=== PATIENT | female | born 1955 | race Caucasian/White ===

== ENCOUNTER 2020-02-09 06:59 | Outpatient (REF) | payer MEDICARE, SELFPAY ==
[2020-02-09 07:58] LABS: MANUAL DIFF FLAG NO
[2020-02-09 08:13] LABS: Basophils Absolute Auto 0.1 X10*3/uL (0.0-0.2); Basophils Percent Auto 1.9 % (0-2); Eosinophils Absolute Auto 0.4 X10*3/uL (0.0-0.4); Eosinophils Percent Auto 7.1 % (0-4); Hematocrit 31.7 % (37-47); Hemoglobin 10.1 g/dl (12.0-16.0); Imm Gran Abs Auto 0.01 X10*3/uL (0.00-0.03); Imm Gran Pct Auto 0.2 % (0.0-0.4); Lymphocytes Absolute Auto 1.3 X10*3/uL (1.2-4.9); Lymphocytes Percent Auto 22.6 % (20-40); Mean Corpuscular HGB Conc 31.9 g/dl (31.0-35.0); Mean Corpuscular Volume 97.2 fL (80-98); Mean Platelet Volume 11.2 fL (9.4-12.3); Monocytes Absolute Auto 0.4 X10*3/uL (0.1-1.2); Monocytes Percent Auto 7.4 % (2-11); Neutrophils Absolute Auto 3.5 X10*3/uL (2.0-8.3); Neutrophils Percent Auto 60.8 % (45-73); Platelet Count 443 X10*3/uL (160-400); Red Blood Count 3.26 X10*6/uL (4.20-5.50); Red Cell Distribution Width 15.3 % (11.0-16.0); White Blood Count 5.7 X10*3/uL (4.8-10.8)
[2020-02-09 08:55] LABS: Alanine Aminotransferase 12 U/L (0-31); Albumin Level 4.4 g/dL (3.5-5.0); Alkaline Phosphatase 62 U/L (39-117); Anion Gap 12 (12-20); Aspartate Amino Transferase 18 U/L (5-31); Bilirubin Total 0.4 mg/dL (0.0-1.0); Blood Urea Nitrogen 9 mg/dL (9-16); Calcium 9.1 mg/dL (8.4-10.2); Carbon Dioxide 28 mmol/L (22-29); Chloride 104 mmol/L (96-108); Cholesterol 190 mg/dL; Estimated Glomerular Filt Rate > 60; Glucose Random 87 mg/dL (60-115); HDL Cholesterol 76 mg/dL; LDL Cholesterol Calculated 101 mg/dl; Potassium 4.4 mmol/l (3.3-5.1); Sodium 140 mmol/L (135-145); Triglycerides 68 mg/dL
[2020-02-09 09:10] LABS: HIV AB/AG Nonreactive (Nonreactive); HIV Num 1 0.05 S/CO (0.00-0.99); ~HepC Num1 0.07 S/CO (0.00-0.79); ~Hepatitis C Antibody Nonreactive (Nonreactive)
[2020-02-09 10:18] LABS: Thyroid Stimulating Hormone 0.47 mIU/mL (0.32-4.0); Vitamin D 25-OH Total 29.5 ng/mL (>30)
== END 2020-02-09 07:00 | disposition home or self-care (01) ==
LOC: HO.LAB 06:59
PROVIDERS: Visit Provider Internal Medicine
DX: Z11.59 Encounter for screening for other viral diseases (principal); Z11.4 Encounter for screening for human immunodeficiency virus [HIV]; K21.9 Gastro-esophageal reflux disease without esophagitis; Z80.0 Family history of malignant neoplasm of digestive organs; E78.00 Pure hypercholesterolemia, unspecified; R53.81 Other malaise; R53.83 Other fatigue; M79.10 Myalgia, unspecified site; E55.9 Vitamin D deficiency, unspecified
CPT/HCPCS: 36415; 80053; 80061; 82306; 82550; 84443; 85025; 86803; 87389

== ENCOUNTER 2020-02-27 06:49 | Outpatient (REF) | payer MEDICARE, SELFPAY ==
[2020-02-27 07:52] LABS: Hemoglobin 10.6 g/dl (12.0-16.0); Imm Gran Abs Auto 0.01 X10*3/uL (0.00-0.03); Imm Gran Pct Auto 0.2 % (0.0-0.4); MANUAL DIFF FLAG SCAN; Mean Corpuscular Volume 97.1 fL (80-98); NRBC Pct Auto 0.4 /100WBC (0.0-0.2); Neutrophils Absolute Auto 3.1 X10*3/uL (2.0-8.3); SCAN SMEAR FLAG 1
[2020-02-27 07:54] LABS: Basophils Absolute Auto 0.1 X10*3/uL (0.0-0.2); Basophils Percent Auto 2.1 % (0-2); Eosinophils Absolute Auto 0.2 X10*3/uL (0.0-0.4); Eosinophils Percent Auto 3.3 % (0-4); Hematocrit 33.4 % (37-47); Immature Retic Fraction 10.9 % (3.0-15.9); Lymphocytes Absolute Auto 1.4 X10*3/uL (1.2-4.9); Mean Corpuscular HGB Conc 31.7 g/dl (31.0-35.0); Mean Corpuscular Hemoglobin 30.8 pg (27.0-33.0); Mean Platelet Volume 11.4 fL (9.4-12.3); Monocytes Absolute Auto 0.4 X10*3/uL (0.1-1.2); Monocytes Percent Auto 8.4 % (2-11); Platelet Count 451 X10*3/uL (160-400); Red Blood Count 3.44 X10*6/uL (4.20-5.50); Red Cell Distribution Width 15.3 % (11.0-16.0); Retic HGB Equivalent 31.4 pg (30.0-35.0); Reticulocyte Percent 1.8 % (0.5-1.8); Reticulocytes Absolute 0.063 X10*6/uL (0.026-0.095); White Blood Count 5.2 X10*3/uL (4.8-10.8)
[2020-02-27 08:00] LABS: Estimated Average Glucose 103 mg/dL; Hemoglobin A1c % 5.2 %
[2020-02-27 08:07] LABS: Glucose Urine UA NEG (NEG); Leukocyte Esterase Urine NEG (NEG); Nitrite Urine NEG (NEG); PH 6.5 (5.0-8.0); Specific Gravity - Urine 1.015 (1.005-1.025); Urine Blood NEG (NEG); Urine Ketones NEG (NEG); Urine Protein NEG (NEG-TRACE)
[2020-02-27 08:09] LABS: Appearance Urine CLEAR; Color Urine YELLOW
[2020-02-27 08:27] LABS: Iron 134 mcg/dL (30-160); Lactate Dehydrogenase 152 U/L (122-220); Percent Iron Saturation 39 % (15-50); Total Iron Binding Capacity 341 mcg/dL (228-428); Unsaturated Iron Binding 207 ug/dL
[2020-02-27 08:34] LABS: SLIDE REVIEW VERIFIED
[2020-02-27 08:35] LABS: Ferritin 196 ng/mL (10-250)
[2020-02-27 08:57] LABS: Folate 19.2 ng/mL (> or = 4.0); Vitamin B12 1445 pg/mL (200-900)
[2020-03-01 21:21] LABS: Prot Elec - Albumin 4.6 g/dL (3.8-4.8); Prot Elec - Alpha1 0.3 g/dL (0.2-0.3); Prot Elec - Alpha2 0.7 g/dL (0.5-0.9); Prot Elec - Beta 1 0.5 g/dL (0.4-0.6); Prot Elec - Beta 2 0.5 g/dL (0.2-0.5); Prot Elec - Gamma 0.9 g/dL (0.8-1.7); Prot Elec - Total Protein 7.4 g/dL (6.1-8.1)
[2020-03-02 09:42] LABS: IgA 476 mg/dL (70-320); IgG 899 mg/dL (600-1540); IgM 64 mg/dL (50-300)
== END 2020-02-27 06:50 | disposition home or self-care (01) ==
LOC: HO.LAB 06:49
PROVIDERS: Visit Provider Internal Medicine
DX: D64.9 Anemia, unspecified (principal); R35.1 Nocturia
CPT/HCPCS: 36415; 81003; 82607; 82728; 82746; 82784; 83036; 83540; 83615; 84155; 84165; 85025; 85045; 86334

== ENCOUNTER 2020-06-18 07:02 | Day surgery (SDC) | payer MEDICARE, SELFPAY ==
[2020-06-14 15:12] VITALS: BMI 24.9
[2020-06-18 07:14] VITALS: BP 124/58; PULSE 92; RESP 20; TEMP 36.6; O2SAT 98
--- NOTE | 2020-06-18 07:54 | HO.ANESPROP2 ---
[facility] Past Medical History Medical History (Updated 06/14/20 @ 15:12 by Mayte Raygoza) DJD (degenerative joint disease) GERD (gastroesophageal reflux disease) Hx of degenerative disc disease Weakness of both legs Family History Family history of problems with anesthesia: No Surgical History Surgical History (Updated 06/14/20 @ 15:12 by Mayte Raygoza) History of back surgery History of blepharoplasty History of loop electrical excision procedure (LEEP) Hx of colonoscopy Hx of hand surgery Hx of knee surgery History of Problems with Anesthesia: No Social History Social History (Updated 06/14/20 @ 15:07 by Mayte Raygoza) Smoking Status: Former smoker Tobacco Type: E-Cigarette Smoking Quit Date: 2009 Use of substances other than those prescribed or required for medical reasons: No Advance Directives: No Advance Directives Information Provided: No Advance Directives on File: No Meds Allergies Allergy/AdvReac Type Severity Reaction Status Date / Time Codeine Allergy Intermediate itching Uncoded 06/14/20 15:08 Home Medications Medication Instructions Recorded Confirmed Last Taken Type oxycodone-acetaminophen 1 tab PO Q4H PRN 06/14/20 06/18/20 06/18/20 History Exam Exam Date and Time: June 18, 2020 0754 Height,Weight and Vital Signs: Height 5 ft 4 in Weight 65.771 kg Last Vital Signs Temp 98 F 06/18/20 07:14 Pulse 92 06/18/20 07:14 Resp 20 06/18/20 07:14 BP 124/58 L 06/18/20 07:14 Pulse Ox 98 06/18/20 07:14 Airway Mallampati Class: III TM Dist: >3cm Neck ROM: Full Heart: RRR Lungs: CTAB Assessment and Plan Assessment Anesthesia Assessment: Anesthesia Plan Discussed and Chart Reviewed Final Anesthetic Review NPO: Yes ASA Class: II Final Preanesthetic Review: No Changes in Pt Med Stat, Meds/Allgs Chart Reviewed, Consent Obtained/Reviewed and Anes Risks/Benef Reviewed Patient Risk: Low Procedure Risk: Low Assessment/Block/Sedation in SS: Assess/Block/Sedation-SS Anesthetic Plan Anesthetic Plan: MAC: Disposition: Standard PACU
--- NOTE | 2020-06-18 08:01 | MHC.SHP ---
Pre-Procedural Eval Section B Chief Complaint: reflux disease Details of Present Illness: see H&P no changes Relevant Family History (Specify if Yes): Yes Relevant Social History: None Present Medications: see Short Stay Collaborative assessment Medical History: No relevant PMH History of Previous Operations: No relevant previous surgery Allergies: Allergies Allergy/AdvReac Type Severity Reaction Status Date / Time Codeine Allergy Intermediate itching Uncoded 06/14/20 15:08 Review of Systems Sugical H&P ROS: Negative: Constitution, Cardiovascular, Respiratory, Neurological, Psychiatric, Hem-Onc, Allergic/Immunologic, Gastrointestinal, Genitourinary, Musculoskeletal, Integumentary, Endocrine and Eyes/Ears/Nose/Throat Exam Surgical H&P Exam: Normal: HEENT, Normal: Heart, Normal: Lungs, Normal: Extremities, Normal: Abdomen, Normal: Skin and Normal: Neurological Plan Diagnosis/Plan: Unchanged I have reviewed the history and physical and performed a pertinent physical examination on my patient. No changes have occurred unless specified.
[2020-06-18] MEDS: Lactated Ringers 1,000 ML 100 ML IVCONT (08:04)
--- NOTE | 2020-06-18 08:21 | PM.OP ---
Brief Operative Note Date of Service: 06/18/20 Pre-op diagnosis: gerd Post-op diagnosis: same Procedure: egd Surgeon: Gunner العلي Anesthesia: MAC Estimated blood loss (mL): 3 Pathology: other (bxs antrum egj) Condition: stable Disposition: PACU
[2020-06-18 08:25] VITALS: BP 106/62; PULSE 85; RESP 14; TEMP 36.5; O2SAT 100
[2020-06-18 08:40] VITALS: BP 132/63; PULSE 81; RESP 18; O2SAT 100
--- NOTE | 2020-06-18 09:09 | OP_ITS ---
SURGEON: Gunner العلي MD INDICATIONS: Gastroesophageal reflux disease. PREOPERATIVE DIAGNOSIS: POSTOPERATIVE DIAGNOSIS: PROCEDURE PERFORMED: Upper endoscopy with biopsy. ESTIMATED BLOOD LOSS: COMPLICATIONS: ANESTHESIA: ASSISTANTS: SPECIMENS: MEDICATIONS: Monitored anesthesia care. DESCRIPTION OF PROCEDURE: History and physical performed. The risks and benefits of the procedure were explained to the patient. Informed consent was obtained. The patient was placed in the left lateral decubitus position. The Olympus video gastroscope was introduced into the esophagus, stomach, and duodenum. Examination was performed and the scope was removed. She tolerated the procedure well and was taken to recovery area in stable condition. FINDINGS: ESOPHAGUS: The esophagus showed a slightly irregular EG junction. There was no esophagitis. STOMACH: Stomach showed no evidence of masses, ulcers, or polyps. DUODENUM: The bulb and second portion were normal. Biopsies were obtained from the antrum and the EG junction. IMPRESSION: Gastroesophageal reflux disease, normal upper endoscopy. RECOMMENDATION: Follow up the biopsy results. MD JAGRUTI Walters/MODL / [id number]
== END 2020-06-18 09:18 | disposition home or self-care (01) ==
PROVIDERS: PCP Internal Medicine; Visit Provider Internal Medicine Gastroenterology
PROC: 0DJ08ZZ Inspection of Upper Intestinal Tract, Via Natural or Artificial Opening Endoscopic (ICD-10-PCS; CPT 43235; principal; 2020-06-18 08:10)
DX: K21.9 Gastro-esophageal reflux disease without esophagitis (principal); Z80.0 Family history of malignant neoplasm of digestive organs; F17.210 Nicotine dependence, cigarettes, uncomplicated; Z79.899 Other long term (current) drug therapy
CPT/HCPCS: 43239; 88305; 88342

== ENCOUNTER 2021-01-26 08:09 | Outpatient (REF) | payer MEDICARE, SELFPAY ==
--- NOTE | ~2021-01-26 | MM_ITS ---
EXAMINATION: MM SCREENING DIGITAL BREAST TOMOSYNTHESIS, BILATERAL CLINICAL INFORMATION: Screening. Asymptomatic. The lifetime risk of breast cancer based on the Tyrer-Cuzick Model is 8%. COMPARISON: Mammography: 10/31/2019, 08/12/2018, 06/22/2017 TECHNIQUE: Digital breast tomosynthesis is performed in both the craniocaudal and mediolateral oblique views along with computer-aided detection (CAD). Synthesized 2D images are generated from the tomosynthesis. Additional left CC view is provided. FINDINGS: There are scattered areas of fibroglandular density (ACR BI-RADS breast composition Category b). There are no significant masses, abnormal calcifications, or other abnormalities. Parenchymal pattern is similar to prior studies. There are intramammary nodes again seen outer left breast and posterior central left breast on the CC view. No developing density. MM/MM tomosynthesis screening BI IMPRESSION: No mammographic evidence of malignancy. ASSESSMENT: BI-RADS 2: Benign RECOMMENDATION: Routine annual mammography screening. This patient's information was entered into a reminder system with a target due date for their next mammogram.
== END 2021-01-26 08:10 | disposition home or self-care (01) ==
LOC: HO.MAMMO 08:09
PROVIDERS: PCP Internal Medicine; Visit Provider Internal Medicine
DX: Z12.31 Encounter for screening mammogram for malignant neoplasm of breast (principal)
CPT/HCPCS: 77063; 77067

== ENCOUNTER → 2021-08-02 09:03 | Outpatient (BNVA) | payer MEDICARE, SELFPAY | PROVIDERS: PCP Internal Medicine; Visit Provider Nurse Practitioner Family | DX: M96.1 Postlaminectomy syndrome, not elsewhere classified (principal); M54.16 Radiculopathy, lumbar region; Z79.891 Long term (current) use of opiate analgesic | CPT/HCPCS: 99202 ==

== ENCOUNTER 2022-01-27 08:25 | Outpatient (REF) | payer MEDICARE, SELFPAY ==
--- NOTE | ~2022-01-27 | MM_ITS ---
EXAMINATION: MM SCREENING DIGITAL BREAST TOMOSYNTHESIS, BILATERAL CLINICAL INFORMATION: Screening. Asymptomatic. The lifetime risk of breast cancer based on the Tyrer-Cuzick Model is 6%. COMPARISON: Mammography: 01/26/2021, 10/31/2019, 08/12/2018 TECHNIQUE: Digital breast tomosynthesis is performed in both the craniocaudal and mediolateral oblique views along with computer-aided detection (CAD). Synthesized 2D images are generated from the tomosynthesis. FINDINGS: There are scattered areas of fibroglandular density (ACR BI-RADS breast composition Category b). There are no significant masses, abnormal calcifications, or other abnormalities. Parenchymal pattern is similar to prior studies. There is no developing density or architectural abnormality. The axilla and skin contours are unremarkable. No significant changes. MM/MM tomosynthesis screening BI IMPRESSION: No significant changes from prior exams. ASSESSMENT: BI-RADS 2: Benign RECOMMENDATION: Routine annual mammography screening. This patient's information was entered into a reminder system with a target due date for their next mammogram.
== END 2022-01-27 08:26 | disposition home or self-care (01) ==
LOC: HO.MAMMO 08:25
PROVIDERS: PCP Internal Medicine; Visit Provider Internal Medicine
DX: Z12.31 Encounter for screening mammogram for malignant neoplasm of breast (principal)
CPT/HCPCS: 77063; 77067

== ENCOUNTER 2022-02-27 09:27 | Outpatient (REF) | payer MEDICARE, SELFPAY ==
--- NOTE | ~2022-02-27 | US_ITS ---
EXAMINATION: US DIAGNOSTIC ULTRASOUND BREAST, RIGHT CLINICAL INFORMATION: Palpable concern noted by patient lower outer right breast with intermittent tenderness. TC score 6%. No known family history breast cancer. COMPARISON: Mammography 01/27/2022, 01/26/2021, 10/31/2019. TECHNIQUE: Ultrasound right breast is targeted to the areas of clinical concern 5:00 through 9:00 position using grayscale imaging without and with harmonics and color Doppler. FINDINGS: There is no focal suspicious finding. There is no cystic or solid mass, architectural abnormality, duct ectasia, or edema in the soft tissue planes. There is no mammographic correlate on recent imaging. Results are discussed with the patient at time of visit. US/US breast RT limited IMPRESSION: Unremarkable right breast ultrasound. ASSESSMENT: BI-RADS 1: Negative RECOMMENDATION: 1. Patient should be managed based on the clinical impression. If clinically indicated, further evaluation may be considered with surgical consult. Decision to proceed with biopsy should be based on clinical grounds and degree of clinical concern. 2. Otherwise, routine annual screening mammography. This patient's information was entered into a reminder system with a target due date for their next mammogram.
== END 2022-02-27 09:28 | disposition home or self-care (01) ==
LOC: HO.MAMMO 09:27
PROVIDERS: PCP Internal Medicine; Visit Provider Internal Medicine
DX: N63.15 Unspecified lump in the right breast, overlapping quadrants (principal); N64.4 Mastodynia
CPT/HCPCS: 76642

== ENCOUNTER → 2022-03-23 11:29 | Outpatient (BNVA) | payer MEDICARE, MEDICAID, SELFPAY | PROVIDERS: PCP Internal Medicine; Visit Provider Surgery | DX: N64.4 Mastodynia (principal); N63.15 Unspecified lump in the right breast, overlapping quadrants | CPT/HCPCS: 99202 ==

== ENCOUNTER 2023-03-13 08:12 | Outpatient (REF) | payer MEDICARE, MEDICAID, SELFPAY | END 2023-03-13 08:13 | disposition home or self-care (01) | LOC: HO.MAMMO 08:12 | PROVIDERS: PCP Internal Medicine; Visit Provider Internal Medicine | DX: Z12.31 Encounter for screening mammogram for malignant neoplasm of breast (principal) | CPT/HCPCS: 77063; 77067 ==

== ENCOUNTER → 2023-03-13 08:15 | Outpatient (BNV) | payer MEDICARE, MEDICAID, SELFPAY | PROVIDERS: PCP Internal Medicine; Visit Provider Radiology Diagnostic Radiology | DX: Z12.31 Encounter for screening mammogram for malignant neoplasm of breast (principal) | CPT/HCPCS: 77063; 77067 ==

== ENCOUNTER 2023-05-23 11:17 | Outpatient (AMB) | payer MEDICARE, MEDICAID, SELFPAY ==
--- NOTE | 2023-05-23 11:24 | MHC.OFFVIS ---
Intake Vital Signs 05/23/23 11:27 Height 5 ft 3 in Weight 127 lb BMI 22.5 BP 130/70 Intake Visit Reasons: Annual Intake Note: no concerns Hand Binder Cutter Required: No Information Interpreted: non-clinical & clinical Game Bird Farmer: Game Bird Farmer Present (Elena MALIK) Accompanied by: Self / Same As Patient Allergies Codeine Allergy (Intermediate, Uncoded 05/23/23 11:28) itching Post menopausal: Yes HPI HPI Comments History of Present Illness Details Presenting for annual exam. No complaints. 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 GERD (gastroesophageal reflux disease) Hx of degenerative disc disease DJD (degenerative joint disease) Weakness of both legs Surgical History History of loop electrical excision procedure (LEEP) History of blepharoplasty Hx of hand surgery Hx of knee surgery Hx of colonoscopy History of back surgery Family History Mother Esophagus cancer Sister Lung cancer Social History (Updated 05/23/23 @ 11:35 by Elena Aldridge CMA) Household Members: Spouse Housing: House Alcohol intake: current Alcohol intake frequency: holidays/special occasions only Patient Tobacco Use Status: Former Tobacco user Years Smoked: 10 Current occupational status: disabled Sexually active: Yes Sexual orientation: Straight/Heterosexual Gender identity: Female Female Reproductive History Menstrual Age of Menarche: 18 Total pregnancies: 3 Full term: 3 Number of Living Children: 2 Date of last pap smear: 09/15/19 Date of Mammogram: 03/13/23 Review of Systems Const All systems reviewed & are unremarkable except as noted in HPI and below Card Reports as per HPI Resp Reports as per HPI GI Reports as per HPI and Reports no additional complaints Reports as per HPI Physical Exam Vital Signs: Last Vital Signs BP 130/70 05/23/23 11:27 BMI result Body Mass Index 22.5 Const General: cooperative, healthy appearing and comfortable Chest Chest palpation & inspection: normal inspection of the chest and normal palpation of entire chest wall Breast/axilla inspection: normal inspection of the breasts and normal inspection of the axillae Breast/axilla palpation: normal palpation of the breasts, normal palpation of the axillae and no axillary lymphadenopathy Resp Effort & Inspection: normal respiratory effort Auscultation: clear to auscultation bilaterally Percussion: percussion normal Cardio Palpation: normal PMI Rate: regular rate Rhythm: regular rhythm Heart sounds: no murmurs and no rubs Peripheral pulses: Peripheral pulses 2+ throughout GI Inspection: Yes normal to inspection Palpation (GI): Soft to palpation, nontender, no guarding, not rigid and No hepatosplenomegaly present Percussion: Yes normal to percussion Auscultation: normal bowel sounds Rectal Exam - Female: deferred General: Yes bladder normal to palpation External Female Exam: No lesion Speculum Exam - Vagina: normal appearance of the vagina, normal palpation, normal vaginal discharge and not erythematous Speculum Exam - Cervix: normal appearance of the cervix and normal palpation Bimanual exam- vagina & uterus: normal bimanual exam, normal palpation, uterine size normal, bladder normal to palpation, consistency normal and normal palpation Bimanual Exam- Adnexa, other: normal adnexae, no masses and no tenderness Assessment & Plan Assessment & Plan (1) Well woman exam: Code(s): Z01.419 - Encounter for gynecological examination (general) (routine) without abnormal findings Plan: Co testing not indicated since the patient 's age is above 65 with no history of abnormal Pap smears last 25 years. Counseled the patient about the recommended dietary allowance of 1200 mg of Calcium & 800 IU of vitamin D. Instructions given the patient to schedule next screen Mammogram in 03/09. Will order DEXA scan . The patient was instructed to perform monthly self-breast exams and to schedule a 2 week DEXA scan follow-up appointment and an annual exam in a year; All questions answered and the patient verbalized understanding. Orders: Orders XR DEXA axial skeleton Today Z78.0 - Asymptomatic menopausal state Coding Level of Care Code Est Pt Prev Care >65y(20323) Diagnoses Well woman exam Z01.419
[2023-05-23 11:27] VITALS: BP 130/70; BMI 22.5
== END 2023-05-23 11:51 | disposition home or self-care (01) ==
LOC: HO.HWS 11:17
PROVIDERS: PCP Internal Medicine; Visit Provider Obstetrics & Gynecology
DX: Z01.419 Encounter for gynecological examination (general) (routine) without abnormal findings (principal)
CPT/HCPCS: 99397

== ENCOUNTER → 2023-05-23 11:17 | Outpatient (BNVA) | payer MEDICARE, MEDICAID, SELFPAY | PROVIDERS: PCP Internal Medicine; Visit Provider Obstetrics & Gynecology | DX: Z01.419 Encounter for gynecological examination (general) (routine) without abnormal findings (principal) | CPT/HCPCS: 99397 ==

== ENCOUNTER 2023-06-07 08:25 | Outpatient (REF) | payer MEDICARE, MEDICAID, SELFPAY ==
--- NOTE | ~2023-06-07 | MM_ITS ---
EXAMINATION: BONE DENSITOMETRY CLINICAL INDICATION: Menopause. COMPARISON: This is the patient's baseline examination. TECHNIQUE: Using a [employer] DXA System (software version: 13.1) manufactured by [employer], dual-energy x-ray absorptiometry was performed of the lumbar spine and left hip. The images are of good technical quality. Summary results are attached. FINDINGS: LEFT FEMUR, NECK: BMD 0.749 g/cm2, Z-score -0.4, T-score -2.1, osteopenia. LEFT FEMUR, TOTAL: BMD 0.777 g/cm2, Z-score -0.4, T-score -1.8, osteopenia. AP SPINE L1-L4: BMD 0.848 g/cm2, Z-score -0.9, T-score -2.8, osteoporosis. IDENTIFIED RISK FACTORS: Early menopause, height loss, rheumatoid arthritis, secondary osteoporosis. HISTORY OF FRACTURE: None listed. MEDICATIONS: Multivitamin. MM/XR DEXA axial skeleton IMPRESSION: 1. DIAGNOSIS: Osteoporosis based on the lowest T-score value of -2.8 in the lumbar spine applying World Health Organization criteria. 2. 10-YEAR FRACTURE RISK PREDICTION, FRAX: According to the guidelines, FRAX calculation should only be performed on patients in the osteopenia bone density category. Therefore, FRAX was not performed on this patient. 3. Treatment Recommendations: NOF guidelines recommend consideration for treatment in postmenopausal women and men age 50 and older presenting with the following: -A hip or vertebral (clinical or morphometric) fracture. -T-score less than or equal to -2.5 at the femoral neck or spine after appropriate evaluation to exclude secondary causes. -Low bone mass at the hip or spine and a 10-year fracture probability by FRAX of greater than or equal to 3% for hip fracture or greater than or equal to 20% for major osteoporotic fracture based on the [place] adapted WHO algorithm. 4. Other Recommendations: All treatment decisions require clinical judgment and consideration of individual patient factors, including patient preferences, comorbidities, previous drug use, risk factors not captured in the FRAX model (e.g. frailty, falls, vitamin D deficiency, increased bone turnover, interval significant decline in bone density) and possible under or overestimation of fracture risk by FRAX. Additional medical evaluation for secondary cause of low bone mineral density may be appropriate. FUTURE SCAN RECOMMENDATION: People with diagnosed cases of osteoporosis or at high risk for fracture should have regular bone mineral density tests. For patients eligible for Medicare, routine testing is allowed once every 2 years. The testing frequency can be increased to one year for patients who have rapidly progressing disease, those who are receiving or discontinuing medical therapy to restore bone mass, or have additional risk factors.
== END 2023-06-07 08:26 | disposition home or self-care (01) ==
LOC: HO.MAMMO 08:25
PROVIDERS: PCP Internal Medicine; Visit Provider Obstetrics & Gynecology
DX: Z13.820 Encounter for screening for osteoporosis (principal); M06.9 Rheumatoid arthritis, unspecified; Z78.0 Asymptomatic menopausal state
CPT/HCPCS: 77080

== ENCOUNTER 2023-09-12 10:37 | Outpatient (AMB) | payer MEDICARE, SELFPAY ==
--- NOTE | 2023-09-12 10:45 | MHC.OFFVIS ---
Vital Signs 09/12/23 10:47 Height 5 ft 3 in Weight 125 lb 10.616 oz BMI 22.3 BP 124/66 Intake Visit Reasons: Dexa results Allergies Codeine Allergy (Intermediate, Uncoded 05/23/23 11:28) itching HPI Comments Details: The patient is presenting for follow up regarding DEXA scan results. T score @ spine and femoral Neck respectively were=-2.8 /-2.1 . 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 GERD (gastroesophageal reflux disease) Hx of degenerative disc disease DJD (degenerative joint disease) Weakness of both legs Surgical History History of loop electrical excision procedure (LEEP) History of blepharoplasty Hx of hand surgery Hx of knee surgery Hx of colonoscopy History of back surgery Family History Mother Esophagus cancer Sister Lung cancer Social History Household Members: Spouse Housing: House Alcohol intake: current Alcohol intake frequency: holidays/special occasions only Patient Tobacco Use Status: Former Tobacco user Years Smoked: 10 Current occupational status: disabled Sexual orientation: Straight/Heterosexual Gender identity: Female Female Reproductive History Menstrual Age of Menarche: 18 Review of Systems Const All systems reviewed & are unremarkable except as noted in HPI and below Reports as per HPI and Reports no additional complaints GI Reports no additional complaints Reports no additional complaints Physical Exam Vital Signs: Last Vital Signs BP 124/66 09/12/23 10:47 BMI result Body Mass Index 22.3 Assessment & Plan Assessment & Plan (1) Osteoporosis: Code(s): M81.0 - Age-related osteoporosis without current pathological fracture Category: Medical Plan: Discussed with the patient the DEXA results and FRAX risk. Discussed with the patient all the options for therapeutic treatment including mechanism of actions, risks and benefits of Bisphosphonates (benefits=osteoporosis prevention; Risks=GERD, osteonecrosis of jaw), Raloxifene, (benefits=osteoporosis prevention and breast ca risk reduction; Risks=DVT), Forteo. The patient decided to go ahead with Fosamax so instructions given to the pt on how to take the med: NPO x 30 minutes, large amount of water , stay upright x 30 minutes, inform her dentist of alendronate intake in case invasive dental work. Also Caltrate+D 600 mg x2/day was recommended to the patient. Medications: New alendronate 70 mg PO QWEEK 14 tabs 3RF Coding Level of Care Code Est Pt Level 3 (47583) Diagnoses Osteoporosis M81.0
[2023-09-12 10:47] VITALS: BP 124/66; BMI 22.3
== END 2023-09-12 12:16 | disposition home or self-care (01) ==
PROVIDERS: PCP Internal Medicine; Visit Provider Obstetrics & Gynecology
DX: M81.0 Age-related osteoporosis without current pathological fracture (principal)
CPT/HCPCS: 99213

== ENCOUNTER → 2023-09-12 10:37 | Outpatient (BNVA) | payer MEDICARE, MEDICAID, SELFPAY | PROVIDERS: PCP Internal Medicine; Visit Provider Obstetrics & Gynecology | DX: M81.0 Age-related osteoporosis without current pathological fracture (principal) | CPT/HCPCS: 99212 ==

== ENCOUNTER 2024-04-12 09:11 | Outpatient (REF) | payer MEDICARE, SELFPAY | END 2024-04-12 09:12 | disposition home or self-care (01) | LOC: HO.MAMMO 09:11 | PROVIDERS: PCP Internal Medicine; Visit Provider Internal Medicine | DX: Z12.31 Encounter for screening mammogram for malignant neoplasm of breast (principal) | CPT/HCPCS: 77063; 77067 ==

== ENCOUNTER → 2024-04-12 09:15 | Outpatient (BNV) | payer MEDICARE, SELFPAY | PROVIDERS: PCP Internal Medicine; Visit Provider Internal Medicine | DX: Z12.31 Encounter for screening mammogram for malignant neoplasm of breast (principal) | CPT/HCPCS: 77063; 77067 ==

== ENCOUNTER 2024-07-10 08:24 | Outpatient (REF) | payer MEDICARE, SELFPAY ==
--- NOTE | ~2024-07-10 | MR_ITS ---
EXAMINATION: MR BREAST WITHOUT AND WITH CONTRAST, BILATERAL CLINICAL INFORMATION: Right breast soreness constant for 3 years. 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 COMPARISON: Mammography March and October 2019 TECHNIQUE: MR imaging of the breast was performed using T1, T2 and fat saturated techniques. Dynamic multiphase imaging was also performed after administration of intravenous gadolinium contrast agent. Computer generated 3-D reconstruction was performed. FINDINGS: There is scattered fibroglandular breast tissue with mild background enhancement. LEFT BREAST: No suspicious enhancing masses or areas of nonmass enhancement. No architectural distortion. Susceptibility artifact from marker clip. There is a normal-appearing intramammary lymph node in the lower outer left breast series 1058 image 112/144 stable and seen on prior mammography dating back to 2019. No internal mammary or axillary adenopathy. RIGHT BREAST: No suspicious enhancing masses or areas of nonmass enhancement. No architectural distortion. No internal mammary or axillary adenopathy. Limited views of the chest and abdomen are unremarkable. MR/MR breast BI wo/w con IMPRESSION: Patient describes right breast pain. A diagnostic mammogram and ultrasound should be performed if there is focal pain. No MRI evidence of malignancy bilateral breasts. ASSESSMENT: LEFT BREAST: BI-RADS 2 benign. RIGHT BREAST: BI-RADS 1-Negative RECOMMENDATIONS: Yearly screening mammography Electronically signed by: Mary Salinas DO 07/11/2024 05:41 PM EDT
--- OUTSIDE RECORDS SUMMARY | 2024-07-10 08:51 | XMS_ITS ---
Author Organization [facility] Address [address] [place] [address] Care Team Providers Care Art Psychotherapist Name Role Phone Enio Morales MD Primary Care Provider Gunner Sebastian Jr Unavailable Allergies Allergen (clinical drug ingredient) Drug/Non Drug Allergy documented on EMR Reaction Allergy Type Onset Date Status Codeine Phosphate Unknown Drug Allergy Active REASON FOR VISIT Patient presents today for a colon screening Medications Medication SIG (Take, Route, Frequency, Duration) Notes Start Date End Date Status Tylenol 1 tablet as needed a s needed Active Womens 50+ Multi Vitamin - as directed Orally Active oxyCODONE-Acetaminophen Active Vitamin C 1000 MG 1 tablet Orally Once a day Active Epoetin Rito 29343 UNIT/ML as directed Injection Active amLODIPine Besylate 5 MG Oral for 90 Days Active Fish Oil 1000 MG 1 capsule Orally Thr ee times a day Active oxyCODONE-Acetaminophen 10-325 MG TAKE 1 TABLET BY MOUTH EVERY 4 HOURS NEEDED FOR PAIN. NOT TO EXCEED 6 TABLETS DAILY. PARTIALFILLOK Oral for 28 Days Active Magnesium 400 MG as directed Orally Active diphenhydrAMINE HCl 25 MG 1 capsule at b edtime as needed Orally Once a day for 30 day(s) 07/07/2024 Active Pantoprazole Sodium 40 MG Oral for 90 Days Active buPROPion HCl ER (XL) 300 MG TAKE 1 TABLET BY MOUTH EVERY MORNING. TOTAL OF 450MG DAILY Oral for 90 Days Active Social History Tobacco Use: Social History Observation Description Date Details (start date - stop date) Former Smoker NA - NA Tobacco Control (Standard) Question Answer Notes Tobacco use: Former smoker Vital Signs Temperature 96.5 degrees Fahrenheit 07/08/19 25 Blood pressure systolic 001 mm Hg 03/24/20 25 Blood pressure diastolic 01 mm Hg 025 Height 65 in 07/07/2024 Weight 135 lbs 07/07/2024 BMI 22.46 kg/m2 07/07/2024 Encounters Encounter Location Date Provider Diagnosis [facility] [address] [place] [address] 07/07/2024 Gunner العلي Jr Colon cancer screening Z12.11 Assessments Encounter Date Diagnosis (ICD Code) Assessment Notes Treatment Notes Treatment Clinical Notes Section Notes 07/07/2024 Colon cancer screening (ICD-10 - Z12.11) Plan Of Treatment Future Test Test Name Order Date COLONOSCOPY 07/07/2024 Next Appt Details Provider Name:Gunner contreras Jr, 08/26/2024 07:30:00 AM, [address] [place] [address], [id number], Progress Notes * KING HEWITT MDOB:[birth year] (69 yo F)Acc No.[id number]:07/07/2024 Progress Notes 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 Patient presents today for a colon screening. * Medical History:?Colon polyp s, tubular adenoma x1 on colonoscopy 11/02, five-year followup 11/07, degenerative joint disease, Cervical cancer, Disc disease, Bone marrow cancer, Myelodysplasia, Thrombocytosis. * Surgical History:?eye surger y , knee surgery , hand surgery , back surgery, recent infection, currently on antibiotics 04/19/2020. * Family History:?Father: dece ased.?Mother: , esophagus cancer.? The patient has a negative family history for colon cancer.? No family history of liver cancer. Mother and sister had esophageal cancer. * Social History:?Tobacco Use:?Tobacco Control (Standard)?Tobacco use:?Former smoker.?Drugs/Alcohol:?Alcohol Screen?Points: 1, Interpretation: Negative.?Miscellaneous:?Marital status: . Occupation: disabled. * Medications:?Taking Epoetin Rito 39714 UNIT/ML Solution as directed Injection , Taking Fish Oil 1000 MG Capsule 1 capsule Orally Three times a day , Taking Magnesium 400 MG Capsule as directed Orally , Taking Womens 50+ Multi Vitamin - Tablet as directed Orally , Taking oxyCODONE-Acetaminophen , Taking Vitamin C 1000 MG Tablet 1 tablet Orally Once a day , Taking Tylenol 1 tablet as needed as needed , Taking diphenhydrAMINE HCl 25 MG Capsule 1 capsule at bedtime as needed Orally Once a day , Taking Pantoprazole Sodium 40 MG Tablet Delayed Release Oral , Taking buPROPion HCl ER (XL) 300 MG Tablet Extended Release 24 Hour TAKE 1 TABLET BY MOUTH EVERY MORNING. TOTAL OF 450MG DAILY Oral , Taking amLODIPine Besylate 5 MG Tablet Oral , Taking oxyCODONE-Acetaminophen 10-325 MG Tablet TAKE 1 TABLET BY MOUTH EVERY 4 HOURS NEEDED FOR PAIN. NOT TO EXCEED 6 TABLETS DAILY. PARTIALFILLOK Oral , Discontinued Cephalexin , Medication List reviewed and reconciled with the patient * Allergies:?Codeine Phosphate . Objective: * Vitals:?Wt: 135 lbs, Ht: 65 in, BMI: 22.46 Index, BP: 001/01 mm Hg, Temp: 96.5, Wt-k.24. Assessment: * Assessment: 1.?Colon cancer screening - Z12.11 (Primary)??? Plan: * Treatment: * Preventive Medicine:? ??Urinary Incontinence:?Urinary Incontinence?Assessment:?Absent,?Plan of care documented:?No, reason not specified.? ??Screenings:?Fall Risk Screening?Fall Risk Assessment:?No falls in the past year,?Screening:?No falls in the past year,?Assessment:?Not performed, no reason specified,?Plan of Care:?Not documented, no reason specified.? * * The named appointment provid er may or may not be the originator of this progress note, and it is not deemed complete until electronically signed by the appointment provider. Sign off status: Pending * Provider:?Gunner العلي MD Date:?0 07/07/2024 Generated for Carlos loving/Nas/eTransmitting on:?07/10/2024 08:51 AM EDT
--- OUTSIDE RECORDS SUMMARY | 2024-07-10 08:51 | XMS_ITS | Patient Health Record ---
Author Organization [facility] Address [address] [place] [address] Care Team Providers Care Supervisor Production Department Name Role Phone Enio Morales MD Primary Care Provider Gunner Sebastian Jr Unavailable Allergies Allergen (clinical drug ingredient) Drug/Non Drug Allergy documented on EMR Reaction Allergy Type Onset Date Status Codeine Phosphate Unknown Drug Allergy Active Reason For Referral No Information Medications Medication SIG (Take, Route, Frequency, Duration) Notes Start Date End Date Status Tylenol 1 tablet as needed a s needed Active diphenhydrAMINE HCl 25 MG 1 capsule at b edtime as needed Orally Once a day for 30 day(s) 07/07/2024 Active Pantoprazole Sodium 40 MG Oral for 90 Days Active buPROPion HCl ER (XL) 300 MG TAKE 1 TABLET BY MOUTH EVERY MORNING. TOTAL OF 450MG DAILY Oral for 90 Days Active Epoetin Rito 16095 UNIT/ML as directed Injection Active amLODIPine Besylate 5 MG Oral for 90 Days Active Fish Oil 1000 MG 1 capsule Orally Thr ee times a day Active oxyCODONE-Acetaminophen 10-325 MG TAKE 1 TABLET BY MOUTH EVERY 4 HOURS NEEDED FOR PAIN. NOT TO EXCEED 6 TABLETS DAILY. PARTIALFILLOK Oral for 28 Days Active Magnesium 400 MG as directed Orally Active Womens 50+ Multi Vitamin - as directed Orally Active oxyCODONE-Acetaminophen Active Vitamin C 1000 MG 1 tablet Orally Once a day Active Immunizations Vaccine Route Administration Date Status Comme nts Influenza Unknown 02/18/2019 Administered Influenza Unknown 12/16/2019 Administered Influenza Unknown 01/29/2024 Administered Social History Tobacco Use: Social History Observation Description Date Details (start date - stop date) Former Smoker NA - NA Tobacco Control (Standard) Question Answer Notes Tobacco use: Former smoker Problems Problem Type SNOMED Code ICD Code Onset Dates Problem Status W/U Status Risk Notes Problem 066795667 Colon cancer screening (Z12.11) Active confirmed Problem 528024523 Gastroesophageal reflux disease, unspecified whether esophagitis present (K21.9) Active confirmed Problem [id number] FH: esophageal cancer (Z80.0) Active confirmed Vital Signs Temperature 96.5 degrees Fahrenheit 07/07/2024 Blood pressure diastolic 01 mm Hg 07/07/2024 Height 65 in 07/07/2024 Blood pressure systolic 001 mm Hg 07/07/2024 Weight 135 lbs 07/07/2024 BMI 22.46 kg/m2 07/07/2024 Encounters Encounter Location Date Provider Diagnosis [facility] [address] [place] [address] 07/07/2024 Gunner العلي Jr Colon cancer screening Z12.11 Assessments Encounter Date Diagnosis (ICD Code) Assessment Notes Treatment Notes Treatment Clinical Notes Section Notes 07/07/2024 Colon cancer screening (ICD-10 - Z12.11) Plan Of Treatment Future Test Test Name Order Date COLONOSCOPY 07/02/2019 UPPER GI ENDOSCOPY 05/14/2020 COLONOSCOPY 07/07/2024 Next Appt Details Provider Name:Gunner contreras Jr, 08/26/2024 07:30:00 AM, [address] [place] [address] , [place], [place], [id number], Insurance Providers Payer Name Payer Address Payer Phone Subscriber Number Group Number Insured Name Patient Relationship to Insured Coverage Start Date Coverage End Date MEDICARE OF [place] [address] JOSE ALFREDO AREVALO [id number] KING HEWITT Self - patient is the insured MEDEX ATTN CLAIMS [address] [place] [address] [phone] [id number] KING HEWITT Self - patient is the insured Medical (General) History Medical History History ICD Code colon polyps, tubular adenom a x1 on colonoscopy 11/02, five-year followup 11/07 degenerative joint disease cervical cancer disc disease bone marrow cancer myelodysplasia thrombocytosis Surgical History Surgery Date(Month/Year) back surgery, recent infection, currentl y on antibiotics 04/19/2020 hand surgery knee surgery eye surgery
--- OUTSIDE RECORDS SUMMARY | 2024-07-10 08:51 | XMS_ITS | Clinical Summary ---
Author Organization [facility] Address [address] [place] [address] Care Team Providers Care Petroleum Geology Faculty Member Name Role Phone Enio Morales MD Primary Care Provider [phone] Allergies Active Allergy Reactions Criticality Noted Date Comments Codeine Itching Low 04/02/2020 Medications Medication Sig Dispensed Refills Start Date End Date Status FLUoxetine (PROzac) 20 MG capsule 10/03/2019 Active oxyCODONE-acetaminop hen (PERCOCET) 10-325 mg per tablet TK 1 T PO Q 4 H PRF PAIN 10/20/2019 Active Multiple Vitamin tablet Take 1 tablet by mouth daily. Active omega-3 fatty acids (FISH OIL) 1000 MG Cap capsule Take 1,000 mg by mouth daily. Active vitamin E 400 UNIT capsule Take 400 Units by mouth daily. Active cephalexin (KEFLEX) 500 MG capsuleIndications:S acroiliitis Take 1 capsule (500 mg total) by mouth 3 (three) times a day. 42 capsule 04/19/2020 Active oxyCODONE (ROXICODONE) 5 MG immediate release tabletIndications:Sa croiliitis Take 1 tablet (5 mg total) by mouth 4 times daily (every 6 hours) as needed for moderate pain or severe pain. Max Daily Amount: 20 mg 42 tablet 04/22/2020 Active acetaminophen (TYLENOL) 325 MG tablet Take 325 mg by mouth as needed for mild pain. Active Active Problems Problem Noted Date Diagnosed Date Spondylolisthesis of lumbar region 08/02/2020 Stenosis of lateral recess of lumbar spine 08/02 Lumbar foraminal stenosis 08/02/2020 Postoperative visit 06/12/2020 Sacroiliitis 03/16/2020 Social History Tobacco Use Types Packs/Day Years Used Date Smoking Tobacco: Former Smokeless Tobacco: Never Comments:on and off / recent ly e cigarettes frequently Alcohol Use Standard Drinks/Week Comments Not Currently 0 (1 standard drink = 0.6 oz pur e alcohol) 1wine q2mos Sex and Gender Information Value Date Recorded Sex Assigned at Not on file Gender Identity Not on file Sexual Orientation Not on file Last Filed Vital Signs Vital Sign Reading Time Taken Comments Blood Pressure 110/70 08/02/2020 10:01 AM EDT Pulse 83 08/02/2020 10:01 AM EDT Temperature 36.7 ??C (98.1 ??F) 08/02/2020 10:01 AM E DT Respiratory Rate 27 04/19/2020 11:00 AM EST Oxygen Saturation 93% 08/02/2020 10:01 AM EDT Inhaled Oxygen Concentration - - Weight 65.8 kg (145 lb) 08/02/2020 10:01 AM EDT verbal given Height 162.6 cm (5' 4 ) 08/02/2020 10:01 AM EDT verbal given Body Mass Index 24.89 08/02/2020 10:01 AM EDT Plan of Treatment Health Maintenance Due Date Last Done Comments Hepatitis C Virus Screening 1957 DTaP/Tdap/Td Vaccines (1 - Tdap) 1976 Mammogram 1997 Colonoscopy 2002 Pneumococcal Vaccines 50+ (1 of 1 - PCV) 2007 Zoster (Shingles) Vaccine (1 of 2) 2007 DXA Bone Density (Females,Ag es 65 and older) 2022 Influenza Vaccine 11/15/2023 COVID-19 Vaccine ( - 2023-2 5 season) 2023 RSV Vaccine 60 years and old er and Patients (1 - 1-dose 75+ series) 2032 Hepatitis B Vaccines Aged Out No long er eligible based on patient's age to complete this topic Medical Devices Implanted Type Area Teradata Solution Architect Device Identifier Shelf Expiration Date Model / Serial / Lot [id number] Filler Bone Void 5ml Dbx Putty Nonst - [id number] Implanted:Qt y: 1 on 04/19/2020 by Alvin Real MD at [facility] Void Filler Right: Sacrum MUSCULOSKELETAL TRANSPLANT FOU 01/13/2021 [id number] / [id number] / Si Joint Threaded Device Implanted:Qt y: 1 on 04/19/2020 by Alvin Real MD at [facility] Right: Sacrum [employer] MINIMALLY INVASIVE T 02/27/2028 [id number] / / [id number] Threaded Device 12 X 40mm Implanted:Qt y: 1 on 04/19/2020 by Alvin Real MD at [facility] [employer] MINIMALLY INVASIVE T 06/02/2027 [id number] / / [id number] Explanted Type Area Teradata Solution Architect Device Identifier Shelf Expiration Date Model / Serial / Lot [id number] Pin Navigation 150mm Perc Reference Sterl Disp - [id number] Explanted:Qty: 1 on 04/19/2020 by Alvin Real MD at [facility] Wire Right: Sacrum [employer] MINIMALLY INVASIVE T 01/07/2023 [id number] / / [id number] Description:DISPOSABLE SUPPL Y , NOT IMPLANT Care Teams Petroleum Geology Faculty Member Relationship Specialty Start Date End Date Enio Morales MD [address] [place] [address] PCP - General 09/30/19
--- OUTSIDE RECORDS SUMMARY | 2024-07-10 08:51 | XMS_ITS | Encounter Summary ---
Author Organization [facility] Address [address] [place] [address] Care Team Providers Care Oil Laboratory Analyst Name Role Phone Enio Morales MD Primary Care Provider [phone] Encounter Details Date Type Department Care Team (Late st Contact Info) Description 05/06/2020 Scanned Document [facility] Neurosurgery [place] [address] [phone] Alvin Real MD 85 [facility] [place] [address] [place] [phone] Social History Tobacco Use Types Packs/Day Years [...] on file Sexual Orientation Not on file COVID-19 Exposure Response Date Recorded In the last month, have you been in contact with someone who was confirmed or suspected to have Coronavirus / COVID-19? No / Unsure 05/03/2020 8:50 AM EST documented as of this encounter Plan of Treatment Not on file documented as of this encounter Visit Diagnoses Not on filedocumented in this encounter Care Teams Oil Laboratory Analyst Relationship Specialty Start Date End Date Enio Morales MD [address] [place] [phone] PCP - General 09/30/19 documented as of this encounter
--- OUTSIDE RECORDS SUMMARY | 2024-07-10 08:52 | XMS_ITS | Encounter Summary ---
Author Organization [facility] Address [address] [place] [address] Care Team Providers Care Switchboard Operator Name Role Phone Enio Morales MD Primary Care Provider [phone] Encounter Details Date Type Department Care Team (Late st Contact Info) Description 08/04/2020 Scanned Document [facility] Neurosurgery [place] 85 [facility] [address] [place] [phone] Alvin Real MD 85 [facility] [place] [address] [place] [phone] Social History Tobacco Use Types Packs/Day Years [...] have Coronavirus / COVID-19? No / Unsure 08/02/2020 9:57 AM EDT documented as of this encounter Plan of Treatment Not on file documented as of this encounter Visit Diagnoses Not on filedocumented in this encounter Care Teams Switchboard Operator Relationship Specialty Start Date End Date Enio Morales MD [address] [place] [phone] PCP - General 09/30/19 documented as of this encounter
--- OUTSIDE RECORDS SUMMARY | 2024-07-10 08:52 | XMS_ITS | Encounter Summary ---
Author Organization [facility] Address [address] [place] [address] Care Team Providers Care Plastics Seasoner Operator Name Role Phone Enio Morales MD Primary Care Provider [phone] Encounter Details Date Type Department Care Team (Late st Contact Info) Description 06/16/2020 Scanned Document [facility] Neurosurgery [place] 85 [facility] [address] [place] [phone] Alvin Real MD 85 [facility] [place] [address] [place] [phone] Social History Tobacco Use Types Packs/Day Years [...] have Coronavirus / COVID-19? No / Unsure 06/11/2020 3:09 PM EST documented as of this encounter Plan of Treatment Not on file documented as of this encounter Visit Diagnoses Not on filedocumented in this encounter Care Teams Plastics Seasoner Operator Relationship Specialty Start Date End Date Enio Morales MD [address] [place] [phone] PCP - General 09/30/19 documented as of this encounter
--- OUTSIDE RECORDS SUMMARY | 2024-07-10 08:52 | XMS_ITS | Encounter Summary ---
Author Organization [facility] Address [address] [place] [address] Care Team Providers Care Self Sealing Fuel Tank Builder Name Role Phone Enio Morales MD Primary Care Provider [phone] Encounter Details Date Type Department Care Team (Late st Contact Info) Description 09/11/2019 Scanned Document [facility] Neurosurgery [place] [address] [phone] Alvin Real MD 85 [facility] [place] [address] [place] [phone] Social History Tobacco Use Types Packs/Day Years Used Date Smoking Tobacco: Never Assessed Sex and Gender Information Value Date Recorded Sex Assigned at Not on file Gender Identity Not on file Sexual Orientation Not on file documented as of this encounter Plan of Treatment Not on file documented as of this encounter Visit Diagnoses Not on filedocumented in this encounter Care Teams Self Sealing Fuel Tank Builder Relationship Specialty Start Date End Date Enio Morales MD [address] [place] [address] PCP - General 09/30/19 documented as of this encounter
--- OUTSIDE RECORDS SUMMARY | 2024-07-10 08:52 | XMS_ITS | Continuity of Care Document ---
Author Organization [facility] Address [address] [place] [address]- Care Team Providers Care Proposal Manager Writer Name Role Phone Enio Mroales MD Primary Care Physician Encounter [facility] Date(s): 06/20/24 - 06/20/[address] [address]- Encounter Diagnosis Pneumonia(Final) - 06/20/24 Discharge Disposition: A-D/C Home Attending Physician: Shay De La Fuente MD Admitting Physician: Shay De La Fuente MD Referring Physician: Not on Staff, Referring MD Encounter Type: Disch ES Allergies, Adverse Reactions, Alerts Substance Criticality Severity Reaction Reaction Severity Status codeine 1 Active 1causes itching Medications amoxicillin-clavulanate 875 mg-125 mg oral tablet 1 tablet, By Mouth, Every 12 hours, for 5 days, # 10 tablet, 0 Refills, Acute 06/25/24 5:14:00 PM EDT, 06/20/24 5:14:00 PM EST, Tablet, [id number], Partial fill upon patient request if the prescription is for a schedule II opioid drug., 163, cm, 06/20/24 8:44:00 EST, Height, 56.5, kg,06/20/24 8:44:00 EST, Dry Weight Start Date: 06/20/24 Stop Date: 06/25/24 Status: Ordered Quantity: 10.0 Unit: tablet Repeat number: 1 azithromycin 250 mg oral tablet 1 tablet = 250 mg, By Mouth, Daily, for 4 days, # 4 tablet, 0 Refills, Acute 06/24/24 5:15:00 PM EDT, 06/20/24 5:15:00 PM EST, Tablet, [facility] #[id number], Partial fill upon patient request if the prescription is for a schedule II opioid drug., 163, cm, 06/20/24 8:44:00 EST, Height, 56.5, kg, 06/20/24 8:44:00 EST, Dry Weight Start Date: 06/20/24 Stop Date: 06/24/24 Status: Ordered Quantity: 4.0 Unit: tablet Repeat number: 1 BuPROpion = 300 mg, By Mouth, Daily, 0 Refills, Maintenance, 04/24/16 2:38:15 PM EST Start Date: 04/24/16 Status: Ordered Repeat number: 1 Colace sodium 100 mg oral capsule 200 mg, 2, capsule, By Mouth, Daily, Refills 0, Maintenance, 10/29/17 3:20:34 PM EDT Start Date: 10/29/17 Status: Ordered Repeat number: 1 Hair, Skin & Nails = 5 mg, By Mouth, Daily, 0 Refills, Maintenance, 10/29/17 3:19:21 PM EDT Start Date: 10/29/17 Status: Ordered Repeat number: 1 Magnesium Oxide = 400 mg, By Mouth, Daily, 0 Refills, Maintenance, 10/29/17 3:20:05 PM EDT Start Date: 10/29/17 Status: Ordered Repeat number: 1 Multivitamin Daily, 0 Refills, Maintenance, 06/30/16 8:15:24 AM EDT Start Date: 06/30/16 Status: Ordered Repeat number: 1 Patient's Own Meds allergy clear, Daily, Maintenance, 10/29/17 3:21:00 PM EDT Start Date: 10/29/17 Status: Ordered Repeat number: 1 Percocet-5/325 325 mg-5 mg oral tablet 2, tablet, By Mouth, Every 4 hours, PRN, prn for surgical pain ( left hand), Refills 0, Tot. Refills 0, Maintenance, for pain, 08/03/16 12:59:44 PM EDT, Tablet Start Date: 08/03/16 Status: Ordered Repeat number: 1 Percocet-5/325 325 mg-5 mg oral tablet 2 tablet, Tablet, By Mouth, Once, STAT, 06/20/24 2:08:00 PM EST, Stop date 06/20/24 2:54:18 PM EST Start Date: 06/20/24 Stop Date: 06/20/24 Status: Completed Repeat number: 1 [place] [employer] Daily, 0 Refills, Maintenance, 10/29/17 3:19:45 PM EDT Start Date: 10/29/17 Status: Ordered Repeat number: 1 Vitamin D3 oral tablet 1 tablet = 400 International_Units, By Mouth, Daily, # 30 tablet, 0 Refills, Maintenance, 06/30/16 8:15:51 AM EDT, Tablet Start Date: 06/30/16 Status: Ordered Quantity: 30.0 Unit: tablet Repeat number: 1 Problem List Condition Confirmation Course Effective Dates Status Health St atus Informant Depression Confirmed Active Lumbar radiculitis Confirmed Active Lumbar herniated disc Confirmed Active Sacroiliac joint dysfunction Confirmed Active Results Radiology Reports * Exam Date Time Procedure Performing Provider Status 06/20/24 3:[address] Angio Chest Sophia Patricia; Auth (Ve rified) Notes: (CT Angio Chest) Reason For Exam: PE suspected, Intermediate prob, positive D-dimer;Other: RESULT: CT Angio Chest CT Angio Chest INDICATION: Hx of Present Illness: pt developed a bright red rash on chest 2 weeks ago, [facility], 2-3 days ago pain starting shooting from the rash on her chest to the upper middle of her back between her shoulder blades; Reason: Other:; PE suspected, Intermediate prob, positive D-dimer; Clinical Question(s): Pulmonary Embolism; Order Comment: TECHNIQUE: Spiral CTA of the chest was performed after rapid IV contrast administration without cardiac gating, triggered by an ARIC on the main pulmonary artery. Images are formatted in multiple planes using 2-D multiplanar and 3-D maximum intensity projection. 100 cc of Isovue 300 was administered intravenously. Weight-based protocol using automatic tube modulation was used to optimize exposure parameters. COMPARISONS: None. ANGIOGRAPHIC FINDINGS: No pulmonary embolism to the subsegmental level. Normal caliber pulmonary arteries. Mild atherosclerotic calcification of the aorta without acute abnormality on this study performed without cardiac gating. NON-ANGIOGRAPHIC FINDINGS: Shift Coordinator view findings, lines and tubes: None. Trachea and airways: Patent without evidence of tracheal or endobronchial lesion. Lungs and pleura: Right middle lobe consolidation in the lateral segment compatible with pneumonia.Scattered nonspecific punctate micronodules and calcified granulomas for example a punctate nodule in the right lower lobe (54/405) and a 6 mm groundglass nodule posterior right upper lobe (19/405) which is likely infectious/inflammatory in etiology. No effusion or pneumothorax. Mediastinum and baylee: No mass or hematoma. No mediastinal or hilar lymphadenopathy. No esophageal abnormality. Partially imaged thyroid is unremarkable. Heart: Heart is normal in size. No pericardial effusion. Mild coronary artery calcification. Chest wall soft tissues: No acute abnormality. Coarse calcification in the left breast. Diaphragm: Intact. Upper abdomen: No significant abnormality. Bones: No acute abnormality. IMPRESSION: No evidence of pulmonary embolism. Right middle lobe pneumonia. An actionable message (Yellow) has been communicated via the [employer] system on 06/20/2024 4:09 PM, Message ID [id number]. WSN: [id number] Ordering Physician: Shay Fragoso Dictated By: Ru Troncoso MD Dictated Date/Time: 06/20/24 4:09 pm Reviewed By: Ru Troncoso MD Signed By: Ru Troncoso MD Signed Date/Time: 06/20/24 4:09 pm Transcribed By: JAIME Transcribed Date/Time: 06/20/24 3:51 pm * Exam Date Time Procedure Performing Provider Status 06/20/24 11:41 AM Chest 2 Views Frontal and Lat Chepe , Fabiola; Auth (Verified) Notes: (Chest 2 Views Frontal and Lat) Reason For Exam: Shortness of Breath, Fever;Other: RESULT: Chest 2 Views Frontal and Lat Chest 2 Views Frontal and Lat Hx of Present Illness: pt delelopped a bright red rash on chest 2 weeks ago, was seen at derm 1 week ago and given a cream, 2-3 days ago pain starting shooting from the rash on her chest to the uppermiddl;e of her back between her shoulder blades; Reason: Other:; Shortness of Breath, Fever; Clinical Question(s): Pneumonia COMPARISON: None. FINDINGS: LINES AND TUBES: None. LUNGS AND PLEURA: There is extensive consolidation of the right middle lobe consistent with pneumonia. Clinical left lung. Normal pulmonary vascularity. No pleural effusion. No pneumothorax. HEART, MEDIASTINUM AND BAYLEE: Heart is normal in size. Normal mediastinal and hilar contour. BONES AND SOFT TISSUES: No acute abnormality. IMPRESSION: Right middle lobe pneumonia. No follow-up imaging is required if symptoms resolve in 5-7 days. If symptoms persist, chest x-ray or CT should be obtained as part of clinical evaluation for nonresolving pneumonia (See Dion SALAS, et al. Diagnosis and Treatment of Adults with Community-acquired Pneumonia. An official clinical practice guideline of the [place] thoracic Society and Infectious Diseases Society of [place]. AM J Respir Crit Care, 2019).. An actionable message ([place]) has been communicated via the [employer] system on 06/20/2024 11:48 AM, Message ID [id number]. WSN: [id number] Ordering Physician: Shay Fragoso Dictated By: Gentry Solis MD, V Dictated Date/Time: 06/20/24 11:48 a Reviewed By: Gentry Solis MD, V Signed By: Gentry Solis MD, V Signed Date/Time: 06/20/24 11:48 am Transcribed By: JAIME Transcribed Date/Time: 06/20/24 11:46 am Vital Signs Most recent to oldest [Reference Range]: 1 2 3 Height 163 cm (06/20/24 5:27 PM) 163 cm (06/20/24 8:44 AM) 163 cm (06/20/24 8:41 AM) Weight 56.5 kg (06/20/24 5:27 PM) 56.5 kg (06/20/24 8:44 AM) 56.5 kg (06/20/24 8:41 AM) Oxygen Saturation [94-100 %] 5 % *L* (06/20/24 3:48 PM) 97 % (06/20/24 12:43 PM) 100 % (06/20/24 9:29 AM) Pulse Rate [55-90 bpm] 90 bpm (06/20/24 3:48 PM) 85 bpm (06/20/24 12:43 PM) 87 bpm (06/20/24 9:29 AM) Body Mass Index [18.5-24.99 kg/m2] 21.27 kg/m2 (06/20/24 8:41 AM) Blood Pressure [90-138/55-84 mm Hg] 111/62mm Hg (06/20/24 3:48 PM) 129/67mm Hg (06/20/24 12:43 PM) 122/86mm Hg (06/20/24 9:29 AM) Respiratory Rate [16-30 br/min] 18 br/min (06/20/24 3:48 PM) 17 br/min (06/20/24 2:52 PM) 18 br/min (06/20/24 12:43 PM) Temperature [96.8-100.4 DegF] 98.8 DegF (06/20/24 12:43 PM) 98.6 DegF (06/20/24 9:29 AM) 98.7 DegF (06/20/24 8:41 AM) Liters per Minute 2 L/min (06/20/24 3:48 PM) 2 L/min (06/20/24 12:43 PM) Mode of Delivery (Oxygen) Nasal cannula (06/20/24 3:48 PM) Room air (06/20/24 12:43 PM) Room air (06/20/24 9:29 AM) Blood pressure sites Arm, left (06/20/24 3:48 PM) Arm, left (06/20/24 12:43 PM) Arm, left (06/20/24 9:29 AM) Temperature Route Oral (06/20/24 12:43 PM) Oral (06/20/24 9:29 AM) Oral (06/20/24 8:41 AM) Dry Weight 56.5 kg (06/20/24 5:27 PM) 56.5 kg (06/20/24 8:44 AM) Weight Obtained Via Patient/family state d (06/20/24 8:44 AM) Social History Social History Type Response Smoking Status Former smoker; Tobac co user in household: No entered on: 03/19/17 Sex Sex Representation Female (finding) EKG study * Event Display: ECG 12-Lead Authored Date: Please click on pdf link to open report * Event Display: ECG 12-Lead Authored Date: Ventricular Rate: 81 BPM Atrial Rate: 81 BPM P-R Interval: 134 ms QRS Duration: 98 ms Q-T Interval: 418 ms QTC Calculation(Bazett): 485 ms P Troy: 48 degrees R Troy: 13 degrees T Troy: 65 degrees Normal sinus rhythm Possible Left atrial enlargement QTcB > 480 msec Abnormal ECG No previous ECGs available Confirmed by Jose Alfredo Campo ([id number]) on 06/20/2024 10:39:07 AM [place]: Jose Alfredo Campo * Event Display: EKG Authored Date: Patient Care team information Care Team Personnel Name: Enio Morales MD Position: S Outreach Member Role: PCP Address: [address] [place] [address] Internal [address] Telecom: Care Team Related Persons Name: SHANA HEWITT Insurance Providers Guarantor name: KING AMADOCRISTIAN Health Plan Information #: 2 Payer: MEDEX Member Number: [id number] Policy Number: NA Group Number: [id number] Health Plan Information #: 1 Payer: MEDICARE PART B OUTPT Member Number: [id number] Policy Number: NA Group Number: NA
--- OUTSIDE RECORDS SUMMARY | 2024-07-10 08:52 | XMS_ITS ---
Author Organization [facility] Address [address] [place] [address] Care Team Providers Care Correctional Counselor/Case Manager Name Role Phone Enio Morales MD Primary Care Provider Daisy Lopez [phone] REASON FOR VISIT RX for inserts issue Encounters Encounter Location Date Provider Diagnosis [address] [address] 12/12/2023 Daisy Olea Plan Of Treatment No Information Progress Notes * Bettina CASTREJON MDOB:[birth year] (68 yo F)Acc No.[id number]:12/12/2023 Patient:?Bettina Castrejon :1955???Age:68 Y???Sex:Female Address:[address] [place] [address], [address] * true * Date:? Generated for Brii fabienne/Nas/eTransmitting on:?07/10/2024 08:51 AM EDT
--- OUTSIDE RECORDS SUMMARY | 2024-07-10 08:52 | XMS_ITS ---
Author Name [facility] Organization Unknown Care Team Organization Name Specialty Phone Email Start Date End [facility] DENI COLBY Primary [facility]
--- OUTSIDE RECORDS SUMMARY | 2024-07-10 08:52 | XMS_ITS ---
Author Organization [facility] Address [address] [place] [address] Care Team Providers Care Internal Salesperson Name Role Phone Enio Morales MD Primary Care Provider Daisy Lopez [phone] REASON FOR VISIT Custom OTs RX Encounters Encounter Location Date Provider Diagnosis [facility] [address] [place] [address] 11/15/2023 Daisy Olea Plan Of Treatment No Information Progress Notes * Bettina CASTREJON MDOB:[birth year] (68 yo F)Acc No.[id number]:11/15/2023 Patient:?Bettina Castrejon :1955???Age:68 Y???Sex:Female Address:[address] [place] [address], [address] * true * Date:? Generated for Printi fabienne/Nas/eTransmitting on:?07/10/2024 08:52 AM EDT
--- OUTSIDE RECORDS SUMMARY | 2024-07-10 08:52 | XMS_ITS ---
Author Organization [facility] Address [address] [place] [address] Care Team Providers Care Physician Executive Name Role Phone Enio Morales MD Primary Care Provider Daisy Lopez [phone] REASON FOR VISIT Ciclopirox RX Encounters Encounter Location Date Provider Diagnosis [facility] [address] [place] [address] 10/31/2023 Daisy Olea Plan Of Treatment No Information Progress Notes * Bettina CASTREJON MDOB:[birth year] (68 yo F)Acc No.[id number]:10/31/2023 Patient:?Bettina Castrejon :1955???Age:68 Y???Sex:Female Address:[address] [place] [address], [address] * true * Date:? Generated for Printi ng/Fasalvadorg/eTransmitting on:?07/10/2024 08:52 AM EDT
--- OUTSIDE RECORDS SUMMARY | 2024-07-10 08:52 | XMS_ITS | Encounter Summary ---
Author Organization [facility] Address [address] [place] [address] Care Team Providers Care Investment Director Name Role Phone Enio Morales MD Primary Care Provider [phone] Encounter Details Date Type Department Care Team (Late st Contact Info) Description 01/15/2020 Scanned Document [facility] Neurosurgery [place] 85 [facility] [address] [place] [phone] Alvin eRal MD 85 [facility] [place] [address] [place] [address] Social History Tobacco Use Types Packs/Day Years Used Date Smoking Tobacco: Never Assessed Sex and Gender Information Value Date Recorded Sex Assigned at Not on file Gender Identity Not on file Sexual Orientation Not on file documented as of this encounter Plan of Treatment Not on file documented as of this encounter Visit Diagnoses Not on filedocumented in this encounter Care Teams Investment Director Relationship Specialty Start Date End Date Enio Morales MD [address] [place] [address] PCP - General 09/30/19 documented as of this encounter
--- OUTSIDE RECORDS SUMMARY | 2024-07-10 08:52 | XMS_ITS | Encounter Summary ---
Author Organization [facility] Address [address] [place] [address] Care Team Providers Care Build Automation Engineer Name Role Phone Enio Morales MD Primary Care Provider Encounter Details Date Type Department Care Team (Late st Contact Info) Description 06/25/2020 Scanned Document [facility] Neurosurgery [place] 85 [facility] [address] [place] [phone] Alvin Real MD 85 [facility] [place] [address] [place] [phone] Social History Tobacco Use Types Packs/Day Years [...] on filedocumented in this encounter Care Teams Build Automation Engineer Relationship Specialty Start Date End Date Enio Morales MD [address] [place] [address] PCP - General 09/30/19 documented as of this encounter
--- OUTSIDE RECORDS SUMMARY | 2024-07-10 08:52 | XMS_ITS | Encounter Summary ---
Author Organization [facility] Address [address] [place] [address] Care Team Providers Care Strong Nitric Operator Name Role Phone Enio Morales MD Primary Care Provider [phone] Encounter Details Date Type Department Care Team (Late st Contact Info) Description 05/24/2020 Scanned Document [facility] Neurosurgery [place] [address] [phone] Alvin Real MD 85 [facility] [place] [address] [place] [phone] Social History Tobacco Use Types Packs/Day Years [...] on filedocumented in this encounter Care Teams Strong Nitric Operator Relationship Specialty Start Date End Date Enio Morales MD [address] [place] [address] PCP - General 09/30/19 documented as of this encounter
--- OUTSIDE RECORDS SUMMARY | 2024-07-10 08:53 | XMS_ITS | Encounter Summary ---
Author Organization [facility] Address [address] [place] [address] Care Team Providers Care Statistical Engineer Name Role Phone Enio Morales MD Primary Care Provider [phone] Encounter Details Date Type Department Care Team (Late st Contact Info) Description 09/11/2019 Scanned Document [facility] Neurosurgery [place] [address] [phone] Alvin Real MD 85 [facility] [place] [address] [place] [address] Social History Tobacco Use Types Packs/Day Years Used Date Smoking Tobacco: Never Assessed Sex and Gender Information Value Date Recorded Sex Assigned at Not on file Gender Identity Not on file Sexual Orientation Not on file documented as of this encounter Plan of Treatment Not on file documented as of this encounter Visit Diagnoses Not on filedocumented in this encounter Care Teams Statistical Engineer Relationship Specialty Start Date End Date Enio Morales MD [address] [place] [address] PCP - General 09/30/19 documented as of this encounter
--- OUTSIDE RECORDS SUMMARY | 2024-07-10 08:53 | XMS_ITS | Encounter Summary ---
Author Organization [facility] Address [address] [place] [address] Care Team Providers Care Corner Cutter Name Role Phone Enio Morales MD Primary Care Provider [phone] Encounter Details Date Type Department Care Team (Late st Contact Info) Description 09/11/2019 Scanned Document [facility] Neurosurgery [place] [address] [address] Alvin Real MD [address] [facility] [place] [address] [place] [address] Social History Tobacco Use Types Packs/Day Years Used Date Smoking Tobacco: Never Assessed Sex and Gender Information Value Date Recorded Sex Assigned at Not on file Gender Identity Not on file Sexual Orientation Not on file documented as of this encounter Plan of Treatment Not on file documented as of this encounter Visit Diagnoses Not on filedocumented in this encounter Care Teams Corner Cutter Relationship Specialty Start Date End Date Enio Morales MD [address] [place] [address] PCP - General 09/30/19 documented as of this encounter
--- OUTSIDE RECORDS SUMMARY | 2024-07-10 08:53 | XMS_ITS | Encounter Summary ---
Author Organization [facility] Address [address] [place] [address] Care Team Providers Care Cooking Casing And Drying Supervisor Name Role Phone Enio Morales MD Primary Care Provider [phone] Encounter Details Date Type Department Care Team (Late st Contact Info) Description 11/06/2019 Scanned Document [facility] Neurosurgery [place] [address] [address] Alvin Real MD 85 [facility] [place] [address] [place] [address] Social History Tobacco Use Types Packs/Day Years Used Date Smoking Tobacco: Never Assessed Sex and Gender Information Value Date Recorded Sex Assigned at Not on file Gender Identity Not on file Sexual Orientation Not on file documented as of this encounter Plan of Treatment Not on file documented as of this encounter Visit Diagnoses Not on filedocumented in this encounter Care Teams Cooking Casing And Drying Supervisor Relationship Specialty Start Date End Date Enio Morales MD [address] [place] [address] PCP - General 09/30/19 documented as of this encounter
--- OUTSIDE RECORDS SUMMARY | 2024-07-10 08:53 | XMS_ITS | Patient Health Record ---
Author Organization [facility] Address [address] [place] [address] Care Team Providers Care Intelligence Officer Basic Name Role Phone Enio Morales MD Primary Care Provider Daisy Lopez Unavailable [phone] Allergies Allergen (clinical drug ingredient) Drug/Non Drug Allergy documented on EMR Reaction Allergy Type Onset Date Status codeine Codeine itchy Drug Allergy Active Results Component Value Reference Range Notes X ray : Foot, left 3V Reviewed date:10/29/2023 02:43:40 PM Interpretation:See Examination above Performing Lab: Notes/Report: See Examination above X ray : Foot, right 3V Reviewed date:10/29/2023 02:43:30 PM Interpretation:See Examination above Performing Lab: Notes/Report: See Examination above Reason For Referral No Information Medications Medication SIG (Take, Route, Frequency, Duration) Notes Start Date End Date Status amLODIPine Benzoate Active Piroxicam 20 MG 1 capsule with food Orally Once a day for 30 day(s) 09/25/2012 Unknown Ketoconazole 2 % as directed Externally Active Percocet 5-325 MG 1 tablet as needed Orally every 6 hrs Unknown Custom Orthotics 10/29/2023 Ac tive Ciclopirox 8 % 1 application Externally Once a day for 30 10/29/2023 Active oxyCODONE HCl 5 MG 1 tablet as needed Orally every 6 hrs Active Pantoprazole Sodium 40 MG 1 tablet Orally Once a day Active BuPROPion HBr Active Night Splint AFO - L1930 1 wear at rest for 30 days Active oxyCODONE-Acetaminophe n 10-325 MG TAKE 1 TABLET BY MOUTH EVERY 4 HOURS NEEDED FOR PAIN. NOT TO EXCEED 6 TABLETS DAILY. PARTIALFILLOK Oral for 28 Days Active diphenhydrAMINE HCl 25 MG 1 capsule at bedtime as needed Orally Once a day Active Vitamin E Unknown buPROPion HCl ER (XL) 300 MG 1 tablet in the morning Oral for 30 days buPROPION HCI ER (XL) 150 MG Active Amoxicillin 500 MG 1 capsule Orally every 8 hrs Active Primsol Unknown Fluocinolone Acet-Niacinamide 0.01-4 % as directed Externally Active Vitamin C Unknown Social History Tobacco use other than smoking: Question Answer Notes Are you an other tobacco user? 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671) 10/29/2023 Plantar fasciitis, bilateral (ICD-10 - M72.2) Patient Educated with: HEEL CORD STRETCHES.pdf (HEEL CORD STRETCHES.pdf) Patient Educated with: RICE THERAPY.pdf (RICE THERAPY.pdf) 10/29/2023 Calcaneal spur, right foot (ICD-10 - M77.31) 10/29/2023 Other myositis of right foot (ICD-10 - M60.871) 10/29/2023 Bursitis of right foot (ICD-10 - M77.51) 10/29/2023 Pain in left foot (ICD-10 - M79.672) 10/29/2023 Calcaneal spur, left foot (ICD-10 - M77.32) 10/29/2023 Other myositis of left foot (ICD-10 - M60.872) 10/29/2023 Bursitis of left foot (ICD-10 - M77.52) Plan Of Treatment Pending Test Test Name Order Date X ray : Foot, right 2V 08/29/2012 [id number] TENDON SHEATH/LIGAMENT 0 08/29/2012 Insurance Providers Payer Name Payer Address Payer Phone Subscriber Number Group Number Insured Name Patient Relationship to Insured Coverage Start Date Coverage End Date Medicare National [employer] S[employer] [address] [place] [address] [id number] Bettina Castrejon Self - patient is the insured [employer] [address] [place] [address] [phone] [id number] Bettina Castrejon Self - patient is the insured Medical (General) History Medical History History ICD Code mumps measles chicken pox Cancer Joint implants/screws Bone marrow cancer, red blood cell cance r Surgical History Surgery Date(Month/Year) knee surgery 2017 Hand Surgery 2014 back surgery 2020
--- OUTSIDE RECORDS SUMMARY | 2024-07-10 08:53 | XMS_ITS | Encounter Summary ---
Author Organization [facility] Address [address] [place] [address] Care Team Providers Care Reference Investigator Name Role Phone Enio Morales MD Primary Care Provider [phone] Encounter Details Date Type Department Care Team (Late st Contact Info) Description 09/11/2019 Scanned Document [facility] Neurosurgery [place] [address] [address] Alvin Real MD 85 [facility] [place] [address] [place] [address] Social History Tobacco Use Types Packs/Day Years Used Date Smoking Tobacco: Never Assessed Sex and Gender Information Value Date Recorded Sex Assigned at Not on file Gender Identity Not on file Sexual Orientation Not on file documented as of this encounter Plan of Treatment Not on file documented as of this encounter Visit Diagnoses Not on filedocumented in this encounter Care Teams Reference Investigator Relationship Specialty Start Date End Date Enio Morales MD [address] [place] [address] PCP - General 09/30/19 documented as of this encounter
[2024-07-10] MEDS: gadobutroL 7.5 ML VIAL IVPUSH (09:52)
== END 2024-07-10 08:25 | disposition home or self-care (01) ==
LOC: HO.MRI 08:24
PROVIDERS: PCP Internal Medicine; Visit Provider Internal Medicine
DX: N64.4 Mastodynia (principal)
CPT/HCPCS: 77049; A9585

== ENCOUNTER → 2024-07-10 08:37 | Outpatient (BNV) | payer MEDICARE, SELFPAY | PROVIDERS: PCP Internal Medicine; Visit Provider Internal Medicine | DX: N64.4 Mastodynia (principal) | CPT/HCPCS: 77049 ==

== ENCOUNTER 2024-07-22 14:25 | Outpatient (REF) | payer MEDICARE, SELFPAY ==
--- NOTE | ~2024-07-22 | CT_ITS ---
CLINICAL HISTORY: LEFT VOCAL CORD PARALYSIS CT soft tissue neck with IV contrast. COMPARISON: None FINDINGS: Mild emphysema of the lung apices. Normal thyroid gland. Normal submandibular and parotid glands. Orbital soft tissues are unremarkable. Mild mucosal thickening present within the ethmoid and left maxillary sinus. Parapharyngeal fat pads are preserved. [place] tonsils are normal in size. Normal epiglottis. Well-defined ovoid soft tissue density nodule present within the pre epiglottic fat on the right measuring 0.8 x 0.6 cm (series 4, image 197). No erosion into the overlying hyoid bone or mass effect upon the underlying epiglottis. Visualized portions of the trachea and esophagus are unremarkable. Normal-sized jugular chain and posterior cervical lymph nodes. No lymphadenopathy. Moderate mid to lower cervical spondylosis. Grade 1 anterolisthesis of C7 on T1, degenerative. No acute fracture. Visualized intracranial structures are unremarkable. Major vascular structures enhance normally. No abnormal enhancement. Ascending aortic ectasia measuring up to 4.0 cm. IMPRESSION: 1. Small ovoid soft tissue density nodule present within the preepiglottic fat on the right is favored to represent a small lymph node. No aggressive features identified. Recommend attention on follow-up imaging. Otherwise no evidence of mass or abnormal enhancement. No lymphadenopathy. This document has been electronically signed by: Gallo Wilhelm MD on 07/23/2024 16:19:47
--- NOTE | ~2024-07-22 | CT_ITS ---
CLINICAL HISTORY: LEFT VOCAL CORD PARALYSIS CT chest with IV contrast. COMPARISON: None FINDINGS: Visualized thyroid is unremarkable. No supraclavicular or axillary lymphadenopathy. Normal chest wall. Main pulmonary artery is enlarged measuring up to 3.2 cm. This can be associated with pulmonary hypertension. Ascending aortic ectasia measuring up to 4.0 cm. Coronary artery calcifications present within the LAD. No pericardial effusion. Normal esophagus. No mediastinal lymphadenopathy. No pleural effusion. No consolidation. Mild emphysema. Trachea and central airways are clear. No significant bronchial wall thickening. No bronchiectasis. Visualized portions of the upper abdomen are unremarkable. No acute fracture or suspicious osseous abnormality. IMPRESSION: 1. No cause for patient's symptoms identified. No pulmonary mass or lymphadenopathy. 2. Coronary artery atherosclerosis. Enlarged main pulmonary artery can be associated with pulmonary hypertension. Ascending aortic ectasia measuring up to 4.0 cm. This document has been electronically signed by: Gallo Wilhelm MD on 07/23/2024 15:08:52
[2024-07-22] MEDS: iohexoL 350 MG/ML 75 ML INFUS..BTL IV (15:20)
--- OUTSIDE RECORDS SUMMARY | 2024-07-22 17:33 | XMS_ITS | Patient Health Record ---
Author Organization [facility] Address [address] [place] [address] Care Team Providers Care Civil Draftsman Name Role Phone Enio Morales MD Primary Care Provider Gunner Sebastian Jr Unavailable [phone] Allergies Allergen (clinical drug ingredient) Drug/Non Drug [...] Oral for 90 Days Active Epoetin Rito 44790 UNIT/ML as directed Injection Active amLODIPine Besylate [...] Problem Status W/U Status Risk Notes Problem 610511826 Colon cancer screening (Z12.11) Active confirmed Problem 210750684 Gastroesophageal reflux disease, unspecified whether esophagitis present (K21.9) Active confirmed Problem 074037735 FH: esophageal cancer (Z80.0) Active confirmed Vital Signs Temperature 96.5 degrees Fahrenheit 07/07/2024 Blood pressure diastolic 01 mm Hg 07/07/2024 Height 65 in 07/07/2024 Blood pressure systolic 001 mm Hg 07/07/2024 Weight 135 lbs 07/07/2024 BMI 22.46 kg/m2 07/07/2024 Encounters Encounter Location Date Provider Diagnosis [facility] [address] [place] [address] 07/07/2024 Gunner العلي Jr Colon cancer screening Z12.11 Assessments Encounter Date Diagnosis (ICD Code) Assessment Notes Treatment Notes Treatment Clinical Notes Section Notes 07/07/2024 Colon cancer screening (ICD-10 - Z12.11) Plan Of Treatment Future Test Test Name Order Date COLONOSCOPY 07/02/2019 UPPER GI ENDOSCOPY 05/14/2020 COLONOSCOPY 07/07/2024 Next Appt Details Provider Name:Gunner contreras Jr, 08/26/2024 07:30:00 AM, [address] [place] [address] , [place], [phone], Insurance Providers Payer Name Payer Address Payer Phone Subscriber Number Group Number Insured Name Patient Relationship to Insured Coverage Start Date Coverage End Date MED[place]ARE OF [place] [address] JOSE ALFREDO AREVALO [id number] KING HEWITT Self - patient is the insured MEDEX ATTN CLAIMS [address] [place] [address] [id number] KING HEWITT Self - patient is the [...]
--- OUTSIDE RECORDS SUMMARY | 2024-07-22 17:33 | XMS_ITS ---
Author Organization [facility] Address [address] [place] [address] Care Team Providers Care Glue Mixer Name Role Phone Enio Morales MD Primary Care Provider Daisy Lopez [phone] REASON FOR VISIT RX for inserts issue Encounters Encounter Location Date Provider Diagnosis [address] [address] 12/12/2023 Daisy Olea Plan Of Treatment No Information Progress Notes * Bettina CASTREJON MDOB:[birth year] (68 yo F)Acc No.[id number]:12/12/2023 Patient:?Bettina Castrejon :1955???Age:68 Y???Sex:Female Address:[address] [place] [address], [phone] * true * Date:? Generated for Printi fabienne/Nas/eTransmitting on:?07/22/2024 05:33 PM EDT
--- OUTSIDE RECORDS SUMMARY | 2024-07-22 17:33 | XMS_ITS ---
Author Organization [facility] Address [address] [place] [address] Care Team Providers Care Carbonation Equipment Tender Name Role Phone Enio Morales MD Primary Care Provider Gunner Sebastian Jr Unavailable [phone] Allergies Allergen (clinical drug ingredient) Drug/Non Drug [...] Orally Once a day Active Epoetin Rito 60404 UNIT/ML as directed Injection Active amLODIPine Besylate [...] 07/07/2024 Encounters Encounter Location Date Provider Diagnosis [facility] [address] [place] [address] 07/07/2024 Gunner العلي Jr Colon cancer screening Z12.11 Assessments Encounter Date Diagnosis (ICD Code) Assessment Notes Treatment Notes Treatment Clinical Notes Section Notes 07/07/2024 Colon cancer screening (ICD-10 - Z12.11) Plan Of Treatment Future Test Test Name Order Date COLONOSCOPY 07/07/2024 Next Appt Details Provider Name:Gunner contreras Jr, 08/26/2024 07:30:00 AM, [address] [place] [address], [phone], Progress Notes * KING HEWITT MDOB:[birth year] (69 yo F)Acc No.[id number]:07/07/2024 Progress Notes Patient:?INGRISKING FOSTER Provider:?Gunner العلي MD :1955???Age:69 Y???Sex:Female D ate:07/07/2024 Address:[address] [place] [address] Pcp:Enio Morales MD Subjective: * Chief Complaints: [...] . Occupation: disabled. * Medications:?Taking Epoetin Rito 94312 UNIT/ML Solution as directed Injection , Taking [...] MD Date:?0 07/07/2024 Generated for Carlos loving/Nas/eTransmitting on:?07/22/2024 05:33 PM EDT
--- OUTSIDE RECORDS SUMMARY | 2024-07-22 17:33 | XMS_ITS | Clinical Summary ---
Author Organization [facility] Address [address] [place] [address] Care Team Providers Care Certified Alcohol And Drug Counselor Name Role Phone Enio Morales MD Primary Care Provider [phone] Allergies Active Allergy Reactions Criticality Noted Date [...] this topic Medical Devices Implanted Type Area Sap Enterprise Portal Consultant Device Identifier Shelf Expiration Date Model / Serial / Lot [id number] Filler Bone Void 5ml Dbx Putty Nonst - [id number] Implanted:Qt y: 1 on 04/19/2020 by Alvin Real MD at [facility] Void Filler Right: Sacrum [employer]PL[employer] FOU 01/13/2021 [id number] / [id number] / Si Joint Threaded Device Implanted:Qt y: 1 on 04/19/2020 by Alvin Real MD at [facility] Right: Sacrum [employer] NEUROMODUL[employer] - DI 02/27/2028 [id number] / / [id number] Threaded Device 12 X 40mm Implanted:Qt y: 1 on 04/19/2020 by Alvin Real MD at [facility] [employer] NEUROMODULATION - DI 06/02/2027 [id number] / / [id number] Explanted Type Area Sap Enterprise Portal Consultant Device Identifier Shelf Expiration Date Model / Serial / Lot [id number] Pin Navigation 150mm Perc Reference Sterl Disp - [id number] Explanted:Qty: 1 on 04/19/2020 by Alvin Real MD at [facility] Wire Right: Sacrum [employer] NEUROMODULATION - DI 01/07/2023 [id number] / / [id number] Description:DISPOSABLE SUPPL Y , NOT IMPLANT Care Teams Certified Alcohol And Drug Counselor Relationship Specialty Start Date End Date Enio Morales MD [address] [place] [address] PCP - General 09/30/19
--- OUTSIDE RECORDS SUMMARY | 2024-07-22 17:33 | XMS_ITS | Encounter Summary ---
Author Organization [facility] Address [address] [place] [address] Care Team Providers Care Integration Technician Name Role Phone Enio Morales MD Primary Care Provider [phone] Encounter Details Date Type Department Care Team (Late st Contact Info) Description 08/04/2020 Scanned Document [facility] Neurosurgery [place] 85 [facility] [address] [place] [phone] Alvin Real MD 85 [facility] [place] [address] [place] [phone] Social History Tobacco Use Types Packs/Day Years [...] on filedocumented in this encounter Care Teams Integration Technician Relationship Specialty Start Date End Date Enio Morales MD [address] [place] [address] PCP - General 09/30/19 documented as of this encounter
--- OUTSIDE RECORDS SUMMARY | 2024-07-22 17:33 | XMS_ITS | Encounter Summary ---
Author Organization [facility] Address [address] [place] [address] Care Team Providers Care Piano Tuner Name Role Phone Enio Morales MD Primary Care Provider [phone] Encounter Details Date Type Department Care Team (Late st Contact Info) Description 01/15/2020 Scanned Document [facility] Neurosurgery [place] 85 [facility] [address] [place] [phone] Alvin Real MD 85 [facility] [place] [address] [place] [address] Social History Tobacco Use Types Packs/Day Years Used Date Smoking Tobacco: Never Assessed Sex and Gender Information Value Date Recorded Sex Assigned at Not on file Gender Identity Not on file Sexual Orientation Not on file documented as of this encounter Plan of Treatment Not on file documented as of this encounter Visit Diagnoses Not on filedocumented in this encounter Care Teams Piano Tuner Relationship Specialty Start Date End Date Enio Morales MD [address] [place] [address] PCP - General 09/30/19 documented as of this encounter
--- OUTSIDE RECORDS SUMMARY | 2024-07-22 17:33 | XMS_ITS | Encounter Summary ---
Author Organization [facility] Address [address] [place] [address] Care Team Providers Care Diamond Sander Name Role Phone Enio Morales MD Primary Care Provider [phone] Encounter Details Date Type Department Care Team (Late st Contact Info) Description 05/06/[address] [facility] Neurosurgery [place] [address] [phone] Alvin Real MD 85 [facility] [place] [address] [place] [address] [phone] Social History Tobacco Use Types Packs/Day Years [...] on filedocumented in this encounter Care Teams Diamond Sander Relationship Specialty Start Date End Date Enio Morales MD [address] [place] [address] PCP - General 09/30/19 documented as of this encounter
--- OUTSIDE RECORDS SUMMARY | 2024-07-22 17:34 | XMS_ITS | Encounter Summary ---
Author Organization [facility] Address [address] [place] [address] Care Team Providers Care Medical Office Receptionist Name Role Phone Enio Morales MD Primary Care Provider [phone] Encounter Details Date Type Department Care Team (Late st Contact Info) Description 09/11/2019 Scanned Document [facility] Neuro[facility] [place] [address] [phone] Alvin Real MD 85 [facility] [place] [address] [place] [address] Social History Tobacco Use Types Packs/Day Years Used Date Smoking Tobacco: Never Assessed Sex and Gender Information Value Date Recorded Sex Assigned at Not on file Gender Identity Not on file Sexual Orientation Not on file documented as of this encounter Plan of Treatment Not on file documented as of this encounter Visit Diagnoses Not on filedocumented in this encounter Care Teams Medical Office Receptionist Relationship Specialty Start Date End Date Enio Morales MD [address] [place] [address] PCP - General 09/30/19 documented as of this encounter
--- OUTSIDE RECORDS SUMMARY | 2024-07-22 17:34 | XMS_ITS | Encounter Summary ---
Author Organization [facility] Address [address] [place] [address] Care Team Providers Care Vendor Representatives Name Role Phone Enio Morales MD Primary Care Provider [phone] Encounter Details Date Type Department Care Team (Late st Contact Info) Description 06/16/2020 Scanned Document [facility] Neuro[facility] [place] 85 [facility] [address] [place] [phone] Alvin Real MD 85 [facility] [place] [address] [place] [address] [phone] Social History Tobacco Use Types Packs/Day Years [...] on filedocumented in this encounter Care Teams Vendor Representatives Relationship Specialty Start Date End Date Enio Morales MD [address] [place] [address] PCP - General 09/30/19 documented as of this encounter
--- OUTSIDE RECORDS SUMMARY | 2024-07-22 17:34 | XMS_ITS | Encounter Summary ---
Author Organization [facility] Address [address] [place] [address] Care Team Providers Care Corn Breeder Name Role Phone Enio Morales MD Primary Care Provider [phone] Encounter Details Date Type Department Care Team (Late st Contact Info) Description 06/25/2020 Scanned Document [facility] Neurosurgery [place] 85 [facility] [address] [place] [phone] Alvin Real MD 85 [facility] [place] [address] [place] [phone] Social History Tobacco Use Types Packs/Day Years [...] on filedocumented in this encounter Care Teams Corn Breeder Relationship Specialty Start Date End Date Enio Morales MD [address] [place] [address] PCP - General 09/30/19 documented as of this encounter
--- OUTSIDE RECORDS SUMMARY | 2024-07-22 17:34 | XMS_ITS | Encounter Summary ---
Author Organization [facility] Address [address] [place] [address] Care Team Providers Care Miniature Train Driver Name Role Phone Enio Morales MD Primary Care Provider [phone] Encounter Details Date Type Department Care Team (Late st Contact Info) Description 09/11/2019 Scanned Document [facility] Neurosurgery [place] [address] [phone] Alvin Real MD 85 [facility] [place] [address] [place] [address] Social History Tobacco Use Types Packs/Day Years Used Date Smoking Tobacco: Never Assessed Sex and Gender Information Value Date Recorded Sex Assigned at Not on file Gender Identity Not on file Sexual Orientation Not on file documented as of this encounter Plan of Treatment Not on file documented as of this encounter Visit Diagnoses Not on filedocumented in this encounter Care Teams Miniature Train Driver Relationship Specialty Start Date End Date Enio Morales MD [address] [place] [address] PCP - General 09/30/19 documented as of this encounter
--- OUTSIDE RECORDS SUMMARY | 2024-07-22 17:34 | XMS_ITS ---
Author Organization [facility] Address [address] [place] [address] Care Team Providers Care Corporate Accountant Name Role Phone Enio Morales MD Primary Care Provider Daisy Lopez [phone] REASON FOR VISIT Ciclopirox RX Encounters Encounter Location Date Provider Diagnosis [facility] [address] [place] [address] 10/31/2023 Daisy Olea Plan Of Treatment No Information Progress Notes * Bettina CASTREJON MDOB:[birth year] (68 yo F)Acc No.[id number]:10/31/2023 Patient:?Bettina Csatrejon :1955???Age:68 Y???Sex:Female Address:[address] [place] [address], [address] * true * Date:? Generated for Printi ng/Fasalvadorg/eTransmitting on:?07/22/2024 05:33 PM EDT
--- OUTSIDE RECORDS SUMMARY | 2024-07-22 17:34 | XMS_ITS | Encounter Summary ---
Author Organization [facility] Address [address] [place] [address] Care Team Providers Care Processing Rep Name Role Phone Enio Morales MD Primary Care Provider [phone] Encounter Details Date Type Department Care Team (Late st Contact Info) Description 09/11/2019 Scanned Document [facility] Neurosurgery [place] [address] [phone] Alvin Real MD 85 [facility] [place] [address] [place] [address] Social History Tobacco Use Types Packs/Day Years Used Date Smoking Tobacco: Never Assessed Sex and Gender Information Value Date Recorded Sex Assigned at Not on file Gender Identity Not on file Sexual Orientation Not on file documented as of this encounter Plan of Treatment Not on file documented as of this encounter Visit Diagnoses Not on filedocumented in this encounter Care Teams Processing Rep Relationship Specialty Start Date End Date Enio Morales MD [address] [place] [address] PCP - General 09/30/19 documented as of this encounter
--- OUTSIDE RECORDS SUMMARY | 2024-07-22 17:34 | XMS_ITS | Encounter Summary ---
Author Organization [facility] Address [address] [place] [address] Care Team Providers Care Building Illuminating Engineer Name Role Phone Enio Morales MD Primary Care Provider [phone] Encounter Details Date Type Department Care Team (Late st Contact Info) Description 05/24/2020 Scanned Document [facility] Neurosurgery [place] [address] [phone] Alvin Real MD 85 [facility] [place] [address] [place] [address] [phone] Social History Tobacco Use Types Packs/Day Years [...] on filedocumented in this encounter Care Teams Building Illuminating Engineer Relationship Specialty Start Date End Date Enio Morales MD [address] [place] [address] PCP - General 09/30/19 documented as of this encounter
--- OUTSIDE RECORDS SUMMARY | 2024-07-22 17:34 | XMS_ITS | Encounter Summary ---
Author Organization [facility] Address [address] [place] [address] Care Team Providers Care Directory Operator Name Role Phone Enio Morales MD Primary Care Provider [phone] Encounter Details Date Type Department Care Team (Late st Contact Info) Description 09/11/2019 Scanned Document [facility] Neurosurgery [place] [address] [phone] Alvin Real MD 85 [facility] [place] [address] [place] [address] Social History Tobacco Use Types Packs/Day Years Used Date Smoking Tobacco: Never Assessed Sex and Gender Information Value Date Recorded Sex Assigned at Not on file Gender Identity Not on file Sexual Orientation Not on file documented as of this encounter Plan of Treatment Not on file documented as of this encounter Visit Diagnoses Not on filedocumented in this encounter Care Teams Directory Operator Relationship Specialty Start Date End Date Enio Morales MD [address] [place] [address] PCP - General 09/30/19 documented as of this encounter
--- OUTSIDE RECORDS SUMMARY | 2024-07-22 17:34 | XMS_ITS | Patient Health Record ---
Author Organization [facility] Susan Bassettley Address [address] [place] [address] Care Team Providers Care Composition Roll Maker And Cutter Name Role Phone Enio Morales MD Primary Care Provider Daisy Lopez Unavailable [phone] Allergies Allergen (clinical drug ingredient) Drug/Non Drug [...] Status Risk Notes Problem Plantar fascial fibromatosis (47058072) Plantar fascial fibromatosis (M72.2) Active confirmed Vital Signs Height 5ft4in in 10/29/2023 Weight 127 lbs 10/29/2023 BMI 21.8 kg/m2 10/29/2023 Encounters Encounter Location Date Provider Diagnosis [address] [address] 10/29/2023 Daisy Olea Tinea unguium B35.1 ; [...] M60.872 and Bursitis of left foot M77.[address] [address] 10/31/[address] [address] 11/15/[address] [address] 12/12/2023 Daisy Olea Assessments Encounter Date Diagnosis [...] X ray : Foot, right 2V 08/29/2012 [id number] TENDON SHEATH/LIGAMENT 0 08/29/2012 Insurance Providers Payer Name Payer Address Payer Phone Subscriber Number Group Number Insured Name Patient Relationship to Insured Coverage Start Date Coverage End Date Medicare National [employer] [address] [place] [address] [id number] Bettina Castrejon Self - patient is the insured [employer] [address] [place] [address] [phone] [id number] Bettina Castrejon Self - patient is the insured Medical (General) History Medical History History ICD Code mumps measles chicken pox Cancer Joint implants/screws Bone marrow cancer, red blood cell cance r Surgical History Surgery Date(Month/Year) knee surgery 2017 Hand Surgery 2014 back surgery 2020
--- OUTSIDE RECORDS SUMMARY | 2024-07-22 17:34 | XMS_ITS | Encounter Summary ---
Author Organization [facility] Address [address] [place] [address] Care Team Providers Care Edge Sander Name Role Phone Enio Morales MD Primary Care Provider [phone] Encounter Details Date Type Department Care Team (Late st Contact Info) Description 11/06/2019 Scanned Document [facility] Neurosurgery [place] [address] [phone] Alvin Real MD 85 [facility] [place] [address] [place] [address] Social History Tobacco Use Types Packs/Day Years Used Date Smoking Tobacco: Never Assessed Sex and Gender Information Value Date Recorded Sex Assigned at Not on file Gender Identity Not on file Sexual Orientation Not on file documented as of this encounter Plan of Treatment Not on file documented as of this encounter Visit Diagnoses Not on filedocumented in this encounter Care Teams Edge Sander Relationship Specialty Start Date End Date Enio Morales MD [address] [place] [address] PCP - General 09/30/19 documented as of this encounter
--- OUTSIDE RECORDS SUMMARY | 2024-07-22 17:34 | XMS_ITS ---
Author Organization [facility] Address [address] [place] [address] Care Team Providers Care Meteorological Observer Name Role Phone Enio Morales MD Primary Care Provider Daisy Lopez [phone] REASON FOR VISIT Custom OTs RX Encounters Encounter Location Date Provider Diagnosis [facility] [address] [place] [address] 11/15/2023 Daisy Olea Plan Of Treatment No Information Progress Notes * Bettina CASTREJON MDOB:[birth year] (68 yo F)Acc No.[id number]:11/15/2023 Patient:?Bettina Castrejon :1955???Age:68 Y???Sex:Female Address:[address] [place] [address], [address] * true * Date:? Generated for Printi fabienne/Nas/eTransmitting on:?07/22/2024 05:33 PM EDT
[2024-07-24 14:00] LABS: Creatinine POC 0.9 mg/dL (0.5-1.4); GFR POC > 60
== END 2024-07-22 14:26 | disposition home or self-care (01) ==
LOC: HO.CT 14:25
PROVIDERS: PCP Internal Medicine; Visit Provider Otolaryngology
DX: J38.01 Paralysis of vocal cords and larynx, unilateral (principal)
CPT/HCPCS: 70491; 71260; 82565; Q9967

== ENCOUNTER → 2024-07-22 14:33 | Outpatient (BNV) | payer MEDICARE, SELFPAY | PROVIDERS: PCP Internal Medicine; Visit Provider Radiology Diagnostic Radiology | DX: E04.1 Nontoxic single thyroid nodule (principal); I25.10 Atherosclerotic heart disease of native coronary artery without angina pectoris; I28.1 Aneurysm of pulmonary artery | CPT/HCPCS: 70491; 71260 ==

== ENCOUNTER 2024-08-26 06:23 | Day surgery (SDC) | payer MEDICARE, SELFPAY ==
--- OUTSIDE RECORDS SUMMARY | 2024-07-17 13:26 | XMS_ITS | Clinical Summary ---
Author Organization [facility] Address [address] [place] [address] Care Team Providers Care Foreign Banknote Teller Trader Name Role Phone Enio Morales MD Primary Care Provider Allergies Active Allergy Reactions Criticality Noted Date [...] this topic Medical Devices Implanted Type Area Supervisor Metalizing Device Identifier Shelf Expiration Date Model / Serial / Lot [id number] Filler Bone Void 5ml Dbx Putty Nonst - [id number] Implanted:Qt y: 1 on 04/19/2020 by Alvin Real MD at [facility] Void Filler Right: Sacrum [employer]ANSPL[employer] FOU 01/13/2021 [id number] / [id number] / Si Joint Threaded Device Implanted:Qt y: 1 on 04/19/2020 by Alvin Real MD at [facility] Right: Sacrum [employer] MINIMALLY INVASIVE T 02/27/2028 [id number] / / [id number] Threaded Device 12 X 40mm Implanted:Qt y: 1 on 04/19/2020 by Alvin Real MD at [facility] [employer] MINIMALLY INVASIVE T 06/02/2027 [id number] / / [id number] Explanted Type Area Supervisor Metalizing Device Identifier Shelf Expiration Date Model / Serial / Lot [id number] Pin Navigation 150mm Perc Reference Sterl Disp - [id number] Explanted:Qty: 1 on 04/19/2020 by Alvin Real MD at [facility] Wire Right: Sacrum [employer] MINIMALLY INVASIVE T 01/07/2023 [id number] / / [id number] Description:DISPOSABLE SUPPL Y , NOT IMPLANT Care Teams Foreign Banknote Teller Trader Relationship Specialty Start Date End Date Enio Morales MD [address] [place] [address] PCP - General 09/30/19
--- OUTSIDE RECORDS SUMMARY | 2024-07-17 13:26 | XMS_ITS ---
Author Organization [facility] Address [address] [place] [address] Care Team Providers Care Demo Specialist Name Role Phone Enio Morales MD Primary [...] Orally Once a day Active Epoetin Rito 03624 UNIT/ML as directed Injection Active amLODIPine Besylate [...] 07/07/2024 Encounters Encounter Location Date Provider Diagnosis [facility] [address] [place] [address] 07/07/2024 Gunner العلي Jr Colon cancer screening Z12.11 Assessments Encounter Date Diagnosis (ICD Code) Assessment Notes Treatment Notes Treatment Clinical Notes Section Notes 07/07/2024 Colon cancer screening (ICD-10 - Z12.11) Plan Of Treatment Future Test Test Name Order Date COLONOSCOPY 07/07/2024 Next Appt Details Provider Name:Gunner contreras Jr, 08/26/2024 07:30:00 AM, [address] [place] [address], [phone], Progress Notes * KING HEWITT MDOB:[birth year] (69 yo F)Acc No.[id number]:07/07/2024 Progress Notes Patient:?INGRISKING FOSTER Provider:?Gunner العلي MD :1955???Age:69 Y???Sex:Female D ate:07/07/2024 Address:[address] [place], [place] [phone] Pcp:Enio Morales MD Subjective: * Chief Complaints: [...] . Occupation: disabled. * Medications:?Taking Epoetin Rito 14828 UNIT/ML Solution as directed Injection , Taking [...] MD Date:?0 07/07/2024 Generated for Carlos loving/Nas/eTransmitting on:?07/17/2024 01:26 PM EDT
--- OUTSIDE RECORDS SUMMARY | 2024-07-17 13:26 | XMS_ITS | Encounter Summary ---
Author Organization [facility] Address [address] [place] [address] Care Team Providers Care Performance Reporter Name Role Phone Enio Morales MD Primary Care Provider [phone] Encounter Details Date Type Department Care Team (Late st Contact Info) Description 01/15/2020 Scanned Document [facility] Neurosurgery [place] 85 [facility] [address] [place] [phone] Alvin Real MD 85 [facility] [place] [address] [place] [address] Social History Tobacco Use Types Packs/Day Years Used Date Smoking Tobacco: Never Assessed Sex and Gender Information Value Date Recorded Sex Assigned at Not on file Gender Identity Not on file Sexual Orientation Not on file documented as of this encounter Plan of Treatment Not on file documented as of this encounter Visit Diagnoses Not on filedocumented in this encounter Care Teams Performance Reporter Relationship Specialty Start Date End Date Enio Morales MD [address] [place] [address] PCP - General 09/30/19 documented as of this encounter
--- OUTSIDE RECORDS SUMMARY | 2024-07-17 13:26 | XMS_ITS | Encounter Summary ---
Author Organization [facility] Address [address] [place] [address] Care Team Providers Care Target Developer Name Role Phone Enio Morales MD Primary Care Provider [phone] Encounter Details Date Type Department Care Team (Late st Contact Info) Description 06/16/2020 Scanned Document [facility] Neurosurgery [place] 85 [facility] [address] [place] [phone] Alvin Real MD 85 [facility] [place] [address] [place] [phone] Social History Tobacco Use Types Packs/Day Years [...] on filedocumented in this encounter Care Teams Target Developer Relationship Specialty Start Date End Date Enio Morales MD [address] [place] [address] PCP - General 09/30/19 documented as of this encounter
--- OUTSIDE RECORDS SUMMARY | 2024-07-17 13:26 | XMS_ITS ---
Author Organization [facility] Address [address] [place] [address] Care Team Providers Care Wedding Transportation Driver Name Role Phone Enio Morales MD Primary Care Provider Daisy Lopez [phone] REASON FOR VISIT Custom OTs RX Encounters Encounter Location Date Provider Diagnosis [facility] [address] [place] [address] 11/15/2023 Daisy Olea Plan Of Treatment No Information Progress Notes * Bettina CASTREJON MDOB:[birth year] (68 yo F)Acc No.[id number]:11/15/2023 Patient:?Bettina Castrejon :1955???Age:68 Y???Sex:Female Address:[address] [place] [address], [phone] * true * Date:? Generated for Printi fabienne/Nas/eTransmitting on:?07/17/2024 01:26 PM EDT
--- OUTSIDE RECORDS SUMMARY | 2024-07-17 13:26 | XMS_ITS | Encounter Summary ---
Author Organization [facility] Address [address] [place] [address] Care Team Providers Care Drink Box Mechanic Name Role Phone Enio Morales MD Primary Care Provider [phone] Encounter Details Date Type Department Care Team (Late st Contact Info) Description 05/06/[address] [facility] Neurosurgery [place] 85 [facility] [address] [place] [phone] Alvin Real MD 85 [facility] [place] [address] [place] [phone] Social History Tobacco Use Types Packs/Day Years [...] on filedocumented in this encounter Care Teams Drink Box Mechanic Relationship Specialty Start Date End Date Enio Morales MD [address] [place] [address] PCP - General 09/30/19 documented as of this encounter
--- OUTSIDE RECORDS SUMMARY | 2024-07-17 13:26 | XMS_ITS | Patient Health Record ---
Author Organization [facility] Address [address] [place] [address] Care Team Providers Care Drug Safety Scientist Name Role Phone Enio Morales MD Primary [...] Oral for 90 Days Active Epoetin Rito 92835 UNIT/ML as directed Injection Active amLODIPine Besylate [...] Problem Status W/U Status Risk Notes Problem 750695200 Colon cancer screening (Z12.11) Active confirmed Problem 707883871 Gastroesophageal reflux disease, unspecified whether esophagitis present (K21.9) Active confirmed Problem 327846780 FH: esophageal cancer (Z80.0) Active confirmed Vital Signs Temperature 96.5 degrees Fahrenheit 07/07/2024 Blood pressure diastolic 01 mm Hg 07/07/2024 Height 65 in 07/07/2024 Blood pressure systolic 001 mm Hg 07/07/2024 Weight 135 lbs 07/07/2024 BMI 22.46 kg/m2 07/07/2024 Encounters Encounter Location Date Provider Diagnosis [facility] [address] [place] [address] 07/07/2024 Gunner العلي Jr Colon cancer screening Z12.11 Assessments Encounter Date Diagnosis (ICD Code) Assessment Notes Treatment Notes Treatment Clinical Notes Section Notes 07/07/2024 Colon cancer screening (ICD-10 - Z12.11) Plan Of Treatment Future Test Test Name Order Date COLONOSCOPY 07/02/2019 UPPER GI ENDOSCOPY 05/14/2020 COLONOSCOPY 07/07/2024 Next Appt Details Provider Name:Gunner contreras Jr, 08/26/2024 07:30:00 AM, [address] [place] [address] , [place], [place], [phone], Insurance Providers Payer Name Payer Address Payer Phone Subscriber Number Group Number Insured Name Patient Relationship to Insured Coverage Start Date Coverage End Date MEDICARE OF [place] [address] JOSE ALFREDO AREVALO [id number] KING HEWITT Self - patient is the insured MEDEX ATTN CLAIMS [address] [place] [address] [id number] KING HEWITT Self - patient is the [...]
--- OUTSIDE RECORDS SUMMARY | 2024-07-17 13:26 | XMS_ITS | Encounter Summary ---
Author Organization [facility] Address [address] [place] [address] Care Team Providers Care Caramel Candy Maker Helper Name Role Phone Enio Morales MD Primary Care Provider [phone] Encounter Details Date Type Department Care Team (Late st Contact Info) Description 05/24/2020 Scanned Document [facility] Neurosurgery [place] [address] [phone] Alvin Real MD 85 [facility] [place] [address] [place] [phone] Social History Tobacco Use Types Packs/Day Years [...] on filedocumented in this encounter Care Teams Caramel Candy Maker Helper Relationship Specialty Start Date End Date Enio Morales MD [address] [place] [address] PCP - General 09/30/19 documented as of this encounter
--- OUTSIDE RECORDS SUMMARY | 2024-07-17 13:26 | XMS_ITS ---
Author Organization [facility] Address [address] [place] [address] Care Team Providers Care Pearl Technician Name Role Phone Enio Morales MD Primary Care Provider Daisy Lopez [phone] REASON FOR VISIT Ciclopirox RX Encounters Encounter Location Date Provider Diagnosis [facility] [address] [place] [address] 10/31/2023 Daisy Olea Plan Of Treatment No Information Progress Notes * Bettina CASTREJON MDOB:[birth year] (68 yo F)Acc No.[id number]:10/31/2023 Patient:?Bettina Castrejon :1955???Age:68 Y???Sex:Female Address:[address] [place] [address], [address] * true * Date:? Generated for Printi ng/Fasalvadorg/eTransmitting on:?07/17/2024 01:26 PM EDT
--- OUTSIDE RECORDS SUMMARY | 2024-07-17 13:26 | XMS_ITS | Encounter Summary ---
Author Organization [facility] Address [address] [place] [address] Care Team Providers Care Guest Specialist Name Role Phone Enio Morales MD Primary Care Provider [phone] Encounter Details Date Type Department Care Team (Late st Contact Info) Description 06/25/2020 Scanned Document [facility] Neurosurgery [place] 85 [facility] [address] [place] [phone] Alvin Real MD 85 [facility] [place] [address] [place] [phone] Social History Tobacco Use Types Packs/Day Years [...] on filedocumented in this encounter Care Teams Guest Specialist Relationship Specialty Start Date End Date Enio Morales MD [address] [place] [address] PCP - General 09/30/19 documented as of this encounter
--- OUTSIDE RECORDS SUMMARY | 2024-07-17 13:26 | XMS_ITS | Encounter Summary ---
Author Organization [facility] Address [address] [place] [address] Care Team Providers Care Cake Puncher Name Role Phone Enio Morales MD Primary Care Provider [phone] Encounter Details Date Type Department Care Team (Late st Contact Info) Description 08/04/2020 Scanned Document [facility] Neurosurgery [place] 85 [facility] [address] [place] [phone] Alvin Real MD 85 [facility] [place] [address] [place] [phone] Social History Tobacco Use Types Packs/Day Years [...] on filedocumented in this encounter Care Teams Cake Puncher Relationship Specialty Start Date End Date Enio Morales MD [address] [place] [address] PCP - General 09/30/19 documented as of this encounter
--- OUTSIDE RECORDS SUMMARY | 2024-07-17 13:26 | XMS_ITS ---
Author Organization [facility] Address [address] [place] [address] Care Team Providers Care Lead Mechanical Engineer Name Role Phone Enio Morales MD Primary Care Provider Daisy Lopez [phone] REASON FOR VISIT RX for inserts issue Encounters Encounter Location Date Provider Diagnosis [address] [address] 12/12/2023 Daisy Olea Plan Of Treatment No Information Progress Notes * Bettina CASTREJON MDOB:[birth year] (68 yo F)Acc No.[id number]:12/12/2023 Patient:?Bettina Castrejon :1955???Age:68 Y???Sex:Female Address:[address] [place] [address], [address] * true * Date:? Generated for Brii fabienne/Nas/eTransmitting on:?07/17/2024 01:26 PM EDT
--- OUTSIDE RECORDS SUMMARY | 2024-07-17 13:27 | XMS_ITS | Encounter Summary ---
Author Organization [facility] Address [address] [place] [address] Care Team Providers Care Styrene Dehydration Reactor Operator Name Role Phone Enio Morales MD Primary Care Provider [phone] Encounter Details Date Type Department Care Team (Late st Contact Info) Description 11/06/2019 Scanned Document [facility] Neurosurgery [place] [address] [address] Alvin Real MD 85 [facility] [place] [address] [place] [address] Social History Tobacco Use Types Packs/Day Years Used Date Smoking Tobacco: Never Assessed Sex and Gender Information Value Date Recorded Sex Assigned at Not on file Gender Identity Not on file Sexual Orientation Not on file documented as of this encounter Plan of Treatment Not on file documented as of this encounter Visit Diagnoses Not on filedocumented in this encounter Care Teams Styrene Dehydration Reactor Operator Relationship Specialty Start Date End Date Enio Morales MD [address] [place] [address] PCP - General 09/30/19 documented as of this encounter
--- OUTSIDE RECORDS SUMMARY | 2024-07-17 13:27 | XMS_ITS | Patient Health Record ---
Author Organization [facility] Address [address] [place] [address] Care Team Providers Care Supervisory Aide Name Role Phone Enio Morales MD Primary Care Provider Daisy Lopez Unavailable [phone] Allergies Allergen (clinical drug ingredient) Drug/Non Drug [...] Status Risk Notes Problem Plantar fascial fibromatosis (02749054) Plantar fascial fibromatosis (M72.2) Active confirmed Vital Signs Height 5ft4in in 10/29/2023 Weight 127 lbs 10/29/2023 BMI 21.8 kg/m2 10/29/2023 Encounters Encounter Location Date Provider Diagnosis [address] [address] 10/29/2023 Daisy Olea Tinea unguium B35.1 ; [...] M60.872 and Bursitis of left foot M77.[address] [address] 10/31/[address] [address] 11/15/[address] [address] 12/12/2023 Daisy Olea Assessments Encounter Date Diagnosis [...] X ray : Foot, right 2V 08/29/2012 [id number] TENDON SHEATH/LIGAMENT 0 08/29/2012 Insurance Providers Payer Name Payer Address Payer Phone Subscriber Number Group Number Insured Name Patient Relationship to Insured Coverage Start Date Coverage End Date Medicare National Govt Svcs Inc [address] [place] [address] [id number] Bettina Castrejon Self - patient is the insured [employer] Blue Shield [address] [place] [address] [id number] Bettina Castrejon Self - patient is the insured Medical (General) History Medical History History ICD Code mumps measles chicken pox Cancer Joint implants/screws Bone marrow cancer, red blood cell cance r Surgical History Surgery Date(Month/Year) knee surgery 2017 Hand Surgery 2014 back surgery 2020
--- OUTSIDE RECORDS SUMMARY | 2024-07-17 13:27 | XMS_ITS | Encounter Summary ---
Author Organization [facility] Address [address] [place] [address] Care Team Providers Care Retail Cashier Name Role Phone Enio Morales MD Primary Care Provider [phone] Encounter Details Date Type Department Care Team (Late st Contact Info) Description 09/11/2019 Scanned Document [facility] Neurosurgery [place] [address] [address] Alvin Real MD 85 [facility] [place] [address] [place] [address] Social History Tobacco Use Types Packs/Day Years Used Date Smoking Tobacco: Never Assessed Sex and Gender Information Value Date Recorded Sex Assigned at Not on file Gender Identity Not on file Sexual Orientation Not on file documented as of this encounter Plan of Treatment Not on file documented as of this encounter Visit Diagnoses Not on filedocumented in this encounter Care Teams Retail Cashier Relationship Specialty Start Date End Date Enio Morales MD [address] [place] [address] PCP - General 09/30/19 documented as of this encounter
--- OUTSIDE RECORDS SUMMARY | 2024-07-17 13:27 | XMS_ITS | Encounter Summary ---
Author Organization [facility] Address [address] [place] [address] Care Team Providers Care Funds Transfer Clerk Name Role Phone Enio Morales MD Primary Care Provider [phone] Encounter Details Date Type Department Care Team (Late st Contact Info) Description 09/11/2019 Scanned Document [facility] Neurosurgery [place] [address] [phone] Alvin Real MD 85 [facility] [place] [address] [place] [address] Social History Tobacco Use Types Packs/Day Years Used Date Smoking Tobacco: Never Assessed Sex and Gender Information Value Date Recorded Sex Assigned at Not on file Gender Identity Not on file Sexual Orientation Not on file documented as of this encounter Plan of Treatment Not on file documented as of this encounter Visit Diagnoses Not on filedocumented in this encounter Care Teams Funds Transfer Clerk Relationship Specialty Start Date End Date Enio Morales MD [address] [place] [address] PCP - General 09/30/19 documented as of this encounter
--- OUTSIDE RECORDS SUMMARY | 2024-07-17 13:27 | XMS_ITS | Encounter Summary ---
Author Organization [facility] Address [address] [place] [address] Care Team Providers Care Restaurant Crew Name Role Phone Enio Morales MD Primary Care Provider [phone] Encounter Details Date Type Department Care Team (Late st Contact Info) Description 09/11/2019 Scanned Document [facility] Neurosurgery [place] [address] [phone] Alvin Real MD 85 [facility] [place] [address] [place] [address] Social History Tobacco Use Types Packs/Day Years Used Date Smoking Tobacco: Never Assessed Sex and Gender Information Value Date Recorded Sex Assigned at Not on file Gender Identity Not on file Sexual Orientation Not on file documented as of this encounter Plan of Treatment Not on file documented as of this encounter Visit Diagnoses Not on filedocumented in this encounter Care Teams Restaurant Crew Relationship Specialty Start Date End Date Enio Morales MD [address] [place] [address] PCP - General 09/30/19 documented as of this encounter
--- OUTSIDE RECORDS SUMMARY | 2024-07-17 13:27 | XMS_ITS | Encounter Summary ---
Author Organization [facility] Address [address] [place] [address] Care Team Providers Care Prosthodontist/Educator Name Role Phone Enio Morales MD Primary Care Provider Encounter Details Date Type Department Care Team (Late st Contact Info) Description 09/11/2019 Scanned Document [facility] Neurosurgery [place] [address] [address] Alvin Real MD 85 [facility] [place] [address] [place] [address] Social History Tobacco Use Types Packs/Day Years Used Date Smoking Tobacco: Never Assessed Sex and Gender Information Value Date Recorded Sex Assigned at Not on file Gender Identity Not on file Sexual Orientation Not on file documented as of this encounter Plan of Treatment Not on file documented as of this encounter Visit Diagnoses Not on filedocumented in this encounter Care Teams Prosthodontist/Educator Relationship Specialty Start Date End Date Enio Morales MD [address] [place] [address] PCP - General 09/30/19 documented as of this encounter
[2024-08-22 12:35] VITALS: BMI 22.5
[2024-08-26 06:46] VITALS: BP 127/65; PULSE 67; RESP 18; TEMP 37.4; O2SAT 95; BMI 21.5
[2024-08-26] MEDS: Lactated Ringers 1,000 ML 100 ML IVCONT (07:10)
--- NOTE | 2024-08-26 07:37 | MHC.SHP ---
Pre-Procedural Eval Section A - 24 Hr Update-Section A only Date of Service: 08/26/24 Section B - Complete if H&P > 30 days Chief Complaint: screening Details of Present Illness: see H&P no changes Relevant Family History (Specify if Yes): No Relevant Social History: None Present Medications: see Short Stay Collaborative assessment Medical History: No relevant PMH History of Previous Operations: No relevant previous surgery Allergies: Allergies Allergy/AdvReac Type Severity Reaction Status Date / Time codeine Allergy Intermediate Itching Verified 08/26/24 06:58 Review of Systems Sugical H&P ROS: Negative: Constitution, Cardiovascular, Respiratory, Neurological, Psychiatric, Hem-Onc, Allergic/Immunologic, Gastrointestinal, Genitourinary, Musculoskeletal, Integumentary, Endocrine and Eyes/Ears/Nose/Throat Exam Surgical H&P Exam: Normal: HEENT, Normal: Heart, Normal: Lungs, Normal: Extremities, Normal: Abdomen, Normal: Skin and Normal: Neurological Plan Diagnosis/Plan: Unchanged I have reviewed the history and physical and performed a pertinent physical examination on my patient. No changes have occurred unless specified. Time Spent With Patient Time: Total time managing care of this patient today ____ minutes.
[2024-08-26 08:22] VITALS: BP 84/43; PULSE 60; RESP 18; TEMP 36.2; O2SAT 96
[2024-08-26 08:35] VITALS: BP 102/60; PULSE 60; RESP 18; TEMP 36.2; O2SAT 97
--- NOTE | 2024-08-26 09:47 | P.CONAN_ITS ---
Documented by User: Ileana Jeronimo NP 08/25/24 09:48 HPI - Anesthesia Eval Consult details Narrative: 69yo F for Colonoscopy PMFSH Active Problems Active Problems: All Active Problems Osteoporosis (Acute) Well woman exam (Acute) Painful lumpy right breast (Acute) Chronic, continuous use of opioids (Acute) Bilateral lumbar radiculopathy (Acute) Postlaminectomy syndrome, lumbar (Acute) Past Medical History Medical History Cervical cancer Primary cancer of bone marrow GERD (gastroesophageal reflux disease) Hx of degenerative disc disease DJD (degenerative joint disease) Weakness of both legs Family History Family History Mother Esophagus cancer Sister Lung cancer Family history of problems with anesthesia: No Surgical History Surgical History History of esophagogastroduodenoscopy (EGD) History of loop electrical excision procedure (LEEP) History of blepharoplasty Hx of hand surgery Hx of knee surgery Hx of colonoscopy History of back surgery History of Problems with Anesthesia: No Social History Social History Household Members: Spouse Housing: House Alcohol intake: current Alcohol intake frequency: holidays/special occasions only Patient Tobacco Use Status: Former Tobacco user Tobacco use type: Cigarette Years Smoked: 10 Use of substances other than those prescribed or required for medical reasons: Yes Substance Use Type Other:: edible Substance Use Frequency: Occasionally Are you DNR?: No Advance Directives: No Advance Directives Information Provided: Yes Current occupational status: disabled Sexual orientation: Straight/Heterosexual Gender identity: Female Meds Allergies Allergy/AdvReac Type Severity Reaction Status Date / Time codeine Allergy Intermediate Itching Verified 08/26/24 06:58 Home Medications ?Medication ?Instructions ?Recorded ?Confirmed ?Last Taken ?Type oxycodone-acetaminophen 10 mg-325 1 tab PO Q4H PRN pain 06/14/20 08/22/24 08/26/24 05:00 History mg tablet magnesium 250 mg tablet 250 mg PO DAILY 08/02/21 08/22/24 08/19/24 History multivitamin 1 tab PO DAILY 08/02/21 08/22/24 08/19/24 History pantoprazole 40 mg tablet,delayed 40 mg PO DAILY 08/02/21 08/22/24 08/19/24 History release ketoconazole 2 % shampoo 1 appl topical DAILY 03/23/22 08/22/24 08/19/24 History bupropion HCl 150 mg tablet,12 hr 300 mg PO DAILY 05/23/23 08/22/24 08/25/24 19:00 History sustained-release bupropion HCl 300 mg 24 hr tablet, 300 mg PO QAM 05/23/23 08/22/24 08/25/24 19:00 History extended release amlodipine 5 mg tablet 5 mg PO DAILY 08/22/24 08/22/24 08/25/24 19:00 History Exam Height,Weight and Vital Signs: Height 5 ft 5 in Weight 61.235 kg Assessment and Plan Assessment Anesthesia Assessment: Chart Reviewed Final Anesthetic Review Family History of Problems with Anesthesia: No History of Problems with Anesthesia: No Documented by User: Jose Higgins MD 08/28/24 11:30 PMFSH Past Medical History Medical History Cervical cancer Primary cancer of bone marrow GERD (gastroesophageal reflux disease) Hx of degenerative disc disease DJD (degenerative joint disease) Weakness of both legs Family History Family History Mother Esophagus cancer Sister Lung cancer Surgical History Surgical History History of esophagogastroduodenoscopy (EGD) History of loop electrical excision procedure (LEEP) History of blepharoplasty Hx of hand surgery Hx of knee surgery Hx of colonoscopy History of back surgery Social History Social History Household Members: Spouse Housing: House Alcohol intake: current Alcohol intake frequency: holidays/special occasions only Patient Tobacco Use Status: Former Tobacco user Tobacco use type: Cigarette Years Smoked: 10 Use of substances other than those prescribed or required for medical reasons: Yes Substance Use Type Other:: edible Substance Use Frequency: Occasionally Are you DNR?: No Advance Directives: No Advance Directives Information Provided: Yes Current occupational status: disabled Sexual orientation: Straight/Heterosexual Gender identity: Female Meds Allergies Allergy/AdvReac Type Severity Reaction Status Date / Time codeine Allergy Intermediate Itching Verified 08/26/24 06:58 Home Medications ?Medication ?Instructions ?Recorded ?Confirmed ?Last Taken ?Type oxycodone-acetaminophen 10 mg-325 1 tab PO Q4H PRN pain 06/14/20 08/22/24 08/26/24 05:00 History mg tablet magnesium 250 mg tablet 250 mg PO DAILY 08/02/21 08/22/24 08/19/24 History multivitamin 1 tab PO DAILY 08/02/21 08/22/24 08/19/24 History pantoprazole 40 mg tablet,delayed 40 mg PO DAILY 08/02/21 08/22/24 08/19/24 History release ketoconazole 2 % shampoo 1 appl topical DAILY 03/23/22 08/22/24 08/19/24 History bupropion HCl 150 mg tablet,12 hr 300 mg PO DAILY 05/23/23 08/22/24 08/25/24 19 :00 History sustained-release bupropion HCl 300 mg 24 hr tablet, 300 mg PO QAM 05/23/23 08/22/24 08/25/24 19:00 History extended release amlodipine 5 mg tablet 5 mg PO DAILY 08/22/24 08/22/24 08/25/24 19:00 History Exam Airway Mallampati Class: II TM Dist: >3cm Neck ROM: Full Loose/Missing/Broken Teeth: Yes Assessment and Plan Assessment Anesthesia Assessment: Anesthesia Plan Discussed Final Anesthetic Review NPO: Yes ASA Class: III Final Preanesthetic Review: No Changes in Pt Med Stat, Meds/Allgs Chart Reviewed, Consent Obtained/Reviewed and Anes Risks/Benef Reviewed Patient Risk: Intermediate Procedure Risk: Low Anesthetic Plan Anesthetic Plan: MAC: Disposition: Standard PACU
--- NOTE | 2024-08-26 09:47 | OP_ITS ---
DATE OF SERVICE: 08/26/2024 SURGEON: Gunner العلي MD INDICATIONS: Colon cancer screening. PREOPERATIVE DIAGNOSIS: POSTOPERATIVE DIAGNOSIS: PROCEDURE PERFORMED: Colonoscopy to the terminal ileum. ESTIMATED BLOOD LOSS: COMPLICATIONS: ANESTHESIA: Monitored anesthesia care. ASSISTANTS: SPECIMENS: DESCRIPTION OF PROCEDURE: A history and physical was performed. The risks and benefits of the procedure were explained to the patient. Informed consent was obtained. The patient was placed in the left lateral decubitus position. A digital rectal exam was performed and was found to be normal. The Olympus pediatric video colonoscope was introduced into the rectum, and advanced to the cecum. The cecum was identified by transillumination, palpation, and identification of the ileocecal valve. Examination was performed. The scope was removed. She tolerated the procedure well and was returned to the recovery area in stable condition. FINDINGS: The terminal ileum was examined and appeared normal. The visualized colonic mucosa was normal. The quality of the prep was good. No polyps were identified. Retroflexed examination showed some small internal hemorrhoids. There was mild sigmoid diverticulosis. IMPRESSION: Normal colonoscopy. RECOMMENDATION: 1. Follow up as needed. 2. Repeat colonoscopy is recommended in 10 years for average-risk individuals. MD JAGRUTI Walters/DAVID / [id number]
== END 2024-08-26 09:20 | disposition home or self-care (01) ==
PROVIDERS: PCP Internal Medicine; Visit Provider Internal Medicine Gastroenterology
PROC: 0DJD8ZZ Inspection of Lower Intestinal Tract, Via Natural or Artificial Opening Endoscopic (ICD-10-PCS; CPT 45378; principal; 2024-08-26 07:30)
DX: Z12.11 Encounter for screening for malignant neoplasm of colon (principal); Z86.0101 Personal history of adenomatous and serrated colon polyps; K57.30 Diverticulosis of large intestine without perforation or abscess without bleeding; K64.8 Other hemorrhoids; K21.9 Gastro-esophageal reflux disease without esophagitis; C53.9 Malignant neoplasm of cervix uteri, unspecified; C96.9 Malignant neoplasm of lymphoid, hematopoietic and related tissue, unspecified; M19.90 Unspecified osteoarthritis, unspecified site; D46.9 Myelodysplastic syndrome, unspecified; D75.839 Thrombocytosis, unspecified; Z86.69 Personal history of other diseases of the nervous system and sense organs; Z79.899 Other long term (current) drug therapy; Z98.890 Other specified postprocedural states; Z88.5 Allergy status to narcotic agent; Z87.891 Personal history of nicotine dependence
CPT/HCPCS: G0105

== ENCOUNTER 2024-09-15 08:20 | Outpatient (REF) | payer MEDICARE, SELFPAY ==
--- NOTE | ~2024-09-15 | US_ITS ---
EXAMINATION: MM DIAGNOSTIC DIGITAL BREAST TOMOSYNTHESIS, RIGHT Limited right breast ultrasound. CLINICAL INFORMATION: Right breast pain. COMPARISON: Mammography: Priors on PACS. TECHNIQUE: Digital breast tomosynthesis is performed in both the craniocaudal and mediolateral oblique views along with computer-aided detection (CAD). Synthesized 2D images are generated from the tomosynthesis. FINDINGS: There are scattered areas of fibroglandular density (ACR BI-RADS breast composition Category b). Monroe marker in the central outer right breast middle to posterior depth without underlying abnormality at the site of the patient's pain. There are no significant masses, abnormal calcifications, or other abnormalities. Targeted color Doppler ultrasound scanning in the area the patient's right breast pain lower outer quadrant and lateral breast demonstrates normal fibroglandular breast tissue. There is no sonographic abnormal findings. US/US breast RT limited mamm only IMPRESSION: No mammographic or sonographic abnormal findings to account for the patient's right breast pain. Recommend clinical evaluation follow-up. ASSESSMENT: BI-RADS BI-RADS 1 - Negative RECOMMENDATION: 1 year F/U Clinical evaluation and follow-up. Results were provided to the patient at time of visit by the technologist. This patient's information was entered into a reminder system with a target due date for their next mammogram. Electronically signed by: Mary Salinas DO 09/15/2024 10:05 AM EDAlejandro
--- OUTSIDE RECORDS SUMMARY | 2024-09-15 08:29 | XMS_ITS | Encounter Summary ---
Author Organization Formerly [facility] Address [address] [place] [address] Care Team Providers Care Hair Weaver Name Role Phone Enio Morales MD Primary Care Provider [phone] Encounter Details Date Type Department Care Team (Late st Contact Info) Description 05/06/2020 Scanned Document [facility] Neurosurgery [place] [address] [facility] [address] [place] [phone] Alvin Real MD [address] [facility] [place] [address] [place] [address] [phone] Social History Tobacco Use Types Packs/Day Years Used Date Smoking Tobacco: Former Smokeless Tobacco: Never Comments:on and off / recent ly e cigarettes frequently Alcohol Use Standard Drinks/Week Comments Not Currently 0 (1 standard drink = 0.6 oz pur e alcohol) 1wine q2mos Comments No Sex and Gender Information Value Date Recorded Sex Assigned at Not on file Legal Sex Female 6:26 PM EST Gender Identity Not on file Sexual Orientation [...] on filedocumented in this encounter Care Teams Hair Weaver Relationship Specialty Start Date End Date Enio Morales MD [address] [place] [address] [phone] PCP - General 09/30/19 documented as of this encounter
== END 2024-09-15 08:21 | disposition home or self-care (01) ==
LOC: HO.MAMMO 08:20
PROVIDERS: PCP Internal Medicine; Visit Provider Internal Medicine
DX: N64.4 Mastodynia (principal)
CPT/HCPCS: 76642; 77061; 77065

== ENCOUNTER → 2024-09-15 08:30 | Outpatient (BNV) | payer MEDICARE, SELFPAY | PROVIDERS: PCP Internal Medicine; Visit Provider Internal Medicine | DX: N64.4 Mastodynia (principal) | CPT/HCPCS: 76642; 77065; G0279 ==

== ENCOUNTER 2024-12-10 11:23 | Outpatient (REF) | payer MEDICARE, SELFPAY ==
--- OUTSIDE RECORDS SUMMARY | 2024-08-19 03:30 | XMS_ITS ---
Author Organization [facility] Address [address] [place] [address] Care Team Providers Care Acetylene Gas Compressor Name Role Phone Andrew NEWSOME, Enio Primary Care Provider Gunner Sebastian Jr REASON FOR VISIT screening Encounters Encounter Location Date Provider Diagnosis [facility] Outpatient [address] [place] [phone] 08/19/2024 Gunner العلي Jr Plan Of Treatment No Information Progress Notes * KING HEWITT MDOB:[birth year] (69 yo F)Acc No.[id number]:08/19/2024 COLON WITH MAC Patient: KING HERNANDEZ Provider: Savannah العلي MD :1955 A ge:69 Y S ex:Female Date:08/19/2024 Address:[address] [place], [place] [phone] Pcp:Enio Morales MD Subjective: * Chief Complaints: [...] MD Date: 0 08/19/2024 Generated for Brii ng/Fasalvadorg/eTransmitting on: 0 12/10/2024 12:18 PM EDT
--- OUTSIDE RECORDS SUMMARY | 2024-08-26 03:30 | XMS_ITS ---
Author Organization [facility] Address [address] [place] [address] Care Team Providers Care Manager Credit Risk Name Role Phone Enio Morales MD Primary Care Provider Gunner Sebastian Jr REASON FOR VISIT screening Encounters Encounter Location Date Provider Diagnosis [facility] [place] [address] [place], [place] [phone] 08/26/2024 Gunner العلي Jr Colon cancer screening Z12.11 Assessments Encounter Date Diagnosis (ICD Code) Assessment Notes Treatment Notes Treatment Clinical Notes Section Notes 08/26/2024 Colon cancer screening (ICD-10 - Z12.11) Plan Of Treatment No Information Progress Notes * KING HEWITT MDOB:[birth year] (69 yo F)Acc No.[id number]:08/26/2024 COLON WITH MAC Patient: KING HERNANDEZ Provider: Savannah العلي MD :1955 A ge:69 Y S ex:Female Date:08/26/2024 Address:[address] [place], [place] [phone] Pcp:Enio Morales MD Subjective: * Chief Complaints: [...] 0 08/26/2024 Generated for Carlos loving/Nas/Nikhil on: 0 12/10/2024 12:18 PM EDT
--- OUTSIDE RECORDS SUMMARY | 2024-12-08 07:40 | XMS_ITS | Encounter Summary ---
Author Organization [facility] Address [address] [facility] [address] [place] [phone] Phone Care Team Providers Care Data Warehousing Architect Name Role Phone Enio Morales MD Unavailable Abd Alvin Dalal MD Unavailable Amber Young PA-C Unavailable Kimi Lyles CNP Unavailable Rohith Pritchett Unavailable Enio Morales MD Primary Care Provider [phone] Rivka Mcbride NP Unavailable Encounter Details Date Type Department Care Team (Latest Contact Info) Description 12/08/2024 7:40 AM EDT - 12/08/2024 11:59 PM EDT Hospital Encounter [facility] [address] [place] [address] Rohith Pritchett MBBS [address] [place], [place] [phone] [email or web address] Arrived Discharge Disposition: Home or Self Care Social History Tobacco Use Types Packs/Day Years Used Date Smoking Tobacco: Former Cigarettes 0.3 10 0 04/30/1999 - 04/30/2009 Smokeless Tobacco: Never Alcohol Use Standard Drinks/Week Comments Yes 0 (1 standard drink = 0.6 oz pur e alcohol) 3 glasses wine a year Education Answer Date Recorded Are you interested in more education? Not on keila e 08/10/2022 Are you concerned about learning? Not on file 08/10/2022 No 08/10/2022 No 08/10/2022 Digital Access Answer Date Recorded No 09/11/2022 No 09/11/2022 Reliable internet access at home? Not on file 09/11/2022 Device with a working camera? Not on file Intimate Partner Violence Answer Date R ecorded Are you denied basic needs s uch as food, clothing, or medical care? No 03/29/2023 In the past 12 months have y ou been in a relationship with a person who hurts, threatens, or tries to control you? No 03/29/2023 Are you denied basic needs s uch as food, clothing, or medical care? No 03/29/2023 In the past 12 months have y ou been in a relationship with a person who hurts, threatens, or tries to control you? No 03/29/2023 Comments No Sex and Gender Information Value Date Recorded Sex Assigned at Not on file Legal Sex Female 9:52 PM EDT Gender Identity Not on file Sexual Orientation Not on file documented as of this encounter Medications at Time of Discharge amLODIPine (NORVASC) 5 MG tabletIndications: Essential hypertension TAKE 1 TABLET(5 MG) BY MOUTH DAILY 100 tablet 3 4 betamethasone dipropionate 0.05 % cream Apply 1 application. topically 2 (two) times a day. 3 blood pressure monitor KitIndications:Yifan ign essential hypertension 1 Units by Miscellaneous route daily. 1 kit 4 ciclopirox (LOPROX) 1 % shampoo Apply 1 Application topically. Twice a month 5 multivitamins Chew Take 1 tablet by mouth daily. oxyCODONE-acetamin ophen (PERCOCET) 10-325 mg per tabletIndications: Chronic bilateral low back pain with bilateral sciatica,Opiate use,MDS (myelodysplastic syndrome) Take 1 tablet by mouth every 4 (four) hours as needed for pain (specific location in comments). Not to exceed 6 tablets per day. Partial fill ok 168 tablet 5 12/27/19 25 pantoprazole (PROTONIX) 40 MG tabletIndications: Gastroesophageal reflux disease without esophagitis TAKE 1 TABLET(40 MG) BY MOUTH DAILY 90 tablet 3 4 sodium bicarbonate/citric acid (LACY-SELTZER HEARTBURN ORAL) Take 2 tablets by mouth as needed (for heartburn). sodium zirconium cyclosilicate (LOKELMA) 10 gramIndications:Hy perkalemia Take 1 packet (10 g total) by mouth every 12 (twelve) hours for 2 days. 4 packet 5 12/11/19 25 ascorbic acid, vitamin C, (VITAMIN C) 500 MG tablet Take 500 mg by mouth daily. 12/11/19 25 buPROPion (WELLBUTRIN XL) 150 MG ER 24 hr tabletIndications: Depression, unspecified depression type Take 3 tablets (450 mg total) by mouth daily. 90 tablet 5 12/11/19 25 cholecalciferol, vitamin D3, (VITAMIN D3 ORAL)Indications:u nsure strength Take 1 capsule by mouth daily. Indications: unsure strength 12/11/19 25 ciclopirox (PENLAC) 8 % solution as needed. 4 12/11/19 25 clobetasol propionate (CLOBETASOL SCLP) 1 Application by scalp route 2 (two) times a day as needed. 2 weeks on and 1 week off 12/11/19 25 erythromycin (ROMYCIN) ophthalmic ointment as needed. 4 12/11/19 25 fluocinolone (SYNALAR) 0.01 % external solution Apply 1 application. topically 2 (two) times a day. 3 12/11/19 25 ketoconazole (NIZORAL) 2 % shampooIndications :Rash and other nonspecific skin eruption Apply topically 2 (two) times a week. Apply to damp skin, lather, leave on 5 minutes, and rinse 120 mL 2 12/11/19 25 lisinopril (ZESTRIL) 10 MG tabletIndications: Essential hypertension Take 1 tablet (10 mg total) by mouth daily. 90 tablet 3 5 12/11/19 25 magnesium 250 mg Tab Take 400 mg by mouth daily. 12/11/19 25 Medication-Free Text Take 2 tablets by mouth daily. Allergy medication daily 12/11/19 25 omega 2-dlh-zei-fish oil (FISH OIL) 1,000 mg (120 mg-180 mg) Cap Take 1 capsule by mouth daily. 12/11/19 25 prochlorperazine (COMPAZINE) 5 MG tabletIndications: Nausea Take 1 tablet (5 mg total) by mouth every 6 (six) hours as needed for nausea. 30 tablet 5 12/11/19 25 tacrolimus (PROTOPIC) 0.1 % ointment 3 12/11/19 25 triamcinolone acetonide 0.1 % creamIndications:R brendon and other nonspecific skin eruption Apply topically 2 (two) times a day. 80 g 1 1 12/11/19 25 documented as of this encounter Plan of Treatment Upcoming Encounters Date Type Department Care Team (Late st Contact Info) Description 12/30/2024 7:40 AM EDT Appointment [facility] [address] [place] [phone] Rohith Pritchett, MEETA [address] [place] [phone] [email or web address] 12/30/2024 8:30 AM EDT Office Visit [facility] [address] [place] [address] Kimi Lyles CNP [address] [place] [phone] Genie Trevizo FNP [address] [place] [phone] 12/30/2024 9:20 AM EDT Infusion [facility] [address] [place] [address] Rohith Pritchett MBBS [address] [place] [address] [email or web address] 01/05/2025 10:00 AM EDT Office Visit [facility] [address] [facility] 9th [place] [address] Archie Mccarthy MD [address] [facility] [address] [email or web address] 01/19/2025 7:40 AM EDT Appointment [facility] Laboratory [address] [place] [address] Rohith Pritchett MBBS [address] [place] [phone] [email or web address] 01/19/2025 9:00 AM EDT Office Visit [facility] at [address] [address] Rohith Pritchett MBBS [address] [place] [phone] [email or web address] 01/19/2025 9:20 AM EDT Infusion [facility] at [address] [address] Rohith Pritchett MBBS [address] [place] [address] [email or web address] Gaby Patel RN [address] [place] [address] 02/09/2025 7:30 AM EDT Appointment [facility] [address] [place] [address] Rohith Pritchett MBBS [address] [place] [phone] [email or web address] 02/09/2025 8:30 AM EDT Office Visit [facility] at [address] [address] Rivka Mcbride, LÁZARO [address] [place] [phone] [email or web address] 02/09/2025 9:00 AM EDT Infusion [facility] at [address] [address] Rohith Pritchett MBBS [address] [place] [phone] [email or web address] documented as of this encounter Procedures Procedure Name Priority Date/Time Associated Diagnosis Comments COMPREHENSIVE METABOLIC PANEL Routine 12/08/2024 7:53 AM EDT Myelodysplastic syndrome IRON AND IRON BINDING CAPACITY Routine 12/08/2024 7:53 AM EDT Myelodysplastic syndrome CBC AND DIFFERENTIAL Routine 12/08/2024 7:53 AM EDT Myelodysplastic syndrome FOLATE Routine 12/08/2024 7:53 AM EDT Myelodysplastic syndrome FERRITIN Routine 12/08/2024 7:53 AM EDT Myelodysplastic syndrome VITAMIN B12 Routine 12/08/2024 7:53 AM EDT Myelodysplastic syndrome documented in this encounter Results * (ABNORMAL) Vitamin B12 (12/08/2024 7:53 AM EDT) VITAMIN B12 1,587(H) 232 - 1,245 pg/mL [facility] Blood 12/08/2024 7:53 AM EDT 12/08/2024 7:58 AM EDT [facility] Trianaqui [facility] LAB BLOOD ORDERABLES Final Result Performing Organization Address City/[facility]/ZIP Co de Phone Number [address] [phone] * Folate (12/08/2024 7:53 AM EDT) FOLIC ACID 18.2 4.2 - 19.9 ng/mL [facility] Blood 12/08/2024 7:53 AM EDT 12/08/2024 7:58 AM EDT [facility] TrianaPritchett [facility] LAB BLOOD ORDERABLES Final Result Performing Organization Address [facility] Co de Phone Number [address] [phone] * (ABNORMAL) Iron and iron binding capacity (12/08/2024 7:53 AM EDT) IRON 167(H) 30 - 160 ug/dL [facility] IRON BINDING CAPACITY 265 228 - 428 ug/dL [facility] TRANSFERRIN SATURAT. 63(H) 15 - 50 % [facility] Blood 12/08/2024 7:53 AM EDT 12/08/2024 7:58 AM EDT [facility] D Pritchett [facility] LAB BLOOD ORDERABLES Final Result Performing Organization Address City/[facility]/ZIP Co de Phone Number [address] [phone] * (ABNORMAL) Ferritin (12/08/2024 7:53 AM EDT) FERRITIN 196(H) 13 - 150 ug/L [facility] Blood 12/08/2024 7:53 AM EDT 12/08/2024 7:58 AM EDT us Giancarlod Malcolm TrianaPritchett MB LAB BLOOD ORDERABLES Final Result Performing Organization Address City/[facility]/ZIP Co de Phone Number [address] [phone] * (ABNORMAL) Comprehensive metabolic panel (12/08/2024 7:53 AM EDT) SODIUM 136 133 - 146 mmol/L [facility] POTASSIUM 5.6(H) 3.3 - 5.1 mmol/L [facility] CHLORIDE 101 96 - 108 mmol/L [facility] CO2 25 21 - 35 mmol/L [facility] BUN 12 6 - 19 mg/dL [facility] CREATININE 0.60 0.5 - 1.5 mg/dL [facility] GLUCOSE 93 70 - 99 mg/dL [facility] ALBUMIN 4.4 3.9 - 4.8 g/dL [facility] TOTAL PROTEIN 7.6 6.5 - 8.0 g/dL [facility] CALCIUM 9.5 8.4 - 10.3 mg/dL [facility] ALKALINE PHOSPHATASE 89 39 - 117 U/L [facility] TOTAL BILIRUBIN 0.4 0.0 - 1.2 mg/dL [facility] AST 18 0 - 37 U/L [facility] ALT 15 0 - 40 U/L [facility] GLOBULIN 3.2 1 - 4.8 g/dL [facility] EGFR 98 >59 mL/min/1.7 3m2 [facility] Comment:Estimated glomerular filtration rate calculated using the CKD-EPI refit equation. ANION GAP 16 10 - 20 mmol/L [facility] Blood 12/08/2024 7:53 AM EDT 12/08/2024 7:58 AM EDT us Ahmad D Pritchett MB LAB BLOOD ORDERABLES Final Result Performing Organization Address City/[facility]/ZIP Co de Phone Number [address] [phone] * (ABNORMAL) CBC and differential (12/08/2024 7:53 AM EDT) WBC 5.21 4.00 - 11.00 K/uL [facility] RBC 4.15 4.00 - 5.20 M/uL [facility] HGB 12.5 12.0 - 16.0 g/dL [facility] HCT 39.3 36.0 - 46.0 % [facility] PLT 596(H) 150 - 450 K/uL [facility] MCV 94.7 80.0 - 100.0 fL [facility] MCH 30.1 27.0 - 31.0 pg [facility] MCHC 31.8(L) 32.0 - 36.0 g/dL [facility] RDW 21.5(H) 11.5 - 14.5 % [facility] MPV 10.8 8.4 - 12.0 fL [facility] NRBC 1.90(H) 0.00 /100 WBCs [facility] ABSOLUTE NRBC 0.10(H) 0.00 K/uL [facility] DIFF METHOD Auto [facility] NEUTS 59.1 48.0 - 76.0 % [facility] LYMPHS 25.5 18.0 - 41.0 % [facility] MONOS 9.2 4.0 - 11.0 % [facility] EOS 2.7 0.0 - 5.0 % [facility] BASOS 2.9(H) 0.0 - 1.5 % [facility] Granulocytes, immature (%) 0.6 0.0 - 0.9 % [facility] ABSOLUTE NEUTS 3.08 1.92 - 7.60 K/uL [facility] ABSOLUTE LYMPHS 1.33 0.72 - 4.10 K/uL [facility] ABSOLUTE MONOS 0.48 0.16 - 1.10 K/uL [facility] ABSOLUTE EOS 0.14 0.00 - 0.50 K/uL [facility] ABSOLUTE BASOS 0.15 0.00 - 0.15 K/uL [facility] Granulocytes, immature 0.03 0.00 - 0.09 K/uL [facility] Blood 12/08/2024 7:53 AM EDT 12/08/2024 7:58 AM EDT Rohith TIM LAB BLOOD ORDERABLES Final Result [address] [address] documented in this encounter Visit Diagnoses Diagnosis Myelodysplastic syndrome Myelodysplastic syndrome, unspecified documented in this encounter Additional Health Concerns Assessment Noted Time PHQ-9 Depression Total Score: 4 02/25/20 11:31 AM EST PHQ-2 Depression Total Score: 0 02/25/20 11:31 AM EST documented as of this encounter Care Teams Data Warehousing Architect Relationship Specialty Start Date End Date Enio Morales MD [address] [place] [address] PCP - General Internal Medicine 04/14/24 Enio Morales MD [address] [place] [address] Insurance Assigned Provider 07/21/23 Alvin Denton MD [address] [place] [address] [place] [address] Neurosurgery 04/24/19 Amber Young PA-C [address] [place] [address] Physician Group Exercise Instructor Hematology 03/19/20 Kimi Lyles CNP [address] [place] [phone] Nurse Practitioner Medical Oncology 05/24/23 Rohith Pritchett MBBS [address] [place] [address] [email or web address] Primary Oncologist Hematology and Oncology 08/17/23 Rivka Mcbride NP [address] [place] [address] [email or web address] Nurse Practitioner 07/21/24 documented as of this encounter Additional Source Comments The information contained in this document represents components of the legal health record. It is not the complete legal health record.[facility]
--- OUTSIDE RECORDS SUMMARY | 2024-12-08 08:40 | XMS_ITS | Encounter Summary ---
Author Organization [facility] Address [address] [facility] [address] [place] [phone] Phone Care Team Providers Care Windows Vmware Administrator Name Role Phone Enio Morales MD Unavailable Abd Alvin Dalal MD Unavailable Amber YoungC Unavailable Kimi Lyles CNP Unavailable Rohith Pritchett Unavailable Enio Morales MD Primary Care Provider [phone] Rivka Mcbride NP Unavailable Reason for Visit * Treatment and Therapy Plan (Routine) - Authorized Specialty Diagnoses / Procedures Referred By Contalexandra t Referred To Contact Infusion Therapy Diagnoses Myelodysplastic syndrome 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 [address] [place] [address] Phone: tel: fax: Referral ID Status Reason Start Date Expiration Date V isits Requested Visits Authorized [id number] Authorized 05/02/2023 05/02/2083 [id number] Encounter Details Date Type Department Care Team (Late st Contact Info) Description 12/08/2024 8:40 AM EDT Infusion [facility] [address] [place] [address] Rohith Pritchett MBBS [address] [place] [address] [email or web address], HO [address] [place] [address] [email or web address] Arrived Social History Tobacco Use Types Packs/Day Years [...] on file documented as of this encounter Progress Notes * Thania Saxena RN - 12/08/2024 8:40 AM EDT Pts [id number] today therefore she did not require luspatercept. Informed in the waiting rm. documented in this encounter Plan of Treatment Upcoming Encounters Date Type Department Care Team (Late st Contact Info) Description 12/30/2024 7:40 AM EDT Appointment [facility] [address] [place] [address] Rohith Pritchett MBBS [address] [place] [phone] [email or web address] 12/30/2024 8:30 AM EDT Office Visit [facility] [address] [place] [address] Kimi Lyles CNP [address] [place] [address] Genie Trevizo FNP [address] [place] [address] maría 12/30/2024 9:20 AM EDT Infusion [facility] at [address] [address] Rohith Pritchett MBBS [address] [place] [address] [email or web address] 01/05/2025 10:00 AM EDT Office Visit [facility] Laryngology Division [address] [facility] 9 [place] [address] Archie Mccarthy MD [address] [place], [place] [address]O[place] [address] [email or web address] 01/19/2025 7:40 AM EDT Appointment [facility] Laboratory [address] [place] [address] Rohith Pritchett MBBS [address] [place] [phone] [email or web address] 01/19/2025 9:00 AM EDT Office Visit [facility] at [address] [address] Rohith Pritchett MBBS [address] [place] [address] [email or web address] 01/19/2025 9:20 AM EDT Infusion [facility] at [address] [address] Rohith Pritchett MBBS [address] [place] [address] [email or web address] Gaby Patel RN [address] [place] [address] [email or web address] 02/09/2025 7:30 AM EDT Appointment [facility] Laboratory [address] [place] [address] Rohith Pritchett MBBS [address] [place] [address] [email or web address] 02/09/2025 8:30 AM EDT Office Visit [facility] at [address] [address] Rivka Mcbride, LÁZARO [address] [place] [address] [email or web address] 02/09/2025 9:00 AM EDT Infusion [facility] at [facility] Elena [address] [place] [address] Rohith Pritchett MBBS [address] [place] [address] [email or web address] documented as of this encounter Visit Diagnoses Not on filedocumented in this encounter Additional Health Concerns Assessment Noted Time PHQ-9 Depression Total Score: 4 02/25/20 11:31 AM EST PHQ-2 Depression Total Score: 0 02/25/20 11:31 AM EST documented as of this encounter Care Teams Windows Vmware Administrator Relationship Specialty Start Date End Date Enio Morales MD [address] [place] [address] [email or web address] PCP - General Internal Medicine 04/14/24 Enio Morales MD [address] [place] [address] [email or web address] Insurance Assigned Provider 07/21/23 Alvin Denton MD [address] [place] [address] [place] [address] Neurosurgery 04/24/19 Amber Young PA-C [address] [place] [address] [email or web address] Physician Cooking Casing And Drying Supervisor Hematology 03/19/20 Kimi Lyels, ORGANIZATIONAL DEVELOPMENT DIRECTOR [address] [place] [address] [email or web address] Nurse Practitioner Medical Oncology 05/24/23 Rohith Pritchett MBBS [address] [place] [phone] [email or web address] Primary Oncologist Hematology and Oncology 08/17/23 Rivka Mcbride NP [address] [place] [address] [email or web address] Nurse Practitioner 07/21/24 documented as of this encounter Additional Source Comments The information contained in this document represents components of the legal health record. It is not the complete legal health record.[facility]
--- OUTSIDE RECORDS SUMMARY | 2024-12-10 08:00 | XMS_ITS | Encounter Summary ---
Author Organization [facility] Address [address] [facility] [address] [place] [address] Phone Care Team Providers Care Export Clerk Name Role Phone Enio Morales MD Unavailable Abd Alvin Dalal MD Unavailable Amber Young PA-C Unavailable [phone] Rafal Kimi CNP Unavailable Rohith Pritchett Unavailable Enio Morales MD Primary Care Provider [phone] Rivka Mcbride NP Unavailable Reason for Visit * Reason Comments Follow Up Visit 4 month Headache Cough, started 1.5 w eeks Encounter Details Date Type Department Care Team (Latest Contact Info) Description 12/10/2024 8:00 AM EDT Office Visit [facility] Echo Internal Medicine [address] [place], [place] [phone] Enio Morales MD [address] [place], [place] [phone] [email or web address] Hyperkalemia (Primary Dx) Social History Tobacco Use Types Packs/Day Years [...] on file documented as of this encounter Last Filed Vital Signs Vital Sign Reading Time Taken Comments Blood Pressure 136/78 12/10/2024 8:06 AM EDT Pulse 82 12/10/2024 8:06 AM EDT Temperature 36.8 C (98.3 F) 12/10/2024 8:06 AM EDT took percocet 1 hr ago Respiratory Rate 16 12/10/2024 8:06 AM EDT Oxygen Saturation 99% 12/10/2024 8:0 6 AM EDT Inhaled Oxygen Concentration - - Weight 58.3 kg (128 lb 9.6 oz) 12/10/2024 8:06 AM EDT Height 160.8 cm (5' 3.31 ) 12/10/2024 8 :06 AM EDT Body Mass Index 22.56 12/10/2024 8:06 AM EDT documented in this encounter Plan of Treatment Upcoming Encounters Date Type Department Care Team (Late st Contact Info) Description 12/30/2024 7:40 AM EDT Appointment [facility] [address] [place] [address] Rohith Pritchett MBBS [address] [place] [phone] [email or web address] 12/30/2024 8:30 AM EDT Office Visit [facility] at [address] [address] Kimi Lyles, CODY [address] [place] [address] [email or web address] Genie Trevizo FNP [address] [place] [address] 12/30/2024 9:20 AM EDT Infusion [facility] at [address] [address] Rohith Pritchett MBBS [address] [place] [phone] [email or web address] 01/05/2025 10:00 AM EDT Office Visit [facility] [place] Laryngology Division [address] [facility] [address], [place] [address] Archie Mccarthy MD [address] [place] [address]-[place] [address] [email or web address] 01/19/2025 7:40 AM EDT Appointment [facility] [address] [place] [address] Rohith Pritchett MBBS [address] [place] [phone] [email or web address] 01/19/2025 9:00 AM EDT Office Visit [facility] at [address] [address] Rohith Pritchett MBBS [address] [place] [phone] [email or web address] 01/19/2025 9:20 AM EDT Infusion [facility] at [address] [address] Rohith Pritchett MBBS [address] [place] [address] [email or web address] Gaby Patel RN [address] [place] [address] 02/09/2025 7:30 AM EDT Appointment [facility] [address] [place] [address] Rohith Pritchett MBBS [address] [place] [phone] [email or web address] 02/09/2025 8:30 AM EDT Office Visit [facility] at [address] [address] Rivka Mcbride NP [address] [place] [address] [email or web address] 02/09/2025 9:00 AM EDT Infusion [facility] at [address] [address] Rohith Pritchett MBBS [address] [place] [address] [email or web address] Scheduled Orders Name Type Priority Associated Diagnoses Orde r Schedule Potassium Lab Routine Hyperkalemia Expected: 12/10/2024, Expires: 12/10/2025 documented as of this encounter Procedures Procedure Name Priority Date/Time Associated Diagnosis Comments POCT COVID-19 RT-PCR/INFLUENZA A & B/RSV CEPHEID Routine 12/10/2024 8:41 AM EDT documented in this encounter Results * POCT COVID-19 RT-PCR/Influenza A & B/RSV (Cepheid) (12/10/2024 8:41 AM EDT) RSV PCR Negative Negative [facility] SARS-CoV-2 (COVID-19) Negative Negative [facility] Influenza A PCR Negative Negative [facility] Influenza B PCR Negative Negative [facility] 12/10/2024 8:41 AM EDT 12/10/2024 9:23 AM EDT us Enio Morales MD POINT OF CARE TEST ORDERABLES Final Result Performing Organization Address [facility]/State/[facility] Co de Phone Number [facility] [address] [place] [address], [facility] [phone] documented in this encounter Visit Diagnoses Diagnosis Hyperkalemia- Primary Hyperpotassemia documented in this encounter Additional Health Concerns Assessment Noted Time PHQ-9 Depression Total Score: 4 02/25/20 24 11:31 AM EST PHQ-2 Depression Total Score: 0 02/25/20 24 11:31 AM EST documented as of this encounter Care Teams Export Clerk Relationship Specialty Start Date End Date Enio Morales MD [address] [place] [address] PCP - General Internal Medicine 04/14/24 Enio Morales MD [address] [place] [address] [email or web address] Insurance Assigned Provider 07/21/23 Alvin Denton MD [address] [place] [address] [place] [address] Neurosurgery 04/24/19 Amber Young PA-C [address] [place] [address] [email or web address] Physician Linter Saw Sharpener Hematology 03/19/20 Kimi Lyles CNP [address] [place] [phone] [email or web address] Nurse Practitioner Medical Oncology 05/24/23 Rohith Pritchett MBBS [address] [place] [phone] [email or web address] Primary Oncologist Hematology and Oncology 08/17/23 Rivka Mcbride NP [address] [place] [phone] [email or web address] Nurse Practitioner 07/21/24 documented as of this encounter Additional Source Comments The information contained in this document represents components of the legal health record. It is not the complete legal health record.[facility]
--- OUTSIDE RECORDS SUMMARY | 2024-12-10 12:18 | XMS_ITS | Clinical Summary ---
Author Organization 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 Active betamethasone dipropionate 0.05 % cream Apply 1 application. topically 2 (two) times a day. 023 Active blood pressure monitor KitIndications:B enign essential hypertension 1 Units by Miscellaneous route daily. 1 kit 024 Active Additional Information Patient not taking.Reported on 12/10/2024 amLODIPine (NORVASC) 5 MG tabletIndication s:Essential hypertension TAKE 1 TABLET(5 MG) BY MOUTH DAILY 100 tablet 3 024 Active pantoprazole (PROTONIX) 40 MG tabletIndication s:Gastroesophage al reflux disease without esophagitis TAKE 1 TABLET(40 MG) BY MOUTH DAILY 90 tablet 3 024 Active ciclopirox (LOPROX) 1 % shampoo Apply 1 Application topically. Twice a month 025 Active sodium bicarbonate/citr ic acid (LACY-SELTZER HEARTBURN ORAL) Take 2 tablets by mouth as needed (for heartburn). Active oxyCODONE-acetam inophen (PERCOCET) 10-325 mg per tabletIndication s:Chronic bilateral low back pain with bilateral sciatica,Opiate use,MDS (myelodysplastic syndrome) Take 1 tablet by mouth every 4 (four) hours as needed for pain (specific location in comments). Not to exceed 6 tablets per day. Partial fill ok 168 tablet 025 2024 Active sodium zirconium cyclosilicate (LOKELMA) 10 gramIndications: Hyperkalemia Take 1 packet (10 g total) by mouth every 12 (twelve) hours for 2 days. 4 packet 025 2024 Active Additional Information Patient not taking.Reported on 12/10/2024 diphenhydrAMINE (BENADRYL) 25 mg capsule Take 25 mg by mouth nightly at bedtime as needed. Active buPROPion (WELLBUTRIN XL) 300 MG ER 24 hr tablet Take 300 mg by mouth every morning. Active EPOETIN SAGRARIO INJ Inject as directed. [id number] Active ascorbic acid, vitamin C, (VITAMIN C) 500 MG tablet Take 500 mg by mouth daily. 2024 Discontinued triamcinolone acetonide 0.1 % creamIndications :Rash and other nonspecific skin eruption Apply topically 2 (two) times a day. 80 g 1 021 2024 Discontinued magnesium 250 mg Tab Take 400 mg by mouth daily. 2024 Discontinued cholecalciferol, vitamin D3, (VITAMIN D3 ORAL)Indications :unsure strength Take 1 capsule by mouth daily. Indications: unsure strength 2024 Discontinued Medication-Free Text Take 2 tablets by mouth daily. Allergy medication daily 2024 Discontinued ketoconazole (NIZORAL) 2 % shampooIndicatio ns:Rash and other nonspecific skin eruption Apply topically 2 (two) times a week. Apply to damp skin, lather, leave on 5 minutes, and rinse 120 mL 022 2024 Discontinued fluocinolone (SYNALAR) 0.01 % external solution Apply 1 application. topically 2 (two) times a day. 023 2024 Discontinued tacrolimus (PROTOPIC) 0.1 % ointment 023 2024 Discontinued omega 1-mve-xhh-fish oil (FISH OIL) 1,000 mg (120 mg-180 mg) Cap Take 1 capsule by mouth daily. 2024 Discontinued clobetasol propionate (CLOBETASOL SCLP) 1 Application by scalp route 2 (two) times a day as needed. 2 weeks on and 1 week off 2024 Discontinued ciclopirox (PENLAC) 8 % solution as needed. 024 2024 Discontinued erythromycin (ROMYCIN) ophthalmic ointment as needed. 024 2024 Discontinued buPROPion (WELLBUTRIN XL) 150 MG ER 24 hr tabletIndication s:Depression, unspecified depression type Take 3 tablets (450 mg total) by mouth daily. 270 tablet 3 025 2024 Discontinued(R eorder) prochlorperazine (COMPAZINE) 5 MG tabletIndication s:Nausea Take 1 tablet (5 mg total) by mouth every 6 (six) hours as needed for nausea. 30 tablet 025 2024 Discontinued lisinopril (ZESTRIL) 10 MG tabletIndication s:Essential hypertension Take 1 tablet (10 mg total) by mouth daily. 90 tablet 3 025 2024 Discontinued oxyCODONE-acetam inophen (PERCOCET) 10-325 mg per tabletIndication s:Chronic bilateral low back pain with bilateral sciatica,Opiate use,MDS (myelodysplastic syndrome) Take 1 tablet by mouth every 4 (four) hours as needed for pain (specific location in comments). Not to exceed 6 tablets per day. Partial fill ok 168 tablet 025 2024 Discontinued(R eorder) oxyCODONE-acetam inophen (PERCOCET) 10-325 mg per tabletIndication s:Chronic bilateral low back pain with bilateral sciatica,Opiate use,MDS (myelodysplastic syndrome) Take 1 tablet by mouth every 4 (four) hours as needed for pain (specific location in comments). Not to exceed 6 tablets per day. Partial fill ok 168 tablet 025 2024 Discontinued(R eorder) buPROPion (WELLBUTRIN XL) 150 MG ER 24 hr tabletIndication s:Depression, unspecified depression type Take 3 tablets (450 mg total) by mouth daily. 90 tablet 025 2024 Discontinued Active Problems Patient Care Coordination No te Formatting of this note migh t be different from the original. Height 160.8cm no shoes taken by OC 05/29/2023 Please call daughter Myla to schedule appointments, Problem Noted Date Diagnosed Date Shortness of breath 12/26/2023 Palpitations 12/26/2023 Assessment & Plan (12/26/2023 8:35 AM EDT): I have ordered her a 7-day MCOT monitor and an echocardiogram Nausea 10/23/2023 Myelodysplastic syndrome 04/17/2023 Assessment & Plan (10/06/2024 8:49 AM EDT): IMPRESSION: This is a 69-year-old woman with the following diagnosis Patient has anemia for many years since 2019. Hemoglobin has been between 9 and 10. She also has history of intermittent mild thrombocytosis. She had a bone marrow aspiration and biopsy in September 2020 and there was a question of MDS although nothing definitive. She was undergoing surveillance and because of some worsening in her anemia, bone marrow aspiration and biopsy was done again. 03/29/2023: Bone marrow aspiration and biopsy showed the following. 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 Cytogenetic studies were normal, 46 XX. (Good) 5: MDS-IPSS-R with score of 2 (1 for good cytogenetics and 1 for hemoglobin less than 10). This puts her in low risk group category with median overall survival of around 5.3 years and median time to 25% AML evolution 10.8 years. Concurrent rapid heme panel NGS analysis demonstrated pathogenic variants involving SF3B1,ASXL1 and TET2. Fatigue, snoring and waking up at night: Consistent with obstructive sleep apnea DISCUSSION: I discussed overall impression, natural history of the disease, prognosis, potential treatment options and further management in this regard. Patient has chronic anemia with intermittent worsening, although overall stable over the last many years. She does report fatigue and tiredness which I think is unrelated to her mild anemia and is likely secondary to her underlying obstructive sleep apnea. I strongly advised her to undergo further evaluation in this regard. Thrombocytosis has been intermittent in nature. She does not have any neutropenia. I discussed potential treatment options including watch and wait approach, growth factors, chemotherapy and bone marrow transplant. I recommended evaluation by MDS/MPD/BMT [facility]. Patient was seen by Dr. Trujillo at [facility] BMT/MDS clinic. Please see above for his recommendations. Consensus is to start therapy with Luspatercept (Reblozyl). She has many potential 10/10 unrelated donors if we need them in the future. I discussed side effects from current therapy. I also explained that her ongoing aches and pains are likely unrelated to this underlying bone marrow disorder. She has been doing very well on current therapy with normalization of her hemoglobin and I reassured her about this. We will continue current therapy as per guidelines. RECOMMENDATIONS: Continue Luspatercept (Reblozyl) as per MDS protocol - every 3 weeks with RN visit only Will hold if hemoglobin is above 11.5 g/dL Return for f/u in 3 weeks with labs and for next injection - RN visit only FU in 3 months Thank you very much for allowing to participate in this patient's care Assessment & Plan (06/16/2024 8:13 AM EST): IMPRESSION: This is a 69-year-old woman with the following diagnosis Patient has anemia for many years since 2019. Hemoglobin has been between 9 and 10. She also has history of intermittent mild thrombocytosis. She had a bone marrow aspiration and biopsy in September 2020 and there was a question of MDS although nothing definitive. She was undergoing surveillance and because of some worsening in her anemia, bone marrow aspiration and biopsy was done again. 03/29/2023: Bone marrow aspiration and biopsy showed the following. 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 Cytogenetic studies were normal, 46 XX. (Good) 5: MDS-IPSS-R with score of 2 (1 for good cytogenetics and 1 for hemoglobin less than 10). This puts her in low risk group category with median overall survival of around 5.3 years and median time to 25% AML evolution 10.8 years. Concurrent rapid heme panel NGS analysis demonstrated pathogenic variants involving SF3B1,ASXL1 and TET2. Fatigue, snoring and waking up at night: Consistent with obstructive sleep apnea DISCUSSION: I discussed overall impression, natural history of the disease, prognosis, potential treatment options and further management in this regard. Patient has chronic anemia with intermittent worsening, although overall stable over the last many years. She does report fatigue and tiredness which I think is unrelated to her mild anemia and is likely secondary to her underlying obstructive sleep apnea. I strongly advised her to undergo further evaluation in this regard. Thrombocytosis has been intermittent in nature. She does not have any neutropenia. I discussed potential treatment options including watch and wait approach, growth factors, chemotherapy and bone marrow transplant. I recommended evaluation by MDS/MPD/BMT [facility] clinic. Patient was seen by Dr. Trujillo at [facility] BMT/MDS clinic. Please see above for his recommendations. Consensus is to start therapy with Luspatercept (Reblozyl). She has many potential 10/10 unrelated donors if we need them in the future. I discussed side effects from current therapy. I also explained that her ongoing aches and pains are likely unrelated to this underlying bone marrow disorder. She has been doing very well on current therapy with normalization of her hemoglobin and I reassured her about this. We will continue current therapy as per guidelines. RECOMMENDATIONS: Continue Luspatercept (Reblozyl) as per MDS protocol - every 3 weeks Will hold if hemoglobin is above 11.5 g/dL Next injection today Return for f/u in 3 weeks with labs and for next injection Thank you very much for allowing to participate in this patient's care Assessment & Plan (03/14/2024 5:31 PM EST): IMPRESSION: This is a 68-year-old woman with the following diagnosis Patient has anemia for many years since 2019. Hemoglobin has been between 9 and 10. She also has history of intermittent mild thrombocytosis. She had a bone marrow aspiration and biopsy in September 2020 and there was a question of MDS although nothing definitive. She was undergoing surveillance and because of some worsening in her anemia, bone marrow aspiration and biopsy was done again. 03/29/2023: Bone marrow aspiration and biopsy showed the following. 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 Cytogenetic studies were normal, 46 XX. (Good) 5: MDS-IPSS-R with score of 2 (1 for good cytogenetics and 1 for hemoglobin less than 10). This puts her in low risk group category with median overall survival of around 5.3 years and median time to 25% AML evolution 10.8 years. Concurrent rapid heme panel NGS analysis demonstrated pathogenic variants involving SF3B1,ASXL1 and TET2. Fatigue, snoring and waking up at night: Consistent with obstructive sleep apnea DISCUSSION: I discussed overall impression, natural history of the disease, prognosis, potential treatment options and further management in this regard. Patient has chronic anemia with intermittent worsening, although overall stable over the last many years. She does report fatigue and tiredness which I think is unrelated to her mild anemia and is likely secondary to her underlying obstructive sleep apnea. I strongly advised her to undergo further evaluation in this regard. Thrombocytosis has been intermittent in nature. She does not have any neutropenia. I discussed potential treatment options including watch and wait approach, growth factors, chemotherapy and bone marrow transplant. I recommended evaluation by MDS/MPD/BMT [facility]. Patient was seen by Dr. Trujillo at [facility] BMT/MDS clinic. Please see above for his recommendations. Consensus is to start therapy with Luspatercept (Reblozyl). She has many potential 10/10 unrelated donors if we need them in the future. I discussed side effects from current therapy. I also explained that her ongoing aches and pains are likely unrelated to this underlying bone marrow disorder. She has been doing very well on current therapy with normalization of her hemoglobin and I reassured her about this. We will continue current therapy as per guidelines. RECOMMENDATIONS: Continue Luspatercept (Reblozyl) as per MDS protocol - every 3 weeks Will hold if hemoglobin is above 11.5 g/dL Next injection today Return for f/u in 3 weeks with labs and for next injection Thank you very much for allowing to participate in this patient's care Assessment & Plan (02/05/2024 9:44 AM EDT): IMPRESSION: This is a 68-year-old woman with the following diagnosis Patient has anemia for many years since 2019. Hemoglobin has been between 9 and 10. She also has history of intermittent mild thrombocytosis. She had a bone marrow aspiration and biopsy in September 2020 and there was a question of MDS although nothing definitive. She was undergoing surveillance and because of some worsening in her anemia, bone marrow aspiration and biopsy was done again. 03/29/2023: Bone marrow aspiration and biopsy showed the following. 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 Cytogenetic studies were normal, 46 XX. (Good) 5: MDS-IPSS-R with score of 2 (1 for good cytogenetics and 1 for hemoglobin less than 10). This puts her in low risk group category with median overall survival of around 5.3 years and median time to 25% AML evolution 10.8 years. Concurrent rapid heme panel NGS analysis demonstrated pathogenic variants involving SF3B1,ASXL1 and TET2. Fatigue, snoring and waking up at night: Consistent with obstructive sleep apnea DISCUSSION: I discussed overall impression, natural history of the disease, prognosis, potential treatment options and further management in this regard. Patient has chronic anemia with intermittent worsening, although overall stable over the last many years. She does report fatigue and tiredness which I think is unrelated to her mild anemia and is likely secondary to her underlying obstructive sleep apnea. I strongly advised her to undergo further evaluation in this regard. Thrombocytosis has been intermittent in nature. She does not have any neutropenia. I discussed potential treatment options including watch and wait approach, growth factors, chemotherapy and bone marrow transplant. I recommended evaluation by MDS/MPD/BMT [facility] clinic. Patient was seen by Dr. Trujillo at [facility] BMT/MDS clinic. Please see above for his recommendations. Consensus is to start therapy with Luspatercept (Reblozyl). She has many potential 10/10 unrelated donors if we need them in the future. I discussed side effects from current therapy. I also explained that her ongoing aches and pains are likely unrelated to this underlying bone marrow disorder. She has been doing very well on current therapy with normalization of her hemoglobin and I reassured her about this. We will continue current therapy as per guidelines. RECOMMENDATIONS: Continue Luspatercept (Reblozyl) as per MDS protocol - every 3 weeks Will hold if hemoglobin is above 11.5 g/dL Next injection today Return for f/u in 3 weeks with labs and for next injection Thank you very much for allowing to participate in this patient's care Assessment & Plan (12/25/2023 10:37 PM EDT): IMPRESSION: This is a 68-year-old woman with the following diagnosis Patient has anemia for many years since 2019. Hemoglobin has been between 9 and 10. She also has history of intermittent mild thrombocytosis. She had a bone marrow aspiration and biopsy in September 2020 and there was a question of MDS although nothing definitive. She was undergoing surveillance and because of some worsening in her anemia, bone marrow aspiration and biopsy was done again. 03/29/2023: Bone marrow aspiration and biopsy showed the following. 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 Cytogenetic studies were normal, 46 XX. (Good) 5: MDS-IPSS-R with score of 2 (1 for good cytogenetics and 1 for hemoglobin less than 10). This puts her in low risk group category with median overall survival of around 5.3 years and median time to 25% AML evolution 10.8 years. Concurrent rapid heme panel NGS analysis demonstrated pathogenic variants involving SF3B1,ASXL1 and TET2. Fatigue, snoring and waking up at night: Consistent with obstructive sleep apnea Tick bite - ? Lyme disease DISCUSSION: I discussed overall impression, natural history of the disease, prognosis, potential treatment options and further management in this regard. Patient has chronic anemia with intermittent worsening, although overall stable over the last many years. She does report fatigue and tiredness which I think is unrelated to her mild anemia and is likely secondary to her underlying obstructive sleep apnea. I strongly advised her to undergo further evaluation in this regard. Thrombocytosis has been intermittent in nature. She does not have any neutropenia. I discussed potential treatment options including watch and wait approach, growth factors, chemotherapy and bone marrow transplant. I recommended evaluation by MDS/MPD/BMT [facility]. Patient was seen by Dr. Trujillo at [facility] BMT/MDS clinic. Please see above for his recommendations. Consensus is to start therapy with Luspatercept (Reblozyl). She has many potential 10/10 unrelated donors if we need them in the future. I discussed side effects from current therapy. I also explained that her ongoing aches and pains are likely unrelated to this underlying bone marrow disorder. She has been doing very well on current therapy with normalization of her hemoglobin and I reassured her about this. We will continue current therapy as per guidelines. RECOMMENDATIONS: Continue Luspatercept (Reblozyl) as per MDS protocol Will hold if hemoglobin is above 11.5 g/dL Next injection today Lyme testing I have sent prescription for doxycycline 100 mg twice a day for 10 days for Lyme disease Return for f/u in 3 weeks with labs and for next injection Thank you very much for allowing to participate in this patient's care Assessment & Plan (07/31/2023 9:28 AM EDT): IMPRESSION: This is a 68-year-old woman with the following diagnosis Patient has anemia for many years since 2019. Hemoglobin has been between 9 and 10. She also has history of intermittent mild thrombocytosis. She had a bone marrow aspiration and biopsy in September 2020 and there was a question of MDS although nothing definitive. She was undergoing surveillance and because of some worsening in her anemia, bone marrow aspiration and biopsy was done again. 03/29/2023: Bone marrow aspiration and biopsy showed the following. 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 Cytogenetic studies were normal, 46 XX. (Good) 5: MDS-IPSS-R with score of 2 (1 for good cytogenetics and 1 for hemoglobin less than 10). This puts her in low risk group category with median overall survival of around 5.3 years and median time to 25% AML evolution 10.8 years. Concurrent rapid heme panel NGS analysis demonstrated pathogenic variants involving SF3B1,ASXL1 and TET2. Fatigue, snoring and waking up at night: Consistent with obstructive sleep apnea DISCUSSION: I discussed overall impression, natural history of the disease, prognosis, potential treatment options and further management in this regard. Patient has chronic anemia with intermittent worsening, although overall stable over the last many years. She does report fatigue and tiredness which I think is unrelated to her mild anemia and is likely secondary to her underlying obstructive sleep apnea. I strongly advised her to undergo further evaluation in this regard. Thrombocytosis has been intermittent in nature. She does not have any neutropenia. I discussed potential treatment options including watch and wait approach, growth factors, chemotherapy and bone marrow transplant. I recommended evaluation by MDS/MPD/BMT [facility] clinic. Patient was seen by Dr. Trujillo at [facility] BMT/MDS clinic. Please see above for his recommendations. Consensus is to start therapy with Luspatercept (Reblozyl). She has many potential 10/10 unrelated donors if we need them in the future. I discussed side effects from current therapy. I also explained that her ongoing aches and pains are likely unrelated to this underlying bone marrow disorder. She has been doing very well on current therapy with normalization of her hemoglobin and I reassured her about this. We will continue current therapy as per guidelines. RECOMMENDATIONS: Continue Luspatercept (Reblozyl) as per MDS protocol Will hold if hemoglobin is above 11 g/dL Next injection today Return for f/u in 3 weeks with labs and for next injection Thank you very much for allowing to participate in this patient's care Assessment & Plan (07/10/2023 9:45 AM EDT): IMPRESSION: This is a 68-year-old woman with the following diagnosis Patient has anemia for many years since 2019. Hemoglobin has been between 9 and 10. She also has history of intermittent mild thrombocytosis. She had a bone marrow aspiration and biopsy in September 2020 and there was a question of MDS although nothing definitive. She was undergoing surveillance and because of some worsening in her anemia, bone marrow aspiration and biopsy was done again. 03/29/2023: Bone marrow aspiration and biopsy showed the following. 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 Cytogenetic studies were normal, 46 XX. (Good) 5: MDS-IPSS-R with score of 2 (1 for good cytogenetics and 1 for hemoglobin less than 10). This puts her in low risk group category with median overall survival of around 5.3 years and median time to 25% AML evolution 10.8 years. Concurrent rapid heme panel NGS analysis demonstrated pathogenic variants involving SF3B1,ASXL1 and TET2. Fatigue, snoring and waking up at night: Consistent with obstructive sleep apnea DISCUSSION: I discussed overall impression, natural history of the disease, prognosis, potential treatment options and further management in this regard. Patient has chronic anemia with intermittent worsening, although overall stable over the last many years. She does report fatigue and tiredness which I think is unrelated to her mild anemia and is likely secondary to her underlying obstructive sleep apnea. I strongly advised her to undergo further evaluation in this regard. Thrombocytosis has been intermittent in nature. She does not have any neutropenia. I discussed potential treatment options including watch and wait approach, growth factors, chemotherapy and bone marrow transplant. I recommended evaluation by MDS/MPD/BMT [facility] clinic. Patient was seen by Dr. Trujillo at [facility] BMT/MDS clinic. Please see above for his recommendations. Consensus is to start therapy with Luspatercept (Reblozyl). She has many potential 10/10 unrelated donors if we need them in the future. I discussed side effects from current therapy. I also explained that her ongoing aches and pains are likely unrelated to this underlying bone marrow disorder. She has been doing very well on current therapy with normalization of her hemoglobin and I reassured her about this. We will continue current therapy as per guidelines. RECOMMENDATIONS: Continue Luspatercept (Reblozyl) as per MDS protocol Hemoglobin/hematocrit is normal today so no need for injection today Return for f/u in 3 weeks with labs and for next injection Thank you very much for allowing to participate in this patient's care Assessment & Plan (06/19/2023 10:49 AM EST): IMPRESSION: This is a 68-year-old woman with the following diagnosis Patient has anemia for many years since 2019. Hemoglobin has been between 9 and 10. She also has history of intermittent mild thrombocytosis. She had a bone marrow aspiration and biopsy in September 2020 and there was a question of MDS although nothing definitive. She was undergoing surveillance and because of some worsening in her anemia, bone marrow aspiration and biopsy was done again. 03/29/2023: Bone marrow aspiration and biopsy showed the following. 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 Cytogenetic studies were normal, 46 XX. (Good) 5: MDS-IPSS-R with score of 2 (1 for good cytogenetics and 1 for hemoglobin less than 10). This puts her in low risk group category with median overall survival of around 5.3 years and median time to 25% AML evolution 10.8 years. Concurrent rapid heme panel NGS analysis demonstrated pathogenic variants involving SF3B1,ASXL1 and TET2. Fatigue, snoring and waking up at night: Consistent with obstructive sleep apnea DISCUSSION: I discussed overall impression, natural history of the disease, prognosis, potential treatment options and further management in this regard. Patient has chronic anemia with intermittent worsening, although overall stable over the last many years. She does report fatigue and tiredness which I think is unrelated to her mild anemia and is likely secondary to her underlying obstructive sleep apnea. I strongly advised her to undergo further evaluation in this regard. Thrombocytosis has been intermittent in nature. She does not have any neutropenia. I discussed potential treatment options including watch and wait approach, growth factors, chemotherapy and bone marrow transplant. I recommended evaluation by MDS/MPD/BMT [facility]. Patient was seen by Dr. Trujillo at [facility] BMT/MDS clinic. Please see above for his recommendations. Consensus is to start therapy with Luspatercept (Reblozyl). She has many potential 10/10 unrelated donors if we need them in the future. I discussed side effects from current therapy. I also explained that her ongoing aches and pains are likely unrelated to this underlying bone marrow disorder. She has been doing very well on current therapy with normalization of her hemoglobin and I reassured her about this. We will continue current therapy as per guidelines. RECOMMENDATIONS: Continue Luspatercept (Reblozyl) as per MDS protocol Return for f/u in 3 weeks with labs Thank you very much for allowing to participate in this patient's care Assessment & Plan (05/08/2023 11:02 AM EST): IMPRESSION: This is a 68-year-old woman with the following diagnosis Patient has anemia for many years since 2019. Hemoglobin has been between 9 and 10. She also has history of intermittent mild thrombocytosis. She had a bone marrow aspiration and biopsy in September 2020 and there was a question of MDS although nothing definitive. She was undergoing surveillance and because of some worsening in her anemia, bone marrow aspiration and biopsy was done again. 03/29/2023: Bone marrow aspiration and biopsy showed the following. 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 Cytogenetic studies were normal, 46 XX. (Good) 5: MDS-IPSS-R with score of 2 (1 for good cytogenetics and 1 for hemoglobin less than 10). This puts her in low risk group category with median overall survival of around 5.3 years and median time to 25% AML evolution 10.8 years. Concurrent rapid heme panel NGS analysis demonstrated pathogenic variants involving SF3B1,ASXL1 and TET2. Fatigue, snoring and waking up at night: Consistent with obstructive sleep apnea DISCUSSION: I discussed overall impression, natural history of the disease, prognosis, potential treatment options and further management in this regard. Patient has chronic anemia with intermittent worsening, although overall stable over the last many years. She does report fatigue and tiredness which I think is unrelated to her mild anemia and is likely secondary to her underlying obstructive sleep apnea. I strongly advised her to undergo further evaluation in this regard. Thrombocytosis has been intermittent in nature. She does not have any neutropenia. I discussed potential treatment options including watch and wait approach, growth factors, chemotherapy and bone marrow transplant. I recommended evaluation by MDS/MPD/BMT [facility]. Patient was seen by Dr. Trujillo at [facility] BMT/MDS clinic. Please see above for his recommendations. Consensus is to start therapy with Luspatercept (Reblozyl). She has many potential 10/10 unrelated donors if we need them in the future. I discussed side effects from current therapy. I also explained that her ongoing aches and pains are likely unrelated to this underlying bone marrow disorder. RECOMMENDATIONS: I strongly advised her to undergo sleep testing for obstructive sleep apnea and the treatment for that. Her ongoing fatigue is likely secondary to that and is unrelated to her mild anemia. Start Luspatercept (Reblozyl) as per MDS protocol today Return for f/u in 3 weeks with labs Thank you very much for allowing to participate in this patient's care Assessment & Plan (04/21/2023 8:06 PM EST): IMPRESSION: This is a 68-year-old woman with the following diagnosis Patient has anemia for many years since 2019. Hemoglobin has been between 9 and 10. She also has history of intermittent mild thrombocytosis. She had a bone marrow aspiration and biopsy in September 2020 and there was a question of MDS although nothing definitive. She was undergoing surveillance and because of some worsening in her anemia, bone marrow aspiration and biopsy was done again. 03/29/2023: Bone marrow aspiration and biopsy showed the following. 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 4: Cytogenetic studies were normal, 46 XX. (Good) 5: MDS-IPSS-R with score of 2 (1 for good cytogenetics and 1 for hemoglobin less than 10). This puts her in low risk group category with median overall survival of around 5.3 years and median time to 25% AML evolution 10.8 years. Concurrent rapid heme panel NGS analysis demonstrated pathogenic variants involving SF3B1,ASXL1 and TET2. DISCUSSION: I discussed overall impression, natural history of the disease, prognosis, potential treatment options and further management in this regard. Patient has slowly worsening anemia and she is somewhat symptomatic from this. Thrombocytosis has been intermittent in nature. She does not have any neutropenia. I discussed potential treatment options including watch and wait approach, growth factors, chemotherapy and bone marrow transplant. I discussed prognosis as mentioned above although she has overlapping of MDS and MPD which may change the overall prognosis. Patient and his daughter asked multiple intelligent questions which were answered to their satisfaction. I recommended evaluation by MDS/MPD/BMT [facility]. I also explained that her ongoing aches and pains are likely unrelated to this underlying bone marrow disorder. RECOMMENDATIONS: Patient is already referred to [facility] Follow-up with me after the above-mentioned is done Thank you very much for allowing to participate in this patient's care Assessment & Plan (04/17/2023 8:01 PM EST): IMPRESSION: This is a 67-year-old woman with the following diagnosis 03/29/2023: Bone marrow aspiration and biopsy showed the following. 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 DISCUSSION: I discussed overall impression, natural history of the disease, potential treatment options and further management in this regard. Patient has slowly worsening anemia and she is somewhat symptomatic from this. Thrombocytosis has been intermittent in nature. She does not have any neutropenia. I discussed potential treatment options including watch and wait approach, growth factors, chemotherapy and bone marrow transplant. I recommended evaluation by MDS/MPD/BMT [facility]. 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 Joint protection, energy conservation. Gentle, regular exercise routine. Avoid falls, injuries, overuse. Keep body weight in ideal range for her height. She may benefit from topical cream such as Arnica, Biofreeze, Aspercreme versus medicated patches such as salonpas, icy hot patch 2-3 times daily and if necessary at bedtime x 3 weeks. Additional benefit may be achieved from warm pool therapy such as at local [facility] versus [employer] in [place] versus [employer] in [place] Bone pain 10/12/2021 Assessment & Plan (10/12/2021 10:27 PM EDT): To make sure that she does not have bone originating source of pain x-rays above ankles and more bones are requested. She is already taking hefty dose of opioid pain medication that works poorly for her pain control and I have explained to her that management of chronic diffuse pain may require multi modal therapy that includes gentle, regular exercising, topical products, combination of peripherally and centrally acting neuro modulating medications. Other insomnia 10/12/2021 Assessment & Plan (10/12/2021 10:18 PM EDT): Principles of sleep hygiene reviewed and strongly encouraged. Regular relaxation/meditation sessions. Listening to relaxation tapes may provide notable relief. If symptoms continue and she wakes up gasping for air may need to consider formal sleep study. Gastroesophageal reflux disease without esophagi tis 10/12/2021 Assessment & Plan (10/12/2021 10:18 PM EDT): .Avoid late, large, spicy meals. Keep headboard elevated at 45 angle for nighttime. Anemia 08/30/2020 Assessment & Plan (12/26/2023 8:35 AM EDT): This is being watched and has been stable more than likely a function of her chemotherapy and cancer Assessment & Plan (10/12/2021 10:31 PM EDT): Chronic & quite stable-unclear origin-extensive work-up including bone marrow biopsy and genetic markers for known anemia etiology nonrevealing thus far. 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 Inflammation of right sacroiliac joint 9 Chronic bilateral low back pain with bilateral s ciatica 05/03/2017 Assessment & Plan (10/12/2021 10:16 PM EDT): Joint protection, energy conservation. Gentle, regular exercise routine after warm pack or warm shower. Avoid falls, injuries, overuse, bending, stooping, heavy lifting, sudden turns. Keep body weight in ideal range for her height. She may benefit from topical cream such as Arnica, Biofreeze, Aspercreme versus medicated patches such as salonpas, icy hot patch 2-3 times daily and if necessary at bedtime x 3 weeks. If ordered lab work does not reveal any abnormalities of concern and her ivxf-moc-[id number] sensation persists or progresses she would benefit from formal neurological assessment and consideration for EMG/NCS. I provided her with 5 samples of Salonpas patches to try onto her lower back: LOT : [id number], EXP: 08/2023 A Pain in extremity 05/03/2017 Hyperlipidemia 05/03/2017 Arthralgia of lower leg 05/03/2017 Pain of left hand 05/03/2017 Right knee pain 05/03/2017 Encounters Date Type Department Care Team Description 12/10/2024 8:00 AM EDT Office Visit [facility] Internal Medicine [address] [place] [address] Enio Morales MD Hyperkalemia (Primary Dx) 12/10/2024 Telephone [facility] Internal Medicine [address] [place] [address] Enio Morales MD Results 12/08/2024 8:40 AM EDT Infusion [facility] [address] [place] [address] Rohith Pritchett MBBS McHugh, Susan Amy, RN Arrived 12/08/2024 7:40 AM EDT - 12/08/2024 11:59 PM EDT Hospital Encounter [facility] Laboratory [address] [place] [id number] Rohith Pritchett MBBS Arrived Discharge Disposition: Home or Self Care 12/08/2024 Orders Only [facility] at [address] [address] Rohith Pritchett MBBS Hyperkalemia (Primary Dx) 12/08/2024 Telephone [facility] at [address] [address] Rohith Pritchett MBBS 12/05/2024 Orders Only [facility] Center at [address] [address] Ole Saranya Rose Myelodysplastic syndrome (Primary Dx) 11/24/2024 Telephone [facility] Internal Medicine [address] [place] [address] Enio Morales MD Medication Problem 11/21/2024 Refill [facility] Internal Medicine [address] [place] [address] Enio Morales MD Medication Refill (CSRP) 11/14/2024 2:40 PM EDT Infusion [facility] Center at [address] [address] Rohith Pritchett MBBS Bang, Samantha J, RN Myelodysplastic syndrome (Primary Dx); 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 11/14/2024 1:55 PM EDT - 11/14/2024 11:59 PM EDT Hospital Encounter [facility] Laboratory [address] [place] [address] Rohith Pritchett MBBS Discharge Disposition: Home or Self Care 11/14/2024 Telephone [facility] at [address] [address] Rohith Pritchett MBBS 11/14/2024 Orders Only [facility] at [address] [address] Kimi Lyles CNP 11/13/2024 Orders Only [facility] at [address] [address] Tasia Patrick CMA Myelodysplastic syndrome (Primary Dx) 10/30/2024 Orders Only [facility] Internal Medicine [address] [place] [address] Pavithra Castillo MD 10/28/2024 Refill [facility] Internal Medicine [address] [place] [address] Enio Morales MD Medication Refill 10/27/2024 8:40 AM EDT Infusion [facility] at [address] [address] Unknown, Unknown, Karley Richardson, HO Myelodysplastic syndrome (Primary Dx); 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 10/27/2024 7:40 AM EDT - 10/27/2024 11:59 PM EDT Hospital Encounter [facility] [address] [address] Unknown, Unknown, Discharge Disposition: Home or Self Care 10/27/2024 Orders Only [facility] at [address] [address] Rivka Mcbride NP 10/23/2024 Refill [facility] Internal Medicine [address] [place] [address] Enio Morales MD Medication Refill (CSRP) 10/06/2024 9:00 AM EDT Infusion [facility] at [address] [address] Rohith Pritchett MBBS Myelodysplastic syndrome (Primary Dx); 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 10/06/2024 8:40 AM EDT Office Visit [facility] at [address] [address] Rohith Pritchett MBBS Myelodysplastic syndrome (Primary Dx); 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; Monoclonal B-cell lymphocytosis of undetermined significance 10/06/2024 7:30 AM EDT - 10/06/2024 11:59 PM EDT Hospital Encounter [facility] Laboratory [address] [place] [address] Rohith Pritchett MBBS Discharge Disposition: Home or Self Care 10/03/2024 Telephone [facility] Internal Medicine [address] [place] [address] Enio Morales MD Medication Refill 10/03/2024 Orders Only [facility] at [address] [address] Tasia Patrick CMA Myelodysplastic syndrome (Primary Dx) 09/25/2024 Refill [facility] Internal Medicine [address] [place] [address] Enio Morales MD Medication Refill (CSRP); Medication Problem 09/15/2024 Orders Only [facility] Internal Medicine [address] [place] [address] Pavithra Castillo MD 09/12/2024 8:30 AM EDT Office Visit [facility] at [address] [address] Kimi Lyles CNP Myelodysplastic syndrome (Primary Dx) 09/12/2024 7:30 AM EDT - 09/12/2024 11:59 PM EDT Hospital Encounter [facility] Laboratory [address] [place] [address] Rohith Pritchett MBBS Discharge Disposition: Home or Self Care from Last 3 Months Immunizations Immunization Administration Dates Next Due COVID-19 (Pre-02/05) Moderna Vaccine, mRNA, PF 08/24/2020,07/27/2020 INFLUENZA, SPLIT VIRUS, TRIVALENT PF 03/01/2016, 04/06/2015 INFLUENZA, SPLIT VIRUS, TRIV ALENT W/ PRESERVATIVE IM 01/20/2014,01/29/2012,01/11/2011 Influenza High-Dose Quadriva lent Preservative Free IM 01/19/2023 Influenza Quadrivalent Prese rvative Free IM 01/24/2022,01/20/2021,01/30/2020,2018,02/20/2018 Influenza Trivalent Adjuvant ed Preservative free IM 01/31/2024 Influenza trivalent preserva tive free intradermal 02/11/2013 Influenza, Unspecified Formulation 02/08/2010, Pneumococcal conjugate PCV20 09/04/2024 Td (adult) 5 Lf Tetanus Toxo id, PF, Adsorbed 06/14/2005 Tdap 02/09/2020,02/07/2020 Zoster recombinant 10/20/2020,02/09/2020 Family History Medical History Relation Comments Heart disease Brother Heart disease Father Cancer Mother Cancer Sister 2 Relation Status Comments Brother Alive cabg 50 Daughter Alive Father (Age 65) heart disease and hepatitis Mother esophag cancer Sister 1 Alive Sister 2 (Age 70) esoph cancer Sister 3 Alive Sister 4 Alive Sister 5 Alive Sister 6 Alive Sister 7 Alive Son Alive Social History Tobacco Use Types Packs/Day Years Used Date Smoking Tobacco: Former Cigarettes 0.3 10 0 04/30/1999 - 04/30/2009 Smokeless Tobacco: Never Tobacco Cessation:Counseling Given: Not Answered Alcohol Use Standard Drinks/Week Comments Yes 0 [...] Mass Index 22.56 12/10/2024 8:06 AM EDT Plan of Treatment Upcoming Encounters Date Type Department Care Team (Late st Contact Info) Description 12/30/2024 7:40 AM EDT Appointment [facility] [address] [place] [address] Rohith Pritchett MBBS [address] [place] [address] [email or web address] 12/30/2024 8:30 AM EDT Office Visit [facility] [address] [place] [address] Kimi Lyles CNP [address] [place] [address] Genie Trevizo FNP [address] [place] [address] [email or web address] 12/30/2024 9:20 AM EDT Infusion [facility] at [address] [address] Rohith Pritchett, ALEXANDRA[address] [address] [email or web address] 01/05/2025 10:00 AM EDT Office Visit [facility] Laryngology Division [address] [place] [address] [address], [place] [address] Archie Mccarthy MD [address] [place] [address]-[place] [address] [email or web address] 01/19/2025 7:40 AM EDT Appointment [facility] Laboratory [address] [place] [address] Rohith Pritchett [address] [address] [email or web address] 01/19/2025 9:00 AM EDT Office Visit [facility] at [address] [address] Rohith Pritchett MBBS [address] [place] [id number] [email or web address] 01/19/2025 9:20 AM EDT Infusion [facility] at [address] [address] Rohith Pritchett [address] [address] [email or web address] Gaby [email or web address] RN [address] [place] [address] [email or web address] 02/09/2025 7:30 AM EDT Appointment [facility] [address] [place] [address] Rohith Pritchett MBBS [address] [place] [phone] [email or web address] 02/09/2025 8:30 AM EDT Office Visit [facility] at [address] [address] Rivka Mcbride NP [address] [place] [id number] [email or web address] 02/09/2025 9:00 AM EDT Infusion [facility] Center at [address] [address] Rohith Pritchett MBBS [address] [place] [phone] [email or web address] Health Maintenance Due Date Last Done Comments COLOGUARD 2002 FOBT 2002 SIGMOIDOSCOPY 2002 VIRTUAL COLONOSCOPY 2002 FIT TEST 01/25/2020 01/24/2019 COVID-19 VACCINE ( season) 2024 01/31/2024, 01/25/2023, 02/13/2022, Additional history exists INFLUENZA VACCINE (#1) 2024 , 01/19/2023, 01/24/2022, Additional history exists DEPRESSION SCREENING 02/24/2025 02/25/2024, 02/25/20 24 BLOOD PRESSURE 06/12/2025 12/10/2024 MAMMOGRAM 06/26/2026 06/26/2024, 03/17, 03/13/2023, Additional history exists LIPID PANEL 04/08/2029 04/08/2024, 07/15, 07/31/2022, Additional history exists COLONOSCOPY 08/26/2029 08/26/2024, 07/04/2019, 04/29/2014 COLORECTAL CANCER SCREENING 08/26/2029 Adult Td,Tdap Booster 02/08/2030 02/09/2020 , 02/07/2020, 06/14/2005 RSV VACCINE (1 - 1-dose 75+ series) 2032 HEPATITIS C SCREENING Completed 02/09/2020, 020 ZOSTER VACCINES Completed 10/20/2020, 02/09/2020 OSTEOPOROSIS SCREENING INITIAL (ONE-TIME) Completed 06/07/2023 PNEUMOCOCCAL VACCINES (50+ years) Completed 09/04/2024 SMOKING STATUS SCREENING (Once After 26 Yrs) Completed 12/10/2024 HEPATITIS A VACCINES Aged Out No long er eligible based on patient's age to complete this topic HIB VACCINES Aged Out No longer eligi ble based on patient's age to complete this topic MENINGOCOCCAL VACCINES (ACWY) Aged Out No longer eligible based on patient's age to complete this topic MENINGOCOCCAL VACCINES (B) Aged Out N o longer eligible based on patient's age to complete this topic Medical Devices Implanted Type Area Health And Safety Tech Device Identifier Shelf Expiration Date Model / Serial / Lot Prosthetic Joint Prosthetic Joint Right: Knee Procedures Procedure Name Priority Date/Time Associated Diagnosis Comments POCT COVID-19 RT-PCR/INFLUENZA A & B/RSV CEPHEID Routine 12/10/2024 8:41 AM EDT VITAMIN B12 Routine 12/08/2024 7:53 AM EDT Myelodysplastic syndrome FOLATE Routine 12/08/2024 7:53 AM EDT Myelodysplastic syndrome IRON AND IRON BINDING CAPACITY Routine 12/08/2024 7:53 AM EDT Myelodysplastic syndrome FERRITIN Routine 12/08/2024 7:53 AM EDT Myelodysplastic syndrome COMPREHENSIVE METABOLIC PANEL Routine 12/08/2024 7:53 AM EDT Myelodysplastic syndrome CBC AND DIFFERENTIAL Routine 12/08/2024 7:53 AM EDT Myelodysplastic syndrome COMPREHENSIVE METABOLIC PANEL Routine 11/14/2024 1:55 PM EDT Myelodysplastic syndrome CBC AND DIFFERENTIAL Routine 11/14/2024 1:55 PM EDT Myelodysplastic syndrome IRON AND IRON BINDING CAPACITY Routine 11/14/2024 1:55 PM EDT Myelodysplastic syndrome VITAMIN B12 Routine 11/14/2024 1:55 PM EDT Myelodysplastic syndrome FOLATE Routine 11/14/2024 1:55 PM EDT Myelodysplastic syndrome FERRITIN Routine 11/14/2024 1:55 PM EDT Myelodysplastic syndrome COMPREHENSIVE METABOLIC PANEL Routine 10/27/2024 7:43 AM EDT Myelodysplastic syndrome CBC AND DIFFERENTIAL Routine 10/27/2024 7:43 AM EDT Myelodysplastic syndrome COMPREHENSIVE METABOLIC PANEL Routine 10/06/2024 7:36 AM EDT Myelodysplastic syndrome CBC AND DIFFERENTIAL Routine 10/06/2024 7:36 AM EDT Myelodysplastic syndrome OUTSIDE MR IMAGING REPORT ONLY Routine 09/15/2024 10:56 AM EDT OUTSIDE US BREAST REPORT ONLY Routine 09/15/2024 10:38 AM EDT LDH Routine 09/12/2024 7:34 AM EDT Myelodysplastic syndrome COMPREHENSIVE METABOLIC PANEL Routine 09/12/2024 7:34 AM EDT Myelodysplastic syndrome CBC AND DIFFERENTIAL Routine 09/12/2024 7:34 AM EDT Myelodysplastic syndrome HM COLONOSCOPY FOR RESULT ENTRY ONLY Routine 08/26/2024 1:34 PM EDT BI MRI BREAST (BILATERAL) Routine 06/26/2024 9:24 AM EDT Breast pain, right LIPID PANEL Routine 04/08/2024 7:53 AM EST Lipid screening HM DEXA SCAN Routine 06/07/2023 10:14 AM EST HEPATITIS C ANTIBODY, QUALITATIVE Routine 02/09/2020 HC BLOOD OCCULT FECAL HGB DETER IA QUAL FECES 1-3 Routine 01/24/2019 7:00 AM EDT Anemia, unspecified type from Last 3 Months or Most Recently Relevant to Health Maintenance Results * POCT COVID-19 RT-PCR/Influenza A & B/RSV (Cepheid) (12/10/2024 8:41 AM EDT) Pathologist [facility] [place] RSV PCR Negative Negative [facility] SARS-CoV-2 (COVID-19) Negative Negative [facility] Influenza A PCR Negative Negative [facility] Influenza B PCR Negative Negative [facility] 12/10/2024 8:41 AM EDT 12/10/2024 9:23 AM EDT us Enio Morales MD POINT OF CARE TEST ORDERABLES Final Result Performing Organization Address City/State/[facility] Co de Phone Number [facility] [address] [place] [address], [facility] [phone] * (ABNORMAL) Comprehensive metabolic panel (12/08/2024 7:53 AM EDT) Only the most recent of5 resultswithin the time period is included. Pathologist [facility] [place] SODIUM 136 133 - 146 mmol/L [facility] POTASSIUM 5.6(H) 3.3 - 5.1 mmol/L [facility] CHLORIDE 101 96 - 108 mmol/L [facility] CO2 25 21 - 35 mmol/L [facility] BUN 12 6 - 19 mg/dL [facility] CREATININE 0.60 0.5 - 1.5 mg/dL [facility] GLUCOSE 93 70 - 99 mg/dL [facility] ALBUMIN 4.4 3.9 - 4.8 g/dL [facility] TOTAL PROTEIN 7.6 6.5 - 8.0 g/dL [facility] CALCIUM 9.5 8.4 - 10.3 mg/dL [facility] ALKALINE PHOSPHATASE 89 39 - 117 U/L [facility] TOTAL BILIRUBIN 0.4 0.0 - 1.2 mg/dL [facility] AST 18 0 - 37 U/L [facility] ALT 15 0 - 40 U/L [facility] GLOBULIN 3.2 1 - 4.8 g/dL [facility] EGFR 98 >59 mL/min/1.7 3m2 [facility] Comment:Estimated glomerular filtration rate calculated using the CKD-EPI refit equation. ANION GAP 16 10 - 20 mmol/L [facility] Blood 12/08/2024 7:53 AM EDT 12/08/2024 7:58 AM EDT [facility] LAB BLOOD ORDERABLES Final Result Performing Organization Address City/[facility]/ZIP Co de Phone Number [address] [address] * (ABNORMAL) Iron and iron binding capacity (12/08/2024 7:53 AM EDT) Only the most recent of2 resultswithin the time period is included. IRON 167(H) 30 - 160 ug/dL [facility] IRON BINDING CAPACITY 265 228 - 428 ug/dL [facility] TRANSFERRIN SATURAT. 63(H) 15 - 50 % [facility] Blood 12/08/2024 7:53 AM EDT 12/08/2024 7:58 AM EDT [facility] LAB BLOOD ORDERABLES Final Result Performing Organization Address City/[facility]/ZIP Co de Phone Number [address] [address] * (ABNORMAL) CBC and differential (12/08/2024 7:53 AM EDT) Only the most recent of5 resultswithin the time period is included. WBC 5.21 4.00 - 11.00 K/uL [facility] RBC 4.15 4.00 - 5.20 M/uL [facility] HGB 12.5 12.0 - 16.0 g/dL [facility] HCT 39.3 36.0 - 46.0 % [facility] PLT 596(H) 150 - 450 K/uL [facility] MCV 94.7 80.0 - 100.0 fL [facility] MCH 30.1 27.0 - 31.0 pg [facility] MCHC 31.8(L) 32.0 - 36.0 g/dL [facility] RDW 21.5(H) 11.5 - 14.5 % [facility] MPV 10.8 8.4 - 12.0 fL [facility] NRBC 1.90(H) 0.00 /100 WBCs [facility] ABSOLUTE NRBC 0.10(H) 0.00 K/uL [facility] DIFF METHOD Auto [facility] NEUTS 59.1 48.0 - 76.0 % [facility] LYMPHS 25.5 18.0 - 41.0 % [facility] MONOS 9.2 4.0 - 11.0 % [facility] EOS 2.7 0.0 - 5.0 % [facility] BASOS 2.9(H) 0.0 - 1.5 % [facility] Granulocytes, immature (%) 0.6 0.0 - 0.9 % [facility] ABSOLUTE NEUTS 3.08 1.92 - 7.60 K/uL [facility] ABSOLUTE LYMPHS 1.33 0.72 - 4.10 K/uL [facility] ABSOLUTE MONOS 0.48 0.16 - 1.10 K/uL [facility] ABSOLUTE EOS 0.14 0.00 - 0.50 K/uL [facility] ABSOLUTE BASOS 0.15 0.00 - 0.15 K/uL [facility] Granulocytes, immature 0.03 0.00 - 0.09 K/uL [facility] Blood 12/08/2024 7:53 AM EDT 12/08/2024 7:58 AM EDT Ahmad D Pritchett [facility] LAB BLOOD ORDERABLES Final Result Performing Organization Address City/[facility]/ZIP Co de Phone Number [address] [address] * Folate (12/08/2024 7:53 AM EDT) Only the most recent of2 resultswithin the time period is included. FOLIC ACID 18.2 4.2 - 19.9 ng/mL [facility] Blood 12/08/2024 7:53 AM EDT 12/08/2024 7:58 AM EDT [facility] LAB BLOOD ORDERABLES Final Result Performing Organization Address [facility] Co de Phone Number [address] [address] * (ABNORMAL) Ferritin (12/08/2024 7:53 AM EDT) Only the most recent of2 resultswithin the time period is included. FERRITIN 196(H) 13 - 150 ug/L [facility] Blood 12/08/2024 7:53 AM EDT 12/08/2024 7:58 AM EDT Ahmad D Pritchett [facility] LAB BLOOD ORDERABLES Final Result Performing Organization Address City/[facility] Co de Phone Number [address] [address] * (ABNORMAL) Vitamin B12 (12/08/2024 7:53 AM EDT) Only the most recent of2 resultswithin the time period is included. VITAMIN B12 1,587(H) 232 - 1,245 pg/mL [facility] Blood 12/08/2024 7:53 AM EDT 12/08/2024 7:58 AM EDT Rohith TIM LAB BLOOD ORDERABLES Final Result Performing Organization Address [facility] Co de Phone Number [address] [address] * Outside MR Imaging Report Only (09/15/2024 10:56 AM EDT) Historical Provider MD ALBA MR Edited Re sult - Final Performing Organization Address [facility] Co de Phone Number EXTERNAL NON-INTERFACED REF LAB * Outside US Breast Report Only (09/15/2024 10:38 AM EDT) Historical Provider MD ALBA US BREAST Edited Re sult - Final Performing Organization Address [facility] de Phone Number EXTERNAL NON-INTERFACED REF LAB * LDH (09/12/2024 7:34 AM EDT) LDH 228 118 - 273 U/L [facility] Blood 09/12/2024 7:34 AM EDT 09/12/2024 7:43 AM EDT Kimi Lyles CNP LAB BLOOD ORDERABLES Final Resul t Performing Organization Address [facility] de Phone Number [address] [address] * HM COLONOSCOPY FOR RESULT ENTRY ONLY (08/26/2024 1:34 PM EDT) Historical Provider HEALTH MAINTENANCE Final Result * HM MAMMOGRAPHY FOR RESULT ENTRY ONLY (04/12/2024 10:35 AM EST) Historical Provider HEALTH MAINTENANCE Final Result * (ABNORMAL) Lipid panel (04/08/2024 7:53 AM EST) HDL 94 mg/dL [facility] Comment: Interpretation <40 mg/dL: Low HDL cholesterol (major risk factor for CHD) Greater than or equal to 60 mg/dL: High HDL cholesterol ( negative risk factor for CHD) HDL - cholesterol is affected by a number of factors, e.g. smoking, excerise, hormones, sex and age. CHOLESTEROL 204 0 - 240 mg/dL [facility] TRIGLYCERIDES 69 30 - 160 mg/dL [facility] LDL 96 50 - 129 mg/dL [facility] Comment: LDL levels in terms of risk for coronary heart disease: <100 mg/dL: Optimal 100-129 mg/dL: Near or above optimal 130-159 mg/dL: Borderline high 160-189 mg/dL: High >190 mg/dL: Very High CARDIAC RISK RATIO 2.2(L) 3.3 - 4.4 C [facility] Blood 04/08/2024 7:53 AM EST 04/08/2024 8:02 AM EST us Enio Morales MD LAB BLOOD ORDERABLES Final Re sult [address] [address] * DEXA SCAN (06/07/2023 10:14 AM EST) us Historical Provider HEALTH MAINTENANCE Final Result * Hepatitis C antibody, qualitative (02/09/2020) Enio Morales MD LAB BLOOD ORDERABLES Edited R esult - Final * Fecal immunochemical test x1 (FIT) (01/24/2019 7:00 AM EDT) Fecal occult blood Negative Negative [facility] DPT OF LAB MED AND PAT+ Comment: (NOTE) Negative result. This test will not detect upper gastrointestinal bleeding; the HemoQuant test (0887)should be ordered if clinically indicated. Stool (Stool) 01/24/2019 7:0 0 AM EDT 01/24/2019 9:56 AM EDT us Enio Morales MD BODY FLUIDS AND STOOLS ORDERA BLES Final Result [facility] DPT OF LAB MED AND PAT+ [address] [place] [address] from Last 3 Months or Most Recently Relevant to Health Maintenance Insurance MEDICARE PART A & B [employer] MEDEX SUPPLEMENT MEDICARE PART A & B [employer] MEDEX SUPPLEMENT MEDICARE PART A & B [employer] MEDEX SUPPLEMENT MEDICARE PART A & B [employer] MEDEX SUPPLEMENT MEDICARE PART A & B sky[employer] MEDEX SUPPLEMENT MEDICARE PART A & B [employer] MEDEX SUPPLEMENT MEDICARE PART A & B [employer] MEDEX SUPPLEMENT MEDICARE PART A & B [employer] MEDEX SUPPLEMENT MEDICARE PART A & B [employer] MEDEX SUPPLEMENT [employer] Care Teams Sheet Metal Worker Relationship Specialty Start Date End Date Enio Morales MD [address] [place] [address] [email or web address] PCP - General Internal Medicine 04/14/24 Enio Morales MD [address] [place] [address] [email or web address] Insurance Assigned Provider 07/21/23 Alvin Denton MD [address] [place] [address] [place] [address] Neurosurgery 04/24/19 Amber Young PA-C [address] [place] [phone] [email or web address] Physician Wire Frame Lamp Shade Maker Hematology 03/19/20 Kimi Lylse CNP [address] [place] [phone] [email or web address] Nurse Practitioner Medical Oncology 05/24/23 Rohith Pritchett MBBS [address] [place] [phone] [email or web address] Primary Oncologist Hematology and Oncology 08/17/23 Rivka Mcbride NP [address] [place] [id number] [email or web address] Nurse Practitioner 07/21/24 Additional Source Comments The information contained in this document represents components of the legal health record. It is not the complete legal health record.[facility]
--- OUTSIDE RECORDS SUMMARY | 2024-12-10 12:18 | XMS_ITS ---
Author Name [facility] Organization Unknown Care Team Organization Name Specialty Phone Email Start Date End Inscription [facility] DENI COLBY Primary Care
--- OUTSIDE RECORDS SUMMARY | 2024-12-10 12:18 | XMS_ITS | Patient Health Record ---
Author Organization [facility] Susan Valderrama Address [address] [place] [address] Care Team Providers Care Director Print Name Role Phone Enio Morales MD Primary Care Provider Daisy Lopez Unavailable [phone] Allergies Allergen (clinical drug ingredient) Drug/Non Drug Allergy documented on EMR Reaction Allergy Type Onset Date Status codeine Codeine itchy Drug Allergy Active Reason For Referral No Information Medications Medication SIG (Take, Route, Frequency, Duration) Notes Start Date End Date Status amLODIPine Benzoate Active Piroxicam 20 MG 1 capsule with food Orally Once a day; Duration: 30 day(s) 09/25/2012 Unknown Ketoconazole 2 % as directed Externally Active Percocet 5-325 MG 1 tablet as needed Orally every 6 hrs Unknown [employer] 10/29/2023 Ac tive Ciclopirox 8 % 1 application Externally Once a day; Duration: 30 10/29/2023 Active oxyCODONE HCl 5 MG 1 tablet as needed Orally every 6 hrs Active Pantoprazole Sodium 40 MG 1 tablet Orally Once a day Active BuPROPion HBr Active Night Splint AFO - L1930 1 wear at rest; Duration: 30 days Active oxyCODONE-Acetaminophe n 10-325 MG TAKE 1 TABLET BY MOUTH EVERY 4 HOURS NEEDED FOR PAIN. NOT TO EXCEED 6 TABLETS DAILY. PARTIALFILLOK Oral; Duration: 28 Days Active diphenhydrAMINE HCl 25 MG 1 capsule at bedtime as needed Orally Once a day Active Vitamin E Unknown buPROPion HCl ER (XL) 300 MG 1 tablet in the morning Oral; Duration: 30 days buPROPION HCI ER (XL) 150 [...] Status Risk Notes Problem Plantar fascial fibromatosis (M72.2) Active confirmed Encounters Encounter Location Date Provider Diagnosis [facility] [address] 12/12/2023 Daisy Olea Plan Of Treatment Pending Test Test Name Order Date X ray : Foot, right 2V 08/29/2012 [id number] TENDON SHEATH/LIGAMENT 0 08/29/2012 Insurance Providers Payer Name Payer Address Payer Phone Subscriber Number Group Number Insured Name Patient Relationship to Insured Coverage Start Date Coverage End Date Medicare National Govt Sv[employer] [address] [facility] [place] [address] [id number] Bettina Castrejon Self - patient is the insured [employer] [address] [place] [address] [id number] Bettina Castrejon Self - patient is the insured Medical (General) History Medical History History ICD Code mumps measles chicken pox Cancer Joint implants/screws Bone marrow cancer, red blood cell cance r Surgical History Surgery Date(Month/Year) knee surgery 2017 Hand Surgery 2015 back surgery 2020
--- OUTSIDE RECORDS SUMMARY | 2024-12-10 12:18 | XMS_ITS ---
Author Organization [facility] Address [address] [facility] [address] [place] [address] Phone Care Team Providers Care Printing Plate Maker Name Role Phone Enio Morales MD Unavailable Abd Alvin Dalal MD Unavailable Amber YoungC Unavailable Kimi Lyles CNP Unavailable Rohith Pritchett Unavailable Enio Morales MD Primary Care Provider Rivka Mcbride NP Unavailable Active Problems Patient Care Coordination No te [...] marrow transplant. I recommended evaluation by MDS/MPD/BMT [facility]. Patient was seen by Dr. Trujillo at [facility] BMT/MDS clinic. Please see above for [...] marrow transplant. I recommended evaluation by MDS/MPD/BMT [facility]. Patient was seen by Dr. Trujillo at [facility] BMT/MDS clinic. Please see above for [...] marrow transplant. I recommended evaluation by MDS/MPD/BMT [facility]. Patient was seen by Dr. Trujillo at [facility] BMT/MDS clinic. Please see above for [...] marrow transplant. I recommended evaluation by MDS/MPD/BMT [facility]. Patient was seen by Dr. Trujillo at [facility] BMT/MDS clinic. Please see above for [...] marrow transplant. I recommended evaluation by MDS/MPD/BMT [facility]. Patient was seen by Dr. Trujillo at [facility] BMT/MDS clinic. Please see above for [...] marrow transplant. I recommended evaluation by MDS/MPD/BMT [facility]. Patient was seen by Dr. Trujillo at [facility] BMT/MDS clinic. Please see above for [...] Patient has anemia for many years since 2018. Hemoglobin has been between 9 and 10. [...] marrow transplant. I recommended evaluation by MDS/MPD/BMT [facility]. Patient was seen by Dr. Trujillo at [facility] BMT/MDS clinic. Please see above for [...] marrow transplant. I recommended evaluation by MDS/MPD/BMT [facility]. Patient was seen by Dr. Trujillo at [facility] BMT/MDS clinic. Please see above for [...] marrow transplant. I recommended evaluation by MDS/MPD/BMT [facility] clinic. Patient was seen by Dr. Trujillo at [facility] BMT/MDS clinic. Please see above for [...] their satisfaction. I recommended evaluation by MDS/MPD/BMT [facility] clinic. I also explained that her ongoing aches and pains are likely unrelated to this underlying bone marrow disorder. RECOMMENDATIONS: Patient is already referred to [facility] BMT clinic Follow-up with me after the above-mentioned is [...] marrow transplant. I recommended evaluation by MDS/MPD/BMT [facility]. RECOMMENDATIONS: Refer to [facility] BMT clinic Follow-up with me after the above-mentioned is [...] warm pool therapy such as at local [facility] versus [facility] in [place] versus [employer] in [place] Bone pain 10/12/2021 Assessment & Plan (10/12/2021 [...] thus far. Carefully continue close follow-up with list of first job ideas/oncologist as scheduled every 3 months. Inflammation of [...] reveal any abnormalities of concern and her laen-ojp-ojzsvqi sensation persists or progresses she would benefit from formal neurological assessment and consideration for EMG/NCS. I provided her with 5 samples of Salonpas patches to try onto her lower back: LOT : [id number], EXP: 08/2023 A Pain in extremity 05/03/2017 Hyperlipidemia 05/03/2017 Arthralgia of lower leg 05/03/2017 Pain of left hand 05/03/2017 Right knee pain 05/03/2017 Current Treatment and Therapy Plans LUSPATERCEPT* Plan Start Date:05/07/2023 Plan Provider:Rohith Pritchett MBBS Linked Problems Myelodysplastic syndromeAnem ia due to other bone marrow failure Treatment Medications No medications scheduled. Past Treatment and Therapy Plans No past plan information found.
--- OUTSIDE RECORDS SUMMARY | 2024-12-10 12:18 | XMS_ITS | Encounter Summary ---
Author Organization [facility] Address [address] [facility] [address] [place] [address] Phone Care Team Providers Care Wood Patternmaker Name Role Phone Enio Morales MD Unavailable Abd Alvin Dalal MD Unavailable Amber Young PA-C Unavailable Kimi Lyles CNP Unavailable Rohith Pritchett MBOLI Unavailable Enio Morales MD Primary Care Provider Rivka Mcbride NP Unavailable [phone] Encounter Details Date Type Department Care Team (Late st Contact Info) Description 12/08/[address] [facility] [address] [place] [address] Rohith Pritchett MBBS [address] [place] [address] [email or web address] Hyperkalemia (Primary Dx) Social History Tobacco Use [...] 7:40 AM EDT Appointment [facility] [address] [place] [address] Rohith Pritchett MBBS [address] [place] [address] [email or web address] 12/30/2024 8:30 AM EDT Office [facility] [address] [place] [address] Kimi Lyles CNP [address] [place] [address] [email or web address] Trevizo, Genie A, PAINT ROLLER ASSEMBLER[address] [address] [email or web address] 12/30/2024 9:[address] [facility] at [address] [address] Rohith Pritchett MBBS [address] [place] [address] [email or web address] 01/05/2025 10:00 AM EDT Office Visit [facility] L[facility]ology Division 243 [facility] 9[place], [place] [address] Archie Mccarthy MD [address] [place] [address]-[place] [address] [email or web address] 01/19/2025 7:40 AM EDT Appointment [facility] Laboratory [address] [place] [address] Rohith Pritchett MBBS [address] [place] [address] [email or web address] 01/19/2025 9:00 AM EDT Office Visit [facility] at [address] [address] Rohith Pritchett MBBS [address] [place] [address] [email or web address] 01/19/2025 9:20 AM EDT Infusion [facility] at [address] [address] oRhith Pritchett MBBS [address] [place] [address] [email or web address] Gaby Patel RN [address] [place] [address] [email or web address] 02/09/2025 7:30 AM EDT Appointment [facility] [address] [place] [address] Rohith Pritchett MBBS [address] [place] [address] [email or web address] 02/09/2025 8:30 AM EDT Office Visit [facility] at [address] [address] Rivka Mcbride NP [address] [place] [address] [email or web address] 02/09/2025 9:00 AM EDT Infusion [facility] at [address] [address] Rohith Pritchett MBBS [address] [place] [address] [email or web address] documented as of this encounter Visit Diagnoses Diagnosis Hyperkalemia- Primary Hyperpotassemia documented in this encounter Additional Health Concerns Assessment Noted Time PHQ-9 Depression Total Score: 4 02/25/20 24 11:31 AM EST PHQ-2 Depression Total Score: 0 02/25/20 24 11:31 AM EST documented as of this encounter Care Teams Wood Patternmaker Relationship Specialty Start Date End Date Enio Morales MD [address] [place] [address] [email or web address] PCP - General Internal Medicine 04/14/24 Enio Morales MD [address] [place] [address] Insurance Assigned Provider 07/21/23 Alvin Denton MD [address] [place] [address] [place] [address] Neurosurgery 04/24/19 Amber Young PA-C [address] [place] [address] [email or web address] Physician Regulatory Scientist Hematology 03/19/20 Kimi Lyles CNP [address] [place] [phone] [email or web address] Nurse Practitioner Medical Oncology 05/24/23 Rohith Pritchett MBBS [address] [place] [address] [email or web address] Primary Oncologist Hematology and Oncology 08/17/23 Rivka Mcbride NP [address] [place] [address] [email or web address] Nurse Practitioner 07/21/24 documented as of this encounter Additional Source Comments The information contained in this document represents components of the legal health record. It is not the complete legal health record.[facility]
--- OUTSIDE RECORDS SUMMARY | 2024-12-10 12:18 | XMS_ITS | Encounter Summary ---
Author Organization [facility] Address 399 [facility] [facility] [address] [place] [address] Phone Care Team Providers Care Guest Room Inspector Name Role Phone Enio Morales MD Unavailable [phone] Alvin Dalal MD Unavailable Amber Young PA-C Unavailable Kimi Lyles CNP Unavailable Rohith Pritchett Unavailable Enio Morales MD Primary Care Provider Rivka Mcbride NP Unavailable Encounter Details Date Type Department Care Team (Late st Contact Info) Description 12/05/2024 Orders Only [facility] 30 [place] [address] Saranya Handy [address] [place] [address] Myelodysplastic syndrome (Primary Dx) Social History Tobacco Use Types [...] 7:40 AM EDT Appointment [facility] 30 [place] [address] Rohith Pritchett MBBS [address] [place] [address] [email or web address] 12/30/2024 8:30 AM EDT Office Visit [facility] [address] [place] [address] Kimi Lyles CNP [address] [place] [address] Genie Trevizo FNP [address] [place] [address] [email or web address] 12/30/2024 9:20 AM EDT Infusion [facility] at [address] [address] Rohith Pritchett [address] [address] [email or web address] 01/05/2025 10:00 AM EDT Office Visit [facility] L[facility] Division 243 [facility] 9[place], [place] [address] Archie Mccarthy MD [address] [place] [address]-[place] [address] [email or web address] 01/19/2025 7:40 AM EDT Appointment [facility] Laboratory [address] [place] [address] Rohith Pritchett MBBS [address] [place] [address] [email or web address] 01/19/2025 9:00 AM EDT Office Visit [facility] at [address] [address] Rohith Pritchett MBBS [address] [place] [address] [email or web address] 01/19/2025 9:20 AM EDT Infusion [facility] Center at [address] [address] Rohith Pritchett [address] [address] [email or web address] Gaby Patel RN [address] [place] [address] [email or web address] 02/09/2025 7:30 AM EDT Appointment [facility] [address] [place] [address] Rohith Pritchett MBBS [address] [place] [address] [email or web address] 02/09/2025 8:30 AM EDT Office Visit [facility] at [address] [address] Rivka Mcbride NP [address] [place] [address] [email or web address] 02/09/2025 9:00 AM EDT Infusion [facility] at [address] [address] Rohith Pritchett MBBS [address] [place] [address] [email or web address] documented as of this encounter Results * (ABNORMAL) Vitamin B12 (12/08/2024 7:53 AM EDT) [facility] VITAMIN B12 1,587(H) 232 - 1,245 pg/mL [facility] Blood 12/08/2024 7:53 AM EDT 12/08/2024 7:58 AM EDT Rohith TIM LAB BLOOD ORDERABLES Final Result [address] [address] * Folate (12/08/2024 7:53 AM EDT) [facility] FOLIC ACID 18.2 4.2 - 19.9 ng/mL [facility] Blood 12/08/2024 7:53 AM EDT 12/08/2024 7:58 AM EDT Rohith Pritchett [facility] LAB BLOOD ORDERABLES Final Result [address] [address] * (ABNORMAL) Iron and iron binding capacity (12/08/2024 7:53 AM EDT) IRON 167(H) 30 - 160 ug/dL [facility] IRON BINDING CAPACITY 265 228 - 428 ug/dL [facility] TRANSFERRIN SATURAT. 63(H) 15 - 50 % [facility] Blood 12/08/2024 7:53 AM EDT 12/08/2024 7:58 AM EDT [facility] TrianaPritchett [facility] LAB BLOOD ORDERABLES Final Result [address] [address] * (ABNORMAL) Ferritin (12/08/2024 7:53 AM EDT) FERRITIN 196(H) 13 - 150 ug/L [facility] Blood 12/08/2024 7:53 AM EDT 12/08/2024 7:58 AM EDT [facility] LAB BLOOD ORDERABLES Final Result [address] [address] * (ABNORMAL) Comprehensive metabolic panel (12/08/2024 7:53 AM EDT) SODIUM 136 133 - 146 mmol/L [facility] POTASSIUM 5.6(H) 3.3 - 5.1 mmol/L [facility] CHLORIDE 101 96 - 108 mmol/L [facility] CO2 25 21 - 35 mmol/L [facility] BUN 12 6 - 19 mg/dL [facility] CREATININE 0.60 0.5 - 1.5 mg/dL [facility] GLUCOSE 93 70 - 99 mg/dL [facility] ALBUMIN 4.4 3.9 - 4.8 g/dL [facility] TOTAL PROTEIN 7.6 6.5 - 8.0 g/dL [facility] CALCIUM 9.5 8.4 - 10.3 mg/dL [facility] ALKALINE PHOSPHATASE 89 39 - 117 U/L [facility] TOTAL BILIRUBIN 0.4 0.0 - 1.2 mg/dL [facility] AST 18 0 - 37 U/L [facility] ALT 15 0 - 40 U/L [facility] GLOBULIN 3.2 1 - 4.8 g/dL [facility] EGFR 98 >59 mL/min/1.7 3m2 [facility] Comment:Estimated glomerular filtration rate calculated using the CKD-EPI refit equation. ANION GAP 16 10 - 20 mmol/L [facility] Blood 12/08/2024 7:53 AM EDT 12/08/2024 7:58 AM EDT Rohith Pritchett [facility] LAB BLOOD ORDERABLES Final Result [facility] [address] [place] [address] * (ABNORMAL) CBC and differential (12/08/2024 7:53 AM EDT) WBC 5.21 4.00 - 11.00 K/uL [facility] RBC 4.15 4.00 - 5.20 M/uL [facility] HGB 12.5 12.0 - 16.0 g/dL [facility] HCT 39.3 36.0 - 46.0 % [facility] PLT 596(H) 150 - 450 K/uL [facility] MCV 94.7 80.0 - 100.0 fL [facility] MCH 30.1 27.0 - 31.0 pg [facility] MCHC 31.8(L) 32.0 - 36.0 g/dL [facility] RDW 21.5(H) 11.5 - 14.5 % [facility] MPV 10.8 8.4 - 12.0 fL [facility] NRBC 1.90(H) 0.00 /100 WBCs [facility] ABSOLUTE NRBC 0.10(H) 0.00 K/uL [facility] DIFF METHOD Auto [facility] NEUTS 59.1 48.0 - 76.0 % [facility] LYMPHS 25.5 18.0 - 41.0 % [facility] MONOS 9.2 4.0 - 11.0 % [facility] EOS 2.7 0.0 - 5.0 % [facility] BASOS 2.9(H) 0.0 - 1.5 % [facility] Granulocytes, immature (%) 0.6 0.0 - 0.9 % [facility] ABSOLUTE NEUTS 3.08 1.92 - 7.60 K/uL [facility] ABSOLUTE LYMPHS 1.33 0.72 - 4.10 K/uL [facility] ABSOLUTE MONOS 0.48 0.16 - 1.10 K/uL [facility] ABSOLUTE EOS 0.14 0.00 - 0.50 K/uL [facility] ABSOLUTE BASOS 0.15 0.00 - 0.15 K/uL [facility] Granulocytes, immature 0.03 0.00 - 0.09 K/uL [facility] Blood 12/08/2024 7:53 AM EDT 12/08/2024 7:58 AM EDT us Rohith TIM LAB BLOOD ORDERABLES Final Result [facility] [address] [place] [address] documented in this encounter Visit Diagnoses Diagnosis Myelodysplastic syndrome- Primary Myelodysplastic syndrome, unspecified documented in this encounter Additional Health Concerns Assessment Noted Time PHQ-9 Depression Total Score: 4 02/25/20 24 11:31 AM EST PHQ-2 Depression Total Score: 0 02/25/20 24 11:31 AM EST documented as of this encounter Care Teams Guest Room Inspector Relationship Specialty Start Date End Date Enio Morales MD [address] [place] [address] [email or web address] PCP - General Internal Medicine 04/14/24 Enio Morales MD [address] [place] [address] [email or web address] Insurance Assigned Provider 07/21/23 Alvin Denton MD [address] [place] [address] [place] [address] Neurosurgery 04/24/19 Amber Young PA-C [address] [place] [address] [email or web address] Physician Local Company Refrigerated Truck Driver Hematology 03/19/20 Kimi Lyles CNP [address] [place] [phone] [email or web address] Nurse Practitioner Medical Oncology 05/24/23 Rohith Pritchett MBBS [address] [place] [address] [email or web address] Primary Oncologist Hematology and Oncology 08/17/23 Rivka Mcbride NP [address] [place] [address] [email or web address] Nurse Practitioner 07/21/24 documented as of this encounter Additional Source Comments The information contained in this document represents components of the legal health record. It is not the complete legal health record.[facility]
--- OUTSIDE RECORDS SUMMARY | 2024-12-10 12:18 | XMS_ITS | Encounter Summary ---
Author Organization [facility] Address [address] [facility] [address] [place] [address] Phone Care Team Providers Care Refinery Operator Light Ends Recovery Name Role Phone Enio Morales MD Primary Care Provider [phone] Enio Morales MD Unavailable [phone] Alvin Denton MD Unavailable Amber Young PA-C Unavailable Savage Macario MD Unavailable [phone] Amber Young PA-C Unavailable Kimi Lyles CNP Unavailable Rohith Pritchett Unavailable [phone] Genie Trevizo Primary Care Provider Pcp, Unknown Primary Care Provider Unavailabl e Enio Morales MD Primary Care Provider Rivka Mcbride NP Unavailable Encounter Details Date Type Department Care Team (Late st Contact Info) Description 11/07/2019 Orders Only [place] [address] [place] [address] Provider, MD Pavithra [address] [place] [address] Social History Tobacco Use Types Packs/Day Years Used Date Smoking Tobacco: Former Cigarettes 0.3 10 2 007 - 2016 Smokeless Tobacco: Never Alcohol Use Standard Drinks/Week Comments Yes 0 (1 standard drink = 0.6 oz pur e alcohol) use vaping once in awhile. Comments No Sex and Gender Information Value Date Recorded Sex Assigned at Not on file Legal Sex Female 9:52 PM EDT Gender Identity Not on file Sexual Orientation Not on file documented as of this encounter Plan of Treatment Upcoming Encounters Date Type Department Care Team (Late st Contact Info) Description 12/30/2024 7:40 AM EDT Appointment [facility] [address] [place] [address] Rohith Pritchett MBBS [address] [place] [address] [email or web address] 12/30/2024 8:30 AM EDT Office Visit [facility] 30 [place] [address] Kimi Lyles CNP [address] [place] [phone] [email or web address] Genie Trevizo FNP [address] [place] [address] 12/30/2024 9:20 AM EDT Infusion [facility] [place] at [address] [address] Rohith Pritchett MBBS [address] [place] [address] [email or web address] 01/05/2025 10:00 AM EDT Office Visit [facility] Laryngology Division [address] [facility] 9th [place] [address] Archie Mccarthy MD [address] [place], [place] [address]O[place] [address] [email or web address] 01/19/2025 7:40 AM EDT Appointment [facility] Laboratory [address] [place] [address] Rohith Pritchett MBBS [address] [place] [address] [email or web address] 01/19/2025 9:00 AM EDT Office Visit [facility] Center at [address] [address] Rohith Pritchett MBBS [address] [place] [address] [email or web address] 01/19/2025 9:20 AM EDT Infusion [facility] at [address] [address] Rohith Pritchett MBBS [address] [place] [address] [email or web address] Gaby Patel RN [address] [place] [address] 02/09/2025 7:30 AM EDT Appointment [facility] Laboratory [address] [place] [address] Rohith Pritchett MBBS [address] [place] [address] [email or web address] 02/09/2025 8:30 AM EDT Office Visit [facility] Center at [address] [address] Rivka Mcbride, LÁZARO [address] [place] [address] [email or web address] 02/09/2025 9:00 AM EDT [facility] [address] [place] [address] Rohith Pritchett MBBS [address] [place] [address] [email or web address] documented as of this encounter Procedures Procedure Name Priority Date/Time Associated Diagnosis Comments MAMMOGRAPHY Routine 10/31/2019 documented in this encounter Results * MAMMOGRAPHY FOR RESULT ENTRY ONLY (10/31/2019) us Historical Provider HEALTH MAINTENANCE Edited Result - Final documented in this encounter Visit Diagnoses Not on filedocumented in this encounter Additional Health Concerns Infection Onset Date Last Indicated Resolved Time CoV-Risk 10/27/2019 10/28/2019 11/10/2019 4:55 AM EDT CoV-Risk 05/03/2023 05/03/2023 05/14/2023 1:24 AM EST Assessment Noted Time PHQ-2 Depression Total Score: 6 10/03/19 20 11:00 AM EDT documented as of this encounter Care Teams Refinery Operator Light Ends Recovery Relationship Specialty Start Date End Date Enio Morales MD [address] [place] [address] [email or web address] PCP - General 02/01/17 02/25/24 Genie Trevizo FNP [address] [place] [address] [email or web address] PCP - General Nurse Practitioner 02/26/24 04/07/24 Pcp, Unknown PCP - General 04/08/24 04/13/24 Enio Morales MD [address] [place] [address] [email or web address] PCP - General Internal Medicine 04/14/24 Enio Morales MD [address] [place] [address] [email or web address] Insurance Assigned Provider 07/21/23 Alvin Denton MD [address] [place] [address] [place] [address] Neurosurgery 04/24/19 Amber Young PA-C [address] [place] [address] [email or web address] Physician Missile Control Pilot Hematology 03/19/20 08/02/22 Savage Macario MD [address] [place] [address] [email or web address] Primary Oncologist Medical Oncology 10/04/20 08/16/23 Amber Yonug PA-C [address] [place] [address] [email or web address] Physician Missile Control Pilot Hematology 03/19/20 Kimi Lyles CNP [address] [place] [address] [email or web address] Nurse Practitioner Medical Oncology 05/24/23 Rohith Pritchett MBBS [address] [place] [address] [email or web address] Primary Oncologist Hematology and Oncology 08/17/23 Rivka Mcbride NP [address] [place] [address] [email or web address] Nurse Practitioner 07/21/24 documented as of this encounter Additional Source Comments The information contained in this document represents components of the legal health record. It is not the complete legal health record.[facility]
--- OUTSIDE RECORDS SUMMARY | 2024-12-10 12:18 | XMS_ITS | Encounter Summary ---
Author Organization [facility] Address [address] [employer] [address] [address] Phone Care Team Providers Care Wax Bleacher Name Role Phone Eino Morales MD Unavailable [phone] Alvin Dalal MD Unavailable Amber Young PA-C Unavailable [phone] Kimi Lyles CNP Unavailable Rohith Pritchett Unavailable [phone] Enio Morales MD Primary Care Provider [phone] Rivka Mcbride NP Unavailable Reason for Visit * Reason Onset Date Comments Results 12/10/2024 Encounter Details Date Type Department Care Team (Late st Contact Info) Description 12/10/2024 Telephone [email or web address] Internal Medicine [address] [place], [place] [phone] Enio Morales MD 40 [place], [place] [phone] [email or web address] Results Social History Tobacco Use Types Packs/Day Years [...] as of this encounter Progress Notes * Santosh Dang MA - 12/10/2024 9:49 AM EDT Lab order for K faxed to [facility] pt registration at [phone]-received fax confirmation. * Santosh Dang MA - 12/10/2024 9:30 AM EDT Call to pt, pt aware 4 plex ran in house during OV was negative for flu A/B, RSV and Covid. Pt inquired if K level (lab ordered) can be checked in a few weeks. Per discussion with Dr. Morales needs to be done today. Pt is aware and would like lab order for K faxed to [facility] lab. documented in this encounter Plan of Treatment Upcoming Encounters Date Type Department Care Team (Late st Contact Info) Description 12/30/2024 7:40 AM EDT Appointment [facility] [address] [place] [address] Rohith Pritchett MBBS [address] [place] [address] [email or web address] 12/30/2024 8:30 AM EDT Office Visit [facility] at [address] [address] Kimi Lyles CNP [address] [place] [address] [email or web address] Genie Trevizo FNP [address] [place] [address] 12/30/2024 9:20 AM EDT Infusion [facility] at [address] [address] Rohith Pritchett MBBS [address] [place] [address] [email or web address] 01/05/2025 10:00 AM EDT Office Visit [facility] Laryngology Division [address] [place] [address] 9th [place] [address] Archie Mccarthy MD [address] [place] [address]-[place] [address] [email or web address] 01/19/2025 7:40 AM EDT Appointment [facility] Laboratory [address] [place] [address] Rohith Pritchett MBBS [address] [place] [address] [email or web address] 01/19/2025 9:00 AM EDT Office Visit [facility] at [address] [address] Rohith Pritchett [address] [address] [email or web address] 01/19/2025 9:20 AM EDT Infusion [facility] at [address] [address] Rohith Pritchett [address] [address] [email or web address] Gaby Patel RN [address] [place] [address] 02/09/2025 7:30 AM EDT Appointment [facility] [address] [place] [address] Rohith Pritchett, ALEXANDRA[address] [address] [email or web address] 02/09/2025 8:30 AM EDT Office Visit [facility] at [address] [address] Rivka Mcbride NP [address] [place] [address] [email or web address] 02/09/2025 9:00 AM EDT Infusion [facility] at [address] [address] Rohith Pritchett MBBS 30 [place] [address] [email or web address] documented as of this encounter Visit Diagnoses Not on filedocumented in this encounter Additional Health Concerns Assessment Noted Time PHQ-9 Depression Total Score: 4 02/25/20 11:31 AM EST PHQ-2 Depression Total Score: 0 02/25/20 11:31 AM EST documented as of this encounter Care Teams Wax Bleacher Relationship Specialty Start Date End Date Enio Morales MD 40 [place] [address] [email or web address] PCP - General Internal Medicine 04/14/24 Enio Morales MD [address] [place] [address] [email or web address] Insurance Assigned Provider 07/21/23 Alvin Denton MD [address] [place] [address] [place] [address] Neurosurgery 04/24/19 Amber Young PA-C [address] [place] [address] Physician Turn Machine Operator Hematology 03/19/20 Kimi Lyles CNP [address] [place] [address] Nurse Practitioner Medical Oncology 05/24/23 Rohith Pritchett MBBS [address] [place] [address] [email or web address] Primary Oncologist Hematology and Oncology 08/17/23 Rivka Mcbride NP [address] [place] [address] [email or web address] Nurse Practitioner 07/21/24 documented as of this encounter Additional Source Comments The information contained in this document represents components of the legal health record. It is not the complete legal health record.[facility]
--- OUTSIDE RECORDS SUMMARY | 2024-12-10 12:19 | XMS_ITS | Encounter Summary ---
Author Organization [facility] Address [address] [facility] [address] [place] [address] Phone Care Team Providers Care Pulp Machine Operator Name Role Phone Enio Morales MD Unavailable Abd Alvin Dalal MD Unavailable Amber Young PA-C Unavailable Kimi Lyles CNP Unavailable Rohith Pritchett Unavailable Enio Morales MD Primary Care Provider [phone] Rivka Mcbride NP Unavailable Encounter Details Date Type Department Care Team (Late st Contact Info) Description 11/13/2024 Orders Only [facility] [address] [place] [address] Tasia Patrick CMA [address] [place] [address] Myelodysplastic syndrome (Primary Dx) Social History Tobacco [...] 7:40 AM EDT Appointment [facility] [address] [place] [address] Rohith Pritchett MBBS [address] [place] [address] [email or web address] [email or web address] 12/30/2024 8:30 AM EDT Office Visit [facility] [place] [address] [place] [address] Kimi Lyles CNP [address] [place] [address] [email or web address] Genie Trevizo FNP [address] [place] [address] [email or web address] 12/30/2024 9:20 AM EDT Infusion [facility] at [address] [address] Rohith Pritchett [address] [address] [email or web address] 01/05/2025 10:00 AM EDT Office Visit [facility] Laryngology Division [address] [place] [address] 9[place] [address] Archie Mccarthy MD [address] [place], [place] [address] [address] [email or web address] 01/19/2025 7:40 AM EDT Appointment [facility] Laboratory [address] [place] [address] Rohith Pritchett [address] [address] [email or web address] 01/19/2025 9:00 AM EDT Office Visit [facility] at [address] [address] Rohith Pritchett MBBS [address] [place] [address] [email or web address] 01/19/2025 9:20 AM EDT Infusion [facility] at [address] [address] Rohith Pritchett [address] [address] [email or web address] Gaby Patel RN [address] [place] [address] [email or web address] 02/09/2025 7:30 AM EDT Appointment [facility] [address] [place] [address] Rohith Pritchett MBBS [address] [place] [address] [email or web address] 02/09/2025 8:30 AM EDT Office Visit [facility] at [address] [address] Rivka Mcbride NP [address] [place] [address] [email or web address] 02/09/2025 9:00 AM EDT Infusion [facility] at [address] [address] Rohith Pritchett MBBS [address] [place] [address] [email or web address] documented as of this encounter Results * Comprehensive metabolic panel (11/14/2024 1:55 PM EDT) SODIUM 134 133 - 146 mmol/L [facility] POTASSIUM 4.0 3.3 - 5.1 mmol/L [facility] CHLORIDE 99 96 - 108 mmol/L [facility] CO2 25 21 - 35 mmol/L [facility] BUN 14 6 - 19 mg/dL [facility] CREATININE 0.60 0.5 - 1.5 mg/dL [facility] GLUCOSE 97 70 - 99 mg/dL [facility] ALBUMIN 4.3 3.9 - 4.8 g/dL [facility] TOTAL PROTEIN 7.0 6.5 - 8.0 g/dL [facility] CALCIUM 9.3 8.4 - 10.3 mg/dL [facility] ALKALINE PHOSPHATASE 64 39 - 117 U/L [facility] TOTAL BILIRUBIN 0.4 0.0 - 1.2 mg/dL [facility] AST 20 0 - 37 U/L [facility] ALT 14 0 - 40 U/L [facility] GLOBULIN 2.7 1 - 4.8 g/dL [facility] EGFR 98 >59 mL/min/1.7 3m2 [facility] Comment:Estimated glomerular filtration rate calculated using the CKD-EPI refit equation. ANION GAP 14 10 - 20 mmol/L [facility] Blood 11/14/2024 1:55 PM EDT 11/14/2024 2:00 PM EDT us Rohith MORRIS LAB BLOOD ORDERABLES Final Result [facility] [address] [place] [address] * (ABNORMAL) CBC and differential (11/14/2024 1:55 PM EDT) WBC 7.97 4.00 - 11.00 K/uL [facility] RBC 3.77(L) 4.00 - 5.20 M/uL [facility] HGB 11.0(L) 12.0 - 16.0 g/dL [facility] HCT 35.0(L) 36.0 - 46.0 % [facility] PLT 454(H) 150 - 450 K/uL [facility] MCV 92.8 80.0 - 100.0 fL [facility] MCH 29.2 27.0 - 31.0 pg [facility] MCHC 31.4(L) 32.0 - 36.0 g/dL [facility] RDW 20.3(H) 11.5 - 14.5 % [facility] MPV 10.3 8.4 - 12.0 fL [facility] NRBC 0.80(H) 0.00 /100 WBCs [facility] ABSOLUTE NRBC 0.06(H) 0.00 K/uL [facility] DIFF METHOD Auto [facility] NEUTS 66.3 48.0 - 76.0 % [facility] LYMPHS 22.7 18.0 - 41.0 % [facility] MONOS 7.2 4.0 - 11.0 % [facility] EOS 1.8 0.0 - 5.0 % [facility] BASOS 1.5 0.0 - 1.5 % [facility] Granulocytes, immature (%) 0.5 0.0 - 0.9 % [facility] ABSOLUTE NEUTS 5.29 1.92 - 7.60 K/uL [facility] ABSOLUTE LYMPHS 1.81 0.72 - 4.10 K/uL [facility] ABSOLUTE MONOS 0.57 0.16 - 1.10 K/uL [facility] ABSOLUTE EOS 0.14 0.00 - 0.50 K/uL [facility] ABSOLUTE BASOS 0.12 0.00 - 0.15 K/uL [facility] Granulocytes, immature 0.04 0.00 - 0.09 K/uL [facility] Blood 11/14/2024 1:55 PM EDT 11/14/2024 2:00 PM EDT us Rohith MORRIS LAB BLOOD ORDERABLES Final Result Performing Organization Address City/State/[facility] Co de Phone Number [address] [address] documented in this encounter Visit Diagnoses Diagnosis Myelodysplastic syndrome- Primary Myelodysplastic syndrome, unspecified documented in this encounter Additional Health Concerns Assessment Noted Time PHQ-9 Depression Total Score: 4 02/25/20 11:31 AM EST PHQ-2 Depression Total Score: 0 02/25/20 11:31 AM EST documented as of this encounter Care Teams Pulp Machine Operator Relationship Specialty Start Date End Date Enio Morales MD [address] [place] [address] [email or web address] PCP - General Internal Medicine 04/14/24 Enio Morales MD [address] [place] [address] Insurance Assigned Provider 07/21/23 Alvin Denton MD [address] [place] [address] [place] [address] Neurosurgery 04/24/19 Amber Young PA-C [address] [place] [address] [email or web address] Physician Industrial Waste Inspector Hematology 03/19/20 Kimi Lyles CNP [address] [place] [address] [email or web address] Nurse Practitioner Medical Oncology 05/24/23 Rohith Pritchett MBBS [address] [place] [address] [email or web address] [email or web address] Primary Oncologist Hematology and Oncology 08/17/23 Rivka Mcbride, LÁZARO [address] [place] [address] [email or web address] Nurse Practitioner 07/21/24 documented as of this encounter Additional Source Comments The information contained in this document represents components of the legal health record. It is not the complete legal health record.[facility]
--- OUTSIDE RECORDS SUMMARY | 2024-12-10 12:19 | XMS_ITS | Encounter Summary ---
Author Organization [facility] Address [address] [place] [address] Care Team Providers Care Intellectual Property Legal Assistant Name Role Phone Enio Morales MD Primary Care Provider [phone] Encounter Details Date Type Department Care Team (Late st Contact Info) Description 06/25/[address] [facility] Neurosurgery [place] [address] [facility] [address] [place] [phone] Alvin Real MD [address] [facility] Fer [address] [place] [address] [phone] Social History Tobacco Use Types Packs/Day Years [...] on filedocumented in this encounter Care Teams Intellectual Property Legal Assistant Relationship Specialty Start Date End Date Enio Morales MD [address] [place] [address] [phone] PCP - General 09/30/19 documented as of this encounter
--- OUTSIDE RECORDS SUMMARY | 2024-12-10 12:19 | XMS_ITS | Encounter Summary ---
Author Organization [facility] Address [address] [facility] [address] [place] [address] Phone Care Team Providers Care Maintenance Technician 3Rd Shift Name Role Phone Enio Morales MD Unavailable Abd Alvin Dalal MD Unavailable Amber Young PA-C Unavailable Kimi Lyles [facility] Unavailable Rohith Pritchett Unavailable Enio Morales MD Primary Care Provider [phone] Rivka Mcbride NP Unavailable [phone] Encounter Details Date Type Department Care Team (Late st Contact Info) Description 11/14/2024 Orders Only [facility] 30 [place] [address] Kimi Lyles CNP [address] [place] [address] Social History Tobacco Use Types Packs/Day Years [...] 7:40 AM EDT Appointment [facility] [address] [place] [address] Rohith Pritchett MBBS [address] [place] [address] [email or web address] 12/30/2024 8:30 AM EDT Office Visit [facility] [place] [address] [place] [address] Kimi Lyles CNP [address] [place] [address] [email or web address] Genie Trevizo FNP [address] [place] [address] [email or web address] 12/30/2024 9:20 AM EDT Infusion [facility] at [address] [address] Rohith Pritchett [address] [address] [email or web address] 01/05/2025 10:00 AM EDT Office Visit [facility] Laryngology Division [address] [place] [address], [place] [address] Archie Mccarthy MD [address] [place], [place] [address]O[place] [address] [email or web address] 01/19/2025 7:40 AM EDT Appointment [facility] Laboratory [address] [place] [address] Rohith Pritchett [address] [address] [email or web address] 01/19/2025 9:00 AM EDT Office Visit [facility] at [address] [address] Rohith Pritchett MBBS [address] [place] [address] [email or web address] 01/19/2025 9:20 AM EDT Infusion [facility] at [address] [address] Rohith Pritchett [address] [address] [email or web address] Gaby Patel RN [address] [place] [address] [email or web address] 02/09/2025 7:30 AM EDT Appointment [facility] [address] [place] [address] Rohith Pritchett MBBS [address] [place] [address] [email or web address] 02/09/2025 8:30 AM EDT Office Visit [facility] at [address] [address] Rivka Mcbride NP [address] [place] [address] [email or web address] 02/09/2025 9:00 AM EDT Infusion [facility] at [address] [address] Rohith Pritchett MBBS [address] [place] [address] [email or web address] documented as of this encounter Visit Diagnoses Not on filedocumented in this encounter Additional Health Concerns Assessment Noted Time PHQ-9 Depression Total Score: 4 02/25/20 24 11:31 AM EST PHQ-2 Depression Total Score: 0 02/25/20 24 11:31 AM EST documented as of this encounter Care Teams Maintenance Technician 3Rd Shift Relationship Specialty Start Date End Date Enio Morales MD [address] [place] [address] [email or web address] PCP - General Internal Medicine 04/14/24 Enio Morales MD [address] [place] [address] [phone] Insurance Assigned Provider 07/21/23 Alvin Denton MD [address] [place] [address] [place] [address] Neurosurgery 04/24/19 Amber Young PA-C [address] [place] [address] Physician Automobile Leasing Supervisor Hematology 03/19/20 Kimi Lyles CNP [address] [place] [address] [email or web address] Nurse Practitioner Medical Oncology 05/24/23 Rohith Pritchett MBBS [address] [place] [address] [email or web address] Primary Oncologist Hematology and Oncology 08/17/23 Rivka Mcbride, LÁZARO [address] [place] [address] [email or web address] Nurse Practitioner 07/21/24 documented as of this encounter Additional Source Comments The information contained in this document represents components of the legal health record. It is not the complete legal health record.[facility]
--- OUTSIDE RECORDS SUMMARY | 2024-12-10 12:19 | XMS_ITS | Encounter Summary ---
Author Organization [facility] Address 399 [employer] [place] [address] [address] Phone Care Team Providers Care Senior Chemical Engineer Name Role Phone Enio Morales MD Unavailable [phone] Abd Alvin Dalal MD Unavailable Amber Young PA-C Unavailable [phone] Kimi Lyles CNP Unavailable Rohith Pritchett Unavailable Enio Morales MD Primary Care Provider [phone] Rivka Mcbride NP Unavailable [phone] Encounter Details Date Type Department Care Team (Late st Contact Info) Description 07/07/2024 Transcribe Orders [facility] Oncology Virtual Department [address] [place] [address] Enio Morales MD 40 [place], [place] [phone] Social History Tobacco Use Types Packs/Day Years [...] 7:40 AM EDT Appointment [facility] 30 [place] [address] Rohith Pritchett MBBS 30 [place] [address] [email or web address] 12/30/2024 8:30 AM EDT Office Visit [facility] [place] 30 [place] [address] Kimi Lyles CNP 30 [place] [address] [email or web address] Genie Trevizo FNP 30 [place] [address] [email or web address] 12/30/2024 9:20 AM EDT Infusion [facility] at [address] [address] Rohith Pritchett [address] [address] [email or web address] 01/05/2025 10:00 AM EDT Office Visit [facility] Laryngology Division [address] [place] [address], [place] [address] Archie Mccarthy MD [address] [place], [place] [address]O[place] [address] [email or web address] 01/19/2025 7:40 AM EDT Appointment [facility] Laboratory [address] [place] [address] Rohith Pritchett [address] [address] [email or web address] 01/19/2025 9:00 AM EDT Office Visit [facility] at [address] [address] Rohith Pritchett MBBS [address] [place] [address] [email or web address] 01/19/2025 9:[address] [facility] at [address] [address] Rohith Pritchett [address] [address] [email or web address] Gaby Patel RN [address] [place] [address] [email or web address] 02/09/2025 7:30 AM EDT Appointment [facility] [address] [place] [address] Rohith Pritchett MBBS 30 [place] [address] [email or web address] 02/09/2025 8:30 AM EDT Office Visit [facility] at [address] [address] Rivka Mcbride NP [address] [place] [address] [email or web address] 02/09/2025 9:00 AM EDT Infusion [facility] at [address] [address] Rohith Pritchett MBBS [address] [place] [address] [email or web address] documented as of this encounter Visit Diagnoses Not on filedocumented in this encounter Additional Health Concerns Assessment Noted Time PHQ-9 Depression Total Score: 4 02/25/20 24 11:31 AM EST PHQ-2 Depression Total Score: 0 02/25/20 24 11:31 AM EST documented as of this encounter Care Teams Senior Chemical Engineer Relationship Specialty Start Date End Date Enio Mroales MD [address] [place] [address] [email or web address] PCP - General Internal Medicine 04/14/24 Enio Morales MD [address] [place] [address] [phone] Insurance Assigned Provider 07/21/23 Alvin Denton MD [address] [place] [address] [place] [address] Neurosurgery 04/24/19 Amber Young PA-C [address] [place] [address] Physician Neuropathologist Hematology 03/19/20 Kimi Lyles CNP [address] [place] [address] [email or web address] Nurse Practitioner Medical Oncology 05/24/23 Rohith Pritchett MBBS [address] [place] [address] [email or web address] Primary Oncologist Hematology and Oncology 08/17/23 Rivka Mcbride, LÁZARO [address] [place] [address] [email or web address] Nurse Practitioner 07/21/24 documented as of this encounter Additional Source Comments The information contained in this document represents components of the legal health record. It is not the complete legal health record.[facility]
--- OUTSIDE RECORDS SUMMARY | 2024-12-10 12:19 | XMS_ITS | Encounter Summary ---
Author Organization [facility] Address [address] [place] [address] Care Team Providers Care Gas Burner Operator Name Role Phone Enio Morales MD Primary Care Provider [phone] Encounter Details Date Type Department Care Team (Late st Contact Info) Description 01/15/2020 Scanned Document [facility] Neurosurgery [place] [address] [phone] Alvin Real MD 85 [facility] [place] [address] [place] [address] Social History Tobacco Use Types Packs/Day Years Used Date Smoking Tobacco: Never Assessed Comments Unknown Sex and Gender Information Value Date Recorded Sex Assigned at Not on file Legal Sex Female 6:26 PM EST Gender Identity Not on file Sexual Orientation Not on file documented as of this encounter Plan of Treatment Not on file documented as of this encounter Visit Diagnoses Not on filedocumented in this encounter Care Teams Gas Burner Operator Relationship Specialty Start Date End Date Enio Morales MD [address] [place] [address] PCP - General 09/30/19 documented as of this encounter
--- OUTSIDE RECORDS SUMMARY | 2024-12-10 12:19 | XMS_ITS | Encounter Summary ---
Author Organization [facility] Address [address] [place] [address] Care Team Providers Care Lock And Dam Operator Name Role Phone Enio Morales MD Primary Care Provider [phone] Encounter Details Date Type Department Care Team (Late st Contact Info) Description 09/11/2019 Scanned Document [facility] Neurosurgery [place] [address] [address] Alvin Real MD 85 [facility] [place] [address] [place] [address] Social History Tobacco Use Types Packs/Day Years [...] on filedocumented in this encounter Care Teams Lock And Dam Operator Relationship Specialty Start Date End Date Enio Morales MD [address] [place] [address] PCP - General 09/30/19 documented as of this encounter
--- OUTSIDE RECORDS SUMMARY | 2024-12-10 12:19 | XMS_ITS | Encounter Summary ---
Author Organization [facility] Address [address] [place] [address] Care Team Providers Care Watermaster Name Role Phone Enio Morales MD Primary Care Provider [phone] Encounter Details Date Type Department Care Team (Late st Contact Info) Description 11/06/2019 Scanned Document [facility] Neurosurgery [place] [address] [address] Alvin Real MD 85 [facility] [place] [address] [place] [address] Social History Tobacco Use Types Packs/Day Years [...] on filedocumented in this encounter Care Teams Watermaster Relationship Specialty Start Date End Date Enio Morales MD [address] [place] [address] PCP - General 09/30/19 documented as of this encounter
--- OUTSIDE RECORDS SUMMARY | 2024-12-10 12:19 | XMS_ITS | Encounter Summary ---
Author Organization [facility] Address [address] [place] [address] Care Team Providers Care Assembler Arranger Name Role Phone Enio Morales MD Primary Care Provider [phone] Encounter Details Date Type Department Care Team (Late st Contact Info) Description 08/04/2020 Scanned Document [facility] Neurosurgery [place] 85 [facility] [address] [place] [phone] Alvin Real MD 85 [facility] [place] [address] [place] [address] [phone] Social History Tobacco Use Types Packs/Day Years [...] on filedocumented in this encounter Care Teams Assembler Arranger Relationship Specialty Start Date End Date Enio Morales MD [address] [place] [address] [phone] PCP - General 09/30/19 documented as of this encounter
--- OUTSIDE RECORDS SUMMARY | 2024-12-10 12:19 | XMS_ITS | Encounter Summary ---
Author Organization [facility] Address [address] [place] [address] Care Team Providers Care Electric Meter Tester Helper Name Role Phone Enio Morales MD Primary Care Provider [phone] Encounter Details Date Type Department Care Team (Late st Contact Info) Description 06/16/2020 Scanned Document [facility] Neurosurgery [place] 85 [facility] [address] [place] [phone] Alvin Real MD 85 [facility] [place] [address] [place] [address] [phone] Social History Tobacco Use Types Packs/Day Years [...] on filedocumented in this encounter Care Teams Electric Meter Tester Helper Relationship Specialty Start Date End Date Enio Morales MD [address] [place] [address] [phone] PCP - General 09/30/19 documented as of this encounter
--- OUTSIDE RECORDS SUMMARY | 2024-12-10 12:19 | XMS_ITS | Clinical Summary ---
Author Organization [facility] Address [address] [place] [address] Care Team Providers Care Supervisor Maple Products Name Role Phone Enio Morales MD Primary Care Provider [phone] Allergies Active Allergy Reactions Criticality Noted Date Comments Codeine Itching Low 04/02/2020 Medications FLUoxetine (PROzac) 20 MG capsule 10/03/2019 Active oxyCODONE-aceta minophen (PERCOCET) 10-325 mg per tablet TK 1 T PO Q 4 H PRF PAIN 10/20/2019 Active Multiple Vitamin tablet Take 1 tablet by mouth daily. Active omega-3 fatty acids (FISH OIL) 1000 MG Cap capsule Take 1,000 mg by mouth daily. Active vitamin E 400 UNIT capsule Take 400 Units by mouth daily. Active cephalexin (KEFLEX) 500 MG capsuleIndicati ons:Sacroiliiti s Take 1 capsule (500 mg total) by mouth 3 (three) times a day. 42 capsule 04/19/2020 Active oxyCODONE (ROXICODONE) 5 MG immediate release tabletIndicatio ns:Sacroiliitis Take 1 tablet (5 mg total) by [...] 83 08/02/2020 10:01 AM EDT Temperature 36.7 C (98.1 F) 08/02/2020 10:01 AM EDT Respiratory Rate 27 04/19/2020 11:00 AM EST [...] Density (Females,Ag es 65 and older) 2022 COVID-19 Vaccine ( - 2023-2 5 season) 2023 Influenza Vaccine 11/14/2024 RSV Vaccine 60 years and old er and Patients (1 - 1-dose 75+ series) 2032 Hepatitis B Vaccines Aged Out No long er eligible based on patient's age to complete this topic Medical Devices Implanted Type Area Red Cap Device Identifier Shelf Expiration Date Model / Serial / Lot [id number] Filler Bone Void 5ml Dbx Putty Nonst - [id number] Implanted:Qt y: 1 on 04/19/2020 by Alvin Real MD at [facility] Void Filler Right: Sacrum [employer] FOU 01/13/2021 [id number] / [id number] / Si Joint Threaded Device Implanted:Qt y: 1 on 04/19/2020 by Alvin Real MD at [facility] Right: Sacrum [employer] MINIMALLY INVASIVE T 02/27/2028 [id number] / / [id number] Threaded Device 12 X 40mm Implanted:Qt y: 1 on 04/19/2020 by Alvin Real MD at [facility] [employer] MINIMALLY INVASIVE T 06/02/2027 [id number] / / [id number] Explanted Type Area Red Cap Device Identifier Shelf Expiration Date Model / Serial / Lot [id number] Pin Navigation 150mm Perc Reference Sterl Disp - [id number] Explanted:Qty: 1 on 04/19/2020 by Alvin Real MD at [facility] Wire Right: Sacrum [employer] MINIMALLY INVASIVE T 01/07/2023 [id number] / / [id number] Description:DISPOSABLE SUPPL Y , NOT IMPLANT Insurance MEDICARE PART A & B [facility] Care Teams Supervisor Maple Products Relationship Specialty Start Date End Date Enio Morales MD 84 [place] [address] PCP - General 09/30/19
--- OUTSIDE RECORDS SUMMARY | 2024-12-10 12:19 | XMS_ITS | Encounter Summary ---
Author Organization [facility] Address [address] [address] Phone Care Team Providers Care Metal Fabricator Name Role Phone Enio Morales MD Primary Care Provider Enio Morales MD Unavailable Abd Alvin Dalal MD Unavailable Amber Young PA-C Unavailable Kimi Lyles CNP Unavailable Rohith PritchettBS Unavailable Genie Trevizo Primary Care Provider [phone] Pcp, Unknown Primary Care Provider Unavailabl Enio Valdez MD Primary Care Provider [phone] Rivka Mcbride NP Unavailable [phone] Encounter Details Date Type Department Care Team (Late st Contact Info) Description 12/26/2023 Procedure Pass [facility] [place] [place] [address] Social History Tobacco Use Types Packs/Day Years [...] 7:40 AM EDT Appointment [facility] [address] [place] [address] Rohith Pritchett MBBS 30 [place] [address] [email or web address] 12/30/2024 8:30 AM EDT Office Visit [facility] [address] [place] [address] Kimi Lyles CNP [address] [place] [address] Genie Trevizo FNP [address] [place] [address] [email or web address] 12/30/2024 9:20 AM EDT Infusion [facility] at [address] [address] Rohith Pritchett [address] [address] [email or web address] 01/05/2025 10:00 AM EDT Office Visit [facility] Laryngology Division [address] [facility] [address], [place] [address] Archie Mccarthy MD [address] [place] [address]-[place] [address] [email or web address] 01/19/2025 7:40 AM EDT Appointment [facility] Laboratory [address] [place] [address] Rohith Pritchett MBBS [address] [place] [address] [email or web address] 01/19/2025 9:00 AM EDT Office Visit [facility] at [address] [address] Rohith Pritchett MBBS [address] [place] [address] [email or web address] 01/19/2025 9:20 AM EDT Infusion [facility] at [address] [address] Rohith Pritchett [address] [address] [email or web address] Gaby Patel RN [address] [place] [address] [email or web address] 02/09/2025 7:30 AM EDT Appointment [facility] [address] [place] [address] Rohith Pritchett MBBS [address] [place] [address] [email or web address] 02/09/2025 8:30 AM EDT Office Visit [facility] at [address] [address] Rivka Mcbride NP [address] [place] [address] [email or web address] 02/09/2025 9:00 AM EDT Infusion [facility] at [address] [address] Rohith Pritchett MBBS [address] [place] [address] [email or web address] documented as of this encounter Visit Diagnoses Not on filedocumented in this encounter Additional Health Concerns Assessment Noted Time PHQ-9 Depression Total Score: 4 02/25/20 24 11:31 AM EST PHQ-2 Depression Total Score: 0 02/25/20 24 11:31 AM EST documented as of this encounter Care Teams Metal Fabricator Relationship Specialty Start Date End Date Enio Morales MD [address] [place] [address] [email or web address] PCP - General 02/01/17 02/25/24 Genie Trevizo FNP [address] [place] [address] [email or web address] PCP - General Nurse Practitioner 02/26/24 04/07/24 Pcp, Unknown PCP - General 04/08/24 04/13/24 Enio Morales MD [address] [place] [address] [email or web address] PCP - General Internal Medicine 04/14/24 Enio Morales MD 40 [place] [address] [email or web address] Insurance Assigned Provider 07/21/23 Alvin Denton MD [address] [place] [address] [place] [address] Neurosurgery 04/24/19 Amber Young PA-C [address] [place] [address] [email or web address] Physician Dietary Manager Hematology 03/19/20 Kimi Lyles CNP [address] [place] [phone] [email or web address] Nurse Practitioner Medical Oncology 05/24/23 Rohith Pritchett MBBS [address] [place] [address] [email or web address] Primary Oncologist Hematology and Oncology 08/17/23 Rivka Mcbride, LÁZARO [address] [place] [address] [email or web address] Nurse Practitioner 07/21/24 documented as of this encounter Additional Source Comments The information contained in this document represents components of the legal health record. It is not the complete legal health record.[facility]
--- OUTSIDE RECORDS SUMMARY | 2024-12-10 12:19 | XMS_ITS | Encounter Summary ---
Author Organization [facility] Address [address] [place] [address] Care Team Providers Care Chucking Lathe Operator Name Role Phone Enio Morales MD Primary Care Provider [phone] Encounter Details Date Type Department Care Team (Late st Contact Info) Description 09/11/2019 Scanned Document [facility] Neurosurgery [place] [address] [address] Alvin Real MD 85 [facility] [place] [address] [place] [address] Social History Tobacco Use Types Packs/Day Years [...] on filedocumented in this encounter Care Teams Chucking Lathe Operator Relationship Specialty Start Date End Date Enio Morales MD [address] [place] [address] PCP - General 09/30/19 documented as of this encounter
--- OUTSIDE RECORDS SUMMARY | 2024-12-10 12:19 | XMS_ITS | Encounter Summary ---
Author Organization [facility] Address 399 [facility] [address] [place] [address] Phone Care Team Providers Care Cytology Technologist Name Role Phone Enio Morales MD Unavailable Abd Alvin Dalal MD Unavailable Amber Young PA-C Unavailable Kimi Lyles CNP Unavailable Rohith Pritchett MBOLI Unavailable Enio Morales MD Primary Care Provider [phone] Rivka Mcbride NP Unavailable [phone] Encounter Details Date Type Department Care Team (Late st Contact Info) Description 12/08/2024 Telephone Located Within [facility] 30 [place] [address] Rohith Pritchett MBBS 30 [place], [place] [phone] [email or web address] Social History Tobacco Use Types Packs/Day Years [...] as of this encounter Progress Notes * Enio Morales MD - 12/08/2024 6:34 PM EDT Will order labs at office visit on Sunday * Juli Ventura RN - 12/08/2024 11:07 AM EDT Called pt to report that potassium is high and Dr. Pritchett has prescribed lokelma for her to take for the next few days. Will message Dr. Morales's office to see if he wants a repeat lab when he sees her on Sunday. Pt stated understanding. * Rohith Pritchett MBBS - 12/08/2024 9:22 AM EDT Her potassium is high. 5.6 pool table operator: I have sent a prescription for kayexalate -please let her know about this Thanks ADS documented in this encounter Plan of Treatment Upcoming Encounters Date Type Department Care Team (Late st Contact Info) Description 12/30/2024 7:40 AM EDT Appointment [facility] [address] [place] [address] Rohith Pritchett MBBS [address] [place] [address] [email or web address] 12/30/2024 8:30 AM EDT Office Visit [facility] at [address] [address] Kimi Lyles CNP [address] [place] [address] [email or web address] Genie Trevizo FNP [address] [place] [address] 12/30/2024 9:20 AM EDT Infusion [facility] at [address] [address] Rohith Pritchett MBBS [address] [place] [address] [email or web address] 01/05/2025 10:00 AM EDT Office Visit [facility] L[facility]ology Division [address] [place] [address] 9th [place] [address] Archie Mccarthy MD [address] [place] [address]-[place] [address] [email or web address] 01/19/2025 7:40 AM EDT Appointment [facility] Laboratory [address] [place] [address] Rohith Pritchett, MEETA [address] [place] [address] [email or web address] 01/19/2025 9:00 AM EDT Office Visit [facility] at [address] [address] Rohith Pritchett MBBS [address] [place] [address] [email or web address] 01/19/2025 9:20 AM EDT Infusion [facility] at [address] [address] Rohith Pritchett MBBS [address] [place] [address] [email or web address] Gaby Patel RN [address] [place] [address] 02/09/2025 7:30 AM EDT Appointment [facility] [address] [place] [address] Rohith Pritchett MBBS [address] [place] [address] [email or web address] 02/09/2025 8:30 AM EDT Office Visit [facility] at [address] [address] Rivka Mcbride NP 30 [place] [address] [email or web address] 02/09/2025 9:00 AM EDT Infusion Located Within [facility] 30 [place] [address] Rohith Pritchett, MEETA 30 [place] [address] [email or web address] documented as of this encounter Visit Diagnoses Not on filedocumented in this encounter Additional Health Concerns Assessment Noted Time PHQ-9 Depression Total Score: 4 02/25/20 24 11:31 AM EST PHQ-2 Depression Total Score: 0 02/25/20 24 11:31 AM EST documented as of this encounter Care Teams Cytology Technologist Relationship Specialty Start Date End Date Enio Morales MD [address] [place] [address] [email or web address] PCP - General Internal Medicine 04/14/24 Enio Morales MD [address] [place] [address] [email or web address] Insurance Assigned Provider 07/21/23 Alvin Denton MD [address] [place] [address] [place] [address] Neurosurgery 04/24/19 Amber Young PA-C [address] [place] [address] [email or web address] Physician Java Performance Engineer Hematology 03/19/20 Kimi Lyles CNP [address] [place] [address] [phone] [email or web address] Nurse Practitioner Medical Oncology 05/24/23 Rohith Pritchett MBBS [address] [place] [address] [email or web address] Primary Oncologist Hematology and Oncology 08/17/23 Rivka Mcbride NP [address] [place] [address] [email or web address] Nurse Practitioner 07/21/24 documented as of this encounter Additional Source Comments The information contained in this document represents components of the legal health record. It is not the complete legal health record.[facility]
--- OUTSIDE RECORDS SUMMARY | 2024-12-10 12:19 | XMS_ITS | Encounter Summary ---
Author Organization [facility] Address [address] [email or web address] [facility] [address] [place] [address] Phone Care Team Providers Care Channel Turner Name Role Phone Enio Morales MD Primary Care Provider [phone] Enio Morales MD Unavailable Alvin Denton MD Unavailable Amber Young PA-C Unavailable Savage Macario MD Unavailable [phone] Amber Young PA-C Unavailable Kimi Lyles CNP Unavailable Rohith Pritchett Unavailable [phone] Genie TrevizoP Primary Care Provider Pcp, Unknown Primary Care Provider Unavailabl e Enio Morales MD Primary Care Provider [phone] Rivka Mcbride NP Unavailable Encounter Details Date Type Department Care Team (Late st Contact Info) Description 03/31/[address] [facility], Ct Scan - [address] [id number] Social History Tobacco Use Types Packs/Day Years Used Date Smoking Tobacco: Former Cigarettes 0.3 10 0 04/30/1999 - 04/30/2009 Smokeless Tobacco: Never Alcohol Use Standard Drinks/Week Comments Yes 1 (1 standard drink = 0.6 oz pur e alcohol) Comments No Sex and Gender Information Value Date Recorded Sex Assigned at Not on file Legal Sex Female 9:52 PM EDT Gender Identity Not on file Sexual Orientation Not on file documented as of this encounter Plan of Treatment Upcoming Encounters Date Type Department Care Team (Late st Contact Info) Description 12/30/2024 7:40 AM EDT Appointment [facility] [address] [place] [address] Rohith Pritchett, MEETA [address] [place] [address] [email or web address] 12/30/2024 8:30 AM EDT Office Visit [facility] at [address] [address] Kimi Lyles CNP [address] [place] [address] [email or web address] Genie Trevizo FNP [address] [place] [address] 12/30/2024 9:20 AM EDT Infusion [facility] at [address] [address] Rohith Pritchett MBBS [address] [place] [address] [email or web address] 01/05/2025 10:00 AM EDT Office Visit [facility] 243 [facility] 9th [place] [address] Archie Mccarthy MD [address] [place] [address]-[place] [address] [email or web address] 01/19/2025 7:40 AM EDT Appointment [facility] Laboratory [address] [place] [address] Rohith Pritchett, MEETA [address] [place] [address] [email or web address] 01/19/2025 9:00 AM EDT Office Visit [facility] at [address] [address] Rohith Pritchett MBBS [address] [place] [address] [email or web address] 01/19/2025 9:20 AM EDT Infusion [facility] at [address] [address] Rohith Pritchett MBBS [address] [place] [address] [email or web address] Gaby Patel RN [address] [place] [address] 02/09/2025 7:30 AM EDT Appointment [facility] Laboratory [address] [place] [address] Rohith Pritchett, MEETA [address] [place] [address] [email or web address] 02/09/2025 8:30 AM EDT Office Visit [facility] at [address] [address] Rivka Mcbride NP [address] [place] [address] 02/09/2025 9:00 AM EDT Infusion [facility] 30 [place] [address] Rohith Pritchett, MEETA [address] [place] [address] [email or web address] documented as of this encounter Visit Diagnoses Not on filedocumented in this encounter Additional Health Concerns Infection Onset Date Last Indicated Resolved Time CoV-Risk 05/03/2023 05/03/2023 05/14/2023 1:24 AM EST Assessment Noted Time PHQ-2 Depression Total Score: 6 10/03/19 20 11:00 AM EDT documented as of this encounter Care Teams Channel Turner Relationship Specialty Start Date End Date Enio Morales MD [address] [place] [address] PCP - General 02/01/17 02/25/24 Genie Trevizo FNP [address] [place] [address] [email or web address] PCP - General Nurse Practitioner 02/26/24 04/07/24 Pcp, Unknown PCP - General 04/08/24 04/13/24 Enio Morales MD [address] [place] [address] PCP - General Internal Medicine 04/14/24 Enio Morales MD [address] [place] [address] Insurance Assigned Provider 07/21/23 Alvin Denton MD [address] [place] [address] [place] [address] Neurosurgery 04/24/19 Amber Young PA-C [address] [place] [address] [email or web address] Physician Portal Developer Hematology 03/19/20 08/02/22 Savage Macario MD [address] [place] [address] [email or web address] Primary Oncologist Medical Oncology 10/04/20 08/16/23 Amber Young PA-C [address] [place] [address] [email or web address] Physician Portal Developer Hematology 03/19/20 Kimi Lyles CNP [address] [place] [address] [email or web address] Nurse Practitioner Medical Oncology 05/24/23 Rohith Pritchett MBBS [address] [place] [address] [email or web address] Primary Oncologist Hematology and Oncology 08/17/23 Rivka Mcbride NP [address] [place] [address] [email or web address] Nurse Practitioner 07/21/24 documented as of this encounter Additional Source Comments The information contained in this document represents components of the legal health record. It is not the complete legal health record.[facility]
--- OUTSIDE RECORDS SUMMARY | 2024-12-10 12:19 | XMS_ITS | Encounter Summary ---
Author Organization [facility] Address [address] [place] [address] Care Team Providers Care Medical Supply Technician Name Role Phone Enio Morales MD Primary Care Provider [phone] Encounter Details Date Type Department Care Team (Late st Contact Info) Description 09/11/2019 Scanned Document [facility] Neurosurgery [place] [address] [address] Alvin Real MD 85 [facility] [address] [place] [address] Social History Tobacco Use Types Packs/Day Years [...] filedocumented in this encounter Care Teams Medical Supply Technician Relationship Specialty Start Date End Date Enio Morales MD [address] [place] [address] PCP - General 09/30/19 documented as of this encounter
--- OUTSIDE RECORDS SUMMARY | 2024-12-10 12:19 | XMS_ITS | Encounter Summary ---
Author Organization [facility] Address [address] [employer] [facility] [address] [place] [address] Phone Care Team Providers Care Charge Master Specialist Name Role Phone Enio Morales MD Primary Care Provider [phone] Enio Morales MD Unavailable [phone] Abd Alvin Dalal MD Unavailable Savage Macario MD Unavailable [phone] Amber Young PA-C Unavailable Kimi Lyles CNP Unavailable Rohith Pritchett MBOLI Unavailable Genie TrevizoP Primary Care Provider Pcp, Unknown Primary Care Provider Unavailabl e Enio Morales MD Primary Care Provider [phone] Rivka Mcbride NP Unavailable Encounter Details Date Type Department Care Team (Late st Contact Info) Description 03/29/2023 Procedure Pass [facility], Ct Scan - [address] [id number] Social History Tobacco Use Types Packs/Day Years Used Date Smoking Tobacco: Former Cigarettes 0.3 10 0 04/30/1999 - 04/30/2009 Smokeless Tobacco: Never Alcohol Use Standard Drinks/Week Comments Yes 0 (1 standard drink = 0.6 oz pure alcohol) 3 glasses wine or hard seltzer a year Education Answer Date Recorded Are [...] 7:40 AM EDT Appointment [facility] [address] [place] [address] Rohith Pritchett MBBS [address] [place] [address] [email or web address] 12/30/2024 8:30 AM EDT Office Visit [facility] 30 [place] [address] Kimi Lyles CNP [address] [place] [address] TrevizoGenie FNP [address] [place] [address] [email or web address] 12/30/2024 9:20 AM EDT Infusion [facility] at [address] [address] Rohith Pritchett MBBS [address] [place] [address] [email or web address] 01/05/2025 10:00 AM EDT Office Visit [facility] Laryngology Division [address] [place] [address] [place], [place] [address] Archie Mccarthy MD [address] [place], [place] [address] [address] [email or web address] 01/19/2025 7:40 AM EDT Appointment [facility] Laboratory [address] [place] [address] Rohith Pritchett MBBS [address] [place] [address] [email or web address] 01/19/2025 9:00 AM EDT Office Visit [facility] at [address] [address] Rohith Pritchett MBBS [address] [place] [address] [email or web address] 01/19/2025 9:20 AM EDT Infusion [facility] at [address] [address] Rohith Pritchett MBBS [address] [place] [address] [email or web address] Gaby Patel RN [address] [place] [address] [email or web address] 02/09/2025 7:30 AM EDT Appointment [facility] [address] [place] [address] Rohith Pritchett MBBS [address] [place] [address] [email or web address] 02/09/2025 8:30 AM EDT Office Visit [facility] at [address] [address] Rivka Mcbride NP [address] [place] [address] [email or web address] 02/09/2025 9:00 AM EDT Infusion [facility] at [address] [address] Rohith Pritchett MBBS [address] [place] [address] [email or web address] documented as of this encounter Visit Diagnoses Not on filedocumented in this encounter Additional Health Concerns Infection Onset Date Last Indicated Resolved Time CoV-Risk 05/03/2023 05/03/2023 05/14/2023 1:24 AM EST Assessment Noted Time PHQ-9 Depression Total Score: 7 09/10/19 22 11:15 AM EDT PHQ-2 Depression Total Score: 2 12/02/19 23 3:12 PM EDT documented as of this encounter Care Teams Charge Master Specialist Relationship Specialty Start Date End Date Enio Morales MD [address] [place] [address] [email or web address] PCP - General 02/01/17 02/25/24 Genie Trevizo FNP [address] [place] [address] [email or web address] PCP - General Nurse Practitioner 02/26/24 04/07/24 Pcp, Unknown PCP - General 04/08/24 04/13/24 Enio Morales MD [address] [place] [address] [email or web address] PCP - General Internal Medicine 04/14/24 Enio Morales MD [address] [place] [address] [email or web address] Insurance Assigned Provider 07/21/23 Alvin Denton MD [address] [place] [address] [place] [address] Neurosurgery 04/24/19 Savage Macario MD [address] [place] [address] [email or web address] Primary Oncologist Medical Oncology 10/04/20 08/16/23 Amber Young PA-C [address] [place] [address] [email or web address] Physician Director Consumer Hematology 03/19/20 Kimi Lyles CNP [address] [place] [address] [email or web address] Nurse Practitioner Medical Oncology 05/24/23 Rohith Pritchett MBBS [address] [place] [address] [email or web address] Primary Oncologist Hematology and Oncology 08/17/23 Rivka Mcbride NP [address] [place] [address] [email or web address] Nurse Practitioner 07/21/24 documented as of this encounter Additional Source Comments The information contained in this document represents components of the legal health record. It is not the complete legal health record.[facility]
--- OUTSIDE RECORDS SUMMARY | 2024-12-10 12:19 | XMS_ITS | Encounter Summary ---
Author Organization [facility] Address [address] [place] [address] Care Team Providers Care Dormitory Supervisor Name Role Phone Enio Morales MD Primary Care Provider Encounter Details Date Type Department Care Team (Late st Contact Info) Description 05/24/2020 Scanned Document [facility] Neurosurgery [address] [place] [phone] Alvin Real MD 85 [facility] [place] [address] [place] [address] Social History Tobacco Use Types Packs/Day Years [...] on filedocumented in this encounter Care Teams Dormitory Supervisor Relationship Specialty Start Date End Date Enio Morales MD [address] [place] [address] [phone] PCP - General 09/30/19 documented as of this encounter
--- OUTSIDE RECORDS SUMMARY | 2024-12-10 12:19 | XMS_ITS | Encounter Summary ---
Author Organization [facility] Address [address] [place] [address] Care Team Providers Care Gold Prospector Name Role Phone Enio Morales MD Primary Care Provider [phone] Encounter Details Date Type Department Care Team (Late st Contact Info) Description 05/06/2020 Scanned Document [facility] Neurosurgery [place] [address] [facility] [address] [place] [phone] Alvin Real MD 85 [facility] [place] [address] [place] [address] [phone] Social History Tobacco Use Types Packs/Day Years [...] on filedocumented in this encounter Care Teams Gold Prospector Relationship Specialty Start Date End Date Enio Morales MD [address] [place] [address] [phone] PCP - General 09/30/19 documented as of this encounter
--- OUTSIDE RECORDS SUMMARY | 2024-12-10 12:19 | XMS_ITS | Patient Health Record ---
Author Organization [facility] Address [address] [place] [address] Care Team Providers Care Tubing Machine Operator Name Role Phone Enio Morales MD Primary Care Provider Gunner Sebastian Jr Unavailable [phone] Allergies Allergen (clinical drug ingredient) Drug/Non Drug [...] Oral for 90 Days Active Epoetin Rito [address]9558 UNIT/ML as directed Injection Active amLODIPine Besylate [...] Problem Status W/U Status Risk Notes Problem 782840747 Colon cancer screening (Z12.11) Active confirmed Problem 302479566 Long-term curren t use of high risk medication other than anticoagulant (Z79.899) Active confirmed Problem 993037965 Gastroesophageal reflux disease, unspecified whether esophagitis present (K21.9) Active confirmed Problem 141096953 FH: esophageal cancer (Z80.0) Active confirmed Vital Signs Temperature 96.5 degrees Fahrenheit 07/07/2024 Blood pressure diastolic 01 mm Hg 07/07/2024 Height 65 in 07/07/2024 Blood pressure systolic 001 mm Hg 07/07/2024 Weight 135 lbs 07/07/2024 BMI 22.46 kg/m2 07/07/2024 Encounters Encounter Location Date Provider Diagnosis [facility] Outpatient [address] [place], [place] [phone] 08/26/2024 Gunner العلي Jr Colon cancer screening Z12.11 [facility] [address] [place] [address] 07/07/2024 Gunner العلي Jr Colon cancer screening Z12.11 ; Gastroesophageal reflux disease, unspecified whether esophagitis present K21.9 and Long-term current use of high risk medication other than anticoagulant Z79.899 Assessments Encounter Date Diagnosis (ICD Code) Assessment Notes Treatment Notes Treatment Clinical Notes Section Notes 08/26/2024 Colon cancer screening (ICD-10 - Z12.11) 07/07/2024 Colon cancer screening (ICD-10 - Z12.11) We discussed gastroesophageal reflux disease today. We discussed diet, lifestyle modifications, and weight management regarding the treatment of her reflux. We will review her recent labs and determine whether additional testing is necessary. She is due for colonoscopy. She understands risks and benefits of this procedure and agrees to proceed. She is advised to stop fish oil 1 week before the procedure. 07/07/2024 Gastroesophageal reflux disease, unspecified whether esophagitis present (ICD-10 - K21.9) We discussed gastroesophageal reflux disease today. We discussed diet, lifestyle modifications, and weight management regarding the treatment of her reflux. We will review her recent labs and determine whether additional testing is necessary. She is due for colonoscopy. She understands risks and benefits of this procedure and agrees to proceed. She is advised to stop fish oil 1 week before the procedure. 07/07/2024 Long-term current use of high risk medication other than anticoagulant (ICD-10 - Z79.899) We discussed gastroesophageal reflux disease today. We discussed diet, lifestyle modifications, and weight management regarding the treatment of her reflux. We will review her recent labs and determine whether additional testing is necessary. She is due for colonoscopy. She understands risks and benefits of this procedure and agrees to proceed. She is advised to stop fish oil 1 week before the procedure. Plan Of Treatment Future Test Test Name Order Date COLONOSCOPY 07/02/2019 UPPER GI ENDOSCOPY 05/14/2020 COLONOSCOPY 07/07/2024 Insurance Providers Payer Name Payer Address Payer Phone Subscriber Number Group Number Insured Name Patient Relationship to Insured Coverage Start Date Coverage End Date MEDICARE OF [place] [address] [facility] JOSE ALFREDO RUST [address] [id number] K[place]WITT Self - patient is the insured MEDEX ATTN CLAIMS [address] [place] [address] [id number] K[place] HEWITT Self - patient is the insured Medical (General) History Medical History History ICD Code colon polyps, tubular adenom a x1 on colonoscopy 11/02, five-year followup 11/07 degenerative joint disease cervical cancer disc disease bone marrow cancer myelodysplasia thrombocytosis Surgical History Surgery Date(Month/Year) Back surgery 04/19/2020 hand surgery knee surgery eye surgery
--- OUTSIDE RECORDS SUMMARY | 2024-12-10 12:19 | XMS_ITS | Encounter Summary ---
Author Organization [facility] Address [address] [place] [address] Care Team Providers Care Transitional Care Manager Name Role Phone Enio Morales MD Primary Care Provider [phone] Encounter Details Date Type Department Care Team (Late st Contact Info) Description 09/11/2019 Scanned Document [facility] Neurosurgery [place] [address] [address] Alvin Real MD 85 [facility] [place] [address] [place] [address] Social History Tobacco Use Types Packs/Day Years [...] on filedocumented in this encounter Care Teams Transitional Care Manager Relationship Specialty Start Date End Date Enio Morales MD [address] [place] [address] PCP - General 09/30/19 documented as of this encounter
--- OUTSIDE RECORDS SUMMARY | 2024-12-10 12:19 | XMS_ITS | Encounter Summary ---
Author Organization Located Within [facility] Address [address] [place] [address] Phone Care Team Providers Care Aerospace Engineer Officer Armament Name Role Phone Enio Morales MD Primary Care Provider [phone] Enio Morales MD Unavailable Abd Alvin Dalal MD Unavailable Savage Macario MD Unavailable [phone] Amber Young PA-C Unavailable Kimi Lyles CNP Unavailable Rohith Pritchett MBBS Unavailable Genie TrevizoP Primary Care Provider [phone] Pcp, Unknown Primary Care Provider Unavailabl e Enio Morales MD Primary Care Provider Rivka Mcbride NP Unavailable Encounter Details Date Type Department Care Team (Late st Contact Info) Description 03/29/[address] [facility] Cardiovascular And Interventional Radiology 30 [place], [place] [phone] Social History Tobacco Use Types Packs/Day Years [...] 7:40 AM EDT Appointment [facility] 30 [place] [address] Rohith Pritchett MBBS 30 [place] [address] [email or web address] 12/30/2024 8:30 AM EDT Office Visit [facility] at [facility] 30 [place] [address] Kimi Lyles CNP 30 [place] [address] [email or web address] Genie Trevizo FNP [address] [place] [address] [email or web address] 12/30/2024 9:20 AM EDT Infusion [facility] Center at [address] [address] Rohith Pritchett, MEETA [address] [place] [address] [email or web address] 01/05/2025 10:00 AM EDT Office Visit [facility] Laryngology Division [address] [place] [address] [place], [place] [address] Archie Mccarthy MD [address] [place] [address]-[place] [address] [email or web address] 01/19/2025 7:[address] [facility] Laboratory [address] [place] [address] Rohith Pritchett MBBS [address] [place] [address] [email or web address] 01/19/2025 9:00 AM EDT Office Visit [facility] Center at [address] [address] Rohith Pritchett MBBS [address] [place] [address] [email or web address] 01/19/2025 9:20 AM EDT Infusion [facility] Center at [address] [address] Rohith Pritchett MBBS [address] [place] [address] [email or web address] Gaby Patel RN [address] [place] [address] [email or web address] 02/09/2025 7:30 AM EDT Appointment [facility] [address] [place] [address] Rohith Pritchett MBBS [address] [place] [address] [email or web address] 02/09/2025 8:30 AM EDT Office Visit [facility] at [address] [address] Rivka Mcbride NP [address] [place] [address] [email or web address] 02/09/2025 9:00 AM EDT Infusion [facility] at [address] [address] Rohith Pritchett MBBS [address] [place] [address] [email or web address] documented as of this encounter Visit Diagnoses Not on filedocumented in this encounter Additional Health Concerns Infection Onset Date Last Indicated Resolved Time CoV-Risk 05/03/2023 05/03/2023 05/14/2023 1:24 AM EST Assessment Noted Time PHQ-9 Depression Total Score: 7 09/10/19 22 11:15 AM EDT PHQ-2 Depression Total Score: 2 12/02/19 23 3:12 PM EDT documented as of this encounter Care Teams Aerospace Engineer Officer Armament Relationship Specialty Start Date End Date Enio Morales MD [address] [place] [address] [email or web address] PCP - General 02/01/17 02/25/24 Genie Trevizo FNP 30 [place] [address] [email or web address] PCP - General Nurse Practitioner 02/26/24 04/07/24 Pcp, Unknown PCP - General 04/08/24 04/13/24 Enio Morales MD [address] [place] [address] [email or web address] PCP - General Internal Medicine 04/14/24 Enio Morales MD [address] [place] [address] [email or web address] Insurance Assigned Provider 07/21/23 Alvin Denton MD [address] [place] [address] [place] [address] Neurosurgery 04/24/19 Savage Macario MD [address] [place] [address] [email or web address] Primary Oncologist Medical Oncology 10/04/20 08/16/23 Amber Young PA-C [address] [place] [address] [email or web address] Physician Licensed Nuclear Operator Hematology 03/19/20 Kimi Lyles CNP [address] [place] [address] [email or web address] Nurse Practitioner Medical Oncology 05/24/23 Rohith Pritchett MBBS [address] [place] [address] [email or web address] Primary Oncologist Hematology and Oncology 08/17/23 Rivka Mcbride NP [address] [place] [address] [email or web address] Nurse Practitioner 07/21/24 documented as of this encounter Additional Source Comments The information contained in this document represents components of the legal health record. It is not the complete legal health record.Loc[facility]
--- OUTSIDE RECORDS SUMMARY | 2024-12-10 12:19 | XMS_ITS | Encounter Summary ---
Author Organization [facility] Address [address] [facility] [address] [place] [address] Phone Care Team Providers Care Roof Fixer Name Role Phone Enio Morales MD Unavailable Abd Alvin Dalal MD Unavailable Amber Young PA-C Unavailable [phone] Kimi Lyles CNP Unavailable Rohith Pritchett MBOLI Unavailable Enio Morales MD Primary Care Provider [phone] Rivka Mcbride NP Unavailable Encounter Details Date Type Department Care Team (Late st Contact Info) Description 11/14/2024 Telephone [facility] Center at [facility] 30 [place] [address] Rohith Pritchett MBBS 30 [place], [place] [phone] [email or web address] Social History Tobacco Use Types Packs/Day [...] 7:40 AM EDT Appointment [facility] 30 [place] [address] Rohith Pritchett MBBS 30 [place] [address] [email or web address] 12/30/2024 8:30 AM EDT Office Visit [facility] at [facility] 30 [place] [address] Kimi Lyles CNP 30 [place] [address] Genie Trevizo FNP 30 [place] [address] [email or web address] 12/30/2024 9:20 AM EDT Infusion [facility] Cancer Center at [address] [address] Rohith Pritchett [address] [address] [email or web address] 01/05/2025 10:00 AM EDT Office Visit [facility] Laryngology Division [address] [place] [address] 9[place], [place] [address] Archie Mccarthy MD [address] [place] [address]-[place] [address] [email or web address] 01/19/2025 7:40 AM EDT Appointment [facility] Laboratory [address] [place] [address] Rohith Pritchett [address] [address] [email or web address] 01/19/2025 9:00 AM EDT Office Visit [facility] at [address] [address] Rohith Pritchett MBBS [address] [place] [address] [email or web address] 01/19/2025 9:20 AM EDT Infusion [facility] at [address] [address] Rohith Pritchett [address] [address] [email or web address] Gaby Patel RN 30 [place] [address] [email or web address] 02/09/2025 7:30 AM EDT Appointment [facility] [address] [place] [address] Rohith Pritchett MBBS [address] [place] [address] [email or web address] 02/09/2025 8:30 AM EDT Office Visit [facility] at [address] [address] Rivka Mcbride NP [address] [place] [address] [email or web address] 02/09/2025 9:00 AM EDT Infusion [facility] at [address] [address] Rohith Pritchett MBBS [address] [place] [address] [email or web address] documented as of this encounter Visit Diagnoses Not on filedocumented in this encounter Additional Health Concerns Assessment Noted Time PHQ-9 Depression Total Score: 4 02/25/20 24 11:31 AM EST PHQ-2 Depression Total Score: 0 02/25/20 24 11:31 AM EST documented as of this encounter Care Teams Roof Fixer Relationship Specialty Start Date End Date Enio Morales MD [address] [place] [address] [email or web address] PCP - General Internal Medicine 04/14/24 Enio Morales MD [address] [place] [address] [phone] Insurance Assigned Provider 07/21/23 Alvin Denton MD [address] [place] [address] [place] [address] Neurosurgery 04/24/19 Amber Young PA-C [address] [place] [address] Physician Quality Control Head Hematology 03/19/20 Kimi Lyles CNP [address] [place] [address] [email or web address] Nurse Practitioner Medical Oncology 05/24/23 Rohith Pritchett MBBS [address] [place] [address] [email or web address] Primary Oncologist Hematology and Oncology 08/17/23 Rivka Mcbride, LÁZARO [address] [place] [address] Nurse Practitioner 07/21/24 documented as of this encounter Additional Source Comments The information contained in this document represents components of the legal health record. It is not the complete legal health record.[facility]
[2024-12-10 12:38] LABS: Potassium 4.2 mmol/L (3.3-5.1)
== END 2024-12-10 11:24 | disposition home or self-care (01) ==
LOC: HO.LAB 11:23
PROVIDERS: PCP Internal Medicine; Visit Provider Internal Medicine
DX: E87.5 Hyperkalemia (principal)
CPT/HCPCS: 36415; 84132

== ENCOUNTER 2025-02-26 07:49 | Outpatient (REF) | payer MEDICARE, SELFPAY | END 2025-02-26 07:50 | disposition home or self-care (01) | LOC: HO.LNP 07:49 | PROVIDERS: PCP Internal Medicine; Visit Provider Obstetrics & Gynecology | DX: Z01.419 Encounter for gynecological examination (general) (routine) without abnormal findings (principal); Z11.51 Encounter for screening for human papillomavirus (HPV) | CPT/HCPCS: 87626; 88175; G0101; Q0091 ==

== ENCOUNTER 2025-02-26 07:49 | Outpatient (AMB) | payer MEDICARE, SELFPAY ==
--- OUTSIDE RECORDS SUMMARY | 2024-08-19 02:30 | XMS_ITS ---
Author Organization [facility] Address [address] [place] [address] Care Team Providers Care Call Center Assistant Name Role Phone Andrew NEWSOME, Enio Primary Care Provider Gunner Sebastian Jr REASON FOR VISIT screening Encounters Encounter Location Date Provider Diagnosis [facility] Out[facility] [address] [place], [place] [phone] 08/19/2024 Gunner العلي Jr Plan Of Treatment No Information Progress Notes * KING HEWITT MDOB:[birth year] (69 yo F)Acc No.[id number]:08/19/2024 COLON WITH MAC Patient: KING HERNANDEZ Provider: Savannah العلي MD :1955 A ge:69 Y S ex:Female Date:08/19/2024 Address:[address] [place], [place] [phone] Pcp:Enio Morales MD Subjective: * Chief Complaints: * 1 . Screening. * Medical History: Objective: * Vitals: Assessment: Plan: * Treatment: * * The named appointment provid er may or may not be the originator of this progress note, and it is not deemed complete until electronically signed by the appointment provider. Sign off status: Pending * Provider: Savannah العلي MD Date: 0 08/19/2024 Generated for Brii fabienne/Nas/eTransmitting on: 1 04/28/2024 07:52 AM EST
--- OUTSIDE RECORDS SUMMARY | 2024-08-26 02:30 | XMS_ITS ---
Author Organization [facility] Address [address] [place] [address] Care Team Providers Care Paint Prepper Name Role Phone Enio Morales MD Primary Care Provider Gunner Sebastian Jr REASON FOR VISIT screening Encounters Encounter Location Date Provider Diagnosis [facility] [place] [address] [place], [place] [phone] 08/26/2024 Gunner العلي Jr Colon cancer screening Z12.11 Assessments Encounter Date Diagnosis (ICD Code) Assessment Notes Treatment Notes Treatment Clinical Notes Section Notes 08/26/2024 Colon cancer screening (ICD-10 - Z12.11) Plan Of Treatment No Information Progress Notes * KING HEWITT MDOB:[birth year] (69 yo F)Acc No.[id number]:08/26/2024 COLON WITH MAC Patient: KING HERNANDEZ Provider: Savannah العلي MD :1955 A ge:69 Y S ex:Female Date:08/26/2024 Address:[address] [place], [place] [phone] Pcp:Enio Morales MD Subjective: * Chief Complaints: * 1 . Screening. * Medical History: Objective: * Vitals: Assessment: * Assessment: 1. C olon cancer screening - Z12.11 (Primary) Plan: * Treatment: * Procedure Codes: 4 5378 DIAGNOSTIC COLONOSCOPY * * The named appointment provid er may or may not be the originator of this progress note, and it is not deemed complete until electronically signed by the appointment provider. Sign off status: Pending * Provider: Savannah العلي MD Date: 0 08/26/2024 Generated for Carlos loving/Nas/Nikhil on: 1 04/28/2024 07:52 AM EST
--- NOTE | 2025-02-26 07:52 | MHC.OFFVIS ---
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 No complaints. Last Pap/HPV was many years ago no record of adequate screening between the age of 55-65 Last Mammogram was BI-RADS 1 in 10/08 Last Colonoscopy was in 09/07, the recommendation was to repeat in 10 years Last DEXA scan was in 06/09 [facility] Medical History Cervical cancer Primary cancer of bone marrow GERD (gastroesophageal reflux disease) Hx of degenerative disc disease DJD (degenerative joint disease) Weakness of both legs Surgical History History of esophagogastroduodenoscopy (EGD) History of loop electrical excision procedure (LEEP) History of blepharoplasty Hx of hand surgery Hx of knee surgery Hx of colonoscopy History of back surgery Family History Mother Esophagus cancer Sister Lung cancer Social History Household Members: Spouse Housing: House Alcohol intake: current Alcohol intake frequency: holidays/special occasions only Patient Tobacco Use Status: Former Tobacco user Tobacco use type: Cigarette Years Smoked: 10 Current occupational status: disabled Sexual orientation: Straight/Heterosexual Gender identity: Female Female Reproductive History Menstrual Age of Menarche: 18 Menopause type: natural Date of Mammogram: 09/15/24 Review of Systems Const All systems reviewed & are unremarkable except as noted in HPI and below Card Reports as per HPI Resp Reports as per HPI GI Reports as per HPI and Reports no additional complaints Reports as per HPI Physical Exam Vital Signs: Last Vital Signs BP 142/90 H 02/26/25 07:55 BMI result Body Mass Index 20.0 Const General: cooperative, healthy appearing and comfortable Chest Chest palpation & inspection: normal inspection of the chest and normal palpation of entire chest wall Breast/axilla inspection: normal inspection of the breasts and normal inspection of the axillae Breast/axilla palpation: normal palpation of the breasts, normal palpation of the axillae and no axillary lymphadenopathy Resp Effort & Inspection: normal respiratory effort Auscultation: clear to auscultation bilaterally Percussion: percussion normal Cardio Palpation: normal PMI Rate: regular rate Rhythm: regular rhythm Heart sounds: no murmurs and no rubs Peripheral pulses: Peripheral pulses 2+ throughout GI Inspection: Yes normal to inspection Palpation (GI): Soft to palpation, nontender, no guarding, not rigid and No hepatosplenomegaly present Percussion: Yes normal to percussion Auscultation: normal bowel sounds Rectal Exam - Female: deferred General: Yes bladder normal to palpation External Female Exam: No lesion Speculum Exam - Vagina: normal appearance of the vagina, normal palpation, normal vaginal discharge and not erythematous Speculum Exam - Cervix: normal appearance of the cervix and normal palpation Bimanual exam- vagina & uterus: normal bimanual exam, normal palpation, uterine size normal, bladder normal to palpation, consistency normal and normal palpation Bimanual Exam- Adnexa, other: normal adnexae, no masses and no tenderness Assessment & Plan Assessment & Plan (1) Well woman exam: Code(s): Z01.419 - Encounter for gynecological examination (general) (routine) without abnormal findings Category: Medical Plan: Co testing done since there is no results of recent Pap smear/HPV Counseled the patient about the recommended dietary allowance of 1200 mg of Calcium & 800 IU of vitamin D. Mammogram ordered. The patient was instructed to perform monthly self-breast exams and to schedule an annual exam in a year; All questions answered and the patient verbalized understanding. Coding Level of Care Code Est Pt Prev Care >65y(22433) Diagnoses Well woman exam Z01.419
--- OUTSIDE RECORDS SUMMARY | 2025-02-26 07:52 | XMS_ITS | Encounter Summary ---
Author Organization [facility] Address [address] [place] [address] Phone Care Team Providers Care Professor Of Geology Name Role Phone Enio Morales MD Unavailable [phone] Abd Alvin Dalal MD Unavailable Amber Young PAFrancescoC Unavailable Kimi Lyles LOGISTICS INTERN Unavailable Rohith Pritchett Unavailable Enio Morales MD Primary Care Provider Rivka Mcbride BODY MAN Unavailable Genie TrevizoP Unavailable [phone] Encounter Details Date Type Department Care Team (Late st Contact Info) Description 02/09/[address] [facility] Cancer Center at [facility] 30 [place] [address] Saranya Handy 30 [place] [address] Myelodysplastic syndrome (Primary Dx) Social History Tobacco [...] Care Team (Late st Contact Info) Description 03/02/2025 8:20 AM EST Blood Draw [facility] 30 [place] [address] Rohith Pritchett MBBS [address] [place] [address] [email or web address] 03/02/2025 9:20 AM EST Office Visit [facility] Center at [address] [address] Rohith Pritchett MBBS [address] [place] [address] [email or web address] 03/02/2025 9:40 AM EST Infusion [facility] at [address] [address] Rohith Pritchett MBBS [address] [place] [address] [email or web address] 03/04/2025 8:40 AM EST Telemedicine [facility] 2 [place] [address] Елена Montalvo, LOGISTICS INTERN [address] [phone] [email or web address] 03/20/2025 10:30 AM EST Office Visit [facility] Medical [facility] Internal Medicine 40 [place] [address] Enio Morales MD 40 [place] [address] [email or web address] 03/23/2025 7:30 AM EST Blood Draw [facility] 30 [place] [address] Rohith Pritchett MBBS [address] [place] [address] [email or web address] .[email or web address] 03/23/2025 8:40 AM EST Office Visit [facility] at [address] [address] Rohith Pritchett MBBS [address] [place] [address] [email or web address] .[email or web address] 03/23/2025 9:20 AM EST Infusion [facility] at [address] [address] Rohith Pritchett MBBS 30 [place] [address] [email or web address] documented as of this encounter Results * (ABNORMAL) Iron and iron binding capacity (02/09/2025 7:43 AM EDT) IRON 233(H) 30 - 160 ug/dL [facility] IRON BINDING CAPACITY NOT CALCULATED 228 - 428 ug/dL [facility] TRANSFERRIN SATURAT. NOT CALCULATED 15 - 50 % [facility] Blood 02/09/2025 7:43 AM EDT 02/09/2025 7:51 AM EDT us Genie Trevizo ELECTRICAL AND INSTRUMENT ENGINEER LAB BLOOD BKR ORDERABLES Daniela l Result [address] [address] * (ABNORMAL) Comprehensive metabolic panel (02/09/2025 7:43 AM EDT) SODIUM 142 133 - 146 mmol/L [facility] POTASSIUM 4.0 3.3 - 5.1 mmol/L [facility] CHLORIDE 104 96 - 108 mmol/L [facility] CO2 30 21 - 35 mmol/L [facility] BUN 9 6 - 19 mg/dL [facility] CREATININE 0.40(L) 0.5 - 1.5 mg/dL [facility] GLUCOSE 108(H) 70 - 99 mg/dL [facility] ALBUMIN 4.6 3.9 - 4.8 g/dL [facility] TOTAL PROTEIN 7.3 6.5 - 8.0 g/dL [facility] CALCIUM 9.4 8.4 - 10.3 mg/dL [facility] ALKALINE PHOSPHATASE 68 39 - 117 U/L [facility] TOTAL BILIRUBIN 0.5 0.0 - 1.2 mg/dL [facility] AST 24 0 - 37 U/L [facility] ALT 16 0 - 40 U/L [facility] GLOBULIN 2.7 1 - 4.8 g/dL [facility] EGFR 108 >59 mL/min/1.7 3m2 [facility] Comment:Estimated glomerular filtration rate calculated using the CKD-EPI refit equation. ANION GAP 12 10 - 20 mmol/L [facility] Blood 02/09/2025 7:43 AM EDT 02/09/2025 7:51 AM EDT us Genie Trevizo ELECTRICAL AND INSTRUMENT ENGINEER LAB BLOOD BKR ORDERABLES Daniela l Result [address] [address] documented in this encounter Visit Diagnoses Diagnosis Myelodysplastic syndrome- Primary Myelodysplastic syndrome, unspecified documented in this encounter Additional Health Concerns Assessment Noted Time PHQ-9 Depression Total Score: 4 02/25/20 11:31 AM EST PHQ-2 Depression Total Score: 0 02/25/20 11:31 AM EST documented as of this encounter Care Teams Professor Of Geology Relationship Specialty Start Date End Date Enio Morales MD 40 [place] [address] [email or web address] PCP - General Internal Medicine 04/14/24 Enio Morales MD 40 [place] [address] Insurance Assigned Provider 07/21/23 Alvin Denton MD [address] [place] [address] [place] [address] Neurosurgery 04/24/19 Amber Young PA-C [address] [place] [address] Physician Evaluation Specialist Hematology 03/19/20 Kimi Lyles CNP [address] [place] [address] [email or web address] Nurse Practitioner Medical Oncology 05/24/23 Rohith Pritchett MBBS [address] [place] [address] [email or web address] Primary Oncologist Hematology and Oncology 08/17/23 Rivka Mcbride, LÁZARO [address] [place] [address] [email or web address] Nurse Practitioner 07/21/24 Genie Trevizo FNP [address] [place] [address] [email or web address] Registered Nurse Nurse Practitioner 12/18/24 documented as of this encounter Additional Source Comments The information contained in this document represents components of the legal health record. It is not the complete legal health record.[facility]
--- OUTSIDE RECORDS SUMMARY | 2025-02-26 07:52 | XMS_ITS | Encounter Summary ---
Author Organization [facility] Address [address] [facility] [address] [place] [address] Phone Care Team Providers Care Document Specialist Name Role Phone Enio Morales MD Unavailable [phone] Abd Alvin Dalal MD Unavailable Amber Young PA-C Unavailable Kimi Lyles COOK SEAFOOD Unavailable Rohith Pritchett Unavailable Enio Morales MD Primary Care Provider Rivka Mcbride BREAKFAST BAR ATTENDANT Unavailable [phone] Genie TrevizoP Unavailable [phone] Encounter Details Date Type Department Care Team (Late st Contact Info) Description 11/14/2024 Telephone [facility] Cancer Center at [facility] 30 [place] [address] Rohith Pritchett MBBS 30 [place], [place] [phone] [email or web address] Social History Tobacco Use Types Packs/Day [...] 8:20 AM EST Blood Draw [facility] 30 [place] [address] Rohith Pritchett MBBS [address] [place] [address] [email or web address] 03/02/2025 9:20 AM EST Office Visit [facility] Center at [address] [address] Rohith Pritchett MBBS [address] [place] [address] [email or web address] 03/02/2025 9:40 AM EST Infusion [facility] Center at [address] [address] Rohith Pritchett MBBS [address] [place] [address] [email or web address] 03/04/2025 8:40 AM EST Telemedicine [facility] 2 [place] [address] Елена Montalvo, [facility] [address] [phone] [email or web address] 03/20/2025 10:30 AM EST Office Visit [facility] Medical [facility] Internal Medicine 40 [place] [address] Enio Morales MD 40 [place] [address] [email or web address] 03/23/2025 7:30 AM EST Blood Draw [facility] Phleb [address] [address] Rohith Pritchett MBBS [address] [place] [address] [email or web address] 03/23/2025 8:40 AM EST Office Visit [facility] at [address] [address] Rohith Pritchett MBBS [address] [place] [address] [email or web address] 03/23/2025 9:20 AM EST Infusion [facility] at [address] [address] Rohith Pritchett MBBS [address] [place] [address] [email or web address] documented as of this encounter Visit Diagnoses Not on filedocumented in this encounter Additional Health Concerns Assessment Noted Time PHQ-9 Depression Total Score: 4 02/25/20 11:31 AM EST PHQ-2 Depression Total Score: 0 02/25/20 11:31 AM EST documented as of this encounter Care Teams Document Specialist Relationship Specialty Start Date End Date Enio Morales MD 40 [place] [address] [email or web address] PCP - General Internal Medicine 04/14/24 Enio Morales MD [address] [place] [address] [email or web address] Insurance Assigned Provider 07/21/23 Alvin Denton MD [address] [place] [address] [place] [address] Neurosurgery 04/24/19 Amber Young, RENNY [address] [place] [address] [email or web address] Physician Refrigerating Engineer Head Hematology 03/19/20 Kimi Lyles CNP [address] [place] [address] Nurse Practitioner Medical Oncology 05/24/23 Rohith Pritchett MBBS [address] [place] [address] [email or web address] Primary Oncologist Hematology and Oncology 08/17/23 Rivka Mcbride NP [address] [place] [address] [email or web address] Nurse Practitioner 07/21/24 Genie Trevizo FNP [address] [place] [address] [email or web address] Registered Nurse Nurse Practitioner 12/18/24 documented as of this encounter Additional Source Comments The information contained in this document represents components of the legal health record. It is not the complete legal health record.[facility]
--- OUTSIDE RECORDS SUMMARY | 2025-02-26 07:52 | XMS_ITS ---
Author Organization [facility] Address [address] [facility] [address] [place] [address] Phone Care Team Providers Care Personal Lines Appraiser Name Role Phone Enio Morales MD Unavailable Abd Alvin Dalal MD Unavailable Amber Young PA-C Unavailable Kimi Lyles LEATHER LEVELER Unavailable Rohith Pritchett MBBS Unavailable Enio Morales MD Primary Care Provider Rivka Mcbride SECURITY OPERATIONS ANALYST Unavailable Genie Trevizo COMMERCIAL HVAC TECHNICIAN Unavailable Active Problems Patient Care Coordination No [...] marrow transplant. I recommended evaluation by MDS/MPD/BMT [facility] clinic. Patient was seen by Dr. Trujillo at [facility] BMT/MDS clinic. Please see above for [...] marrow transplant. I recommended evaluation by [facility]/MPD/BMT [facility] clinic. Patient was seen by Dr. Trujillo at [facility] BMT/MDS clinic. Please see above for [...] marrow transplant. I recommended evaluation by [facility]MT [facility]. Patient was seen by Dr. Trujillo at [facility] BMT/MDS clinic. Please see above for [...] marrow transplant. I recommended evaluation by MDS/MPD/BMT [facility] clinic. Patient was seen by Dr. Trujillo at [facility] BMT/MDS clinic. Please see above for [...] marrow transplant. I recommended evaluation by [facility]D/BMT [facility]. Patient was seen by Dr. Trujillo at [facility] BMT/MDS clinic. Please see above for [...] marrow transplant. I recommended evaluation by [facility]D/BMT [facility]. Patient was seen by Dr. Trujillo at [facility] BMT/MDS clinic. Please see above for [...] marrow transplant. I recommended evaluation by [facility]/MPD/BMT [facility]. Patient was seen by Dr. Trujillo at [facility] BMT/MDS clinic. Please see above for [...] marrow transplant. I recommended evaluation by [facility]/MPD/BMT [facility]. Patient was seen by Dr. Trujillo at [facility] BMT/MDS clinic. Please see above for [...] marrow transplant. I recommended evaluation by MDS/MPD/BMT [facility] clinic. Patient was seen by Dr. Trujillo at [facility] BMT/MDS clinic. Please see above for [...] their satisfaction. I recommended evaluation by MDS/MPD/BMT [facility] clinic. I also explained that her ongoing aches and pains are likely unrelated to this underlying bone marrow disorder. RECOMMENDATIONS: Patient is already referred to [facility] BMT clinic Follow-up with me after [...] marrow transplant. I recommended evaluation by [facility]/MPD/BMT [facility]. RECOMMENDATIONS: Refer to [facility] BMT clinic Follow-up with me after [...] warm pool therapy such as at local [facility] versus [employer] in [place] versus [employer] in [place] Bone pain 10/12/2021 Assessment & Plan (10/12/2021 [...] thus far. Carefully continue close follow-up with casting carrier/oncologist as scheduled every 3 months. Inflammation of [...] reveal any abnormalities of concern and her mhrl-czk-mrezmir sensation persists or progresses she would benefit [...] to other bone marrow failure Treatment Medications Current Day (Day 1 , Cycle 24 - Planned for 03/04/2025) Next Day (Day 1, Cycle 25 - Planned for 03/25/2025) No medications scheduled. No medications schedul ed. No medications scheduled. Past Treatment and Therapy Plans No past plan information found.
--- OUTSIDE RECORDS SUMMARY | 2025-02-26 07:52 | XMS_ITS | Encounter Summary ---
Author Organization [facility] Address [address] [facility] [address] [place] [phone] Phone Care Team Providers Care Miner Helper Name Role Phone Enio Morales MD Primary Care Provider Enio Morales MD Unavailable [phone] Alvin Denton MD Unavailable Amber Young PA-C Unavailable Savage Macario MD Unavailable [phone] Amber Young PA-C Unavailable Kimi Lyles CNP Unavailable Rohith Pritchett Unavailable [phone] Genie TrevizoP Primary Care Provider [phone] Pcp, Unknown Primary Care Provider Unavailabl e Enio Morales MD Primary Care Provider Rivka Mcbride NP Unavailable [phone] Genie Trevizo DATA WAREHOUSING MANAGER Unavailable [phone] Encounter Details Date Type Department Care Team (Late st Contact Info) Description 11/07/2019 Orders Only [facility] [address] [place], [place] [phone] ProviderPavithra MD [address] [place] [address] Social History Tobacco Use Types Packs/Day Years Used Date Smoking Tobacco: Former Cigarettes 0.3 10 2 2016 Smokeless Tobacco: Never Alcohol Use Standard [...] 8:20 AM EST Blood Draw [facility] [address] [address] Rohith Pritchett MBBS [address] [place] [phone] [email or web address] 03/02/2025 9:20 AM EST Office Visit [facility] at [address] [address] Rohith Pritchett MBBS [address] [place] [phone] [email or web address] 03/02/2025 9:40 AM EST Infusion [facility] at [address] [address] Rohith Pritchett MBBS [address] [place] [phone] [email or web address] 03/04/2025 8:40 AM EST Telemedicine [facility] [address] [place] [address] Елена Montalvo, WOOD POLE TREATER [address] [employer] [address] [phone] [email or web address] 03/20/2025 10:30 AM EST Office Visit [facility] Medicine [address] [place] [address] Enio Morales MD [address] [place] [address] [email or web address] 03/23/2025 7:30 AM EST Blood Draw [facility] [address] [address] Rohith Pritchett MBBS [address] [place] [phone] [email or web address] 03/23/2025 8:40 AM EST Office Visit [facility] at [address] [address] Rohith Pritchett MBBS [address] [place] [phone] [email or web address] 03/23/2025 9:20 AM EST Infusion [facility] at [address] [address] Rohith Pritchett MBBS [address] [place] [phone] [email or web address] documented as of this encounter Procedures Procedure Name Priority Date/Time Associated Diagnosis Comments HM MAMMOGRAPHY Routine 10/31/2019 documented in this encounter [...] documented as of this encounter Care Teams Miner Helper Relationship Specialty Start Date End Date Enio Morales MD [address] [place] [address] PCP - General 02/01/17 02/25/24 Genie Trevizo FNP [address] [place] [phone] [email or web address] PCP - General Nurse Practitioner 02/26/24 04/07/24 Pcp, Unknown PCP - General 04/08/24 04/13/24 Enio Morales MD [address] [place] [phone] [email or web address] PCP - General Internal Medicine 04/14/24 Enio Morales MD [address] [place] [phone] [email or web address] Insurance Assigned Provider 07/21/23 Alvin Denton MD [address] [place] [address] [place] [address] Neurosurgery 04/24/19 Amber Young PA-C [address] [place] [phone] [email or web address] Physician Netting Inspector Hematology 03/19/20 08/02/22 Savage Macario MD [address] [place] [phone] [email or web address] Primary Oncologist Medical Oncology 10/04/20 08/16/23 Amber Young PA-C [address] [place] [phone] [email or web address] Physician Netting Inspector Hematology 03/19/20 Kimi Lyles CNP [address] [place] [phone] [email or web address] Nurse Practitioner Medical Oncology 05/24/23 Rohith Pritchett MBBS [address] [place] [phone] [email or web address] Primary Oncologist Hematology and Oncology 08/17/23 Rivka Mcbride NP [address] [place] [phone] [email or web address] Nurse Practitioner 07/21/24 Genie Trevizo FNP [address] [place] [phone] [email or web address] Registered Nurse Nurse Practitioner 12/18/24 documented as of this encounter Additional Source Comments The information contained in this document represents components of the legal health record. It is not the complete legal health record.[facility]
--- OUTSIDE RECORDS SUMMARY | 2025-02-26 07:52 | XMS_ITS | Clinical Summary ---
Author Organization [facility] Address [address] [facility] [address] [place] [id number] Phone Care Team Providers Care Violin Restorer Name Role Phone Enio Morales MD Unavailable Abd Alvin Dalal MD Unavailable Amber Young PA-C Unavailable Kimi Lyles COLLISION ESTIMATOR Unavailable Rohith Pritchett Unavailable Enio Morales MD Primary Care Provider Rivka Mcbride CARTOGRAPHIC AIDE Unavailable Genie TrevizoP Unavailable Allergies Active Allergy Reactions Criticality Noted Date Comments Codeine Itching 05/01/2017 Medications multivitamins Chew Take 1 tablet by mouth daily. Active betamethasone dipropionate 0.05 % cream Apply 1 application. topically 2 (two) times a day. 06/24/19 23 Active blood pressure monitor KitIndications:B enign essential hypertension 1 Units by Miscellaneous route daily. 1 kit 05/03/19 24 Active Additional Information Patient not taking.Reported on 12/30/2024 pantoprazole (PROTONIX) 40 MG tabletIndication s:Gastroesophage al reflux disease without esophagitis TAKE 1 TABLET(40 MG) BY MOUTH DAILY 90 tablet 3 03/20/20 24 Active ciclopirox (LOPROX) 1 % shampoo Apply 1 Application topically. Twice a month 05/30/19 25 Active sodium bicarbonate/citr ic acid (LACY-SELTZER HEARTBURN ORAL) Take 2 tablets by mouth as needed (for heartburn). Active diphenhydrAMINE (BENADRYL) 25 mg capsule Take 25 mg by mouth nightly at bedtime as needed. Active EPOETIN SAGRARIO INJ Inject as directed. [id number] Active amLODIPine (NORVASC) 5 MG tabletIndication s:Essential hypertension TAKE 1 TABLET(5 MG) BY MOUTH DAILY 100 tablet 3 12/17/19 25 Active buPROPion (WELLBUTRIN XL) 300 MG ER 24 hr tabletIndication s:Depression, unspecified depression type Take 1 tablet (300 mg total) by mouth every morning. 90 tablet 1 12/25/19 25 Active oxyCODONE-acetam inophen (PERCOCET) 10-325 mg per tabletIndication s:Chronic bilateral low back pain with bilateral sciatica,Opiate use,MDS (myelodysplastic syndrome) Take 1 tablet by mouth every 4 (four) hours as needed for pain (specific location in comments). Not to exceed 6 tablets per day. Partial fill ok 168 tablet 02/21/20 25 025 Active oxyCODONE-acetam inophen (PERCOCET) 10-325 mg per tabletIndication s:Chronic bilateral low back pain with bilateral sciatica,Opiate use,MDS (myelodysplastic syndrome) Take 1 tablet by mouth every 4 (four) hours as needed for pain (specific location in comments). Not to exceed 6 tablets per day. Partial fill ok 168 tablet 01/24/20 25 025 Discontin ued(Reord er) Active Problems Patient Care Coordination No te [...] marrow transplant. I recommended evaluation by MDS/MPD/BMT [facility]. Patient was seen by Dr. Trujillo at [facility] BMT/MDS clinic. Please see above for [...] marrow transplant. I recommended evaluation by MDS/MPD/BMT [facility]. Patient was seen by Dr. Trujillo at [facility] BMT/MDS clinic. Please see above for [...] marrow transplant. I recommended evaluation by MDS/MPD/BMT [facility]. Patient was seen by Dr. Trujillo at [facility] BMT/MDS clinic. Please see above for [...] marrow transplant. I recommended evaluation by MDS/MPD/BMT [facility] clinic. Patient was seen by Dr. Trujillo at [facility] BMT/MDS clinic. Please see above for [...] marrow transplant. I recommended evaluation by MDS/MPD/BMT [facility]. Patient was seen by Dr. Trujillo at [facility] BMT/MDS clinic. Please see above for [...] marrow transplant. I recommended evaluation by MDS/MPD/BMT [facility]. Patient was seen by Dr. Trujillo at [facility] BMT/MDS clinic. Please see above for [...] marrow transplant. I recommended evaluation by MDS/MPD/BMT [facility]. Patient was seen by Dr. Trujillo at [facility] BMT/MDS clinic. Please see above for [...] marrow transplant. I recommended evaluation by MDS/MPD/BMT [facility]. Patient was seen by Dr. Trujillo at [facility] BMT/MDS clinic. Please see above for [...] marrow transplant. I recommended evaluation by MDS/MPD/BMT [facility] clinic. Patient was seen by Dr. Trujillo at [facility] BMT/MDS clinic. Please see above for [...] their satisfaction. I recommended evaluation by MDS/MPD/BMT [facility] clinic. I also explained that her ongoing aches and pains are likely unrelated to this underlying bone marrow disorder. RECOMMENDATIONS: Patient is already referred to [facility] BMT clinic Follow-up with me after [...] marrow transplant. I recommended evaluation by MDS/MPD/BMT [facility]. RECOMMENDATIONS: Refer to [facility] Follow-up with me after the above-mentioned [...] warm pool therapy such as at local [facility] versus [facility] in [place] versus [employer] in [place] Bone pain 10/12/2021 Assessment & Plan (10/12/2021 [...] thus far. Carefully continue close follow-up with fuel quality tech/oncologist as scheduled every 3 months. Inflammation of [...] reveal any abnormalities of concern and her [id number]-qge-[id number] sensation persists or progresses she would benefit [...] Encounters Date Type Department Care Team Description 02/24/2025 Orders Only [facility] at [address] [address] Jeff Cuba [place] Myelodysplastic syndrome (Primary Dx) 02/24/2025 Telephone [facility] -PHSO TEAM [address] [place] [address] Enio Morales MD Care Coordination ([facility] Virtual AWV Outreach/) 02/12/2025 Refill [facility] Internal Medicine [address] [place] [address] Enio Morales MD Medication Refill (CSRP) 02/12/2025 Telephone [facility] -PHSO TEAM [address] [place] [address] Enio Morales MD Care Coordination ([facility]O Virtual AWV Outreach/) 02/09/2025 9:00 AM EDT Infusion [facility] at [address] [address] Rohith Pritchett MBBS Myelodysplastic syndrome (Primary Dx); 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 02/09/2025 7:30 AM EDT - 02/09/2025 11:59 PM EDT Hospital Encounter [facility] [address] [address] Rohith Pritchett MBBS Discharge Disposition: Home or Self Care 02/09/2025 Orders Only [facility] at [address] [address] Saranya Handy Myelodysplastic syndrome (Primary Dx) 02/06/2025 Orders Only [facility] at [address] [address] Genie Trevizo FNP 02/06/2025 Orders Only [facility] at [address] [address] Tasia Patrick CMA Myelodysplastic syndrome (Primary Dx) 01/19/2025 8:40 AM EDT Infusion [facility] at [address] [address] Rohith Pritchett MBBS Flynn, Margaret Broad, RN 01/19/2025 7:40 AM EDT - 01/19/2025 11:59 PM EDT Hospital Encounter [facility] [address] [address] Rohith Pritchett MBBS Discharge Disposition: Home or Self Care 01/16/2025 Refill [facility] Internal Medicine [address] [place] [address] Enio Morales MD Medication Refill (CSRP) 01/16/2025 Orders Only [facility] at [address] [address] Tasia Patrick CMA Myelodysplastic syndrome (Primary Dx) 01/12/2025 Telephone [facility] -PHSO TEAM [address] [place] [address] Enio Morales MD Care Coordination ([facility] Virtual AW Outreach/) 01/09/2025 9:13 AM EDT - 01/09/2025 11:59 PM EDT Hospital Encounter [address] [address] Enio Mroales MD Discharge Disposition: Home or Self Care 01/09/2025 9:13 AM EDT - 01/09/2025 11:59 PM EDT Hospital Encounter [address] [address] Enio Morales MD Discharge Disposition: Home or Self Care 01/05/2025 Telephone [facility] Internal Medicine [address] [place] [address] Enio Morales MD imaging request 12/30/2024 9:20 AM EDT Infusion [facility] at [address] [address] Rohith Pritchett MBBS Myelodysplastic syndrome (Primary Dx); 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 12/30/2024 8:30 AM EDT Office Visit [facility] at [address] [address] Kimi Lyles, CODY Trevizo, Genie A, CONDUCTOR/BRAKEMAN Myelodysplastic syndrome (Primary Dx); Chronic bilateral low back pain with bilateral sciatica 12/30/2024 7:40 AM EDT - 12/30/2024 11:59 PM EDT Hospital Encounter [facility] [address] [address] Rohith Pritchett MBBS Discharge Disposition: Home or Self Care 12/29/2024 Telephone [facility] Internal Medicine [address] [place] [address] Mendoza, Tab Medication Prior Authorization (Oxycodone acetaminophen 10325) 12/24/2024 Refill [facility] Internal Medicine [address] [place] [address] Enio Morales MD Medication Refill 12/23/2024 Orders Only [facility] at [address] [address] CayucosSaranya campbell Martha Hyperkalemia (Primary Dx) 12/22/2024 Refill [facility] Internal Medicine [address] [place] [address] Enio Morales MD Medication Refill (CSRP) 12/16/2024 Refill [facility] Internal Medicine [address] [place] [address] Enio Morales MD Medication Refill 12/11/2024 Orders Only [facility] Internal Medicine [address] [place] [address] ProviderPavithra MD 12/10/2024 8:00 AM EDT Office Visit [facility] Medicine [address] [place] [address] Enio Morales MD Hyperkalemia (Primary Dx) 12/10/2024 Telephone [facility] Internal Medicine [address] [place] [address] Enio Morales MD Results 12/08/2024 8:40 AM EDT Infusion [facility] at [address] [address] Rohith Pritchett MBBS McHugh, Susan Amy, RN 12/08/2024 7:40 AM EDT - 12/08/2024 11:59 PM EDT Hospital Encounter [facility] [address] [address] Rohith Pritchett MBBS Discharge Disposition: Home or Self Care 12/08/2024 Orders Only [facility] at [address] [address] Rohith Pritchett MBBS Hyperkalemia (Primary Dx) 12/08/2024 Telephone [facility] at [address] [address] Rohith Pritchett MBBS 12/05/2024 Orders Only [facility] at [address] [address] Saranya Handy Myelodysplastic syndrome (Primary Dx) from Last 3 Months Immunizations Immunization Administration [...] Sign Reading Time Taken Comments Blood Pressure 168/79 02/09/2025 8:18 AM EDT Pulse 81 02/09/2025 8:18 AM EDT Temperature 36.4 C (97.6 F) 02/09/2025 8:18 AM EDT Respiratory Rate 16 12/10/2024 8:06 AM EDT Oxygen Saturation 98% 02/09/2025 8:1 8 AM EDT Inhaled Oxygen Concentration - - Weight 56.8 kg (125 lb 3.2 oz) 02/10/20 8:18 AM EDT with shoes Height 160.8 cm (5' 3.31 ) 02/09/2025 8 :18 AM EDT Body Mass Index 21.96 02/09/2025 8:18 AM EDT Plan of Treatment Upcoming Encounters Date Type Department Care Team (Late st Contact Info) Description 03/02/2025 8:20 AM EST Blood Draw [facility] [address] [address] Rohith Pritchett MBBS [address] [place] [phone] [email or web address] 03/02/2025 9:20 AM EST Office Visit [facility] at [address] [address] Rohith Pritchett MBBS [address] [place] [address] [email or web address] 03/02/2025 9:40 AM EST Infusion [facility] at [address] [address] Rohith Pritchett MBBS [address] [place] [phone] [email or web address] 03/04/2025 8:40 AM EST Telemedicine [facility] [address] [place] [address] Елена Montalvo, COLLISION ESTIMATOR [address] [phone] 03/20/2025 10:30 AM EST Office Visit [facility] Internal Medicine [address] [place] [address] Enio Morales MD [address] [place] [address] [email or web address] 03/23/2025 7:30 AM EST Blood Draw [facility] [address] [address] Rohith Pritchett MBBS [address] [place] [phone] [email or web address] 03/23/2025 8:40 AM EST Office Visit [facility] at [address] [address] Rohith Pritchett MBBS [address] [place] [phone] [email or web address] 03/23/2025 9:20 AM EST Infusion [facility] at [address] [address] Rohith Pritchett MBBS [address] [place] [phone] [email or web address] Health Maintenance Due Date Last Done Comments COLOGUARD 2002 FOBT 2002 SIGMOIDOSCOPY 2002 VIRTUAL COLONOSCOPY 2002 RSV VACCINE (1 - Risk 50-74 years 1-dose series) 2007 FIT TEST 01/25/2020 01/24/2019 INFLUENZA VACCINE (#1) 2024 , 01/19/2023, 01/24/2022, Additional history exists COVID-19 VACCINE ( season) 2024 01/31/2024, 01/25/2023, 02/13/2022, Additional history exists DEPRESSION SCREENING 02/24/2025 02/25/2024, 02/25/20 24 BLOOD PRESSURE 08/10/2025 02/09/2025 MAMMOGRAM 06/26/2026 06/26/2024, 03/17, 03/13/2023, Additional history exists LIPID PANEL 04/08/2029 04/08/2024, 07/15, 07/31/2022, Additional history exists COLONOSCOPY 08/26/2029 08/26/2024, 10/16, 04/29/2014 COLORECTAL CANCER SCREENING 08/26/2029 Adult Td,Tdap Booster 02/08/2030 02/09/2020 , 02/07/2020, 06/14/2005 HEPATITIS C SCREENING Completed 02/09/2020, 020 ZOSTER [...] on patient's age to complete this topic IPV VACCINES Aged Out No longer eligi ble based on patient's age to complete this topic MENINGOCOCCAL VACCINES (ACWY) Aged Out No longer eligible based on patient's age to complete this topic MENINGOCOCCAL VACCINES (B) Aged Out N o longer eligible based on patient's age to complete this topic Medical Devices Implanted Type Area Cut Press Operator Device Identifier Shelf Expiration Date Model / Serial / Lot Prosthetic Joint Prosthetic Joint Right: Knee Procedures Procedure Name Priority Date/Time Associated Diagnosis Comments IRON AND IRON BINDING CAPACITY Routine 02/09/2025 7:43 AM EDT Myelodysplastic syndrome COMPREHENSIVE METABOLIC PANEL (CMP) Routine 02/09/2025 7:43 AM EDT Myelodysplastic syndrome CBC AND DIFFERENTIAL Routine 02/09/2025 7:43 AM EDT Myelodysplastic syndrome IRON AND IRON BINDING CAPACITY Routine 01/19/2025 7:46 AM EDT Myelodysplastic syndrome COMPREHENSIVE METABOLIC PANEL (CMP) Routine 01/19/2025 7:46 AM EDT Myelodysplastic syndrome CBC AND DIFFERENTIAL Routine 01/19/2025 7:46 AM EDT Myelodysplastic syndrome XR HIPS 2+ VW EA BILAT PLUS PELVIS Routine 01/09/2025 9:31 AM EDT Bilateral hip pain XR LUMBOSACRAL SPINE 2-3 VIEWS Routine 01/09/2025 9:31 AM EDT Chronic bilateral low back pain with bilateral sciatica VITAMIN B12 Routine 12/30/2024 7:53 AM EDT Hyperkalemia FERRITIN Routine 12/30/2024 7:53 AM EDT Hyperkalemia FOLATE Routine 12/30/2024 7:53 AM EDT Hyperkalemia IRON AND IRON BINDING CAPACITY Routine 12/30/2024 7:53 AM EDT Hyperkalemia COMPREHENSIVE METABOLIC PANEL (CMP) Routine 12/30/2024 7:53 AM EDT Hyperkalemia CBC AND DIFFERENTIAL Routine 12/30/2024 7:53 AM EDT Hyperkalemia OUTSIDE LAB Routine 12/11/2024 1:04 PM EDT OUTSIDE LAB Routine 12/10/2024 11:45 AM EDT POCT COVID-19 RT-PCR/INFLUENZA A & B/RSV CEPHEID Routine 12/10/2024 8:41 AM EDT VITAMIN B12 Routine 12/08/2024 7:53 AM EDT Myelodysplastic syndrome FOLATE Routine 12/08/2024 7:53 AM EDT Myelodysplastic syndrome IRON AND IRON BINDING CAPACITY Routine 12/08/2024 7:53 AM EDT Myelodysplastic syndrome FERRITIN Routine 12/08/2024 7:53 AM EDT Myelodysplastic syndrome COMPREHENSIVE METABOLIC PANEL (CMP) Routine 12/08/2024 7:53 AM EDT Myelodysplastic syndrome CBC AND DIFFERENTIAL Routine 12/08/2024 7:53 AM EDT Myelodysplastic syndrome HM COLONOSCOPY FOR [...] Recently Relevant to Health Maintenance Results * (ABNORMAL) Comprehensive metabolic panel (02/09/2025 7:43 AM EDT) Only the most recent of4 resultswithin the time period is included. SODIUM 142 133 - 146 mmol/L [facility] POTASSIUM 4.0 3.3 - 5.1 mmol/L [facility] CHLORIDE 104 96 - 108 mmol/L [facility] CO2 30 21 - 35 mmol/L [facility] BUN 9 6 - 19 mg/dL [facility] CREATININE 0.40(L) 0.5 - 1.5 mg/dL [facility] GLUCOSE 108(H) 70 - 99 mg/dL [facility] ALBUMIN 4.6 3.9 - 4.8 g/dL [facility] TOTAL PROTEIN 7.3 6.5 - 8.0 g/dL [facility] CALCIUM 9.4 8.4 - 10.3 mg/dL [facility] ALKALINE PHOSPHATASE 68 39 - 117 U/L [facility] TOTAL BILIRUBIN 0.5 0.0 - 1.2 mg/dL [facility] AST 24 0 - 37 U/L [facility] ALT 16 0 - 40 U/L [facility] GLOBULIN 2.7 1 - 4.8 g/dL [facility] EGFR 108 >59 mL/min/1.7 3m2 [facility] Comment:Estimated glomerular filtration rate calculated using the CKD-EPI refit equation. ANION GAP 12 10 - 20 mmol/L [facility] Blood 02/09/2025 7:43 AM EDT 02/09/2025 7:51 AM EDT us Genie Trevizo CONDUCTOR/BRAKEMAN LAB BLOOD BKR ORDERABLES Daniela l Result [facility] [address] [place] [address] * (ABNORMAL) Iron and iron binding capacity (02/09/2025 7:43 AM EDT) Only the most recent of4 resultswithin the time period is included. IRON 233(H) 30 - 160 ug/dL [facility] IRON BINDING CAPACITY NOT CALCULATED 228 - 428 ug/dL [facility] TRANSFERRIN SATURAT. NOT CALCULATED 15 - 50 % [facility] Blood 02/09/2025 7:43 AM EDT 02/09/2025 7:51 AM EDT us Genie Trevizo CONDUCTOR/BRAKEMAN LAB BLOOD BKR ORDERABLES Daniela nir Result [facility] [address] [place] [address] * (ABNORMAL) CBC and differential (02/09/2025 7:43 AM EDT) Only the most recent of4 resultswithin the time period is included. WBC 6.24 4.00 - 11.00 K/uL [facility] RBC 3.44(L) 4.00 - 5.20 M/uL [facility] HGB 10.5(L) 12.0 - 16.0 g/dL [facility] HCT 32.9(L) 36.0 - 46.0 % [facility] PLT 436 150 - 450 K/uL [facility] MCV 95.6 80.0 - 100.0 fL [facility] MCH 30.5 27.0 - 31.0 pg [facility] MCHC 31.9(L) 32.0 - 36.0 g/dL [facility] RDW 19.5(H) 11.5 - 14.5 % [facility] MPV 10.3 8.4 - 12.0 fL [facility] NRBC 0.80(H) 0.00 /100 WBCs [facility] ABSOLUTE NRBC 0.05(H) 0.00 K/uL [facility] DIFF METHOD Auto [facility] NEUTS 68.9 48.0 - 76.0 % [facility] LYMPHS 16.8(L) 18.0 - 41.0 % [facility] MONOS 9.8 4.0 - 11.0 % [facility] EOS 2.7 0.0 - 5.0 % [facility] BASOS 1.6(H) 0.0 - 1.5 % [facility] Granulocytes, immature (%) 0.2 0.0 - 0.9 % [facility] ABSOLUTE NEUTS 4.30 1.92 - 7.60 K/uL [facility] ABSOLUTE LYMPHS 1.05 0.72 - 4.10 K/uL [facility] ABSOLUTE MONOS 0.61 0.16 - 1.10 K/uL [facility] ABSOLUTE EOS 0.17 0.00 - 0.50 K/uL [facility] ABSOLUTE BASOS 0.10 0.00 - 0.15 K/uL [facility] Granulocytes, immature 0.01 0.00 - 0.09 K/uL [facility] Blood 02/09/2025 7:43 AM EDT 02/09/2025 7:51 AM EDT us Rohith MORRISBS LAB BLOOD BKR ORDERABLES F inal Result [facility] [address] [place] [address] * XR HIPS 2+ VW EA BILAT PLUS PELVIS (01/09/2025 9:31 AM EDT) Anatomical Region Laterality Modality Hip, Pelvis Computed Radiogr aphy 01/10/2025 7:25 AM EDT Impressions 01/10/2025 7:30 AM EDT No acute fracture or dislocation. Mild degenerative changes in the lumbar spine and hips. Postsurgical changes right sacroiliac joint. Narrative 01/10/2025 7:30 AM EDT XR LUMBOSACRAL SPINE 2-3 VIEWS, XR HIPS 2+ VW EA BILAT PLUS PELVIS Referring clinician's provided indication for this examination in Epic: Pain; chronic low back pain with sciatica COMPARISON: None FINDINGS: Lumbar spine: Normal lumbar lordosis. Vertebral body heights maintained. Minimal endplate osteophytes are seen throughout the lumbar spine. There is mild diffuse disc space narrowing. No acute compression fracture deformity identified. There is facet arthrosis at L5-S1 lesser extent L4-5. There are 2 metallic screws traversing the right sacroiliac joint. Hardware appears intact Pelvis and bilateral hips: No acute displaced fracture or dislocation Two Metallic screws traverse the right sacroiliac joint. Hardware appears intactLeft. Sacroiliac joint and pubic symphysis appear intact. There are mild degenerative changes in both hips with mild joint space narrowing and mild marginal osteophyte formation off the acetabulum. Procedure Note Silvino Millan MD - 01/10/2025 XR LUMBOSACRAL SPINE 2-3 VIEWS, XR HIPS 2+ VW EA BILAT PLUS PELVIS Referring clinician's provided indication for this examination in Epic:Pain; chronic low back pain with sciatica COMPARISON: None FINDINGS: Lumbar spine: Normal lumbar lordosis. Vertebral body heights maintained.Minimal endplate osteophytes are seen throughout the lumbar spine. Thereis mild diffuse disc space narrowing. No acute compression fracturedeformity identified. There is facet arthrosis at L5-S1 lesser extentL4-5. There are 2 metallic screws traversing the right sacroiliac joint.Hardware appears intact Pelvis and bilateral hips: No acute displaced fracture or dislocation TwoMetallic screws traverse the right sacroiliac joint. Hardware appearsintactLeft. Sacroiliac joint and pubic symphysis appear intact. There aremild degenerative changes in both hips with mild joint space narrowing andmild marginal osteophyte formation off the acetabulum. IMPRESSION: No acute fracture or dislocation. Mild degenerative changes in the lumbar spine and hips. Postsurgical changes right sacroiliac joint. Enio Morales MD IMG XR PELVIS Final Result * XR LUMBOSACRAL SPINE 2-3 VIEWS (01/09/2025 9:31 AM EDT) Anatomical Region Laterality Modality L-spine Computed Radiogr aphy 01/10/2025 7:25 AM EDT Impressions 01/10/2025 7:30 AM EDT No acute fracture or dislocation. Mild degenerative changes in the lumbar spine and hips. Postsurgical changes right sacroiliac joint. Narrative 01/10/2025 7:30 AM EDT XR LUMBOSACRAL SPINE 2-3 VIEWS, XR HIPS 2+ VW EA BILAT PLUS PELVIS Referring clinician's provided indication for this examination in Epic: Pain; chronic low back pain with sciatica COMPARISON: None FINDINGS: Lumbar spine: Normal lumbar lordosis. Vertebral body heights maintained. Minimal endplate osteophytes are seen throughout the lumbar spine. There is mild diffuse disc space narrowing. No acute compression fracture deformity identified. There is facet arthrosis at L5-S1 lesser extent L4-5. There are 2 metallic screws traversing the right sacroiliac joint. Hardware appears intact Pelvis and bilateral hips: No acute displaced fracture or dislocation Two Metallic screws traverse the right sacroiliac joint. Hardware appears intactLeft. Sacroiliac joint and pubic symphysis appear intact. There are mild degenerative changes in both hips with mild joint space narrowing and mild marginal osteophyte formation off the acetabulum. Procedure Note Silvino Millan MD - 01/10/2025 XR LUMBOSACRAL SPINE 2-3 VIEWS, XR HIPS 2+ VW EA BILAT PLUS PELVIS Referring clinician's provided indication for this examination in Epic:Pain; chronic low back pain with sciatica COMPARISON: None FINDINGS: Lumbar spine: Normal lumbar lordosis. Vertebral body heights maintained.Minimal endplate osteophytes are seen throughout the lumbar spine. Thereis mild diffuse disc space narrowing. No acute compression fracturedeformity identified. There is facet arthrosis at L5-S1 lesser extentL4-5. There are 2 metallic screws traversing the right sacroiliac joint.Hardware appears intact Pelvis and bilateral hips: No acute displaced fracture or dislocation TwoMetallic screws traverse the right sacroiliac joint. Hardware appearsintactLeft. Sacroiliac joint and pubic symphysis appear intact. There aremild degenerative changes in both hips with mild joint space narrowing andmild marginal osteophyte formation off the acetabulum. IMPRESSION: No acute fracture or dislocation. Mild degenerative changes in the lumbar spine and hips. Postsurgical changes right sacroiliac joint. Enio Morales MD IMG XR SPINE Final Result * (ABNORMAL) Folate (12/30/2024 7:53 AM EDT) Only the most recent of2 resultswithin the time period is included. FOLIC ACID >20.0(H) 4.2 - 19.9 ng/mL [facility] Blood 12/30/2024 7:53 AM EDT 12/30/2024 7:56 AM EDT us Ahmad D Pritchett MBBS LAB BLOOD BKR ORDERABLES F inal Result Performing Organization Address City/[facility]/ZIP Co de Phone Number [address] [address] * (ABNORMAL) Ferritin (12/30/2024 7:53 AM EDT) Only the most recent of2 resultswithin the time period is included. FERRITIN 289(H) 13 - 150 ug/L [facility] Blood 12/30/2024 7:53 AM EDT 12/30/2024 7:56 AM EDT us Ahmad D Pritchett MBBS LAB BLOOD BKR ORDERABLES F inal Result Performing Organization Address [facility] de Phone Number [address] [address] * (ABNORMAL) Vitamin B12 (12/30/2024 7:53 AM EDT) Only the most recent of2 resultswithin the time period is included. VITAMIN B12 1,345(H) 232 - 1,245 pg/mL [facility] Blood 12/30/2024 7:53 AM EDT 12/30/2024 7:56 AM EDT Ahmad D Pritchett MBBS LAB BLOOD BKR ORDERABLES F inal Result Performing Organization Address City/[facility]/ZIP Co de Phone Number [address] [address] * Outside Lab (12/11/2024 1:04 PM EDT) Only the most recent of2 resultswithin the time period is included. Historical Provider LAB BLOOD BKR ORDERABLES Final Result * POCT COVID-19 RT-PCR/Influenza A & B/RSV (Cepheid) (12/10/2024 8:41 AM EDT) RSV PCR Negative Negative [facility] SARS-CoV-2 (COVID-19) Negative Negative [facility] Influenza A PCR Negative Negative [facility] Influenza B PCR Negative Negative [facility] 12/10/2024 8:41 AM EDT 12/10/2024 9:23 AM EDT Enio Morales MD LAB POCT ENTER/EDIT ORDERABLE S Final Result Performing Organization Address [facility] de Phone Number [facility] [address] [place] [address], [facility] [phone] * HM COLONOSCOPY FOR RESULT ENTRY ONLY (08/26/2024 1:34 PM EDT) Historical Provider HEALTH MAINTENANCE Final Result * HM MAMMOGRAPHY FOR RESULT ENTRY ONLY (04/12/2024 10:35 AM EST) Historical Provider HEALTH MAINTENANCE Final Result * (ABNORMAL) Lipid panel (04/08/2024 7:53 AM EST) HDL 94 mg/dL [facility] Comment: Interpretation <40 mg/dL: Low HDL cholesterol (major risk factor for CHD) Greater than or equal to 60 mg/dL: High HDL cholesterol ( negative risk factor for CHD) HDL - cholesterol is affected by a number of factors, e.g. smoking, excerise, hormones, sex and age. CHOLESTEROL 204 0 - 240 mg/dL [facility] TRIGLYCERIDES 69 30 - 160 mg/dL [facility] LDL 96 50 - 129 mg/dL [facility] Comment: LDL levels in terms of risk for coronary heart disease: <100 mg/dL: Optimal 100-129 mg/dL: Near or above optimal 130-159 mg/dL: Borderline high 160-189 mg/dL: High >190 mg/dL: Very High CARDIAC RISK RATIO 2.2(L) 3.3 - 4.4 [facility] Blood 04/08/2024 7:53 AM EST 04/08/2024 8:02 AM EST Enio Morales MD LAB BLOOD BKR ORDERABLES Daniela l Result [facility] [address] [place] [address] * DEXA SCAN (06/07/2023 10:14 AM EST) Pavithra Castillo MD HEALTH MAINTENANCE Final Result * Hepatitis C antibody, qualitative (02/09/2020) Enio Morales MD LAB BLOOD BKR ORDERABLES Edit ed Result - Final * Fecal immunochemical test x1 (FIT) (01/24/2019 7:00 AM EDT) Fecal occult blood Negative Negative [facility] Comment: (NOTE) Negative result. This test will not detect upper gastrointestinal bleeding; the HemoQuant test (9220)should be ordered if clinically indicated. Stool (Stool) 01/24/2019 7:0 0 AM EDT 01/24/2019 9:56 AM EDT Enio Morales MD LAB BODY FLUIDS AND STOOL ORD ERABLES Final Result [facility] [address] [place] [address] from Last 3 Months or Most Recently Relevant to Health Maintenance Insurance MEDICARE PART A & B [employer] MEDEX SUPPLEMENT MEDICARE PART A & B [employer] MEDEX SUPPLEMENT MEDICARE PART A & B [employer] MEDEX SUPPLEMENT MEDICARE PART A & B [employer] MEDEX SUPPLEMENT MEDICARE PART A & B [employer] MEDEX SUPPLEMENT MEDICARE PART A & B [employer] MEDEX SUPPLEMENT MEDICARE PART A & B [facility] MEDEX SUPPLEMENT MEDICARE PART A & B [employer] MEDEX SUPPLEMENT MEDICARE PART A & B [employer] MEDEX SUPPLEMENT [employer] Care Teams Violin Restorer Relationship Specialty Start Date End Date Enio Morales MD [address] [place] [address] PCP - General Internal Medicine 04/14/24 Enio Morales MD [address] [place] [phone] Insurance Assigned Provider 07/21/23 Alvin Denton MD [address] [place] [address] [place] [address] Neurosurgery 04/24/19 Amber Young PA-C [address] [place] [email or web address] Physician Disposal Plant Operator Hematology 03/19/20 Kimi Lyles CNP [address] [place] [address] Nurse Practitioner Medical Oncology 05/24/23 Rohith Pritchett MBBS [address] [place] [address] [email or web address] Primary Oncologist Hematology and Oncology 08/17/23 Rivka Mcbride NP [address] [place] [address] [email or web address] [email or web address] Nurse Practitioner 07/21/24 Genie Trevizo FNP [address] [place] [address] [email or web address] Registered Nurse Nurse Practitioner 12/18/24 Additional Source Comments The information contained in this document represents components of the legal health record. It is not the complete legal health record.[facility]
--- OUTSIDE RECORDS SUMMARY | 2025-02-26 07:52 | XMS_ITS | Patient Health Record ---
Author Organization [facility] Susan Valderrama Address [address] [place] [address] Care Team Providers Care Cyber Analyst Name Role Phone Enio Morales MD Primary Care Provider Daisy Lopez Unavailable [phone] Allergies Allergen (clinical drug ingredient) Drug/Non Drug [...] Status Risk Notes Problem Plantar fascial fibromatosis (23732800) Plantar fascial fibromatosis (M72.2) Active confirmed Plan Of Treatment Pending Test Test Name Order Date X ray : Foot, right 2V 08/29/2012 [id number] TENDON SHEATH/LIGAMENT 0 08/29/2012 Insurance Providers Payer Name Payer Address Payer Phone Subscriber Number Group Number Insured Name Patient Relationship to Insured Coverage Start Date Coverage End Date Medicare National Govt Sv[employer] [address] [place] [address] [id number] Bettina Castrejon Self - patient is the insured [employer] [address] [place] [address] [id number] Bettina Castrejon Self - patient is the insured Medical (General) History Medical History History ICD Code mumps measles chicken pox Cancer Joint implants/screws Bone marrow cancer, red blood cell cance r Surgical History Surgery Date(Month/Year) knee surgery 2017 Hand Surgery 2014 back surgery 2020
--- OUTSIDE RECORDS SUMMARY | 2025-02-26 07:52 | XMS_ITS | Encounter Summary ---
Author Organization [facility] Address [address] [facility] [address] [place] [address] Phone Care Team Providers Care Node Js Developer Name Role Phone Enio Morales MD Primary Care Provider [phone] Enio Morales MD Unavailable [phone] Alvin Denton MD Unavailable Amber Young PA-C Unavailable Savage Macario MD Unavailable [phone] Amber Young PA-C Unavailable Kimi Lyles CNP Unavailable Rohith Pritchett Unavailable [phone] Genie Trevizo Primary Care Provider [phone] Pcp, Unknown Primary Care Provider Unavailabl e Enio Morales MD Primary Care Provider Rivka Mcbride NP Unavailable [phone] Genie Trevizo Unavailable [phone] Encounter Details Date Type Department Care Team (Late st Contact Info) Description 03/31/2020 Procedure Pass [facility], Ct Scan - [address] [id number] Social History Tobacco Use Types Packs/Day Years [...] 8:20 AM EST Blood Draw [facility] [address] [address] Rohith Pritchett MBBS [address] [place] [address] [email or web address] 03/02/2025 9:20 AM EST Office Visit [facility] at [address] [address] Rohith Pritchett MBBS [address] [place] [address] [email or web address] 03/02/2025 9:40 AM EST Infusion [facility] at [address] [address] Rohith Pritchett MBBS [address] [place] [address] [email or web address] 03/04/2025 8:40 AM EST Telemedicine [facility] [address] [place] [address] Елена Montalvo, ROASTMASTER [employer] [address] [place] [phone] 03/20/2025 10:30 AM EST Office Visit [facility] Internal Medicine [address] [place] [address] Enio Morales MD [address] [place] [address] [email or web address] 03/23/2025 7:30 AM EST Blood Draw [facility] [address] [address] Rohith Pritchett, [address] [address] [email or web address] 03/23/2025 8:40 AM EST Office Visit [facility] at [address] [address] Rohith Pritchett [address] [address] [email or web address] 03/23/2025 9:20 AM EST Infusion [facility] at [address] [address] Rohith Pritchett [address] [address] [email or web address] documented as of this encounter Visit Diagnoses Not on filedocumented in this encounter Additional Health Concerns Infection Onset Date Last Indicated Resolved Time CoV-Risk 05/03/2023 05/03/2023 05/14/2023 1:24 AM EST Assessment Noted Time PHQ-2 Depression Total Score: 6 10/03/19 20 11:00 AM EDT documented as of this encounter Care Teams Node Js Developer Relationship Specialty Start Date End Date Enio Morales MD [address] [place] [address] [email or web address] PCP - General 02/01/17 02/25/24 Genie Trevizo FNP [address] [place] [address] [email or web address] PCP - General Nurse Practitioner 02/26/24 04/07/24 Pcp, Unknown PCP - General 04/08/24 04/13/24 Enio Morales MD [address] [place] [address] [email or web address] PCP - General Internal Medicine 04/14/24 Enio Morales MD [address] [place] [address] [email or web address] Insurance Assigned Provider 07/21/23 Alvin Denton MD [address] [place] [address] [place] [address] Neurosurgery 04/24/19 Amber Young PA-C [address] [place] [address] [email or web address] Physician Professor Of Architecture Hematology 03/19/20 08/02/22 Savage Macario MD [address] [place] [address] [email or web address] Primary Oncologist Medical Oncology 10/04/20 08/16/23 Amber Young PA-C [address] [place] [address] [email or web address] Physician Professor Of Architecture Hematology 03/19/20 Kimi Lyles CNP [address] [place] [phone] [email or web address] Nurse Practitioner Medical Oncology 05/24/23 Rohith Pritchett MBBS [address] [place] [address] [email or web address] Primary Oncologist Hematology and Oncology 08/17/23 Rivka Mcbride NP [address] [place] [address] [email or web address] Nurse Practitioner 07/21/24 Genie Trevizo FNP [address] [place] [address] [email or web address] Registered Nurse Nurse Practitioner 12/18/24 documented as of this encounter Additional Source Comments The information contained in this document represents components of the legal health record. It is not the complete legal health record.[facility]
--- OUTSIDE RECORDS SUMMARY | 2025-02-26 07:53 | XMS_ITS | Clinical Summary ---
Author Organization [facility] Address [address] [place] [address] Care Team Providers Care Mixer Machine Feeder Name Role Phone Enio Morales MD Primary Care Provider [phone] Allergies Active Allergy Reactions Criticality Noted Date [...] Health Maintenance Due Date Last Done Comments Advance Care Planning 1955 Hepatitis C Virus Screening 1955 DTaP/Tdap/Td Vaccines (1 - Tdap) 1976 Mammogram 1997 Colonoscopy 2002 Pneumococcal Vaccines 50+ (1 of 1 - PCV) 2007 Zoster (Shingles) Vaccine (1 of 2) 2007 DXA Bone Density (Females,Ag es 65 and older) 2022 Influenza Vaccine 11/14/2024 COVID-19 Vaccine ( - 2023-2 5 season) 2024 RSV Vaccine 50 years and old er and Patients (1 - 1-dose 75+ series) 2032 Hepatitis B Vaccines Aged Out No long er eligible based on patient's age to complete this topic Medical Devices Implanted Type Area Alumina Plant Supervisor Device Identifier Shelf Expiration Date Model / Serial / Lot [id number] Filler Bone Void 5ml Dbx Putty Nonst - [id number] Implanted:Qt y: 1 on 04/19/2020 by Alvin Real MD at [facility] Void Filler Right: Sacrum [employer] 01/13/2021 [id number] / [id number] / Si Joint Threaded Device Implanted:Qt y: 1 on 04/19/2020 by Alvin Real MD at [facility] Right: Sacrum [employer] 02/27/2028 [id number] / / [id number] Threaded Device 12 X 40mm Implanted:Qt y: 1 on 04/19/2020 by Alvin Real MD at [facility] [employer] 06/02/2027 [id number] / / [id number] Explanted Type Area Alumina Plant Supervisor Device Identifier Shelf Expiration Date Model / Serial / Lot [id number] Pin Navigation 150mm Perc Reference Sterl Disp - [id number] Explanted:Qty: 1 on 04/19/2020 by Alvin Real MD at [facility] Wire Right: Sacrum [employer] 01/07/2023 [id number] / / [id number] Description:DISPOSABLE SUPPL Y , NOT IMPLANT Insurance MEDICARE PART A & B [facility] Care Teams Mixer Machine Feeder Relationship Specialty Start Date End Date Enio Morales MD [address] [place] [address] PCP - General 09/30/19
--- OUTSIDE RECORDS SUMMARY | 2025-02-26 07:53 | XMS_ITS | Encounter Summary ---
Author Organization [facility] Address [address] [place] [address] Care Team Providers Care Uniform Designer Name Role Phone Enio Morales MD Primary Care Provider [phone] Encounter Details Date Type Department Care Team (Late st Contact Info) Description 09/11/2019 Scanned Document [facility] Neurosurgery [place] [address] [phone] Alvin Real MD 85 [facility] [place] [address] [place] [address] Social History Tobacco Use Types Packs/Day Years [...] on filedocumented in this encounter Care Teams Uniform Designer Relationship Specialty Start Date End Date Enio Morales MD [address] [place] [phone] PCP - General 09/30/19 documented as of this encounter
--- OUTSIDE RECORDS SUMMARY | 2025-02-26 07:53 | XMS_ITS | Encounter Summary ---
Author Organization [facility] Address [address] [place] [address] Care Team Providers Care Atmospheric Physicist Name Role Phone Enio Morales MD Primary Care Provider [phone] Encounter Details Date Type Department Care Team (Late st Contact Info) Description 08/04/2020 Scanned Document [facility] Neurosurgery [place] 85 [facility] [address] [place] [phone] Alvin Real MD 85 [facility] [place] [address] [place] [phone] Social History Tobacco Use Types Packs/Day Years [...] on filedocumented in this encounter Care Teams Atmospheric Physicist Relationship Specialty Start Date End Date Enio Morales MD [address] [place] [phone] PCP - General 09/30/19 documented as of this encounter
--- OUTSIDE RECORDS SUMMARY | 2025-02-26 07:53 | XMS_ITS | Encounter Summary ---
Author Organization [facility] Address [address] [place] [address] Care Team Providers Care Computer Teacher Name Role Phone Enio Morales MD Primary Care Provider [phone] Encounter Details Date Type Department Care Team (Late st Contact Info) Description 01/15/2020 Scanned Document [facility] Neurosurgery [place] [address] [phone] Alvin Real MD 85 [facility] [place] [address] [place] [address] Social History Tobacco Use Types Packs/Day Years [...] on filedocumented in this encounter Care Teams Computer Teacher Relationship Specialty Start Date End Date Enio Morales MD [address] [place] [phone] PCP - General 09/30/19 documented as of this encounter
--- OUTSIDE RECORDS SUMMARY | 2025-02-26 07:53 | XMS_ITS | Encounter Summary ---
Author Organization [facility] Address [address] [place] [address] Care Team Providers Care Animal Cytologist Name Role Phone Enio Morales MD Primary Care Provider [phone] Encounter Details Date Type Department Care Team (Late st Contact Info) Description 05/24/2020 Scanned Document [facility] Neurosurgery [address] [place] [phone] Alvin Real MD 85 [facility] [place] [address] [place] [phone] Social History Tobacco Use Types Packs/Day Years [...] on filedocumented in this encounter Care Teams Animal Cytologist Relationship Specialty Start Date End Date Enio Morales MD [address] [place] [phone] PCP - General 09/30/19 documented as of this encounter
--- OUTSIDE RECORDS SUMMARY | 2025-02-26 07:53 | XMS_ITS | Encounter Summary ---
Author Organization [facility] Address [address] [facility] [address] [place] [address] Phone Care Team Providers Care Tankman Name Role Phone Enio Morales MD Primary Care Provider Enio Morales MD Unavailable Alvin Denton MD Unavailable Savage Macario MD Unavailable [phone] Amber Young-C Unavailable Kimi Lyles CNP Unavailable Rohith Pritchett MBBS Unavailable Genie Trevizo Primary Care Provider [phone] Pcp, Unknown Primary Care Provider Unavailabl e Enio Morales MD Primary Care Provider [phone] Rivka Mcbride NP Unavailable Genie Trevizo Unavailable Encounter Details Date Type Department Care Team (Late st Contact Info) Description 03/29/2023 Procedure Pass [facility]ovascular And Interventional Radiology [address] [place], [place] [phone] Social History Tobacco Use Types Packs/Day Years [...] EST Blood Draw [facility] Phleb MG [address] [place] [address] Rohith Pritchett MBBS [address] [place] [address] [email or web address] 03/02/2025 9:20 AM EST Office Visit [facility] at [address] [address] Rohith Pritchett MBBS [address] [place] [address] [email or web address] 03/02/2025 9:40 AM EST Infusion [facility] at [address] [address] Rohith Pritchett MBBS [address] [place] [address] [email or web address] 03/04/2025 8:40 AM EST Telemedicine [facility] 2 [place] [address] Елена Montalvo, [facility] [address] [phone] [email or web address] 03/20/2025 10:30 AM EST Office Visit [facility] Internal Medicine [address] [place] [address] Enio Morales MD [address] [place] [address] [email or web address] 03/23/2025 7:30 AM EST Blood Draw [facility]le[facility] [address] [place] [address] Rohith Pritchett MBBS [address] [place] [address] [email or web address] 03/23/2025 8:40 AM EST Office Visit [facility] at [address] [address] Rohith Pritchett MBBS [address] [place] [address] [email or web address] 03/23/2025 9:20 AM EST Infusion [facility] at [address] [place] [address] Rohith Pritchett MBBS [address] [place] [address] [email or web address] documented as of this encounter Visit Diagnoses Not on filedocumented in this encounter Additional Health Concerns Infection Onset Date Last Indicated Resolved Time CoV-Risk 05/03/2023 05/03/2023 05/14/2023 1:24 AM EST Assessment Noted Time PHQ-9 Depression Total Score: 7 09/10/19 22 11:15 AM EDT PHQ-2 Depression Total Score: 2 12/02/19 23 3:12 PM EDT documented as of this encounter Care Teams Tankman Relationship Specialty Start Date End Date Enio Morales MD [address] [place] [address] PCP - General 02/01/17 02/25/24 Genie Trevizo FNP [address] [place] [address] PCP - General Nurse Practitioner 02/26/24 04/07/24 Pcp, Unknown PCP - General 04/08/24 04/13/24 Enio Morales MD [address] [place] [address] PCP - General Internal Medicine 04/14/24 Enio Morales MD [address] [place] [address] [email or web address] Insurance Assigned Provider 07/21/23 Alvin Denton MD [address] [place] [address] [place] [address] Neurosurgery 04/24/19 Savage Macario MD [address] [place] [address] Primary Oncologist Medical Oncology 10/04/20 08/16/23 Amber Young PA-C [address] [place] [address] Physician Vp Delivery Hematology 03/19/20 Kimi Lyles CNP [address] [place] [address] [email or web address] Nurse Practitioner Medical Oncology 05/24/23 Rohith Pritchett MBBS [address] [place] [address] [email or web address] Primary Oncologist Hematology and Oncology 08/17/23 Rivka Mcbride NP [address] [place] [address] [email or web address] Nurse Practitioner 07/21/24 Genie Trevizo FNP [address] [place] [address] [email or web address] Registered Nurse Nurse Practitioner 12/18/24 documented as of this encounter Additional Source Comments The information contained in this document represents components of the legal health record. It is not the complete legal health record.[facility]
--- OUTSIDE RECORDS SUMMARY | 2025-02-26 07:53 | XMS_ITS | Encounter Summary ---
Author Organization [facility] Address [address] [place] [address] Care Team Providers Care Renewals Manager Name Role Phone Enio Morales MD Primary Care Provider [phone] Encounter Details Date Type Department Care Team (Late st Contact Info) Description 05/06/2020 Scanned Document [facility] Neurosurgery [place] [address] [facility] [address] [place] [phone] Alvin Real MD 85 [facility] [place] [address] [place] [address] [phone] Social History Tobacco Use Types Packs/Day Years [...] on filedocumented in this encounter Care Teams Renewals Manager Relationship Specialty Start Date End Date Enio Morales MD [address] [place] [address] [phone] PCP - General 09/30/19 documented as of this encounter
--- OUTSIDE RECORDS SUMMARY | 2025-02-26 07:53 | XMS_ITS | Encounter Summary ---
Author Organization [facility] Address [address] [place] [address] Phone Care Team Providers Care System Archive Analyst Name Role Phone Enio Morales MD Unavailable Abd Alvin Dalal MD Unavailable Amber Young PAFrancescoC Unavailable Kimi Lyles WALL WORKER Unavailable Rohith Pritchett Unavailable Enio Morales MD Primary Care Provider Rivka Mcbride MUFFLER INSTALLER Unavailable Genie TrevizoP Unavailable Encounter Details Date Type Department Care Team (Late st Contact Info) Description 02/24/2025 Orders Only [facility] at [address] [address] [place] 30 [place] [address] Myelodysplastic syndrome (Primary Dx) Social History Tobacco [...] EST Blood Draw [facility] Phleb MG 30 [place] [address] Rohith Pritchett MBBS [address] [place] [address] [email or web address] 03/02/2025 9:20 AM EST Office Visit [facility] at [address] [address] Rohith Pritchett MBBS [address] [place] [address] [email or web address] 03/02/2025 9:40 AM EST Infusion [facility] at [address] [address] Rohith Pritchett MBBS [address] [place] [address] [email or web address] 03/04/2025 8:40 AM EST Telemedicine [facility] 2 [place] [address] Елена Montalvo, WALL WORKER [address] [phone] [email or web address] 03/20/2025 10:30 AM EST Office Visit [facility] Medical [facility] Internal Medicine 40 [place] [address] Enio Morales MD 40 [place] [address] [email or web address] 03/23/2025 7:30 AM EST Blood Draw [facility] Phleb MG 30 [place] [address] Rohith Pritchett MBBS [address] [place] [address] [email or web address] 03/23/2025 8:40 AM EST Office Visit [facility] at [address] [address] Rohith Pritchett MBBS [address] [place] [address] [email or web address] 03/23/2025 9:20 AM EST Infusion [facility] at [address] [address] Rohith Pritchett MBBS [address] [place] [address] [email or web address] Scheduled Orders Name Type Priority Associated Diagnoses Orde r Schedule CBC and Differential Lab Routine Myelodysplastic syndrome Expected: 02/24/2025, Expires: 02/24/2026 Comprehensive Metabolic Panel (CMP) Lab Routine Myelodysplastic syndrome Expected: 02/24/2025, Expires: 02/24/2026 Ferritin Lab Routine Myelodysplastic syndrome Expected: 02/24/2025, Expires: 02/24/2026 documented as of this encounter Visit Diagnoses Diagnosis Myelodysplastic syndrome- Primary Myelodysplastic syndrome, unspecified documented in this encounter Additional Health Concerns Assessment Noted Time PHQ-9 Depression Total Score: 4 02/25/20 11:31 AM EST PHQ-2 Depression Total Score: 0 02/25/20 11:31 AM EST documented as of this encounter Care Teams System Archive Analyst Relationship Specialty Start Date End Date Enio Morales MD 40 [place] [address] [email or web address] PCP - General Internal Medicine 04/14/24 Enio Morales MD 40 [place] [address] [email or web address] Insurance Assigned Provider 07/21/23 Alvin Denton MD [address] [place] [address] [place] [address] Neurosurgery 04/24/19 Ambre Young PA-C [address] [place] [address] [email or web address] Physician Field Cashier Hematology 03/19/20 Kimi Lyles CNP [address] [place] [address] [email or web address] Nurse Practitioner Medical Oncology 05/24/23 Rohith Pritchett MBBS [address] [place] [address] [email or web address] Primary Oncologist Hematology and Oncology 08/17/23 Rivka Mcbride NP [address] [place] [address] [email or web address] Nurse Practitioner 07/21/24 Genie Trevizo FNP [address] [place] [address] [email or web address] Registered Nurse Nurse Practitioner 12/18/24 documented as of this encounter Additional Source Comments The information contained in this document represents components of the legal health record. It is not the complete legal health record.[facility]
--- OUTSIDE RECORDS SUMMARY | 2025-02-26 07:53 | XMS_ITS | Encounter Summary ---
Author Organization [facility] Address [address] [place] [address] Care Team Providers Care Rn Cardiac Rehab Name Role Phone Enio Morales MD Primary Care Provider [phone] Encounter Details Date Type Department Care Team (Late st Contact Info) Description 09/11/2019 Scanned Document [facility] Neurosurgery [place] [address] [phone] Alvin Real MD 85 [facility] [place] [address] [place] [address] Social History Tobacco Use Types Packs/Day Years [...] on filedocumented in this encounter Care Teams Rn Cardiac Rehab Relationship Specialty Start Date End Date Enio Morales MD [address] [place] [address] PCP - General 09/30/19 documented as of this encounter
--- OUTSIDE RECORDS SUMMARY | 2025-02-26 07:53 | XMS_ITS | Encounter Summary ---
Author Organization [facility] Address [address] [place] [address] Care Team Providers Care Director Marketing Communications Name Role Phone Enio Morales MD Primary Care Provider [phone] Encounter Details Date Type Department Care Team (Late st Contact Info) Description 09/11/2019 Scanned Document [facility] Neurosurgery [place] [address] [address] Alvin Real MD 85 [facility] [place] [address] [place] [address] Social History Tobacco Use Types Packs/Day Years [...] on filedocumented in this encounter Care Teams Director Marketing Communications Relationship Specialty Start Date End Date Enio Morales MD [address] [place] [address] PCP - General 09/30/19 documented as of this encounter
--- OUTSIDE RECORDS SUMMARY | 2025-02-26 07:53 | XMS_ITS | Encounter Summary ---
Author Organization [facility] Address [address] [place] [address] Care Team Providers Care Jacquard Plate Maker Name Role Phone Enio Morales MD Primary Care Provider [phone] Encounter Details Date Type Department Care Team (Late st Contact Info) Description 11/06/2019 Scanned Document [facility] Neurosurgery [place] [address] [phone] Alvin Real MD [facility] [place] [address] [place] [address] Social History Tobacco Use Types Packs/Day Years [...] on filedocumented in this encounter Care Teams Jacquard Plate Maker Relationship Specialty Start Date End Date Enio Morales MD [address] [place] [address] PCP - General 09/30/19 documented as of this encounter
--- OUTSIDE RECORDS SUMMARY | 2025-02-26 07:53 | XMS_ITS | Patient Health Record ---
Author Organization [facility] Address [address] [place] [address] Care Team Providers Care Rn Traveling Name Role Phone Enio Morales MD Primary Care Provider Gunner Sebastian Jr Unavailable [phone] Allergies Allergen (clinical drug ingredient) Drug/Non Drug [...] b edtime as needed Orally Once a day; Duration: 30 day(s) 07/07/2024 Active Pantoprazole Sodium 40 MG Oral; Duration: 90 Days Active buPROPion HCl ER (XL) 300 MG TAKE 1 TABLET BY MOUTH EVERY MORNING. TOTAL OF 450MG DAILY Oral; Duration: 90 Days Active Epoetin Rito 62579 UNIT/ML as directed Injection Active amLODIPine Besylate 5 MG Oral; Duration: 90 Days Active Fish Oil 1000 MG 1 capsule [address]ally Thr ee times a day Active oxyCODONE-Acetaminophen 10-325 MG TAKE 1 TABLET BY MOUTH EVERY 4 HOURS NEEDED FOR PAIN. NOT TO EXCEED 6 TABLETS DAILY. PARTIALFILLOK Oral; Duration: 28 Days Active Magnesium 400 MG as [...] Problem Status W/U Status Risk Notes Problem Colon cancer screening (919077202) Colon cancer screening (Z12.11) Active confirmed Problem Long-term current use of drug therapy (852443744) Long-term current use of high risk medication other than anticoagulant (Z79.899) Active confirmed Problem Gastroesophageal reflux disease (684845613) Gastroesophageal reflux disease, unspecified whether esophagitis present (K21.9) Active confirmed Problem Family history of malignant neoplasm of gastrointestinal tract (455974569) FH: esophageal cancer (Z80.0) Active confirmed Vital Signs Temperature 96.5 degrees Fahrenheit 07/07/2024 Blood pressure diastolic 01 mm Hg 07/07/2024 Height 65 in 07/07/2024 Blood pressure systolic 001 mm Hg 07/07/2024 Weight 135 lbs 07/07/2024 BMI 22.46 kg/m2 07/07/2024 Encounters Encounter Location Date Provider Diagnosis [facility] [address] [place] [phone] 08/26/2024 Gunner العلي Jr Colon cancer screening Z12.11 [facility] [address] [place] [address] 07/07/2024 Gunner العلي Jr Colon cancer screening [...] Date MEDICARE OF [place] [address] [facility] JOSE ALFREDO [place] [address] [id number] KING HEWITT Self - patient is the insured [employer] ATT[employer] CLAIMS [address] [place] [address] [id number] KING HEWITT Self - patient is the insured Medical (General) History Medical History History ICD Code colon polyps, tubular adenom a x1 on colonoscopy 11/02, five-year followup 11/07 degenerative joint disease cervical cancer disc disease bone marrow cancer myelodysplasia thrombocytosis Surgical History Surgery Date(Month/Year) Back surgery 04/19/2020 hand surgery knee surgery eye surgery
--- OUTSIDE RECORDS SUMMARY | 2025-02-26 07:53 | XMS_ITS | Encounter Summary ---
Author Organization [facility] Address [address] [facility] [address] [place] [address] Phone Care Team Providers Care Excel Developer Name Role Phone Enio Morales MD Unavailable [phone] Alvin Dalal MD Unavailable Amber Young PA-C Unavailable Kimi Lyles COUNTER CLERK [employer] Unavailable Rohith Pritchett Unavailable Enio Morales MD Primary Care Provider Rivka Mcbride HOUSEHOLD WORKER Unavailable Genie Trevizo MARINE REPORTER Unavailable Reason for Visit * Reason Onset Date Comments Care Coordination 02/24/2025 [facility] Virtual A [place] Outreach Encounter Details Date Type Department Care Team (Late st Contact Info) Description 02/24/2025 Telephone [facility] -[facility] TEAM [address] [place] [address] Enio Morales MD 40 [place], [place] [phone] [email or web address] Care Coordination ([facility] Virtual AWV Outreach/) Social History Tobacco Use Types Packs/Day Years [...] as of this encounter Progress Notes * Pam Waldron - 02/24/2025 9:[address] [facility] Population Health Service Organization ([facility]) Annual Wellness Project: Patient has been identified as an individual who would benefit from a virtual Annual Wellness Visitthrough the [facility] AWV Project. Patient consented to the visit. Patient has been scheduled for Virtual Care Support Program . Pam Waldron [facility] Excel Developer documented in this encounter Plan of Treatment Upcoming Encounters Date Type Department Care Team (Late st Contact Info) Description 03/02/2025 8:20 AM EST Blood Draw [facility] Phleb [facility] 30 [place] [address] Rohith Pritchett MBBS [address] [place] [address] [email or web address] 03/02/2025 9:20 AM EST Office [facility] at [address] [address] Rohith Pritchett MBBS [address] [place] [address] [email or web address] 03/02/2025 9:[address] [facility] at [address] [address] Rohith Pritchett MBBS [address] [place] [address] [email or web address] 03/04/2025 8:40 AM EST Telemedicine [facility] SU[facility] 2 [place] [address] Елена Montalvo, [facility] [address] [phone] [email or web address] 03/20/2025 10:30 AM EST Office Visit [facility] Medical [facility] Internal Medicine 40 [place] [address] Enio Morales MD 40 [place] [address] 03/23/2025 7:30 AM EST Blood Draw [facility] Phleb [facility] [address] [place] [address] Rohith Pritchett MBBS [address] [place] [address] [email or web address] 03/23/2025 8:40 AM EST Office [facility] at [address] [address] Rohith Pritchett MBBS [address] [place] [address] [email or web address] 03/23/2025 9:[address] [facility] at [address] [address] Rohith Pritchett MBBS [address] [place] [address] [email or web address] documented as of this encounter Visit Diagnoses Not on filedocumented in this encounter Additional Health Concerns Assessment Noted Time PHQ-9 Depression Total Score: 4 02/25/20 24 11:31 AM EST PHQ-2 Depression Total Score: 0 02/25/20 24 11:31 AM EST documented as of this encounter Care Teams Excel Developer Relationship Specialty Start Date End Date Enio Morales MD [address] [place] [address] [email or web address] PCP - General Internal Medicine 04/14/24 Enio Morales MD [address] [place] [address] [email or web address] Insurance Assigned Provider 07/21/23 Alvin Denton MD [address] [place] [address] [place] [address] Neurosurgery 04/24/19 Amber Young PA-C [address] [place] [address] Physician Battery Filler Hematology 03/19/20 Kimi Lyles CNP [address] [place] [address] Nurse Practitioner Medical Oncology 05/24/23 Rohith Pritchett MBBS [address] [place] [address] [email or web address] Primary Oncologist Hematology and Oncology 08/17/23 Rivka Mcbride, LÁZARO [address] [place] [address] [email or web address] Nurse Practitioner 07/21/24 Genie Trevizo FNP [address] [place] [address] [email or web address] Registered Nurse Nurse Practitioner 12/18/24 documented as of this encounter Additional Source Comments The information contained in this document represents components of the legal health record. It is not the complete legal health record.[facility]
--- OUTSIDE RECORDS SUMMARY | 2025-02-26 07:53 | XMS_ITS | Encounter Summary ---
Author Organization [facility] Address 399 [facility] [address] [place] [address] Phone Care Team Providers Care Bowling Ball Finisher Name Role Phone Enio Morales MD Primary Care Provider Enio Morales MD Unavailable Alvin Denton MD Unavailable Amber Young PA-C Unavailable Kimi Lyles CNP Unavailable Rohith Pritchett MBBS Unavailable Genie Trevizo Primary Care Provider Pcp, Unknown Primary Care Provider Unavailabl Enio Valdez MD Primary Care Provider Rivka Mcbride NP Unavailable Genie TrevizoP Unavailable Encounter Details Date Type Department Care Team (Late st Contact Info) Description 12/26/2023 Procedure Pass [facility] [place] [place] [address] Social History Tobacco Use Types [...] EST Blood Draw [facility]H Phleb MG 30 [place] [address] Rohith Pritchett MBBS [address] [place] [address] [email or web address] 03/02/2025 9:20 AM EST Office Visit [facility] at [address] [address] Rohith Pritchett MBBS [address] [place] [address] [email or web address] 03/02/2025 9:40 AM EST Infusion [facility] at [address] [address] Rohith Pritchett MBBS [address] [place] [address] [email or web address] 03/04/2025 8:40 AM EST Telemedicine [facility] [address] [place] [address] Елена Montalvo, BOOKSTORE CLERK [address] [phone] [email or web address] 03/20/2025 10:30 AM EST Office Visit [facility] Internal Medicine 40 [place] [address] Enio Morales MD 40 [place] [address] [email or web address] 03/23/2025 7:30 AM EST Blood Draw CDH Phleb MG 30 [place] [address] Rohith Pritchett MBBS [address] [place] [address] [email or web address] [email or web address] 03/23/2025 8:40 AM EST Office Visit [facility] at [address] [address] Rohith Pritchett MBBS [address] [place] [address] [email or web address] [email or web address] [email or web address] [facility] 03/23/2025 9:20 AM EST Infusion [facility] at [address] [address] Rohith Pritchett MBBS 30 [place] [address] [email or web address] [email or web address] documented as of this encounter Visit Diagnoses Not on filedocumented in this encounter Additional Health Concerns Assessment Noted Time PHQ-9 Depression Total Score: 4 02/25/20 11:31 AM EST PHQ-2 Depression Total Score: 0 02/25/20 11:31 AM EST documented as of this encounter Care Teams Bowling Ball Finisher Relationship Specialty Start Date End Date Enio Morales MD 40 [place] [address] [email or web address] PCP - General 02/01/17 02/25/24 Genie Trevizo FNP [address] [place] [address] [email or web address] PCP - General Nurse Practitioner 02/26/24 04/07/24 Pcp, Unknown PCP - General 04/08/24 04/13/24 Enio Morales MD [address] [place] [address] [email or web address] PCP - General Internal Medicine 04/14/24 Enio Morales MD [address] [place] [address] [email or web address] Insurance Assigned Provider 07/21/23 Alvin Denton MD [address] [place] [address] [place] [address] Neurosurgery 04/24/19 Amber Young PA-C [address] [place] [address] Physician Life Skills Instructor Hematology 03/19/20 Kimi Lyles CNP [address] [place] [address] Nurse Practitioner Medical Oncology 05/24/23 Rohith Pritchett MBBS [address] [place] [address] [email or web address] 234 beds at [facility] Primary Oncologist Hematology and Oncology 08/17/23 Rivka Mcbride NP [address] [place] [address] [email or web address] Nurse Practitioner 07/21/24 Genie Trevizo FNP [address] [place] [address] [email or web address] Registered Nurse Nurse Practitioner 12/18/24 documented as of this encounter Additional Source Comments The information contained in this document represents components of the legal health record. It is not the complete legal health record.[facility]
--- OUTSIDE RECORDS SUMMARY | 2025-02-26 07:53 | XMS_ITS | Encounter Summary ---
Author Organization [facility] Address 399 [facility] [address] [place] [address] Phone Care Team Providers Care Sewer Inspector Name Role Phone Enio Morales MD Primary Care Provider Enio Morales MD Unavailable Alvin Denton MD Unavailable Savage Macario MD Unavailable [phone] Amber YoungC Unavailable Kimi Lyles CNP Unavailable Rohith Pritchett Unavailable Genie Trevizo Primary Care Provider [phone] Pcp, Unknown Primary Care Provider Unavailabl e Enio Morales MD Primary Care Provider Rivka Mcbride NP Unavailable Genie Trevizo Unavailable Encounter Details Date Type Department Care Team (Late st Contact Info) Description 03/29/2023 Procedure Pass [facility], Ct Scan - [address] [phone] Social History Tobacco Use Types Packs/Day Years [...] EST Blood Draw CDH Phleb MG 30 [place] [address] Rohith Pritchett MBBS [address] [place] [address] [email or web address] 03/02/2025 9:20 AM EST Office Visit [facility] at [facility] 30 [place] [address] Rohith Pritchett MBBS 30 [place] [address] [email or web address] 03/02/2025 9:40 AM EST Infusion [facility] at [address] [address] Rohith Pritchett MBBS [address] [place] [address] [email or web address] 03/04/2025 8:40 AM EST Telemedicine [facility] VIRTUAL CLINIC SUPPORT 2 [place] [address] Елена Montalvo, [facility] [address] [phone] [email or web address] 03/20/2025 10:30 AM EST Office Visit [facility] Internal Medicine 40 [place] [address] Enio Morales MD 40 [place] [address] [email or web address] 03/23/2025 7:30 AM EST Blood Draw CDH Phleb [facility] 30 [place] [address] Rohith Pritchett MBBS [address] [place] [address] [email or web address] 03/23/2025 8:40 AM EST Office Visit [facility] at [address] [address] Rohith Pritchett MBBS [address] [place] [address] [email or web address] 03/23/2025 9:20 AM EST Infusion [facility] at Menjivar Daniels 30 [place] [address] Rohith Pritchett MBBS 30 [place] [address] [email or web address] documented as of this encounter Visit Diagnoses Not on filedocumented in this encounter Additional Health Concerns Infection Onset Date Last Indicated Resolved Time CoV-Risk 05/03/2023 05/03/2023 05/14/2023 1:24 AM EST Assessment Noted Time PHQ-9 Depression Total Score: 7 09/10/19 22 11:15 AM EDT PHQ-2 Depression Total Score: 2 12/02/19 23 3:12 PM EDT documented as of this encounter Care Teams Sewer Inspector Relationship Specialty Start Date End Date Enio Morales MD 40 [place] [address] [email or web address] PCP - General 02/01/17 02/25/24 Genie Trevizo FNP [address] [place] [address] PCP - General Nurse Practitioner 02/26/24 04/07/24 Pcp, Unknown PCP - General 04/08/24 04/13/24 Enio Morales MD [address] [place] [phone] PCP - General Internal Medicine 04/14/24 Enio Morales MD [address] [place] [address] [email or web address] Insurance Assigned Provider 07/21/23 Alvin Denton MD [address] [place] [address] [place] [address] Neurosurgery 04/24/19 Savage Macario MD [address] [place] [address] Primary Oncologist Medical Oncology 10/04/20 08/16/23 Amber Young PA-C [address] [place] [address] Physician [employer] Teacher Hematology 03/19/20 Kimi Lyles CNP [address] [place] [address] [email or web address] Nurse Practitioner Medical Oncology 05/24/23 Rohith Pritchett MBBS [address] [place] [address] [email or web address] Primary Oncologist Hematology and Oncology 08/17/23 Rivka Mcbride NP [address] [place] [address] [email or web address] Nurse Practitioner 07/21/24 Genie Trevizo FNP [address] [place] [address] [email or web address] Registered Nurse Nurse Practitioner 12/18/24 documented as of this encounter Additional Source Comments The information contained in this document represents components of the legal health record. It is not the complete legal health record.[facility]
--- OUTSIDE RECORDS SUMMARY | 2025-02-26 07:53 | XMS_ITS | Encounter Summary ---
Author Organization [facility] Address [address] [place] [address] Care Team Providers Care Tile Decorator Name Role Phone Enio Morales MD Primary Care Provider [phone] Encounter Details Date Type Department Care Team (Late st Contact Info) Description 06/25/2020 Scanned Document [facility] Neurosurgery [place] 85 [facility] [address] [place] [phone] Alvin Real MD 85 [facility] [place] [address] [place] [address] [phone] Social History Tobacco Use Types Packs/Day Years [...] on filedocumented in this encounter Care Teams Tile Decorator Relationship Specialty Start Date End Date Enio Morales MD [address] [place] [address] [phone] PCP - General 09/30/19 documented as of this encounter
--- OUTSIDE RECORDS SUMMARY | 2025-02-26 07:53 | XMS_ITS | Encounter Summary ---
Author Organization [facility] Address [address] [place] [address] Phone Care Team Providers Care Naval Aircrewman Helicopter Name Role Phone Enio Morales MD Unavailable [phone] Abd Alvin Dalal MD Unavailable Amber Young PAFrancescoC Unavailable Kimi Lyles PATROL INSPECTOR Unavailable Rohith Pritchett Unavailable Enio Morales MD Primary Care Provider Rivka Mcbride CENTER MEDICAL SPECIALIST Unavailable Genie TrevizoP Unavailable Encounter Details Date Type Department Care Team (Late st Contact Info) Description 02/06/2025 Orders Only [facility] at [facility] 30 [place] [address] Tasia Patrick CMA 30 [place] [address] [email or web address] Myelodysplastic syndrome (Primary Dx) Social History Tobacco [...] EST Blood Draw CDH Phleb MG 30 [place] [address] Rohith Pritchett MBBS [address] [place] [address] [email or web address] 03/02/2025 9:20 AM EST Office Visit [facility] at [facility] 30 [place] [address] Rohith Pritchett MBBS [address] [place] [address] [email or web address] 03/02/2025 9:40 AM EST Infusion [facility] Center at [address] [address] Rohith Pritchett MBBS [address] [place] [address] [email or web address] 03/04/2025 8:40 AM EST Telemedicine [facility] [address] [facility] [place] [address] Елена Montalvo, [facility] [address] [phone] [email or web address] 03/20/2025 10:30 AM EST Office Visit [facility] Internal Medicine 40 [place] [address] Enio Morales MD 40 [place] [address] [email or web address] 03/23/2025 7:30 AM EST Blood Draw [facility] Phleb [facility] 30 [place] [address] Rohith Pritchett MBBS [address] [place] [address] [email or web address] 03/23/2025 8:40 AM EST Office Visit [facility] at [address] [address] Rohith Pritchett MBBS [address] [place] [address] [email or web address] 03/23/2025 9:20 AM EST Infusion [facility] at [address] [address] Rohith Pritchett, MEETA [address] [place] [address] [email or web address] documented as of this encounter Results * (ABNORMAL) CBC and differential (02/09/2025 7:43 AM EDT) WBC 6.24 4.00 - 11.00 K/uL [facility] RBC 3.44(L) 4.00 - 5.20 M/uL [facility] HGB 10.5(L) 12.0 - 16.0 g/dL [facility] HCT 32.9(L) 36.0 - 46.0 % [facility] PLT 436 150 - 450 K/uL [facility] MCV 95.6 80.0 - 100.0 fL [facility] MCH 30.5 27.0 - 31.0 pg [facility] MCHC 31.9(L) 32.0 - 36.0 g/dL [facility] RDW 19.5(H) 11.5 - 14.5 % [facility] MPV 10.3 8.4 - 12.0 fL [facility] NRBC 0.80(H) 0.00 /100 WBCs [facility] ABSOLUTE NRBC 0.05(H) 0.00 K/uL [facility] DIFF METHOD Auto [facility] NEUTS 68.9 48.0 - 76.0 % [facility] LYMPHS 16.8(L) 18.0 - 41.0 % [facility] MONOS 9.8 4.0 - 11.0 % [facility] EOS 2.7 0.0 - 5.0 % [facility] BASOS 1.6(H) 0.0 - 1.5 % [facility] Granulocytes, immature (%) 0.2 0.0 - 0.9 % [facility] ABSOLUTE NEUTS 4.30 1.92 - 7.60 K/uL [facility] ABSOLUTE LYMPHS 1.05 0.72 - 4.10 K/uL [facility] ABSOLUTE MONOS 0.61 0.16 - 1.10 K/uL [facility] ABSOLUTE EOS 0.17 0.00 - 0.50 K/uL [facility] ABSOLUTE BASOS 0.10 0.00 - 0.15 K/uL [facility] Granulocytes, immature 0.01 0.00 - 0.09 K/uL [facility] Blood 02/09/2025 7:43 AM EDT 02/09/2025 7:51 AM EDT us Rohith MORRISBS LAB BLOOD BKR ORDERABLES F inal Result [address] [address] documented in this encounter Visit Diagnoses Diagnosis Myelodysplastic syndrome- Primary Myelodysplastic syndrome, unspecified documented in this encounter Additional Health Concerns Assessment Noted Time PHQ-9 Depression Total Score: 4 02/25/20 11:31 AM EST PHQ-2 Depression Total Score: 0 02/25/20 11:31 AM EST documented as of this encounter Care Teams Naval Aircrewman Helicopter Relationship Specialty Start Date End Date Enio Morales MD 40 [place] [address] [email or web address] PCP - General Internal Medicine 04/14/24 Enio Morales MD [address] [place] [address] Insurance Assigned Provider 07/21/23 lAvin Denton MD [address] [place] [address] [place] [address] Neurosurgery 04/24/19 Amber Young PA-C [address] [place] [address] Physician Grain Wafer Machine Operator Hematology 03/19/20 Kimi Lyles CNP [address] [place] [address] [email or web address] Nurse Practitioner Medical Oncology 05/24/23 Rohith Pritchett MBBS 30 [place] [address] [email or web address] Primary Oncologist Hematology and Oncology 08/17/23 Rivka Mcbride NP [address] [place] [address] [email or web address] Nurse Practitioner 07/21/24 Genie Trevizo FNP [address] [place] [address] [email or web address] Registered Nurse Nurse Practitioner 12/18/24 documented as of this encounter Additional Source Comments The information contained in this document represents components of the legal health record. It is not the complete legal health record.[facility]
--- OUTSIDE RECORDS SUMMARY | 2025-02-26 07:53 | XMS_ITS | Encounter Summary ---
Author Organization [facility] Address [address] [place] [address] Care Team Providers Care Systems Designer Name Role Phone Enio Morales MD Primary Care Provider [phone] Encounter Details Date Type Department Care Team (Late st Contact Info) Description 06/16/2020 Scanned Document [facility] Neurosurgery [place] 85 [facility] [address] [place] [phone] Alvin Real MD 85 [facility] [place] [address] [place] [address] [phone] Social History Tobacco Use Types Packs/Day Years [...] on filedocumented in this encounter Care Teams Systems Designer Relationship Specialty Start Date End Date Enio Morales MD [address] [place] [address] [phone] PCP - General 09/30/19 documented as of this encounter
--- OUTSIDE RECORDS SUMMARY | 2025-02-26 07:53 | XMS_ITS | Encounter Summary ---
Author Organization [facility] Address [address] [facility] [address] [place] [address] Phone Care Team Providers Care Compliance Consultant Name Role Phone Enio Morales MD Unavailable Abd Alvin Dalal MD Unavailable Amber Young PAFrancescoC Unavailable Kimi Lyles ASTROCHEMIST Unavailable Rohith Pritchett MBBS Unavailable Enio Morales MD Primary Care Provider [phone] Rivka Mcbride PHOTO PRINTER Unavailable Genie TrevizoP Unavailable Encounter Details Date Type Department Care Team (Late st Contact Info) Description 07/07/2024 Transcribe Orders [facility] Oncology Virtual Department 30 [place], [place] [phone] Enio Morales MD 40 [place], [place] [phone] Social History Tobacco Use Types Packs/Day Years [...] EST Blood Draw [facility]H Phleb MG 30 [place] [address] Rohith Pritchett MBBS [address] [place] [address] [email or web address] 03/02/2025 9:20 AM EST Office Visit [facility] at [facility] 30 [place] [address] Rohith Pritchett MBBS [address] [place] [address] [email or web address] 03/02/2025 9:40 AM EST Infusion [facility] at [address] [address] Rohith Pritchett MBBS [address] [place] [address] [email or web address] 03/04/2025 8:40 AM EST Telemedicine [facility] SU[facility] [address] [facility] [place] [address] Елена Montalvo, [facility] [address] [phone] [email or web address] 03/20/2025 10:30 AM EST Office Visit [facility] Medical [facility] Internal Medicine 40 [place] [address] Enio Morales MD 40 [place] [address] [email or web address] 03/23/2025 7:30 AM EST Blood Draw [facility] Phleb [facility] 30 [place] [address] Rohith Pritchett MBBS [address] [place] [address] [email or web address] 03/23/2025 8:40 AM EST Office Visit [facility] at [address] [address] Rohith Pritchett MBBS [address] [place] [address] [email or web address] 03/23/2025 9:20 AM EST Infusion [facility] at [address] [address] Rohith Pritchett MBBS [address] [place] [address] [email or web address] documented as of this encounter Visit Diagnoses Not on filedocumented in this encounter Additional Health Concerns Assessment Noted Time PHQ-9 Depression Total Score: 4 02/25/20 11:31 AM EST PHQ-2 Depression Total Score: 0 02/25/20 11:31 AM EST documented as of this encounter Care Teams Compliance Consultant Relationship Specialty Start Date End Date Enio Morales MD 40 [place] [address] [email or web address] PCP - General Internal Medicine 04/14/24 Enio Morales MD 40 [place] [address] [email or web address] Insurance Assigned Provider 07/21/23 Alvin Denton MD [address] [place] [address] [place] [address] Neurosurgery 04/24/19 Amber Young PA-C [address] [place] [address] Physician Label Designer Hematology 03/19/20 Kimi Lyles CNP [address] [place] [address] Nurse Practitioner Medical Oncology 05/24/23 Rohith Pritchett MBBS [address] [place] [address] [email or web address] Primary Oncologist Hematology and Oncology 08/17/23 Rivka Mcbride NP [address] [place] [address] [email or web address] Nurse Practitioner 07/21/24 Genie Trevizo FNP [address] [place] [address] [email or web address] Registered Nurse Nurse Practitioner 12/18/24 documented as of this encounter Additional Source Comments The information contained in this document represents components of the legal health record. It is not the complete legal health record.[facility]
--- OUTSIDE RECORDS SUMMARY | 2025-02-26 07:53 | XMS_ITS | Encounter Summary ---
Author Organization [facility] Address [address] [place] [address] Care Team Providers Care Power Electronics Research Engineer Name Role Phone Enio Morales MD Primary Care Provider [phone] Encounter Details Date Type Department Care Team (Late st Contact Info) Description 09/11/2019 Scanned Document [facility] Neurosurgery [place] [address] [phone] Alvin Real MD 85 [facility] [place] [address] [place] [address] Social History Tobacco Use Types Packs/Day Years [...] on filedocumented in this encounter Care Teams Power Electronics Research Engineer Relationship Specialty Start Date End Date Enio Morales MD [address] [place] [phone] PCP - General 09/30/19 documented as of this encounter
[2025-02-26 07:55] VITALS: BP 142/90
== END 2025-02-26 08:19 | disposition home or self-care (01) ==
LOC: HO.HWS 07:50
PROVIDERS: PCP Internal Medicine; Visit Provider Obstetrics & Gynecology
DX: Z01.419 Encounter for gynecological examination (general) (routine) without abnormal findings (principal)
CPT/HCPCS: G0101; Q0091

== ENCOUNTER 2025-04-15 07:43 | Outpatient (REF) | payer MEDICARE, SELFPAY ==
--- OUTSIDE RECORDS SUMMARY | 2024-08-19 02:30 | XMS_ITS ---
Author Organization [facility] Address [address] [place] [address] Care Team Providers Care Coordinator Mining Products Name Role Phone Andrew NEWSOME, Enio Primary Care Provider Gunner Sebastian Jr REASON FOR VISIT screening Encounters Encounter Location Date Provider Diagnosis [facility] [place] [address] [place] [phone] 08/19/2024 Gunner العلي Jr Plan Of Treatment No Information Progress Notes * KING HEWITT MDOB:[birth year] (69 yo F)Acc No.[id number]:08/19/2024 COLON WITH MAC Patient: KING HERNANDEZ Sp Provider: Savannah العلي MD :1955 A ge:69 Y S ex:Female Date:08/19/2024 Address:[address] [place], [place] [address] Pcp:Enio Morales MD Subjective: * Chief Complaints: * S creening * The named appointment provid er may or may not be the originator of this progress note, and it is not deemed complete until electronically signed by the appointment provider. Sign off status: Pending * Provider: Savannah العلي MD Date: 0 08/19/2024 Generated for Carlos loving/Nas/eTransmitting on: 1 07:46 AM EST
--- OUTSIDE RECORDS SUMMARY | 2024-08-26 02:30 | XMS_ITS ---
Author Organization [facility] Address [address] [place] [address] Care Team Providers Care Correspondence Analyst Name Role Phone Enio Morales MD Primary Care Provider Gunner Sebastian Jr [phone] REASON FOR VISIT screening Encounters Encounter Location Date Provider Diagnosis [facility] [place] [address] [place], [place] [phone] 08/26/2024 Gunner العلي Jr Colon cancer screening Z12.11 Assessments Encounter Date Diagnosis (ICD Code) Assessment Notes Treatment Notes Treatment Clinical Notes Section Notes 08/26/2024 Colon cancer screening (ICD-10 - Z12.11) Plan Of Treatment No Information Progress Notes * KING HEWITT MDOB:[birth year] (69 yo F)Acc No.[id number]:08/26/2024 COLON WITH MAC Patient: KING HERNANDEZ Provider: Savannah العلي MD :1955 A ge:69 Y S ex:Female Date:08/26/2024 Address:[address] [place], [place] [phone] Pcp:Enio Morales MD Subjective: * Chief Complaints: * S creening Assessment: * Assessment: 1. C olon cancer screening - Z12.11 (Primary) Plan: * Procedure Codes: 4 5378 DIAGNOSTIC COLONOSCOPY Billing Information: * Procedure Codes: 96897 DIAGNOSTIC COLONOSCOPY. * The named appointment provid er may or may not be the originator of this progress note, and it is not deemed complete until electronically signed by the appointment provider. Sign off status: Pending * Provider: Savannah العلي MD Date: 0 08/26/2024 Generated for Carlos loving/Nas/Nikhil on: 1 07:46 AM EST
--- NOTE | ~2025-04-15 | MM_ITS ---
EXAMINATION: MM SCREENING DIGITAL BREAST TOMOSYNTHESIS, BILATERAL CLINICAL INFORMATION: Screening. Asymptomatic. COMPARISON: Mammography: Comparison is made with available priors TECHNIQUE: Digital breast mammography with tomosynthesis is performed in both the craniocaudal and mediolateral oblique views along with computer-aided detection (CAD). FINDINGS: There are scattered areas of fibroglandular density. Left metallic clip again seen. There are no significant masses, abnormal calcifications, or other abnormalities. MM/MM tomosynthesis screening BI IMPRESSION: No mammographic evidence of malignancy. ASSESSMENT: BI-RADS Category 2: Benign RECOMMENDATION: Routine annual mammography screening. 1 year F/U This examination should not preclude the clinical evaluation of a suspicious palpable abnormality. This patient's information was entered into a reminder system with a target due date for their next mammogram. Electronically signed by: Mary Salinas DO 04/17/2025 08:57 AM [email or web address]
--- OUTSIDE RECORDS SUMMARY | 2025-04-15 07:46 | XMS_ITS | Encounter Summary ---
Author Organization [facility] Address [address] [facility] [address] [place] [address] Phone Care Team Providers Care Purchasing Administrator Name Role Phone Enio Morales MD Primary Care Provider Enio Morales MD Unavailable [phone] Alvin Denton MD Unavailable Amber Young PA-C Unavailable Savage Macario MD Unavailable [phone] Amber Young PA-C Unavailable Kimi Lyles CNP Unavailable Rohith Pritchett Unavailable [phone] Genie TrevizoP Primary Care Provider [phone] Pcp, Unknown Primary Care Provider Unavailabl e Enio Morales MD Primary Care Provider Rivka Mcbride NP Unavailable [phone] Genie TrevizoP Unavailable [phone] Encounter Details Date Type Department Care Team (Late st Contact Info) Description 11/07/2019 Orders Only [facility] [address] [place] [phone] Provider, MD Pavithra [address] [place] [address] Social History Tobacco Use Types Packs/Day Years [...] Care Team (Late st Contact Info) Description 05/05/2025 7:30 AM EST Blood Draw [facility] [address] [address] 05/05/2025 8:[address] [facility] [address] [place] [address] 05/25/2025 8:40 AM EST Blood Draw [facility]b [address] [address] 05/25/2025 9:40 AM EST Office Visit [facility] Hematology Oncology Clinic at [address] [address] Rohith Pritchett, MEETA [address] [place] [address] [email or web address] 05/25/2025 10:[address] [facility] [address] [place] [address] 08/12/2025 9:00 AM EDT Office Visit [facility] [address] [place] [address] Enio Morales MD [address] [place] [address] 08/27/2025 7:15 AM EDT Appointment [facility], Bone Density - [address] [address] Enio Morales MD [address] [place] [address] [email or web address] documented as of this encounter Procedures Procedure [...] documented as of this encounter Care Teams Purchasing Administrator Relationship Specialty Start Date End Date Enio Morales MD [address] [place] [address] [email or web address] PCP - General 02/01/17 02/25/24 Genie Trevizo FNP [address] [place] [address] [email or web address] PCP - General Nurse Practitioner 02/26/24 04/07/24 Pcp, Unknown PCP - General 04/08/24 04/13/24 Enio Morales MD [address] [place] [address] [email or web address] PCP - General Internal Medicine 04/14/24 Enio Morales MD [address] [place] [address] [email or web address] Insurance Assigned Provider 07/21/23 Alvin Denton MD [address] [place] [address] [place] [address] Neurosurgery 04/24/19 Amber Young PA-C [address] [place] [address] Physician Base Manager Hematology 03/19/20 08/02/22 Savage Macario MD [address] [place] [address] [email or web address] Primary Oncologist Medical Oncology 10/04/20 08/16/23 Amber Young PA-C [address] [place] [address] [email or web address] Physician Base Manager Hematology 03/19/20 Kimi Lyles CNP [address] [place] [address] [email or web address] Nurse Practitioner Medical Oncology 05/24/23 Rohith Pritchett MBBS [address] [place] [address] [email or web address] Primary Oncologist Hematology and Oncology 08/17/23 Rivka Mcbride, LÁZARO [address] [place] [address] [email or web address] Nurse Practitioner 07/21/24 Genie Trevizo FNP [address] [place] [address] [email or web address] Registered Nurse Nurse Practitioner 12/18/24 documented as of this encounter Additional Source Comments The information contained in this document represents components of the legal health record. It is not the complete legal health record.[facility]
--- OUTSIDE RECORDS SUMMARY | 2025-04-15 07:46 | XMS_ITS | Clinical Summary ---
Author Organization [facility] Address [address] [place] [address] Care Team Providers Care Powerplant Operator Name Role Phone Enio Morales MD Primary Care Provider [phone] Allergies Active Allergy Reactions Criticality Noted Date [...] Influenza Vaccine 11/14/2024 COVID-19 Vaccine ( - 2024-2 6 season) 2024 RSV Vaccine 50 years and old er and Patients (1 - 1-dose 75+ series) 2032 Hepatitis B Vaccines Aged Out No long er eligible based on patient's age to complete this topic Medical Devices Implanted Type Area Process Safety Manager Device Identifier Shelf Expiration Date Model / Serial / Lot [id number] Filler Bone Void 5ml Dbx Putty Nonst - [id number] Implanted:Qt y: 1 on 04/19/2020 by Alvin Real MD at [facility] Void Filler Right: Sacrum [employer]OSKELETAL TRANSPLANT FOU 01/13/2021 [id number] / [id number] / Si Joint Threaded Device Implanted:Qt y: 1 on 04/19/2020 by Alvin Real MD at [facility] Right: Sacrum [employer] MINIMALLY INVASIVE T 02/27/2028 [id number] / / [id number] Threaded Device 12 X 40mm Implanted:Qt y: 1 on 04/19/2020 by Alvin Real MD at [facility] [employer] MINIMALLY INVASIVE T 06/02/2027 [id number] / / [id number] Explanted Type Area Process Safety Manager Device Identifier Shelf Expiration Date Model / Serial / Lot [id number] Pin Navigation 150mm Perc Reference Sterl Disp - [id number] Explanted:Qty: 1 on 04/19/2020 by Alvin Real MD at [facility] Wire Right: Sacrum [employer] MINIMALLY INVASIVE T 01/07/2023 [id number] / / [id number] Description:DISPOSABLE SUPPL Y , NOT IMPLANT [place] [id number] [facility] Care Teams Powerplant Operator Relationship Specialty Start Date End Date Enio Morales MD [address] [place] [address] PCP - General 09/30/19
--- OUTSIDE RECORDS SUMMARY | 2025-04-15 07:46 | XMS_ITS ---
Author Organization [facility] Address [address] [employer] [facility] [address] [place] [address] Phone Care Team Providers Care Senior Mechanical Development Engineer Name Role Phone Enio Morales MD Unavailable [phone] Alvin Dalal MD Unavailable Amber Young PA-C Unavailable Kimi Lyles SHOP GIRL Unavailable Rohith Pritchett MBBS Unavailable Enio Morales MD Primary Care Provider Rivka Mcbride HARNESS MENDER Unavailable Genie Trevizo TEMPERING KILN TENDER Unavailable Active Problems Patient Care Coordination No te Formatting of this note migh t be different from the original. Height 160.8cm no shoes taken by OC 05/29/2023 Please call daughter Myla to schedule appointments, Problem Noted Date Diagnosed Date Essential hypertension 03/04/2025 Age-related osteoporosis wit hout current pathological fracture 03/04/2025 Shortness of breath 12/26/2023 Palpitations 12/26/2023 Assessment & Plan (12/26/2023 8:35 AM EDT): I have ordered her a 7-day MCOT monitor and an echocardiogram Nausea 10/23/2023 Myelodysplastic syndrome 04/17/2023 Assessment & Plan (03/23/2025 9:01 AM EST): IMPRESSION: This is a 69-year-old [...] at night: Consistent with obstructive sleep apnea Skin lesions -unrelated to her MDS or current treatment. DISCUSSION: I discussed overall impression, natural history [...] marrow transplant. I recommended evaluation by MDS/MPD/BMT [facility]. Patient was seen by Dr. Trujillo at [facility] BMT/MDS clinic. Please see above for [...] next injection - RN visit only FU with me on 05/25/2025 -already scheduled Thank you very much for allowing to participate in this patient's care Assessment & Plan (03/01/2025 5:10 PM EST): IMPRESSION: This is a 69-year-old woman [...] marrow transplant. I recommended evaluation by MDS/MPD/BMT [facility]. Patient was seen by Dr. Trujillo at [facility] BMT/MDS clinic. Please see above for [...] in this patient's care Assessment & Plan (10/06/2024 8:49 AM EDT): [...] marrow transplant. I recommended evaluation by MDS/MPD/BMT [facility]. Patient was seen by Dr. Trujillo at [facility] BMT/MDS clinic. Please see above for [...] marrow transplant. I recommended evaluation by MDS/MPD/BMT [facility] clinic. Patient was seen by Dr. Trujillo at [facility] BMT/MDS clinic. Please see above for [...] marrow transplant. I recommended evaluation by MDS/MPD/BMT [facility] clinic. Patient was seen by Dr. Trujillo at [facility] BMT/MDS clinic. Please see above for [...] marrow transplant. I recommended evaluation by MDS/MPD/BMT [facility]. Patient was seen by Dr. Trujillo at [facility] BMT/MDS clinic. Please see above for [...] marrow transplant. I recommended evaluation by MDS/MPD/BMT [facility]. Patient was seen by Dr. Trujillo at [facility] BMT/MDS clinic. Please see above for [...] marrow transplant. I recommended evaluation by MDS/MPD/BMT [facility] clinic. Patient was seen by Dr. Trujillo at [facility] BMT/MDS clinic. Please see above for [...] marrow transplant. I recommended evaluation by MDS/MPD/BMT [facility] clinic. Patient was seen by Dr. Trujillo at [facility] BMT/MDS clinic. Please see above for [...] marrow transplant. I recommended evaluation by MDS/MPD/BMT [facility]. Patient was seen by Dr. Trujillo at [facility] BMT/MDS clinic. Please see above for [...] marrow transplant. I recommended evaluation by MDS/MPD/BMT [facility]. Patient was seen by Dr. Trujillo at [facility] BMT/MDS clinic. Please see above for [...] their satisfaction. I recommended evaluation by MDS/MPD/BMT [facility]. I also explained that her ongoing aches and pains are likely unrelated to this underlying bone marrow disorder. RECOMMENDATIONS: Patient is already referred to [facility] Follow-up with me after the above-mentioned is [...] marrow transplant. I recommended evaluation by MDS/MPD/BMT [facility]. RECOMMENDATIONS: Refer to [facility] Follow-up with me after the above-mentioned is [...] from warm pool therapy such as at [facility] versus [facility] in [place] versus [facility] [facility] in [place] Bone pain 10/12/2021 Assessment & Plan (10/12/2021 [...] thus far. Carefully continue close follow-up with radio program checker/oncologist as scheduled every 3 months. Inflammation of [...] reveal any abnormalities of concern and her nduk-rtt-quvqcct sensation persists or progresses she would benefit [...] marrow failure Treatment Medications Current Day (Day 1, Cycle 26 - Planned for 04/15/2025) No medications scheduled. No medications schedul ed. Past Treatment and Therapy Plans No past plan information found.
--- OUTSIDE RECORDS SUMMARY | 2025-04-15 07:46 | XMS_ITS | Encounter Summary ---
Author Organization [facility] Address [address] [place] [address] Phone Care Team Providers Care Marshmallow Machine Worker Name Role Phone Enio Morales MD Unavailable Abd Alvin Dalal MD Unavailable Amber Young PA-C Unavailable Kimi Lyles ROCKET ASSEMBLY OPERATOR Unavailable Rohith Pritchett Unavailable Enio Morales MD Primary Care Provider Rivka Mcbride LAMINATING MACHINE OPERATOR Unavailable Genie TrevizoP Unavailable Encounter Details Date Type Department Care Team (Late st Contact Info) Description 11/14/2024 Telephone [facility] [address] [place] [address] Rohith Pritchett MBBS [address] [place], [place] [phone] [email or web address] Social History Tobacco Use Types Packs/Day [...] AM EST Blood Draw [facility] Ph[facility]b [facility] [address] [place] [address] 05/05/2025 8:40 AM EST Infusion [facility] [address] [place] [address] 05/25/2025 8:40 AM EST Blood Draw [facility] Phleb [facility] [address] [place] [address] 05/25/2025 9:40 AM EST Office Visit [facility] Hematology Oncology Clinic at [place] [address] [place] [address] Rohith Pritchett, MEETA [address] [place] [address] [email or web address] 05/25/2025 10:20 AM EST Infusion [facility] [address] [place] [address] 08/12/2025 9:00 AM EDT Office Visit [facility] [address] [place] [address] Enio Morales MD [address] [place] [address] 08/27/2025 7:15 AM EDT Appointment [facility], Bone [address] [address] Enio Morales MD [address] [place] [address] [email or web address] documented as of this encounter Visit Diagnoses Not on filedocumented in this encounter Additional Health Concerns Assessment Noted Time PHQ-9 Depression Total Score: 4 02/25/20 24 11:31 AM EST PHQ-2 Depression Total Score: 0 02/25/20 24 11:31 AM EST documented as of this encounter Care Teams Marshmallow Machine Worker Relationship Specialty Start Date End Date Enio Morales MD [address] [place] [address] PCP - General Internal Medicine 04/14/24 Enio Morales MD [address] [place] [address] Insurance Assigned Provider 07/21/23 Alvin Denton MD [address] [place] [address] [place] [address] Neurosurgery 04/24/19 Amber Young PA-C [address] [place] [address] Physician Coding Coordinator Hematology 03/19/20 Kimi Lyles CNP [address] [place] [address] [email or web address] Nurse Practitioner Medical Oncology 05/24/23 Rohith Pritchett MBBS [address] [place] [address] [email or web address] Primary Oncologist Hematology and Oncology 08/17/23 Rivka Mcbride, LÁZARO [address] [place] [address] [email or web address] Nurse Practitioner 07/21/24 Genie Trevizo FNP [address] [place] [address] [email or web address] Registered Nurse Nurse Practitioner 12/18/24 documented as of this encounter Additional Source Comments The information contained in this document represents components of the legal health record. It is not the complete legal health record.[facility]
--- OUTSIDE RECORDS SUMMARY | 2025-04-15 07:46 | XMS_ITS | Encounter Summary ---
Author Organization [facility] Address [address] [place] [address] Care Team Providers Care Operations Specialist Name Role Phone Enio Morales MD Primary Care Provider [phone] Encounter Details Date Type Department Care Team (Late st Contact Info) Description 06/16/2020 Scanned Document [facility] Neurosurgery [place] [address] [facility] [address] [place] [phone] Alvin Real MD [address] [facility] [place] [address] [place] [phone] Social History Tobacco Use Types Packs/Day Years [...] on filedocumented in this encounter Care Teams Operations Specialist Relationship Specialty Start Date End Date Enio Morales MD [address] [place] [address] [phone] PCP - General 09/30/19 documented as of this encounter
--- OUTSIDE RECORDS SUMMARY | 2025-04-15 07:46 | XMS_ITS | Patient Health Record ---
Author Organization [facility] Susan Valderrama Address [address] [place] [address] Care Team Providers Care Prison Warden Name Role Phone Enio Morales MD Primary Care Provider Daisy Lopez Unavailable [phone] Allergies Allergen (clinical drug ingredient) Drug/Non Drug [...] Status Risk Notes Problem Plantar fascial fibromatosis (72340370) Plantar fascial fibromatosis (M72.2) Active confirmed Plan Of Treatment Pending Test Test Name Order Date X ray : Foot, right 2V 08/29/2012 [id number] TENDON SHEATH/LIGAMENT 0 08/29/2012 Insurance Providers Payer Name Payer Address Payer Phone Subscriber Number Group Number Insured Name Patient Relationship to Insured Coverage Start Date Coverage End Date Medicare National Govt Sv[employer] [address] [place] [address] [id number] Bettina Castrejon Self - patient is the insured [employer] [address] [place] [address] [id number] Bettina Castrejon Self - patient is the insured Medical (General) History Medical History History ICD Code mumps measles chicken pox Cancer Joint implants/screws Bone marrow cancer, red blood cell cance r Surgical History Surgery Date(Month/Year) knee surgery 2017 Hand Surgery 2014 back surgery 2020
--- OUTSIDE RECORDS SUMMARY | 2025-04-15 07:46 | XMS_ITS | Encounter Summary ---
Author Organization [facility] Address [address] [place] [address] Care Team Providers Care Outboard Motor Inspector Name Role Phone Enio Morales MD Primary Care Provider [phone] Encounter Details Date Type Department Care Team (Late st Contact Info) Description 08/04/2020 Scanned Document [facility] Neurosurgery [place] [address] [facility] [address] [place] [phone] Alvin Real MD [address] [facility] [place] [address] [place] [address] [phone] Social History Tobacco Use Types Packs/Day Years [...] on filedocumented in this encounter Care Teams Outboard Motor Inspector Relationship Specialty Start Date End Date Enio Morales MD [address] [place] [address] [phone] PCP - General 09/30/19 documented as of this encounter
--- OUTSIDE RECORDS SUMMARY | 2025-04-15 07:46 | XMS_ITS | Encounter Summary ---
Author Organization [facility] Address [address] [place] [address] Care Team Providers Care Gas Or Water Meter Installer Name Role Phone Enio Morales MD Primary Care Provider [phone] Encounter Details Date Type Department Care Team (Late st Contact Info) Description 05/24/2020 Scanned Document [facility] Neurosurgery [address] [place] [phone] Alvin Real MD [address] [facility] [place] [address] [place] [phone] Social History Tobacco Use Types Packs/Day Years [...] filedocumented in this encounter Care Teams Gas Or Water Meter Installer Relationship Specialty Start Date End Date Enio Moraels MD [address] [place] [address] [phone] PCP - General 09/30/19 documented as of this encounter
--- OUTSIDE RECORDS SUMMARY | 2025-04-15 07:46 | XMS_ITS | Clinical Summary ---
Author Organization [facility] Address [address] [facility] [address] [place] [address] Phone Care Team Providers Care Compliance Associate Name Role Phone Enio Morales MD Unavailable Abd Alvin Dalal MD Unavailable Amber Young PA-C Unavailable Kimi Lyles EVENT SERVICES MANAGER Unavailable Rohith Pritchett Unavailable Enio Morales MD Primary Care Provider Rivka Mcbride PE TEACHER Unavailable Genie TrevizoP Unavailable Allergies Active Allergy Reactions Criticality Noted Date Comments Codeine Itching 05/01/2017 Medications multivitamins Chew Take 1 tablet by mouth daily. Active betamethasone dipropionate 0.05 % cream Apply 1 application. topically 2 (two) times a day. 023 Active blood pressure monitor KitIndications: Benign essential hypertension 1 Units by Miscellaneous route daily. 1 kit 024 Active ciclopirox (LOPROX) 1 % shampoo Apply 1 Application topically. Twice a month 025 Active sodium bicarbonate/cit hira acid (LACY-SELTZER HEARTBURN ORAL) Take 2 tablets by mouth as needed (for heartburn). Active diphenhydrAMINE (BENADRYL) 25 mg capsule Take 25 mg by mouth nightly at bedtime as needed. Active EPOETIN SAGRARIO INJ Inject as directed. [id number] Active pantoprazole (PROTONIX) 40 MG tabletIndicatio ns:Gastroesopha geal reflux disease without esophagitis TAKE 1 TABLET(40 MG) BY MOUTH DAILY 90 tablet 3 025 Active buPROPion (WELLBUTRIN XL) 300 MG ER 24 hr tabletIndicatio ns:Depression, unspecified depression type Take 1 tablet (300 mg total) by mouth every morning. 90 tablet 3 025 Active amLODIPine (NORVASC) 5 MG tabletIndicatio ns:Essential hypertension Take 1 tablet (5 mg total) by mouth 2 (two) times a day. 180 tablet 3 025 Active oxyCODONE-aceta minophen (PERCOCET) 10-325 mg per tabletIndicatio ns:Chronic bilateral low back pain with bilateral sciatica,Opiate use,MDS (myelodysplasti c syndrome) Take 1 tablet by mouth every 4 (four) hours as needed for pain (specific location in comments). Not to exceed 6 tablets per day. Partial fill ok 168 tablet 026 2025 Active pantoprazole (PROTONIX) 40 MG tabletIndicatio ns:Gastroesopha geal reflux disease without esophagitis TAKE 1 TABLET(40 MG) BY MOUTH DAILY 90 tablet 3 024 2024 Discontinued amLODIPine (NORVASC) 5 MG tabletIndicatio ns:Essential hypertension TAKE 1 TABLET(5 MG) BY MOUTH DAILY 100 tablet 3 025 2024 Discontinued buPROPion (WELLBUTRIN XL) 300 MG ER 24 hr tabletIndicatio ns:Depression, unspecified depression type Take 1 tablet (300 mg total) by mouth every morning. 90 tablet 1 025 2024 Discontinued(R eorder) oxyCODONE-aceta minophen (PERCOCET) 10-325 mg per tabletIndicatio ns:Chronic bilateral low back pain with bilateral sciatica,Opiate use,MDS (myelodysplasti c syndrome) Take 1 tablet by mouth every 4 (four) hours as needed for pain (specific location in comments). Not to exceed 6 tablets per day. Partial fill ok 168 tablet 025 2024 Discontinued(R eorder) Active Problems Patient Care Coordination No te [...] marrow transplant. I recommended evaluation by MDS/MPD/BMT [facility]. Patient was seen by Dr. Trujillo at [facility] BMT/MDS clinic. Please see above for his [...] marrow transplant. I recommended evaluation by MDS/MPD/BMT [facility] clinic. Patient was seen by Dr. Trujillo at [facility] BMT/MDS clinic. Please see above for his [...] marrow transplant. I recommended evaluation by MDS/MPD/BMT [facility]. Patient was seen by Dr. Trujillo at [facility] BMT/MDS clinic. Please see above for his [...] marrow transplant. I recommended evaluation by MDS/MPD/BMT [facility]. Patient was seen by Dr. Trujillo at [facility] BMT/MDS clinic. Please see above for his [...] marrow transplant. I recommended evaluation by MDS/MPD/BMT [facility]. Patient was seen by Dr. Trujillo at [facility] BMT/MDS clinic. Please see above for his [...] marrow transplant. I recommended evaluation by MDS/MPD/BMT [facility]. Patient was seen by Dr. Trujillo at [facility] BMT/MDS clinic. Please see above for his [...] marrow transplant. I recommended evaluation by MDS/MPD/BMT [facility]. Patient was seen by Dr. Trujillo at [facility] BMT/MDS clinic. Please see above for his [...] marrow transplant. I recommended evaluation by MDS/MPD/BMT [facility]. Patient was seen by Dr. Trujillo at [facility] BMT/MDS clinic. Please see above for his [...] marrow transplant. I recommended evaluation by MDS/MPD/BMT [facility]. Patient was seen by Dr. Trujillo at [facility] BMT/MDS clinic. Please see above for his [...] marrow transplant. I recommended evaluation by MDS/MPD/BMT [facility]. Patient was seen by Dr. Trujillo at [facility] BMT/MDS clinic. Please see above for his [...] marrow transplant. I recommended evaluation by MDS/MPD/BMT [facility] clinic. Patient was seen by Dr. Trujillo at [facility] BMT/MDS clinic. Please see above for his [...] their satisfaction. I recommended evaluation by MDS/MPD/BMT [facility] clinic. I also explained that her ongoing aches and pains are likely unrelated to this underlying bone marrow disorder. RECOMMENDATIONS: Patient is already referred to [facility] BMT clinic Follow-up with me after the [...] marrow transplant. I recommended evaluation by MDS/MPD/BMT [facility]. RECOMMENDATIONS: Refer to [facility] BMT clinic Follow-up with me after the [...] warm pool therapy such as at local [facility] versus [facility] in [place] versus [employer] in [place] Bone pain 10/12/2021 Assessment & Plan (10/12/2021 [...] thus far. Carefully continue close follow-up with bleach supervisor/oncologist as scheduled every 3 months. Inflammation of [...] reveal any abnormalities of concern and her dobn-yei-[id number] sensation persists or progresses she would benefit [...] Encounters Date Type Department Care Team Description 04/13/2025 Telephone [facility] Infusion Center [address] [place] [address] Kimi Rodriguez, HO 04/13/[address] [address] Kimi Rodriguez, RN 04/10/2025 Orders Only [facility] H[facility] Oncology Clinic at [address] [address] Rivka Mcbride NP 04/10/2025 Refill [facility] [address] [place] [address] Enio Morales MD Medication Refill (CSRP) 03/23/2025 9:20 AM EST Infusion [facility] Infusion [address] [address] Rohith Pritchett MBBS Myelodysplastic syndrome (Primary Dx); 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 03/23/2025 8:40 AM EST Office Visit [facility] On[facility] Clinic at [address] [address] Rohith rPitchett MBBS Myelodysplastic syndrome (Primary Dx); Monoclonal B-cell lymphocytosis of undetermined significance; 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 03/23/2025 Telephone [facility] Oncology Clinic at [address] [address] Rohith Pritchett MBBS B12 Injection 03/20/2025 10:30 AM EST Office Visit [facility] [address] [place] [address] Enio Morales MD Chronic bilateral low back pain with bilateral sciatica (Primary Dx); Opiate use; MDS (myelodysplastic syndrome); Long-term current use of opiate analgesic; Age-related osteoporosis without current pathological fracture; Depression, unspecified depression type; Essential hypertension 03/18/2025 Refill [facility] [address] [place] [address] Enio Morales MD Medication Refill 03/17/2025 Orders Only [facility] H[facility] Oncology Clinic at [address] [address] [place] Myelodysplastic syndrome (Primary Dx) 03/13/2025 Refill [facility] [address] [place] [address] Enio Morales MD Medication Refill (CSRP) 03/06/2025 Orders Only [facility] [address] [place] [address] Pavithra Castillo MD 03/02/2025 9:20 AM EST Office Visit [facility] H[facility] Oncology Clinic at [address] [address] Rohith Pritchett MBBS 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 (Primary Dx); Monoclonal B-cell lymphocytosis of undetermined significance; Myelodysplastic syndrome 02/24/2025 Orders Only [facility] H[facility] Oncology Clinic at [address] [address] [place], [place] Myelodysplastic syndrome (Primary Dx) 02/24/2025 Telephone [facility] [address] [place] [address] Enio Morales MD Care Coordination ([facility] Out[facility]/) 02/12/2025 Refill [facility] [address] [place] [address] Enio Morales MD Medication Refill (CSRP) 02/12/2025 Telephone [facility] [address] [place] [address] Enio Morales MD Care Coordination ([facility]/) 02/09/2025 9:00 AM EDT Infusion [facility] Infusion Center [address] [place] [address] Rohith Pritchett MBBS Myelodysplastic syndrome (Primary Dx); 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 02/09/2025 7:30 AM EDT - 02/09/2025 11:59 PM EDT Hospital Encounter [facility] [address] [address] Rohith Pritchett MBBS Discharge Disposition: Home or Self Care 02/09/2025 Orders Only [facility] Oncology Clinic at [address] [address] Saranya Handy Myelodysplastic syndrome (Primary Dx) 02/06/2025 Orders Only [facility] On[facility] Clinic at [address] [address] Genie Trevizo FNP 02/06/2025 Orders Only [facility] On[facility] Clinic at [address] [address] Tasia Patrick CMA Myelodysplastic syndrome (Primary Dx) 01/19/2025 8:40 AM EDT Infusion [address] [address] Rohith Pritchett MBBS Flynn, Margaret Broad, RN 01/19/2025 7:40 AM EDT - 01/19/2025 11:59 PM EDT Hospital Encounter [facility] [address] [address] Rohith Pritchett MBBS Discharge Disposition: Home or Self Care 01/16/2025 Refill [facility] [address] [place] [address] Enio Morales MD Medication Refill (CSRP) 01/16/2025 Orders Only [facility] H[facility] Oncology Clinic at [address] [address] Tasia Patrick CMA Myelodysplastic syndrome (Primary Dx) from Last 3 Months Immunizations Immunization Administration Dates Next Due COVID-19 (Pre-02/05) Moderna Vaccine, mRNA, PF 08/24/2020,07/27/2020 INFLUENZA, SPLIT VIRUS, TRIVALENT PF 03/01/2016, 04/06/2015 INFLUENZA, SPLIT VIRUS, TRIV ALENT W/ PRESERVATIVE IM 01/20/2014,01/29/2012,01/11/2011 Influenza High-Dose Quadriva lent Preservative Free IM 01/19/2023 Influenza Quadrivalent Prese rvative Free IM 01/24/2022,01/20/2021,01/30/2020,2018,02/20/2018 Influenza Trivalent Adjuvant ed Preservative free IM 01/21/2025,01/31/2024 Influenza trivalent preserva tive free intradermal 02/11/2013 [...] Sign Reading Time Taken Comments Blood Pressure 140/80 03/23/2025 8:31 AM EST Pulse 96 03/23/2025 8:31 AM EST Temperature 36.3 C (97.3 F) 03/23/2025 8:31 AM EST Respiratory Rate 16 12/10/2024 8:06 AM EDT Oxygen Saturation 95% 03/23/2025 8:31 AM EST Inhaled Oxygen Concentration - - Weight 57.2 kg (126 lb 3.2 oz) 03/23/2025 8:28 A M EST Height 160.7 cm (5' 3.27 ) 03/23/2025 8:28 AM ES T Body Mass Index 22.17 03/23/2025 8:28 AM EST Plan of Treatment Upcoming Encounters Date Type Department Care Team (Late st Contact Info) Description 05/05/2025 7:30 AM EST Blood Draw [facility] [address] [place] [address] 05/05/2025 8:40 AM EST Infusion [facility] Infusion Center [address] [place] [address] 05/25/2025 8:40 AM EST Blood Draw [facility] [address] [place] [address] 05/25/2025 9:40 AM EST Office Visit [facility] Hematology Oncology Clinic at [address] [address] Rohith Pritchett MBBS [address] [place] [address] [email or web address] 05/25/2025 10:20 AM EST Infusion [facility] Infusion Center [address] [place] [address] 08/12/2025 9:00 AM EDT Office Visit [facility] [address] [place] [address] Enio Morales MD [address] [place], [place] [phone] [email or web address] 08/27/2025 7:15 AM EDT Appointment [facility] Bone Density - [address] [address] Enio Morales MD [address] [place], [place] [phone] [email or web address] Health Maintenance Due Date Last Done Comments COLOGUARD 2002 FOBT 2002 SIGMOIDOSCOPY 2002 VIRTUAL COLONOSCOPY 2002 RSV VACCINE (1 - Risk 50-74 years 1-dose series) 2007 FIT TEST 01/25/2020 01/24/2019 COVID-19 VACCINE ( season) 2025 01/21/2025, 01/31/2024, 01/25/2023, Additional history exists BLOOD PRESSURE 09/21/2025 03/23/2025 DEPRESSION SCREENING 03/20/2026 03/20/2025, 03/20/20 25 MAMMOGRAM 06/26/2026 06/26/2024, 03/17, 03/13/2023, Additional history exists LIPID PANEL 04/08/2029 04/08/2024, 07/15, 07/31/2022, Additional history exists COLONOSCOPY 08/26/2029 08/26/2024, 10/16, 04/29/2014 COLORECTAL CANCER SCREENING 08/26/2029 Adult Td,Tdap Booster 02/08/2030 02/09/2020 , 02/07/2020, 06/14/2005 HEPATITIS C SCREENING Completed 02/09/2020, 020 ZOSTER VACCINES Completed 10/20/2020, 02/09/2020 OSTEOPOROSIS SCREENING INITIAL (ONE-TIME) Completed 06/07/2023 PNEUMOCOCCAL VACCINES (50+ years) Completed 09/04/2024 INFLUENZA VACCINE Completed 01/21/2025, , 01/19/2023, Additional history exists SMOKING STATUS SCREENING (Once After 26 Yrs) Completed 03/23/2025 HEPATITIS A VACCINES Aged Out No long [...] this topic Medical Devices Implanted Type Area Converting Supervisor Device Identifier Shelf Expiration Date Model / Serial / Lot Prosthetic Joint Prosthetic Joint Right: Knee Procedures Procedure Name Priority Date/Time Associated Diagnosis Comments CBC AND DIFFERENTIAL Routine 03/23/2025 7:43 AM EST Myelodysplastic syndrome IRON AND IRON BINDING CAPACITY Routine 03/23/2025 7:43 AM EST Myelodysplastic syndrome FERRITIN Routine 03/23/2025 7:43 AM EST Myelodysplastic syndrome COMPREHENSIVE METABOLIC PANEL (CMP) Routine 03/23/2025 7:43 AM EST Myelodysplastic syndrome CBC AND DIFFERENTIAL Routine 03/23/2025 7:43 AM EST Myelodysplastic syndrome TOXICOLOGY SCREEN, URINE Routine 03/20/2025 11:28 AM EST Chronic bilateral low back pain with bilateral sciatica Opiate use MDS (myelodysplastic syndrome) Long-term current use of opiate analgesic CBC AND DIFFERENTIAL Routine 03/02/2025 8:56 AM EST Myelodysplastic syndrome FERRITIN Routine 03/02/2025 8:56 AM EST Myelodysplastic syndrome COMPREHENSIVE METABOLIC PANEL (CMP) Routine 03/02/2025 8:56 AM EST Myelodysplastic syndrome CBC AND DIFFERENTIAL Routine 03/02/2025 8:56 AM EST Myelodysplastic syndrome OUTSIDE LAB Routine 02/26/2025 2:19 PM EST IRON AND IRON BINDING CAPACITY Routine 02/09/2025 [...] Routine 01/19/2025 7:46 AM EDT Myelodysplastic syndrome COLONOSCOPY FOR RESULT ENTRY ONLY Routine 08/26/2024 1:34 PM EDT BI MRI BREAST (BILATERAL) Routine 06/26/2024 9:24 AM EDT Breast pain, right LIPID PANEL Routine 04/08/2024 7:53 AM EST Lipid screening DEXA SCAN Routine 06/07/2023 10:14 AM EST HEPATITIS C ANTIBODY, QUALITATIVE Routine 02/09/2020 HC BLOOD OCCULT FECAL HGB DETER IA QUAL FECES 1-3 Routine 01/24/2019 7:00 AM EDT Anemia, unspecified type from Last 3 Months or Most Recently Relevant to Health Maintenance Results * (ABNORMAL) Comprehensive Metabolic Panel (CMP) (03/23/2025 7:43 AM EST) Only the most recent of4 resultswithin the time period is included. Sodium 138 136 - 145 mmol/L 03/23/2025 8:32 AM [facility] Potassium 4.5 3.4 - 5.1 mmol/L 03/23/2025 8:32 AM [facility] Chloride 100 98 - 107 mmol/L 03/23/2025 8:32 AM [facility] CO2 26 20 - 31 mmol/L 03/23/2025 8:32 AM [facility] BUN 14 6 - 23 mg/dL 03/23/2025 8:32 AM [facility] Creatinine 0.50 0.50 - 1.00 mg/dL 03/23/2025 8:32 AM [facility] Glucose 105(H) 70 - 99 mg/dL 03/23/2025 8:32 AM [facility] Calcium 9.5 8.5 - 10.5 mg/dL 03/23/2025 8:32 AM [facility] AST 19 <33 U/L 03/23/2025 8:32 AM [facility] ALT 13 <34 U/L 03/23/2025 8:32 AM [facility] Alkaline Phosphatase 71 40 - 130 U/L 03/23/2025 8:32 AM [facility] Bilirubin, Total 0.4 0.0 - 1.2 mg/dL 03/23/2025 8:32 AM [facility] Total Protein 7.9 6.4 - 8.3 g/dL 03/23/2025 8:32 AM [facility] Albumin 4.9 3.5 - 5.2 g/dL 03/23/2025 8:32 AM [facility] Globulin 3.0 1.9 - 4.1 g/dL 03/23/2025 8:32 AM [facility] eGFR 103 >59 mL/min/1.7 3m2 03/23/2025 8:32 AM [facility] Comment:Estimated glomerular filtration rate calculated using the CKD-EPI refit equation. Anion Gap 12 3 - 17 mmol/L 03/23/2025 8:32 AM [facility] Blood (Blood) Venipuncture / Unknown 03/23/2025 7:43 AM EST 03/23/2025 7:47 AM EST us Rohith Pritchett MBBS LAB BLOOD BKR ORDERABLES F inal Result [facility] [address] [place] [address] * (ABNORMAL) CBC and Differential (03/23/2025 7:43 AM EST) Only the most recent of2 resultswithin the time period is included. WBC 5.66 4.00 - 11.00 K/uL 03/23/2025 8:02 AM [facility] RBC 3.47(L) 4.00 - 5.20 M/uL 03/23/2025 8:02 AM [facility] Hemoglobin 10.5(L) 12.0 - 16.0 g/dL 03/23/2025 8:02 AM [facility] Hematocrit 33.6(L) 36.0 - 46.0 % 03/23/2025 8:02 AM [facility] MCV 96.8 80.0 - 100.0 fL 03/23/2025 8:02 AM [facility] MCH 30.3 27.0 - 31.0 pg 03/23/2025 8:02 AM [facility] MCHC 31.3(L) 32.0 - 36.0 g/dL 03/23/2025 8:02 AM [facility] MPV 11.0 8.4 - 12.0 fL 03/23/2025 8:02 AM [facility] RDW-CV 20.2(H) 11.5 - 14.5 % 03/23/2025 8:02 AM [facility] PLT 447 150 - 450 K/uL 03/23/2025 8:02 AM [facility] Neutrophils 63.5 % 03/23/2025 8:02 AM [facility] Lymphocytes 21.4 % 03/23/2025 8:02 AM [facility] Monocytes 10.8 % 03/23/2025 8:02 AM [facility] Eosinophils 2.1 % 03/23/2025 8:02 AM [facility] Basophils 1.8 % 03/23/2025 8:02 AM [facility] Imm Grans 0.4 % 03/23/2025 8:02 AM [facility] NRBC 0.9(H) <=0.0 /100 WBCs 03/23/2025 8:02 AM [facility] Absolute Neutrophils 3.60 1.92 - 7.60 K/uL 03/23/2025 8:02 AM [facility] Absolute Lymphocytes 1.21 0.72 - 4.10 K/uL 03/23/2025 8:02 AM [facility] Absolute Monocytes 0.61 0.16 - 1.10 K/uL 03/23/2025 8:02 AM [facility] Absolute Eosinophils 0.12 0.00 - 0.50 K/uL 03/23/2025 8:02 AM [facility] Absolute Basophils 0.10 0.00 - 0.15 K/uL 03/23/2025 8:02 AM [facility] Absolute Imm Grans 0.02 0.00 - 0.09 K/uL 03/23/2025 8:02 AM [facility] Absolute NRBC 0.05(H) <=0.00 K cells/uL 03/23/2025 8:02 AM [facility] Absolute Neutrophils 3.60 1.92 - 7.60 K/uL 03/23/2025 8:02 AM [facility] Comment:Automated cell count . Manual ANC may differ if performed. Diff Type Auto 03/23/2025 8:02 AM [facility] Blood (Blood) Venipuncture / Unknown 03/23/2025 7:43 AM EST 03/23/2025 7:47 AM EST Rohith TIM LAB BLOOD BKR ORDERABLES F inal Result Performing Organization Address City/[facility]/ZIP Co de Phone Number [address] [address] * (ABNORMAL) Iron and Total Iron Binding Capacity (Iron/TIBC) (03/23/2025 7:43 AM EST) Only the most recent of3 resultswithin the time period is included. Iron 180(H) 28 - 170 ug/dL 03/23/2025 8:32 AM EST [facility] Total Iron-Binding Capacity (TIBC) 277 220 - 460 ug/dL 03/23/2025 8:32 AM EST [facility] Transferrin Saturation 65(H) 14 - 50 % 03/23/2025 8:32 AM EST [facility] Blood (Blood) Venipuncture / Unknown 03/23/2025 7:43 AM EST 03/23/2025 7:47 AM EST [facility] LAB BLOOD BKR ORDERABLES F inal Result Performing Organization Address [facility]/ZIP Co de Phone Number [address] [address] * (ABNORMAL) Ferritin (03/23/2025 7:43 AM EST) Only the most recent of2 resultswithin the time period is included. Ferritin 460(H) 30 - 150 ug/L 03/23/2025 8:32 AM EST [facility] Blood (Blood) Venipuncture / Unknown 03/23/2025 7:43 AM EST 03/23/2025 7:47 AM EST us Ahmad D Pritchett [facility] LAB BLOOD BKR ORDERABLES F inal Result Performing Organization Address City/[facility]/ZIP Co de Phone Number [address] [address] * (ABNORMAL) Toxicology Screen, Urine (03/20/2025 11:28 AM EST) Pathologist [facility] Amphetamines, Urine Negative Negative 03/20/2025 9:43 PM [facility] Benzodiazepin e, Urine Negative Negative 03/20/2025 9:43 PM [facility] Cocaine Metabolite, Urine Positive(A) Negative 03/20/2025 9:43 PM [facility] Opiates, Urine Negative Negative 03/20/2025 9:43 PM [facility] Oxycodone, Urine Positive(A) Negative 03/20/2025 9:43 PM [facility] Fentanyl, Urine Negative Negative 03/20/2025 9:43 PM [facility] Creatinine, Urine 142 20 - 300 mg/dL 03/20/2025 9:43 PM [facility] Urine (Urine, Voided) Non-Blood Collection / Unknown 03/20/2025 11:28 AM EST 03/20/2025 11:29 AM EST Narrative [facility] - 03/20/2025 9:43 PM EST This screening test was performed by immunoassay methodology, which may occasionally yield false-negative or false-positive results. Confirmatory testing can be requested if a definitive result is needed. Results are to be used only for medical (ie, treatment) purposes. Unconfirmed screening results must not be used for non-medical purposes (eg, employment testing). Enio Morales MD LAB URINE ORDERABLES Final [facility] [address] [address] * Outside Lab (Non-MGB) (02/26/2025 2:19 PM EST) Historical Provider LAB BLOOD BKR ORDERABLES Final Result * (ABNORMAL) CBC and differential (02/09/2025 7:43 AM EDT) Only the most recent of2 resultswithin the time period is included. Pathologist [facility] WBC 6.24 4.00 - 11.00 K/uL [facility] RBC 3.44(L) 4.00 - 5.20 M/uL [facility] HGB 10.5(L) 12.0 - 16.0 g/dL [facility] HCT 32.9(L) 36.0 - 46.0 % [facility] PLT 436 150 - 450 K/uL [facility] MCV 95.6 80.0 - 100.0 fL [facility] MCH 30.5 27.0 - 31.0 pg [facility] MCHC 31.9(L) 32.0 - 36.0 g/dL [facility] RDW 19.5(H) 11.5 - 14.5 % [facility] MPV 10.3 8.4 - 12.0 fL [facility] NRBC 0.80(H) 0.00 /100 WBCs [facility] ABSOLUTE NRBC 0.05(H) 0.00 K/uL [facility] DIFF METHOD Auto [facility] NEUTS 68.9 48.0 - 76.0 % [facility] LYMPHS 16.8(L) 18.0 - 41.0 % [facility] [facility] MONOS 9.8 4.0 - 11.0 % [facility] EOS 2.7 0.0 - 5.0 % [facility] BASOS 1.6(H) 0.0 - 1.5 % [facility] Granulocytes, immature (%) 0.2 0.0 - 0.9 % [facility] ABSOLUTE NEUTS 4.30 1.92 - 7.60 K/uL [facility] ABSOLUTE LYMPHS 1.05 0.72 - 4.10 K/uL [facility] ABSOLUTE MONOS 0.61 0.16 - 1.10 K/uL [facility] ABSOLUTE EOS 0.17 0.00 - 0.50 K/uL [facility] ABSOLUTE BASOS 0.10 0.00 - 0.15 K/uL [facility] Granulocytes, immature 0.01 0.00 - 0.09 K/uL [facility] Blood 02/09/2025 7:43 AM EDT 02/09/2025 7:51 AM EDT us Rohith Pritchett MBBS LAB BLOOD BKR ORDERABLES F inal Result [address] [address] * COLONOSCOPY FOR RESULT ENTRY ONLY (08/26/2024 1:34 PM EDT) Historical Provider HEALTH MAINTENANCE Final Result * HM MAMMOGRAPHY FOR RESULT ENTRY ONLY (04/12/2024 10:35 AM EST) Historical Provider HEALTH MAINTENANCE Final Result * (ABNORMAL) Lipid panel (04/08/2024 7:53 AM EST) HDL 94 mg/dL [facility] Comment: Interpretation <40 mg/dL: Low HDL cholesterol (major risk factor for CHD) Greater than or equal to 60 mg/dL: High HDL cholesterol ( negative risk factor for CHD) HDL - cholesterol is affected by a number of factors, e.g. smoking, excerise, hormones, sex and age. CHOLESTEROL 204 0 - 240 mg/dL [facility] TRIGLYCERIDES 69 30 - 160 mg/dL [facility] LDL 96 50 - 129 mg/dL [facility] Comment: LDL levels in terms of risk for coronary heart disease: <100 mg/dL: Optimal 100-129 mg/dL: Near or above optimal 130-159 mg/dL: Borderline high 160-189 mg/dL: High >190 mg/dL: Very High CARDIAC RISK RATIO 2.2(L) 3.3 - 4.4 C [facility] Blood 04/08/2024 7:53 AM EST 04/08/2024 8:02 AM EST Enio Morales MD LAB BLOOD BKR ORDERABLES Daniela l Result [address] [address] * HM DEXA SCAN (06/07/2023 10:14 AM EST) Historical Provider HEALTH MAINTENANCE Final Result * Hepatitis C antibody, qualitative (02/09/2020) Enio Morales MD LAB BLOOD BKR ORDERABLES Edit ed Result - Final * Fecal immunochemical test x1 (FIT) (01/24/2019 7:00 AM EDT) Fecal occult blood Negative Negative [facility] LAB MED AND PAT+ Comment: (NOTE) Negative result. This test will not detect upper gastrointestinal bleeding; the HemoQuant test (6020)should be ordered if clinically indicated. Stool (Stool) 01/24/2019 7:0 0 AM EDT 01/24/2019 9:56 AM EDT us Enio Morales MD LAB BODY FLUIDS AND STOOL ORD ERABLES Final Result [facility] OF LAB MED AND PAT+ [address] [place] [address] from Last 3 Months or Most Recently Relevant to Health Maintenance Insurance MEDICARE PART A & B [employer] SUPPLEMENT MEDICARE PART A & B [employer] MEDEX SUPPLEMENT MEDICARE PART A & B [employer] MED[employer] SUPPLEMENT MEDICARE PART A & B [employer] MED[employer] SUPPLEMENT MEDICARE PART A & B [employer] MEDEX SUPPLEMENT MEDICARE PART A & B [facility] MEDEX SUPPLEMENT MEDICARE PART A & B [employer] MEDEX SUPPLEMENT MEDICARE PART A & B [employer] MEDEX SUPPLEMENT MEDICARE PART A & B Member Subscriber Plan / Payer ( fective 2016-) Name:King Hewitt Member ID:[id number] Relation to Subscriber:Self Name:King Hewitt Subscriber ID:[id number] Payer ID:[id number] Group ID:Not on file Type:Medicare Address: [facility] [employer] [facility] [address] [facility] [place] [address] [employer] SUPPLEMENT [employer] Care Teams Compliance Associate Relationship Specialty Start Date End Date Enio Morales MD [address] [place] [address] [email or web address] PCP - General Internal Medicine 04/14/24 Enio Morales MD [address] [place] [address] Insurance Assigned Provider 07/21/23 Alvin Denton MD [address] [place] [address] Dr SPICER [place], [place] [phone] Neurosurgery 04/24/19 Amber Young PA-C [address] [place] [address] [email or web address] Physician Engineer Booster And Exhauster Hematology 03/19/20 Kimi Lyles CNP [address] [place] [address] [email or web address] Nurse Practitioner Medical Oncology 05/24/23 Rohith Pritchett MBBS [address] [place] [address] [email or web address] Primary Oncologist Hematology and Oncology 08/17/23 Rivka Mcbride NP [address] [place] [address] [email or web address] Nurse Practitioner 07/21/24 Genie Trevizo FNP [address] [place] [address] [email or web address] Registered Nurse Nurse Practitioner 12/18/24 Additional Source Comments The information contained in this document represents components of the legal health record. It is not the complete legal health record.[facility]
--- OUTSIDE RECORDS SUMMARY | 2025-04-15 07:46 | XMS_ITS | Encounter Summary ---
Author Organization [facility] Address [address] [facility] [address] [place] [address] Phone Care Team Providers Care Manager Payment Name Role Phone Enio Morales MD Primary Care Provider Enio Morales MD Unavailable Alvin Denton MD Unavailable Savage Macario MD Unavailable [phone] Amber Young-C Unavailable Kimi Lyles CNP Unavailable Rohith Pritchett MBOLI Unavailable Genie Trevizo Primary Care Provider [phone] Pcp, Unknown Primary Care Provider Unavailabl e Enio Morales MD Primary Care Provider [phone] Rivka Mcbride NP Unavailable Genie Trevizo Unavailable [phone] Encounter Details Date Type Department Care Team (Late st Contact Info) Description 03/29/2023 Procedure Pass [facility] [address] [place], [place] [phone] Social History Tobacco Use Types Packs/Day Years [...] EST Blood Draw [facility] Phleb [facility] [address] [place] [address] 05/05/2025 8:40 AM EST Infusion [facility] Infusion Center [address] [place] [address] 05/25/2025 8:40 AM EST Blood Draw [facility] Phleb [facility] [address] [place] [address] 05/25/2025 9:40 AM EST Office Visit [facility] Hematology Oncology Clinic at [facility] [address] [place] [address] Rohith Pritchett, MEETA [address] [place] [address] [email or web address] 05/25/2025 10:20 AM EST Infusion [facility] [place] [facility] [address] [place] [address] 08/12/2025 9:00 AM EDT Office Visit [facility] Primary Care Clinic [address] [place] [address] Enio Morales MD [address] [place] [address] 08/27/2025 7:15 AM EDT Appointment [address] [address] Enio Morales MD [address] [place] [address] documented as of this encounter Visit Diagnoses Not on filedocumented in this encounter Additional Health Concerns Infection Onset Date Last Indicated Resolved Time CoV-Risk 05/03/2023 05/03/2023 05/14/2023 1:24 AM EST Assessment Noted Time PHQ-9 Depression Total Score: 7 09/10/19 22 11:15 AM EDT PHQ-2 Depression Total Score: 2 12/02/19 23 3:12 PM EDT documented as of this encounter Care Teams Manager Payment Relationship Specialty Start Date End Date Enio Morales MD [address] [place] [address] PCP - General 02/01/17 02/25/24 Genie Trevizo FNP [address] [place] [address] PCP - General Nurse Practitioner 02/26/24 04/07/24 Pcp, Unknown PCP - General 04/08/24 04/13/24 Enio Morales MD [address] [place] [address] [email or web address] PCP - General Internal Medicine 04/14/24 Enio Morales MD [address] [place] [address] [email or web address] Insurance Assigned Provider 07/21/23 Alvin Denton MD [address] [place] [address] [place] [address] Neurosurgery 04/24/19 Savage Macario MD [address] [place] [address] [email or web address] Primary Oncologist Medical Oncology 10/04/20 08/16/23 Amber Young PA-C [address] [place] [address] [email or web address] Physician Instructional Interventionist Hematology 03/19/20 Kimi Lyles CNP [address] [place] [phone] [email or web address] Nurse Practitioner Medical Oncology 05/24/23 Rohith Pritchett MBBS [address] [place] [address] [email or web address] Primary Oncologist Hematology and Oncology 08/17/23 Rivka Mcbride NP [address] [place] [address] [email or web address] Nurse Practitioner 07/21/24 Genie Trevizo FNP [address] [place] [address] [email or web address] Registered Nurse Nurse Practitioner 12/18/24 documented as of this encounter Additional Source Comments The information contained in this document represents components of the legal health record. It is not the complete legal health record.[facility]
--- OUTSIDE RECORDS SUMMARY | 2025-04-15 07:46 | XMS_ITS | Encounter Summary ---
Author Organization [facility] Address [address] [place] [address] Care Team Providers Care Clinical Social Work Aide Name Role Phone Enio Morales MD Primary Care Provider [phone] Encounter Details Date Type Department Care Team (Late st Contact Info) Description 06/25/2020 Scanned Document [facility] Neurosurgery [place] [address] [facility] [address] [place] [phone] Alvin Real MD [address] [facility] [place] [address] [place] [address] [phone] Social History Tobacco Use Types Packs/Day Years [...] on filedocumented in this encounter Care Teams Clinical Social Work Aide Relationship Specialty Start Date End Date Enio Morales MD [address] [place] [address] [phone] PCP - General 09/30/19 documented as of this encounter
--- OUTSIDE RECORDS SUMMARY | 2025-04-15 07:46 | XMS_ITS | Encounter Summary ---
Author Organization [facility] Address [address] [facility] [address] [place] [address] Phone Care Team Providers Care Vision Rehabilitation Therapist Name Role Phone Enio Morales MD Primary Care Provider [phone] Enio Morales MD Unavailable [phone] Alvin Denton MD Unavailable Amber Young PA-C Unavailable Savage Macario MD Unavailable [phone] Amber Young PA-C Unavailable Kimi Lyles CNP Unavailable Rohith Pritchett Unavailable [phone] Genie Trevizo Primary Care Provider [phone] Pcp, Unknown Primary Care Provider Unavailabl e Enio Morales MD Primary Care Provider [phone] Rivka Mcbride NP Unavailable [phone] Genie Trevizo Unavailable [phone] Encounter Details Date Type Department Care Team (Late st Contact Info) Description 03/31/2020 Procedure Pass [facility], Ct Scan - [address] [phone] Social History Tobacco Use Types Packs/Day Years [...] 7:30 AM EST Blood Draw [facility]b [address] [address] 05/05/2025 8:40 AM EST Infusion [facility] Infusion Center [address] [place] [address] 05/25/2025 8:40 AM EST Blood Draw [facility] Phleb [address] [address] 05/25/2025 9:40 AM EST Office Visit [facility] Hematology Oncology Clinic at [address] [address] Rohith Pritchett MBBS [address] [place] [address] [email or web address] [email or web address] 05/25/2025 10:20 AM EST Infusion [facility] Infusion Center [address] [place] [address] 08/12/2025 9:00 AM EDT Office Visit [facility] Primary Care Clinic [address] [place] [address] Enio Morales MD [address] [place] [address] [email or web address] 08/27/2025 7:15 AM EDT Appointment [facility], Bone Density - [address] [address] Enio Morales MD [address] [place] [address] [email or web address] documented as of this encounter Visit Diagnoses Not on filedocumented in this encounter Additional Health Concerns Infection Onset Date Last Indicated Resolved Time CoV-Risk 05/03/2023 05/03/2023 05/14/2023 1:24 AM EST Assessment Noted Time PHQ-2 Depression Total Score: 6 10/03/19 20 11:00 AM EDT documented as of this encounter Care Teams Vision Rehabilitation Therapist Relationship Specialty Start Date End Date Enio Morales MD [address] [place] [address] [email or web address] PCP - General 02/01/17 02/25/24 Genie Trevizo FNP [address] [place] [address] [email or web address] PCP - General Nurse Practitioner 02/26/24 04/07/24 Pcp, Unknown PCP - General 04/08/24 04/13/24 Enio Morales MD [address] [place] [address] PCP - General Internal Medicine 04/14/24 Enio Morales MD [address] [place] [phone] Insurance Assigned Provider 07/21/23 Alvin Denton MD [address] [place] [address] [place] [address] Neurosurgery 04/24/19 Amber Young PA-C [address] [place] [address] [email or web address] Physician Hvac Maintenance Technician Hematology 03/19/20 08/02/22 Savage Macario MD [address] [place] [address] [email or web address] Primary Oncologist Medical Oncology 10/04/20 08/16/23 Amber Young PA-C [address] [place] [address] [email or web address] Physician Hvac Maintenance Technician Hematology 03/19/20 Kimi Lyles CNP [address] [place] [address] [email or web address] Nurse Practitioner Medical Oncology 05/24/23 Rohith Pritchett MBBS [address] [place] [address] [email or web address] Primary Oncologist Hematology and Oncology 08/17/23 Rivka Mcbride NP [address] [place] [address] [email or web address] Nurse Practitioner 07/21/24 Genie Trevizo FNP [address] [place] [address] [email or web address] Registered Nurse Nurse Practitioner 12/18/24 documented as of this encounter Additional Source Comments The information contained in this document represents components of the legal health record. It is not the complete legal health record.[facility]
--- OUTSIDE RECORDS SUMMARY | 2025-04-15 07:47 | XMS_ITS | Encounter Summary ---
Author Organization [facility] Address [address] [place] [address] Care Team Providers Care Metal Riveting Machine Operator Name Role Phone Enio Morales MD Primary Care Provider [phone] Encounter Details Date Type Department Care Team (Late st Contact Info) Description 01/15/2020 Scanned Document [facility] Neurosurgery [place] [address] [phone] Alvin Real MD 85 [facility] [place] [address] [place] [address] Social History Tobacco Use Types Packs/Day Years [...] on filedocumented in this encounter Care Teams Metal Riveting Machine Operator Relationship Specialty Start Date End Date Enio Morales MD [address] [place] [address] PCP - General 09/30/19 documented as of this encounter
--- OUTSIDE RECORDS SUMMARY | 2025-04-15 07:47 | XMS_ITS | Encounter Summary ---
Author Organization [facility] Address [address] [place] [address] Care Team Providers Care Technical Support Analyst Name Role Phone Enio Morales MD Primary Care Provider [phone] Encounter Details Date Type Department Care Team (Late st Contact Info) Description 09/11/2019 Scanned Document [facility] Neurosurgery [place] [address] [phone] Alvin Real MD 85 [facility] [place] [address] [place] [address] Social History Tobacco Use Types Packs/Day Years [...] on filedocumented in this encounter Care Teams Technical Support Analyst Relationship Specialty Start Date End Date Enio Morales MD [address] [place] [phone] PCP - General 09/30/19 documented as of this encounter
--- OUTSIDE RECORDS SUMMARY | 2025-04-15 07:47 | XMS_ITS | Encounter Summary ---
Author Organization [facility] Address [address] [place] [address] Care Team Providers Care Fry Cook Name Role Phone Enio Morales MD Primary Care Provider [phone] Encounter Details Date Type Department Care Team (Late st Contact Info) Description 09/11/2019 Scanned Document [facility] Neurosurgery [place] [address] [phone] Alvin Real MD 85 [facility] [place] [address] [place] [address] Social History Tobacco Use Types Packs/Day Years [...] on filedocumented in this encounter Care Teams Fry Cook Relationship Specialty Start Date End Date Enio Morales MD [address] [place] [phone] PCP - General 09/30/19 documented as of this encounter
--- OUTSIDE RECORDS SUMMARY | 2025-04-15 07:47 | XMS_ITS | Encounter Summary ---
Author Organization [facility] Address [address] [place] [address] Phone Care Team Providers Care Shank Turner Name Role Phone Enio Morales MD Unavailable [phone] Alvin Dalal MD Unavailable Amber Young PAFrancescoC Unavailable Kimi Lyles GUM MACHINE FILLER Unavailable Rohith Pritchett Unavailable Enio Morales MD Primary Care Provider Rivka Mcbride NP Unavailable Genie Trevizo Unavailable [phone] Encounter Details Date Type Department Care Team (Late st Contact Info) Description 04/10/2025 Orders Only [facility] [place] Hematology Oncology Clinic at [facility] [address] [place], [place] [phone] Rivka Mcbride, LÁZARO [address] [place] [address] [email or web address] Social History Tobacco Use Types Packs/Day Years [...] EST Blood Draw [facility] Phleb [facility] [address] [place] [address] 05/05/2025 8:40 AM EST Infusion [facility] Infusion Center [address] [place] [address] 05/25/2025 8:40 AM EST Blood Draw [facility] Phleb [facility] [address] [place] [address] 05/25/2025 9:40 AM EST Office Visit [facility] Hematology Oncology Clinic at [facility] [address] [place] [address] Rohith Pritchett, MEETA [address] [place] [address] [email or web address] 05/25/2025 10:20 AM EST Infusion [facility] [address] [place] [address] 08/12/2025 9:00 AM EDT Office Visit [facility] Primary Care Clinic [address] [place] [address] Enio Morales MD 40 [place] [address] 08/27/2025 7:15 AM EDT Appointment [facility], Bone [address] [address] Enio Morales MD [address] [place] [address] [email or web address] documented as of this encounter Visit Diagnoses Not on filedocumented in this encounter Additional Health Concerns Assessment Noted Time PHQ-9 Depression Total Score: 4 03/20/20 10:58 AM EST PHQ-2 Depression Total Score: 2 03/20/20 10:58 AM EST documented as of this encounter Care Teams Shank Turner Relationship Specialty Start Date End Date Enio Morales MD [address] [place] [address] PCP - General Internal Medicine 04/14/24 Enio Morales MD [address] [place] [address] [phone] Insurance Assigned Provider 07/21/23 Alvin Denton MD [address] [place] [address] [place] [address] Neurosurgery 04/24/19 Amber Young PA-C [address] [place] [address] Physician Leather Worker Hematology 03/19/20 Kimi Lyles CNP [address] [place] [address] [email or web address] Nurse Practitioner Medical Oncology 05/24/23 Rohith Pritchett MBBS [address] [place] [address] [email or web address] Primary Oncologist Hematology and Oncology 08/17/23 Rivka Mcbride, LÁZARO [address] [place] [address] [email or web address] Nurse Practitioner 07/21/24 Genie Trevizo FNP [address] [place] [address] [email or web address] Registered Nurse Nurse Practitioner 12/18/24 documented as of this encounter Additional Source Comments The information contained in this document represents components of the legal health record. It is not the complete legal health record.[facility]
--- OUTSIDE RECORDS SUMMARY | 2025-04-15 07:47 | XMS_ITS | Encounter Summary ---
Author Organization [facility] Address [address] [place] [address] Care Team Providers Care Actor Understudy Name Role Phone Enio Morales MD Primary Care Provider [phone] Encounter Details Date Type Department Care Team (Late st Contact Info) Description 09/11/2019 Scanned Document [facility] Neurosurgery [place] [address] [phone] Alvin Real MD 85 [facility] [place] [address] [place] [address] Social History Tobacco Use Types Packs/Day Years [...] on filedocumented in this encounter Care Teams Actor Understudy Relationship Specialty Start Date End Date Enio Morales MD [address] [place] [address] PCP - General 09/30/19 documented as of this encounter
--- OUTSIDE RECORDS SUMMARY | 2025-04-15 07:47 | XMS_ITS | Encounter Summary ---
Author Organization [facility] Address [address] [employer] [facility] [address] [place] [address] Phone Care Team Providers Care Tank Cooper Name Role Phone Enio Morales MD Unavailable [phone] Alvin Dalal MD Unavailable Amber Young PAFrancescoC Unavailable [phone] Kimi Lyles INSTRUMENT ASSEMBLY SUPERVISOR Unavailable Rohith Pritchett MBBS Unavailable Enio Morales MD Primary Care Provider Rivka Mcbride PRIMARY PRODUCTS INSPECTORS Unavailable [phone] Genie TrevizoP Unavailable Encounter Details Date Type Department Care Team (Late st Contact Info) Description 07/07/2024 Transcribe Orders [facility] Oncology Virtual Department [address] [place], [place] [phone] Enio Morales MD 40 [place], [place] [phone] Social History Tobacco Use Types Packs/Day Years [...] EST Blood Draw [facility] [address] [place] [address] 05/05/2025 8:40 AM EST Infusion [facility] Infusion [facility] [address] [place] [address] 05/25/2025 8:40 AM EST Blood Draw [facility] [address] [address] 05/25/2025 9:40 AM EST Office Visit [facility] Hematology Oncology [facility] at [place] [address] [address] Rohith Pritchett, MEETA [address] [place] [address] [email or web address] 05/25/2025 10:20 AM EST Infusion [facility] [place] [facility] 30 [place] [address] 08/12/2025 9:00 AM EDT Office Visit [facility] Primary Care Clinic 40 [place] [address] Enio Morales MD 40 [place] [address] [email or web address] 08/27/2025 7:15 AM EDT Appointment [facility], [address] [address] Enio Morales MD [address] [place] [address] documented as of this encounter Visit Diagnoses Not on filedocumented in this encounter Additional Health Concerns Assessment Noted Time PHQ-9 Depression Total Score: 4 02/25/20 11:31 AM EST PHQ-2 Depression Total Score: 0 02/25/20 11:31 AM EST documented as of this encounter Care Teams Tank Cooper Relationship Specialty Start Date End Date Enio Morales MD [address] [place] [address] PCP - General Internal Medicine 04/14/24 Enio Morales MD [address] [place] [address] Insurance Assigned Provider 07/21/23 Alvin Denton MD [address] [place] [address] Neurosurgery 04/24/19 Amber Young PA-C [address] [place] [email or web address] Physician Cut Off Saw Operator Pipe Blanks Hematology 03/19/20 Kimi Lyles CNP [address] [place] [address] [email or web address] Nurse Practitioner Medical Oncology 05/24/23 Rohith Pritchett MBBS [address] [place] [address] [email or web address] Primary Oncologist Hematology and Oncology 08/17/23 Rivka Mcbride NP [address] [place] [address] [email or web address] Nurse Practitioner 07/21/24 Genie Trevizo FNP [address] [place] [address] [email or web address] Registered Nurse Nurse Practitioner 12/18/24 documented as of this encounter Additional Source Comments The information contained in this document represents components of the legal health record. It is not the complete legal health record.[facility]
--- OUTSIDE RECORDS SUMMARY | 2025-04-15 07:47 | XMS_ITS | Encounter Summary ---
Author Organization [facility] Address [address] [place] [address] Phone Care Team Providers Care Mixing Picker Tender Name Role Phone Enio Morales MD Unavailable [phone] Alvin Dalal MD Unavailable Amber Young PAFrancescoC Unavailable Kimi Lyles REGENERATION OPERATOR Unavailable Rohith Pritchett Unavailable Enio Morales MD Primary Care Provider Rivka Mcbride ASSOCIATE PROFESSOR OF LIBRARY SCIENCE Unavailable Genie TrevizoP Unavailable Encounter Details Date Type Department Care Team (Late st Contact Info) Description 03/17/2025 Orders Only [facility] Cancer [place] Hematology Oncology Clinic at [address] [address] Rosa Elena [place], [place] 30 [place] [address] Myelodysplastic syndrome (Primary Dx) Social History Tobacco [...] AM EST Blood Draw [facility] [address] [place] [address] 05/05/2025 8:40 AM EST Infusion [facility] [address] [place] [address] 05/25/2025 8:40 AM EST Blood Draw [facility] [address] [place] [address] 05/25/2025 9:40 AM EST Office Visit [facility] Hematology [facility]cology [facility] [place] [address] [address] Rohith Pritchett, MEETA 30 [place] [address] [email or web address] 05/25/2025 10:20 AM EST Infusion [facility] [address] [place] [address] 08/12/2025 9:00 AM EDT Office Visit [facility] Primary Care Clinic 40 [place] [address] Enio Morales MD 40 [place] [address] [email or web address] 08/27/2025 7:15 AM EDT Appointment [facility] - [address] [address] Enio Morales MD [address] [place] [address] [email or web address] documented as of this encounter Results * (ABNORMAL) Iron and Total Iron Binding Capacity (Iron/TIBC) (03/23/2025 7:43 AM EST) Iron 180(H) 28 - 170 ug/dL 03/23/2025 8:32 AM EST [facility] Total Iron-Binding Capacity (TIBC) 277 220 - 460 ug/dL 03/23/2025 8:32 AM [facility] Transferrin Saturation 65(H) 14 - 50 % 03/23/2025 8:32 AM [facility] Blood (Blood) Venipuncture / Unknown 03/23/2025 7:43 AM EST 03/23/2025 7:47 AM EST us Rohith TIM LAB BLOOD BKR ORDERABLES F inal Result [address] [address] * (ABNORMAL) Ferritin (03/23/2025 7:43 AM EST) Ferritin 460(H) 30 - 150 ug/L 03/23/2025 8:32 AM [facility] Blood (Blood) Venipuncture / Unknown 03/23/2025 7:43 AM EST 03/23/2025 7:47 AM EST us Rohith MORRISBS LAB BLOOD BKR ORDERABLES F inal Result [facility] 30 [place] [address] * (ABNORMAL) Comprehensive Metabolic Panel (CMP) (03/23/2025 7:43 AM EST) Sodium 138 136 - 145 mmol/L 03/23/2025 8:32 AM [facility] Potassium 4.5 3.4 - 5.1 mmol/L 03/23/2025 8:32 AM [facility] Chloride 100 98 - 107 mmol/L 03/23/2025 8:32 AM [facility] CO2 26 20 - 31 mmol/L 03/23/2025 8:32 AM [facility] BUN 14 6 - 23 mg/dL 03/23/2025 8:32 AM [facility] Creatinine 0.50 0.50 - 1.00 mg/dL 03/23/2025 8:32 AM [facility] Glucose 105(H) 70 - 99 mg/dL 03/23/2025 8:32 AM [facility] Calcium 9.5 8.5 - 10.5 mg/dL 03/23/2025 8:32 AM [facility] AST 19 <33 U/L 03/23/2025 8:32 AM [facility] ALT 13 <34 U/L 03/23/2025 8:32 AM [facility] Alkaline Phosphatase 71 40 - 130 U/L 03/23/2025 8:32 AM [facility] Bilirubin, Total 0.4 0.0 - 1.2 mg/dL 03/23/2025 8:32 AM [facility] Total Protein 7.9 6.4 - 8.3 g/dL 03/23/2025 8:32 AM EST [facility] Albumin 4.9 3.5 - 5.2 g/dL 03/23/2025 8:32 AM [facility] Globulin 3.0 1.9 - 4.1 g/dL 03/23/2025 8:32 AM [facility] eGFR 103 >59 mL/min/1.7 3m2 03/23/2025 8:32 AM [facility] Comment:Estimated glomerular filtration rate calculated using the CKD-EPI refit equation. Anion Gap 12 3 - 17 mmol/L 03/23/2025 8:32 AM [facility] Blood (Blood) Venipuncture / Unknown 03/23/2025 7:43 AM EST 03/23/2025 7:47 AM EST us Rohith Pritchett MBBS LAB BLOOD BKR ORDERABLES F inal Result Performing Organization Address City/State/[facility] Co de Phone Number [address] [address] documented in this encounter Visit Diagnoses Diagnosis Myelodysplastic syndrome- Primary Myelodysplastic syndrome, unspecified documented in this encounter Additional Health Concerns Assessment Noted Time PHQ-9 Depression Total Score: 4 02/25/20 24 11:31 AM EST PHQ-2 Depression Total Score: 0 02/25/20 11:31 AM EST documented as of this encounter Care Teams Mixing Picker Tender Relationship Specialty Start Date End Date Enio Morales MD 40 [place] [address] [email or web address] PCP - General Internal Medicine 04/14/24 Enio Morales MD 40 [place] [address] [email or web address] Insurance Assigned Provider 07/21/23 Alvin Denton MD [address] [place] [address] [place] [address] Neurosurgery 04/24/19 Amber Young PA-C [address] [place] [address] Physician Tree Faller Hematology 03/19/20 Kimi Lyles CNP [address] [place] [address] Nurse Practitioner Medical Oncology 05/24/23 Rohith Pritchett MBBS [address] [place] [address] [email or web address] Primary Oncologist Hematology and Oncology 08/17/23 Rivka Mcbride, LÁZARO [address] [place] [address] [email or web address] Nurse Practitioner 07/21/24 Genie Trevizo FNP [address] [place] [address] [email or web address] Registered Nurse Nurse Practitioner 12/18/24 documented as of this encounter Additional Source Comments The information contained in this document represents components of the legal health record. It is not the complete legal health record.[facility]
--- OUTSIDE RECORDS SUMMARY | 2025-04-15 07:47 | XMS_ITS | Encounter Summary ---
Author Organization [facility] Address [address] [place] [address] Phone Care Team Providers Care Liquor Clerk Name Role Phone Enio Morales MD Unavailable [phone] Alvin Denton MD Unavailable Amber Young PAFrancescoC Unavailable Kimi Lyles CNP Unavailable Rohith Pritchett Unavailable Enio Morales MD Primary Care Provider Rivka Mcbride PRINT LINE OPERATOR Unavailable Genie Trevizo CVOR NURSE Unavailable Reason for Visit * Reason Onset Date Comments Medication Refill 04/10/2025 CSRP Encounter Details Date Type Department Care Team (Late st Contact Info) Description 04/10/2025 Refill [facility] 40 [place], [place] [phone] Enio Morales MD 40 [place], [place] [phone] [email or web address] Medication Refill (CSRP) Social History Tobacco Use Types Packs/Day Years [...] as of this encounter Progress Notes * Jen Ron - 04/14/2025 2:12 PM EST Patient has follow up scheduled for 08-12-25 * Jen Ron - 04/10/2025 1:05 PM EST Left VM for patient to schedule follow up for July 2025 * Santosh Dang MA - 04/10/2025 12:55 PM EST Images from the original note were not included. CSRP Percocet 10-325mg Due: Today Received: 4 weeks ago Patient reminder Lacy Alamo CMA P [facility] See Telephone encounter 03/13/25, to be filled on 03/20/25 Rx Care Gap Status - Instructions for Clinical Staff (prescriber discretion applies): > Mismatch review guide > No future appt: Please schedule if appropriate. > Check PDMP for all controlled medication requests. Visit Info Last visit: 03/20/2025 Enio Morales MD - Internal Medicine [facility] > Requested f/u: Return in about 20 weeks (around 08/07/2025). Upcoming visit: None ACTIONS TAKEN BY Santosh Dang MA - Checked PDMP/MassPAT. Opioid Rx Protocol - oxycodone HCl/acetaminophen Controlled substance renewals are at prescriber discretion. Pain mgmt profile/toxicology (urine/saliva) may be considered annually or more frequently if indicated. In-person visit in past 2 years: Yes (Last in-person visit: 03/20/2025 (Enio Morales MD - [facility])) Visit in past 4 months: Yes No benzodiazepine on medication list Opioid agreement on file: Yes Pain management profile/toxicology in past 12 months: Yes documented in this encounter Plan of Treatment Upcoming Encounters Date Type Department Care Team (Late st Contact Info) Description 05/05/2025 7:30 AM EST Blood Draw [facility] 30 [place] [address] 05/05/2025 8:40 AM EST Infusion [facility] 30 [place] [address] 05/25/2025 8:40 AM EST Blood Draw [facility] Phleb MG 30 [place] [address] 05/25/2025 9:40 AM EST Office Visit [facility] Hematology Oncology [facility] [place] 30 [place] [address] Rohith Pritchett, MEETA 30 [place] [address] [email or web address] 05/25/2025 10:20 AM EST Infusion [facility] [address] [place] [address] 08/12/2025 9:00 AM EDT Office Visit [facility] [address] [place] [address] Enio Morales MD [address] [place] [address] [phone] 08/27/2025 7:15 AM EDT Appointment [facility] - [address] [address] Enio Morales MD [address] [place] [address] documented as of this encounter Visit Diagnoses Diagnosis Chronic bilateral low back pain with bilateral sciatica Opiate use Poisoning by opium (alkaloids), unspecified MDS (myelodysplastic syndrome) Myelodysplastic syndrome, unspecified documented in this encounter Additional Health Concerns Assessment Noted Time PHQ-9 Depression Total Score: 4 03/20/20 10:58 AM EST PHQ-2 Depression Total Score: 2 03/20/20 10:58 AM EST documented as of this encounter Care Teams Liquor Clerk Relationship Specialty Start Date End Date Enio Morales MD [address] [place] [address] PCP - General Internal Medicine 04/14/24 Enio Morales MD [address] [place] [address] Insurance Assigned Provider 4/6/24 Alvin Denton MD [address] [place] [address] [place] [address] Neurosurgery 04/24/19 Amber Young PA-C [address] [place] [email or web address] Physician Supervisor Plastic Sheets Hematology 03/19/20 Kimi Lyles CNP [address] [place] [address] [email or web address] Nurse Practitioner Medical Oncology 05/24/23 Rohith Pritchett MBBS [address] [place] [address] [email or web address] Primary Oncologist Hematology and Oncology 08/17/23 Rivka Mcbride NP [address] [place] [address] [email or web address] Nurse Practitioner 07/21/24 Genie Trevizo FNP [address] [place] [address] [email or web address] Registered Nurse Nurse Practitioner 12/18/24 documented as of this encounter Additional Source Comments The information contained in this document represents components of the legal health record. It is not the complete legal health record.[facility]
--- OUTSIDE RECORDS SUMMARY | 2025-04-15 07:47 | XMS_ITS | Patient Health Record ---
Author Organization [facility] Address [address] [place] [address] Care Team Providers Care Plug Overwrap Machine Tender Name Role Phone Enio Morales MD Primary Care Provider Gunner Sebastian Jr Unavailable [phone] Allergies Allergen (clinical drug ingredient) Drug/Non Drug Allergy documented on EMR Reaction Allergy Type Onset Date Status Codeine Phosphate Unknown Drug Allergy Active Reason For Referral No Information Medications Medication SIG (Take, Route, Frequency, Duration) Notes Start Date End Date Status Tylenol 1 tablet as needed a s needed Active diphenhydrAMINE HCl 25 MG Capsule 1 capsule at bedtime as needed Orally Once a day; Duration: 30 day(s) 07/07/2024 Active Pantoprazole Sodium 40 MG Tablet Delayed Release Oral; Duration: 90 Days Active buPROPion HCl ER (XL) 300 MG Tablet Extended Release 24 Hour TAKE 1 TABLET BY MOUTH EVERY MORNING. TOTAL OF 450MG DAILY Oral; Duration: 90 Days Active Epoetin Rito 86272 UNIT/ML Solution as directed Injection Active amLODIPine Besylate 5 MG Tablet Oral; Duration: 90 Days Acti ve Fish Oil 1000 MG Capsule 1 capsule Orall y Three times a day Active oxyCODONE-Acetaminophen 10-325 MG Tablet TAKE 1 TABLET BY MOUTH EVERY 4 HOURS NEEDED FOR PAIN. NOT TO EXCEED 6 TABLETS DAILY. PARTIALFILLOK Oral; Duration: 28 Days Active Magnesium 400 MG Capsule as directed Orally Active Womens 50+ Multi Vitamin - Tablet as directed Orally Active oxyCODONE-Acetaminophen Active Vitamin C 1000 MG Tablet 1 tablet Orally Once a day Active Immunizations Vaccine Route Administration Date Status Comme nts Influenza Unknown 02/18/2019 Administered Influenza Unknown 12/16/2019 Administered Influenza Unknown 01/29/2024 Administered Social History Tobacco Use: Social History Observation Description Date Details (start date - stop date) Former Smoker NA - NA Social History Tobacco Use: Social Info Question Answer Notes Tobacco Control (Standard) Tobacco use: Former smoker Additional Details Category Social Info Options Details Miscellaneous: Marital status: Occupation: disabled Problems Problem Type SNOMED Code ICD Code Onset Dates Problem Status W/U Status Risk Notes Problem Colon cancer screening (730592882) Colon cancer screening (Z12.11) Active confirmed Problem Long-term current use of drug therapy (977161074) Long-term current use of high risk medication other than anticoagulant (Z79.899) Active confirmed Problem Gastroesophageal reflux disease (104285540) Gastroesophageal reflux disease, unspecified whether esophagitis present (K21.9) Active confirmed Problem Family history of malignant neoplasm of gastrointestinal tract (611039533) FH: esophageal cancer (Z80.0) Active confirmed Vital Signs Temperature 96.5 degrees Fahrenheit 07/07/2024 Blood pressure diastolic 01 mm Hg 07/07/2024 Height 65 in 07/07/2024 Blood pressure systolic 001 mm Hg 07/07/2024 Weight 135 lbs 07/07/2024 BMI 22.46 kg/m2 07/07/2024 Encounters Encounter Location Date Provider Diagnosis [facility] [place] [address] [place] [id number] 08/26/2024 Gunner العلي Jr Colon cancer screening Z12.11 [facility] [address] [place] [address] 07/07/2024 Gunner العلي Jr Colon cancer screening [...] Date MEDICARE OF [place] [address] [place] [address] [id number] KING HEWITT Self - patient is the insured [employer] ATT[employer] CLAIMS [address] [place] [address] [id number] KING HEWITT Self - patient is the insured Medical (General) History Medical History History ICD Code colon polyps, tubular adenom a x1 on colonoscopy 11/02, five-year followup 11/07 degenerative joint disease cervical cancer disc disease bone marrow cancer myelodysplasia thrombocytosis Surgical History Surgery Date(Month/Year) eye surgery knee surgery hand surgery Back surgery 04/19/2020
--- OUTSIDE RECORDS SUMMARY | 2025-04-15 07:47 | XMS_ITS | Encounter Summary ---
Author Organization [facility] Address [address] [facility] [address] [place] [address] Phone Care Team Providers Care Kardex Clerk Name Role Phone Enio Morales MD Primary Care Provider Enio Morales MD Unavailable Alvin Denton MD Unavailable Amber Young PA-C Unavailable Kimi Lyles CNP Unavailable Rohith Pritchett MBBS Unavailable Genie Trevizo Primary Care Provider Pcp, Unknown Primary Care Provider Unavailabl Enio Valdez MD Primary Care Provider [phone] Rivka Mcbride SPA CONSULTANT Unavailable Genie Trevizo WESTERN TACK ASSEMBLY LINE WORKER Unavailable Encounter Details Date Type Department Care Team (Late st Contact Info) Description 12/26/2023 Procedure Pass [facility] [address] [place], [place] [phone] Social History Tobacco Use Types Packs/Day Years [...] AM EST Blood Draw [facility] [address] [place] [address] 05/05/2025 8:[address] [facility] [address] [place] [address] 05/25/2025 8:40 AM EST Blood Draw [facility] [address] [address] 05/25/2025 9:40 AM EST Office Visit [facility] Hematology [facility]cology [facility] [place] [address] [place] [address] Rohith Pritchett, MEETA [address] [place] [address] [email or web address] 05/25/2025 10:20 AM EST Infusion [facility] [place] [facility] [address] [place] [address] 08/12/2025 9:00 AM EDT Office Visit [facility] Primary Care Clinic 40 [place] [address] Enio Morales MD [address] [place] [address] [email or web address] 08/27/2025 7:15 AM EDT Appointment [facility], [address] [address] Enio Morales MD [address] [place] [address] [email or web address] documented as of this encounter Visit Diagnoses Not on filedocumented in this encounter Additional Health Concerns Assessment Noted Time PHQ-9 Depression Total Score: 4 02/25/20 24 11:31 AM EST PHQ-2 Depression Total Score: 0 02/25/20 24 11:31 AM EST documented as of this encounter Care Teams Kardex Clerk Relationship Specialty Start Date End Date Enio Morales MD [address] [place] [address] [email or web address] PCP - General 02/01/17 02/25/24 Genie Trevizo FNP [address] [place] [address] PCP - General Nurse Practitioner 02/26/24 04/07/24 Pcp, Unknown PCP - General 04/08/24 04/13/24 Enio Morales MD [address] [place] [address] [email or web address] PCP - General Internal Medicine 04/14/24 Enio Morales MD [address] [place] [address] [email or web address] Insurance Assigned Provider 07/21/23 Alvin Denton MD [address] [place] [address] [place] [address] Neurosurgery 04/24/19 Amber Young PA-C [address] [place] [address] [email or web address] Physician Temple Meat Cutter Hematology 03/19/20 Kimi Lyles CNP [address] [place] [address] [email or web address] Nurse Practitioner Medical Oncology 05/24/23 Rohith Pritchett MBBS [address] [place] [address] [email or web address] Primary Oncologist Hematology and Oncology 08/17/23 Rivka Mcbride, LÁZARO [address] [place] [address] [email or web address] Nurse Practitioner 07/21/24 Genie Trevizo FNP 30 [place] [address] [email or web address] Registered Nurse Nurse Practitioner 12/18/24 documented as of this encounter Additional Source Comments The information contained in this document represents components of the legal health record. It is not the complete legal health record.[facility]
--- OUTSIDE RECORDS SUMMARY | 2025-04-15 07:47 | XMS_ITS | Encounter Summary ---
Author Organization [facility] Address [email or web address] [place] [address] Phone Care Team Providers Care 7Th Grade Teacher Name Role Phone Enio Morales MD Unavailable Abd Alvin Dalal MD Unavailable Amber Young PA-C Unavailable Kimi Lyles [employer] Unavailable Rohith Pritchett MBOLI Unavailable Enio Morales MD Primary Care Provider Rivka Mcbride BOX FINISHER Unavailable Genie TrevizoP Unavailable Encounter Details Date Type Department Care Team (Late st Contact Info) Description 04/13/2025 Telephone [facility] [address] [place], [place] [phone] Kimi Rodriguez, RN [address] [place], [place] [phone] [email or web address] Social History Tobacco Use Types Packs/Day Years [...] as of this encounter Progress Notes * Kimi Rodriguez, RN - 04/13/2025 2:44 PM EST Ritu was on the schedule for luspatercept today. She didn't show up and I don't see any telephone encounters of her calling in, so I just wanted to reach out for her to be rescheduled pls. Thank you, Kimi documented in this encounter Plan of Treatment Upcoming Encounters Date Type Department Care Team (Late st Contact Info) Description 05/05/2025 7:30 AM EST Blood Draw [facility] [address] [place] [address] 05/05/2025 8:40 AM EST [facility] [address] [place] [address] 05/25/2025 8:40 AM EST Blood Draw [facility] [address] [place] [address] 05/25/2025 9:40 AM EST Office Visit [facility] Hemat[facility] Oncology Clinic at [address] [address] Rohith Pritchett MBBS [address] [place] [address] [email or web address] 05/25/2025 10:20 AM EST Infusion [facility] Infusion Center [address] [place] [address] 08/12/2025 9:00 AM EDT Office Visit [facility] [address] [place] [address] Enio Morales MD [address] [place] [address] 08/27/2025 7:15 AM EDT Appointment [facility] - [address] [address] Enio Morales MD [address] [place] [address] documented as of this encounter Visit Diagnoses Not on filedocumented in this encounter Additional Health Concerns Assessment Noted Time PHQ-9 Depression Total Score: 4 03/20/20 10:58 AM EST PHQ-2 Depression Total Score: 2 03/20/20 10:58 AM EST documented as of this encounter Care Teams 7Th Grade Teacher Relationship Specialty Start Date End Date Enio Morales MD [address] [place] [address] PCP - General Internal Medicine 04/14/24 Enio Morales MD [address] [place] [address] [email or web address] Insurance Assigned Provider 07/21/23 Alvin Denton MD [address] [place] [address] [place] [address] Neurosurgery 04/24/19 Amber Young PA-C [address] [place] [address] [email or web address] Physician Instructor Ballroom Dancing Hematology 03/19/20 Kimi Lyles CNP [address] [place] [address] [email or web address] Nurse Practitioner Medical Oncology 05/24/23 Rohith Pritchett MBBS [address] [place] [address] [email or web address] Primary Oncologist Hematology and Oncology 08/17/23 Rivka Mcbride NP [address] [place] [address] [email or web address] Nurse Practitioner 07/21/24 Genie Trevizo FNP [address] [place] [address] [email or web address] Registered Nurse Nurse Practitioner 12/18/24 documented as of this encounter Additional Source Comments The information contained in this document represents components of the legal health record. It is not the complete legal health record.[facility]
--- OUTSIDE RECORDS SUMMARY | 2025-04-15 07:47 | XMS_ITS | Encounter Summary ---
Author Organization [facility] Address [address] [place] [address] Care Team Providers Care Product Safety Administrator Name Role Phone Enio Morales MD Primary Care Provider [phone] Encounter Details Date Type Department Care Team (Late st Contact Info) Description 05/06/2020 Scanned Document [facility] Neurosurgery [place] 85 [facility] [address] [place] [phone] Alvin Real MD 85 [facility] [place] [address] [place] [address] [phone] Social History Tobacco Use Types Packs/Day Years [...] on filedocumented in this encounter Care Teams Product Safety Administrator Relationship Specialty Start Date End Date Enio Morales MD [address] [place] [address] [phone] PCP - General 09/30/19 documented as of this encounter
--- OUTSIDE RECORDS SUMMARY | 2025-04-15 07:47 | XMS_ITS | Encounter Summary ---
Author Organization [facility] Address [address] [place] [address] Care Team Providers Care Automotive General Manager Name Role Phone Enio Morales MD Primary Care Provider [phone] Encounter Details Date Type Department Care Team (Late st Contact Info) Description 09/11/2019 Scanned Document [facility] Neurosurgery [place] [address] [phone] Alvin Real MD 85 [facility] [place] [address] [place] [address] Social History Tobacco Use Types Packs/Day Years [...] on filedocumented in this encounter Care Teams Automotive General Manager Relationship Specialty Start Date End Date Enio Morales MD [address] [place] [address] PCP - General 09/30/19 documented as of this encounter
--- OUTSIDE RECORDS SUMMARY | 2025-04-15 07:47 | XMS_ITS | Encounter Summary ---
Author Organization [facility] Address [address] [place] [address] Care Team Providers Care Wood Crew Supervisor Name Role Phone Enio Morales MD Primary Care Provider [phone] Encounter Details Date Type Department Care Team (Late st Contact Info) Description 11/06/2019 Scanned Document [facility] Neurosurgery [place] [address] [phone] Alvin Real MD 85 [facility] [place] [address] [place] [address] Social History Tobacco Use Types Packs/Day Years [...] on filedocumented in this encounter Care Teams Wood Crew Supervisor Relationship Specialty Start Date End Date Enio Morales MD [address] [place] [address] PCP - General 09/30/19 documented as of this encounter
--- OUTSIDE RECORDS SUMMARY | 2025-04-15 07:47 | XMS_ITS | Encounter Summary ---
Author Organization [facility] Address [address] [place] [address] Phone Care Team Providers Care Truck Body Builder Name Role Phone Enio Morales MD Unavailable [phone] Alvin Dalal MD Unavailable Amber Young PA-C Unavailable Kimi Lyles VOCATIONAL TRAINER Unavailable Rohith Pritchett MBOLI Unavailable Enio Morales MD Primary Care Provider [phone] Rivka Mcbride LEATHER SOFTENER Unavailable Genie TrevizoP Unavailable Encounter Details Date Type Department Care Team (Late st Contact Info) Description 04/13/2025 Telephone [facility] 30 [place], [place] [phone] Kimi Rodriguez, RN 30 [place], [place] [phone] [email or web address] Social History Tobacco Use Types Packs/Day Years [...] as of this encounter Progress Notes * Elizabeth Winchester - 04/14/2025 11:15 AM EST Pt called requesting to know if she missed appts yesterday. I confirmed that she did. Per pt request, please advise if this can be skipped so she comes in as scheduled for her next one,or if she needs to r/s. Thank you! * Kimi Rodriguez, HO - 04/13/2025 2:50 PM EST Ritu was on the schedule [...] 7:30 AM EST Blood Draw [facility] [address] [address] 05/05/2025 8:40 AM EST Infusion [facility] [address] [place] [address] 05/25/2025 8:40 AM EST Blood Draw [facility] [address] [address] 05/25/2025 9:40 AM EST Office Visit [facility] Hematology Oncology Clinic at [address] [address] Rohith Pritchett MBBS [address] [place] [address] [email or web address] 05/25/2025 10:20 AM EST Infusion [address] [address] 08/12/2025 9:00 AM EDT Office Visit [facility] Clinic [address] [place] [address] [phone] Enio Morales MD [address] [place] [address] [phone] 08/27/2025 7:15 AM EDT Appointment [facility] - [address] [address] Enio Morales MD [address] [place] [address] documented as of this encounter Visit Diagnoses Not on filedocumented in this encounter Additional Health Concerns Assessment Noted Time PHQ-9 Depression Total Score: 4 03/20/20 10:58 AM EST PHQ-2 Depression Total Score: 2 03/20/20 10:58 AM EST documented as of this encounter Care Teams Truck Body Builder Relationship Specialty Start Date End Date Enio Morales MD [address] [place] [address] [email or web address] PCP - General Internal Medicine 04/14/24 Enio Morales MD [address] [place] [address] [email or web address] Insurance Assigned Provider 07/21/23 Alvin Denton MD [address] [place] [address] [place] [address] Neurosurgery 04/24/19 Amber Young PA-C [address] [place] [address] [email or web address] Physician Gymnastic Teacher Hematology 03/19/20 Kimi Lyles CNP [address] [place] [phone] [email or web address] Nurse Practitioner Medical Oncology 05/24/23 Rohith Pritchett MBBS [address] [place] [address] [email or web address] Primary Oncologist Hematology and Oncology 08/17/23 Rivka Mcbride, LÁZARO [address] [place] [address] [email or web address] Nurse Practitioner 07/21/24 Genie Trevizo FNP [address] [place] [address] [email or web address] Registered Nurse Nurse Practitioner 12/18/24 documented as of this encounter Additional Source Comments The information contained in this document represents components of the legal health record. It is not the complete legal health record.[facility]
== END 2025-04-15 07:44 | disposition home or self-care (01) ==
LOC: HO.MAMMO 07:43
PROVIDERS: PCP Internal Medicine; Visit Provider Internal Medicine
DX: Z12.31 Encounter for screening mammogram for malignant neoplasm of breast (principal)
CPT/HCPCS: 77063; 77067

== ENCOUNTER → 2025-04-15 07:45 | Outpatient (BNV) | payer MEDICARE, SELFPAY | PROVIDERS: PCP Internal Medicine; Visit Provider Internal Medicine | DX: Z12.31 Encounter for screening mammogram for malignant neoplasm of breast (principal) | CPT/HCPCS: 77063; 77067 ==